=== PATIENT | male | born 1940 | race Caucasian/White ===

== ENCOUNTER 2019-07-06 17:13 | Inpatient (IN) | payer MEDICARE ==
[~2019-07-06] VITALS: Ht 167.6 cm; Wt 61.7 kg
--- NOTE | 2019-07-06 17:20 | NUR ---
ED Nurse Note: Patient here from home for elective BCIR redo surgery. Patient stated the stoma has been prolapsing randomly and emptying the contents. Patient states he can feel that some sutures came out inside. Dr. Orellana aware and surgery has been planned. Patient AxO x 4, no s/s of acute distress. VSS. at bedside. Urine sent to lab, blood drawn from power port and sent to lab.
--- NOTE | 2019-07-06 17:58 | Emergency Room Report ---
History of Present Illness General Chief Complaint: General Complaint Source: Patient Present Illness HPI Disclaimer: Please note that this report is being documented using DRAGON technology. This can lead to erroneous entry secondary to incorrect interpretation by the dictating instrument. HPI: 79-year-old male with a history of CAD status post multiple bypasses, ulcerative colitis status post BCIR ostomy over 33 years ago with revision 2 years ago in [place] presents for evaluation of prolapsed ostomy. He has been in usual state of health until his ostomy prolapsed a few days ago. He is able to manually reduce it. Denies abdominal pain, changes in output, fever, chills , chest pain, shortness of breath or other changes in his health. He is here to see Dr. Orellana for operative repair. No complaints at this time. PMH: CAD status post multiple bypasses, bilateral carotid stents, ulcerative colitis status post BCIR PSH: [place] continent internal reservoir Allergies: None reported Social Hx: Occasional beer Allergies: Coded Allergies: No Known Allergies (Unverified , 07/06/19) Nursing Documentation-PMH Past Medical History: No History, Except For Hx Cardiac Problems: Yes - CABAG 10 years ago Hx Gastrointestinal Problems: Yes - BCIR 2 years ago Hx Cerebrovascular Accident: Yes - 7 years ago Review of Systems All Other Systems: negative except mentioned in HPI Physical Exam Vital Signs Date Time Temp Pulse Resp B/P (MAP) Pulse Ox O2 Delivery O2 Flow Rate FiO2 07/06/19 17:18 98.1 77 17 158/94 (115) 98 Room Air General: Awake and alert, no acute distress HEENT: NC/AT. EOMI. Cardiovascular: RRR. S1 and S2 normal. No murmur appreciated Resp: Normal work of breathing. No cough, wheezing or crackles appreciated Abdomen: Abdomen is soft, nondistended. Nontender. Ostomy in the right lower quadrant with prolapse approximately 2 cm. Is easily reducible. Mucosa appears healthy, nonfriable, pink and well perfused. Skin: Intact. No abrasions, laceration or rash over the exposed skin MSK: Normal tone and bulk. Moving all extremities. No obvious deformity. Neuro: Awake and alert. Mentating appropriately. Medical Decision Making Diagnostic Impression: Primary Impression: Colostomy prolapse ER Course 79-year-old male with a history of ulcerative colitis status post BCIR ostomy procedure presents for surgical evaluation by Dr. Orellana for prolapsed ostomy. We will start IV line, IV fluids, check preop labs and EKG. Patient will be admitted to the care of Dr. Orellana for further management. He is well -appearing and has no complaints. Do not believe he requires imaging or other acute interventions at this time. Laboratory Tests Test 07/06/19 18:00 White Blood Count 8.7 K/UL (4.8-10.8) Red Blood Count 4.83 M/UL (4.70-6.10) Hemoglobin 13.2 G/DL (14.2-18.0) L Hematocrit 42.1 % (42.0-52.0) Mean Corpuscular Volume 87 FL (80-99) Mean Corpuscular Hemoglobin 27.2 PG (27.0-31.0) Mean Corpuscular Hemoglobin Concent 31.2 G/DL (32.0-36.0) L Red Cell Distribution Width 16.8 % (11.6-14.8) H Platelet Count 265 K/UL (150-450) Mean Platelet Volume 5.3 FL (6.5-10.1) L Neutrophils (%) (Auto) 55.9 % (45.0-75.0) Lymphocytes (%) (Auto) 29.2 % (20.0-45.0) Monocytes (%) (Auto) 11.2 % (1.0-10.0) H Eosinophils (%) (Auto) 2.7 % (0.0-3.0) Basophils (%) (Auto) 1.1 % (0.0-2.0) Prothrombin Time 9.8 SEC (9.30-11.50) Prothrombin Time INR 0.9 (0.9-1.1) PTT 27 SEC (23-33) Sodium Level 141 MMOL/L (136-145) Potassium Level 3.8 MMOL/L (3.5-5.1) Chloride Level 104 MMOL/L (98-107) Carbon Dioxide Level 26 MMOL/L (21-32) Anion Gap 11 mmol/L (5-15) Blood Urea Nitrogen 18 mg/dL (7-18) Creatinine 1.4 MG/DL (0.55-1.30) H Estimate Glomerular Filtration Rate mL/min (>60) Glucose Level 92 MG/DL (74-106) Calcium Level 8.6 MG/DL (8.5-10.1) Total Bilirubin 0.2 MG/DL (0.2-1.0) Aspartate Amino Transferase (AST) 20 U/L (15-37) Alanine Aminotransferase (ALT) 20 U/L (12-78) Alkaline Phosphatase 71 U/L (46-116) Total Protein 7.4 G/DL (6.4-8.2) Albumin 3.3 G/DL (3.4-5.0) L Globulin 4.1 g/dL Albumin/Globulin Ratio 0.8 (1.0-2.7) L EKG Diagnostic Results EKG Time: 18:02 Rate: normal Rhythm: NSR ST Segments: no acute changes Other Impression Sinus rhythm, left axis deviation, inferior Q waves, no acute ST segment changes Rhythm Strip Diag. Results Rhythm Strip Time: 18:02 EP Interpretation: yes Rate: 60s Rhythm: NSR, no PVC's, no ectopy Last Vital Signs Date Time Temp Pulse Resp B/P (MAP) Pulse Ox O2 Delivery O2 Flow Rate FiO2 07/06/19 17:18 98.1 77 17 158/94 (115) 98 Room Air Disposition: ADMITTED INPATIENT Condition: Serious Miguel Lafleur MD Jul 06, 2019 17:58
[2019-07-06 18:21] LABS: BASOPHILS % (AUTO) 1.1 % (0.0-2.0); EOSINOPHILS % (AUTO) 2.7 % (0.0-3.0); HEMATOCRIT 42.1 % (42.0-52.0); HEMOGLOBIN 13.2 G/DL (14.2-18.0); LYMPHOCYTES % (AUTO) 29.2 % (20.0-45.0); MEAN CORPUSCULAR VOLUME 87 FL (80-99); MONOCYTES % (AUTO) 11.2 % (1.0-10.0); NEUTROPHILS % (AUTO) 55.9 % (45.0-75.0); PLATELET COUNT 265 K/UL (150-450); RED BLOOD COUNT 4.83 M/UL (4.70-6.10); RED CELL DISTRIBUTION WIDTH 16.8 % (11.6-14.8); WHITE BLOOD COUNT 8.7 K/UL (4.8-10.8)
[2019-07-06 18:26] LABS: INR 0.9 (0.9-1.1)
[2019-07-06 18:27] LABS: ANION GAP 11 mmol/L (5-15); BLOOD UREA NITROGEN 18 mg/dL (7-18); CALCIUM 8.6 MG/DL (8.5-10.1); CARBON DIOXIDE 26 MMOL/L (21-32); CHLORIDE 104 MMOL/L (98-107); CREATININE 1.4 MG/DL (0.55-1.30); POTASSIUM 3.8 MMOL/L (3.5-5.1); SODIUM 141 MMOL/L (136-145)
[2019-07-06 18:32] LABS: ALANINE AMINOTRANSFERASE 20 U/L (12-78); ALBUMIN 3.3 G/DL (3.4-5.0); ALBUMIN/GLOBULIN RATIO 0.8 (1.0-2.7); ALKALINE PHOSPHATASE 71 U/L (46-116); ASPARTATE AMINO TRANSFERASE 20 U/L (15-37); BILIRUBIN,TOTAL 0.2 MG/DL (0.2-1.0)
--- NOTE | 2019-07-06 18:39 | NUR ---
ED Nurse Note: Report given to Ivory HERNANDEZ
[2019-07-06 18:50] VITALS: BP 158/94
--- NOTE | 2019-07-06 19:01 | NUR ---
NURSE NOTES: Patient arrived on unit via gurney. Patient assisted to hospital bed without incident. Patient oriented to room, call light, and unit. Patient instructed to use call light for assistance, verbalized understanding. Patient is hard of hearing in [place] ears. Upon assessment, skin is c/d/i. Stoma is in RLQ. Stoma is bright red and protruding outwards, no drainage or bleeding noted, no stool output noted coming from stoma. Stoma covered with dry dressing. All admission orders endorsed to manager night RN. BP 164/94, p 70, t 97.3, O2: 96%, 20 respirations. Denies pain at this time. Patient has a portacath on right upper chest accessed in ER. Patient in bed in locked and lowest position with call light within reach and trapeze overhead. Plan of care discussed with patient.
--- NOTE | 2019-07-06 19:30 | NUR ---
HAND-OFF: Report given to Maru HERNANDEZ. Patient is stable.
[2019-07-06] MEDS: D5 1/2NS w/KCl 20mEq 1,000 ML IV SCH (21:47)
[2019-07-07] VITALS: BP 146/87
--- NOTE | 2019-07-07 03:05 | NUR ---
NURSES NOTE: Met pt in bed, A/O X4, communicative, denies pain currently. Spouse at bedside. No outward s/s of distress noted. Breathing pattern is even and unlabored on RA. VS within normal limits. BP elevated, but has proceeded come down with each VS check. Stoma, lower right quadrant is prolapsed, bright red in color. Inserted ileostomy tubing and connected tubing to collecting bag. Flushed Ileo with 40 cc NS. Inserted without incident. Portacath Upper right chest is patent, infusing fluids according to eMAR. Head to toe assessment performed. Skin is intact. All due medications will be given. Bed at lowest level, call light within reach. Pt will continue to be monitored.
[2019-07-07 03:24] LABS: APPEARANCE,URINE CLEAR; BILIRUBIN, URINE NEGATIVE (NEGATIVE); COLOR,URINE PALE YELLOW; GLUCOSE, URINE (UA) NEGATIVE (NEGATIVE); KETONES,URINE NEGATIVE (NEGATIVE); LEUKOCYTE ESTERASE ,URINE NEGATIVE (NEGATIVE); NITRITE,URINE NEGATIVE (NEGATIVE); PH,URINE 7 (4.5-8.0); PROTEIN,URINE NEGATIVE (NEGATIVE); UROBILINOGEN,URINE NORMAL MG/DL (0.0-1.0)
[2019-07-07 04:00] VITALS: BP 145/85
[2019-07-07 06:53] LABS: INR 0.9 (0.9-1.1)
[2019-07-07 07:03] LABS: BASOPHILS % (AUTO) 0.7 % (0.0-2.0); EOSINOPHILS % (AUTO) 1.4 % (0.0-3.0); HEMATOCRIT 34.9 % (42.0-52.0); LYMPHOCYTES % (AUTO) 23.4 % (20.0-45.0); MEAN CORPUSCULAR VOLUME 87 FL (80-99); MONOCYTES % (AUTO) 7.9 % (1.0-10.0); NEUTROPHILS % (AUTO) 66.6 % (45.0-75.0); PLATELET COUNT 215 K/UL (150-450); RED CELL DISTRIBUTION WIDTH 16.4 % (11.6-14.8); WHITE BLOOD COUNT 6.2 K/UL (4.8-10.8)
--- NOTE | 2019-07-07 07:10 | NUR ---
HAND OFF: Report given to violetta Dodson.
--- NOTE | 2019-07-07 07:30 | NUR ---
NURSE NOTES: Patient is in bed AOx4 and able to verbalize needs. Stable. Denies pain or SOB. Patient is hard of hearing, Mikel is at bedside assisting with communication. Plan of care discussed with patient. Will flush ileo [id number] as ordered. Ileo draining to bag as ordered. IVF running as ordered through portacath. Patient is in bed in locked and lowest position with call light within reach and trapeze overhead. All needs met at this time. WIll continue to monitor.
[2019-07-07 08:00] VITALS: BP 183/81
[2019-07-07 08:15] LABS: ALANINE AMINOTRANSFERASE 21 U/L (12-78); ALBUMIN 2.3 G/DL (3.4-5.0); ALBUMIN/GLOBULIN RATIO 0.7 (1.0-2.7); ALKALINE PHOSPHATASE 56 U/L (46-116); ANION GAP 7 mmol/L (5-15); ASPARTATE AMINO TRANSFERASE 20 U/L (15-37); BILIRUBIN,TOTAL 0.2 MG/DL (0.2-1.0); BLOOD UREA NITROGEN 13 mg/dL (7-18); CALCIUM 7.9 MG/DL (8.5-10.1); CARBON DIOXIDE 26 MMOL/L (21-32); CHLORIDE 109 MMOL/L (98-107); CREATININE 1.1 MG/DL (0.55-1.30); FERRITIN 61 NG/ML (8-388); SODIUM 142 MMOL/L (136-145)
--- NOTE | 2019-07-07 08:15 | NUR ---
NURSES NOTE: Amendment- True ilio: 150cc 250cc-100 cc for flushes. Extra 20 cc given at first flush when putting in catheter and collecting bag.
[2019-07-07 08:21] LABS: % IRON SATURATION 9 % (15-50); IRON 20 ug/dL (50-175); TOTAL IRON BINDING CAPACITY 235 ug/dL (250-450)
[2019-07-07] MEDS ORDERED: Omnipaque-300 100ml vial INJ PRN (08:30)
--- NOTE | 2019-07-07 08:34 | General Progress Note ---
Progress Note Progress Note H&P dictated. History of Ulcerative Colitis with proctocolectomy and London continent ileostomy 1985, revision in [place] 2018. Recent months of bleeding from pouch resolved with Prednisone and Humira [id number]. 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 conventional ileostomy Pako Orellana MD Jul 07, 2019 08:34
[2019-07-07] MEDS: Tamsulosin 0.4mg cap ORAL SCH (08:54)
--- NOTE | 2019-07-07 09:04 | NUR ---
RADIOLOGY DEPT., CHEST X-RAY DONE.-P.DYE
--- NOTE | 2019-07-07 09:05 | Diagnostic Imaging Report ---
. Indication: Chest pain Technique: One view of the chest Comparison: none Findings: There is evidence of prior median sternotomy. There is a right chest port catheter. Lungs and pleural spaces are clear. The heart size is normal. The aorta is tortuous and calcified Impression: No acute process
--- NOTE | 2019-07-07 09:20 | NUR ---
NURSE NOTES: Flushed patient's ileo with 20cc NS as ordered. Tolerated well. Patient has no c/o discomfort or abdominal pain. No abdominal distension noted at this time. Patient is able to void in urinal, yellow urine noted. No c/o burning or discomfort while urinating. Patient is aware of I&O monitoring throughout shift.
--- NOTE | 2019-07-07 09:29 | NUR ---
RD ASSESSMENT & RECOMMENDATIONS SEE CARE ACTIVITY FOR COMPLETE ASSESSMENT DAILY ESTIMATED NEEDS: Needs based on Pending surgery/ 59kg 25-30 kcals/kg 8600-4803 total kcals 1-2 g protein/kg 59-118 g total protein 25-30 mL/kg 8690-7898 total fluid mLs NUTRITION DIAGNOSIS: Altered GI function R/T h/o UC, BCIR as evidenced by admitted for recurring prolapse of [place] pouch valve with incontinence, pending surgery, w/ an order for TPN. CURRENT DIET:CLD PO DIET RECOMMENDATIONS: DIET PER MD PARENTERAL NUTRITION RECOMMENDATIONS: D/AA Rate: 66 IL Rate: 9 Total Rate: 75 Volume: 1800 % Dextrose: 17 % AA: 5.3 Energy (kcals/kg): 1683.5 Protein (g/kg protein): 84 Nonprotein KCALS: 1347.5 GIR (mg CHO/kg/min): 3.16 % Fat KCALS: 26 NCP: N Ratio: 100.2 TPN Comment: * D17% AA 5.3% @ 66ml/hr + IL20% @ 9ml/hr-> total of 75ml/hr, all 3:1 * Start rate per MD * TPN @ goal provides 100% est kcal/prot needs -> 29kcal/1.4g prot per kg actual body wt ADDITIONAL RECOMMENDATIONS: * Rec obtaining standing wt for accurate CBW * Monitor BGs closely while on Prednisone * Monitor BGs, LFTs, lytes closely on TPN
--- NOTE | 2019-07-07 10:00 | Pre-op HX & Phy Repo 2 SIG ---
DATE OF ADMISSION: 07/06/2019 Admitted from the emergency room, July 06, 2019 in the evening. HISTORY OF PRESENT ILLNESS: The patient is an 79-year-old male who presents with recurring prolapse of his [place] continent ileostomy valve coming and protruding out of the stoma associated with gross incontinence. The patient has a past history of ulcerative colitis and in 1984 he underwent proctocolectomy with creation of a [place] continent ileostomy. It had to be revised twice in subsequent years. In August 2017, in [place], he underwent surgery to create a new valve and stoma preserving the [place] continent ileostomy pouch. The patient states that for the past six months he has had recurring episodes with the valve prolapses through the stoma of 5 to 6 centimeters above the skin. He has to manually reduce it. There was gross incontinence and then he is able to self catheterize again. The patient had considerable GI bleeding from his pouch a year ago and has been treated with Humira every two weeks by his cutter and presser in [place] and he also takes prednisone 5 mg daily. The patient is admitted to undergo evaluation in preparation for surgical revision of his London pouch. MEDICATIONS: Prednisone 5 mg daily, thyroid, statin, potassium supplements, and Humira every two weeks. ALLERGIES: Ativan. OPERATIONS: In addition to the above, he has undergone open cholecystectomy, cataract surgery, and ear surgery. REVIEW OF SYSTEMS: history of polycythemia requiring infusion port and phlebotomy, due to testosterone therapy which was discontinued and condition resolved but port left in place PHYSICAL EXAMINATION: GENERAL: The patient is 5 feet 8 inches, 135 pounds. VITAL SIGNS: His blood pressure was elevated. He states he has never had hypertension before. Blood pressure is in 160s over 90s systolic and diastolic. HEENT: Within normal limits. LUNGS: Clear. HEART: Regular rhythm. BREASTS: Without masses. Infusion port left upper anterior chest ABDOMEN: Soft. There is a long midline incision and multiple other scars of right subcostal scar. The stoma of the London pouch is low in the right lower quadrant with a significant parastomal hernia. There is reducible valve prolapse. RECTAL: Status post proctectomy. GENITALIA: Within normal limits. EXTREMITIES: Without edema. Pulses are 2+ femoral to pedal bilaterally. NEUROLOGIC: Physiologic. IMPRESSION: 1. Malfunctioning London continent ileostomy with recurrent prolapse of the valve through the stoma with incontinence. 2. New-onset hypertension on this admission. 3. Past history of polycythemia 4 years ago with placement of an infusion port, which resolved with discontinuation of testosterone. 4. History of ulcerative colitis. 5. STATUS POST MULTIPLE ABDOMINAL OPERATIONS: 5.1. Proctocolectomy and [place] continent ileostomy in 1984. 5.2. Revisions of London pouch x2. 5.3. Open cholecystectomy. 5.4. Revision of London pouch August 2017 performed in [place]. PLAN: The patient will be evaluated with a CT scan of abdomen and pelvis with oral contrast and an indwelling catheter will be placed into his [place] pouch to continuous drainage. He will also need to undergo pouch endoscopy. We will have cardiology evaluation regarding his new-onset hypertension and he will be prepared for surgery. I have discussed with the patient and the possibility of revising his pouch or removing it and doing a permanent conventional ileostomy, which she wants to avoid if possible. Pako Orellana M.D. DR: VERONIQUE JOB#: [id number] CC: ANU
--- NOTE | 2019-07-07 10:30 | NUR ---
NURSE NOTES: EKG done this am, normal sinus rhythm. Patient taken to CT via gurney. Will monitor patient when he returns to unit. All belongings in room with .
--- NOTE | 2019-07-07 10:51 | NUR ---
NURSE NOTES: Patient returned from CT and assisted back to bed. Will continue to monitor.
--- NOTE | 2019-07-07 11:36 | Diagnostic Imaging Report ---
Clinical Indication: Recurring prolapse of continent ileostomy, incontinence Technique: Patient given oral contrast. IV administration nonionic contrast. Venous phase spiral acquisition obtained through the abdomen and pelvis. Multiplanar reconstructions were generated. Total dose length product 808 mGycm. CTDIvol(s) 15 mGy. Dose reduction achieved using automated exposure control Comparison: none Findings: Patient is status post proctocolectomy. There is a right lower quadrant continent ileostomy. There is suggestion of a small amount of bowel herniated into the ileostomy defect and surrounding the stoma. The entering and exiting small bowel are not well demonstrated, however. No definite bowel distention appears to be associated with the hernia. The nipple protrudes less far into the pouch than would be expected.. The pouch is catheterized with a [place] catheter. No contrast is seen within the catheter lumen. However, ingested contrast is seen throughout the entirety of the small bowel and does distended the pouch. There is debris floating nondependently within the pouch. There is a distended loop of small bowel in the left upper quadrant. This is probably physiologic as it is surrounded by an anastomotic staple line. There is no evidence of obstructive pathology. No fluid collections. No free or loculated intraperitoneal gas or fluid is evident. The distal esophagus, stomach, duodenum are unremarkable. The gallbladder has been removed. No biliary ductal dilatation. The liver pancreas, spleen, adrenals are unremarkable. There is mild bilateral hydronephrosis. No definite ureteral dilatation or obstruction demonstrated. The bladder is mildly distended and demonstrates borderline wall thickening. A calcification is seen in the nondependent portion of the bladder. There is uncertain whether this is a mural calcification or an intraluminal calcification, and mucosal fold. There is suggestion of a shallow posterior bladder diverticulum The prostate is mildly prominent. No pelvic mass or adenopathy. No focal renal abnormality. 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 There appears to be a small focal associated chronic dissection. The aneurysm measures 4.4 cm in diameter by 4.7 cm in length. There is mural thrombus within the eccentric portion. There is lumbar scoliotic deformity. There is considerable degenerative spondylosis change. There is bilateral L5 spondylolysis and grade 2 L5 on S1 spondylolisthesis and severe degenerative changes of the L5-S1 disc. Included lung bases demonstrate hyperinflation and evidence of extensive chronic fibrotic change. Impression: Postsurgical changes, as described, with right lower quadrant continent ileostomy and evidence of prior proctocolectomy Apparent parastomal hernia, with small bowel surrounding the stoma. The relationship of this with the rest of the small bowel is not clearly delineated, as the entering and exiting small bowel is not clearly seen. No evidence of bowel obstruction, however. Baldwin than expected nipple within the pouch. 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 There also appears to be a small focal chronic dissection flap. Follow-up surveillance recommended. Bilateral mild hydronephrosis. This may be either due to mild congenital ureteropelvic junction obstruction or chronic bladder outlet obstruction Mildly distended mildly thick-walled bladder. Possible shallow diverticulum. Possible mural calcification versus bladder calculus trapped within a mucosal fold, favor the former Basilar pulmonary parenchymal hyperinflation and evidence of chronic fibrotic change. Correlate with clinical history Bilateral L5 spondylolysis, grade 2 L5 on S1 spondylolisthesis, and severe secondary degenerative changes of the L5-S1 disc Lumbar scoliosis and degenerative spondylosis elsewhere Evidence of prior cholecystectomy Findings discussed by phone with Dr. Orellana at the time of interpretation The CT scanner at [facility] is accredited by the [employer] and the scans are performed using protocols designed to limit radiation exposure to as low as reasonably achievable to attain images of sufficient resolution adequate for diagnostic evaluation.
[2019-07-07 12:00] VITALS: BP 164/88
--- NOTE | 2019-07-07 12:00 | NUR ---
NURSE NOTES: Flushed ileo with 20cc NS. Thick yellowish brown output noted draining into bag. Patient is asleep.
--- NOTE | 2019-07-07 15:19 | Cardiology Progress Note ---
Assessment/Plan Status Narrative 1. U.C. 2. Malfunctioning [place]ock Pouch 3. CAD, S/P CABG 4. BL Carotid stenosis- s/p stents 5. AAA- stable 6. HTN 7. Hearing loss Assessment/Plan Review records from PMD- stress test done in Mar 2019 Norvasc 2.5 mg BID and PRN for BP >150 Plan Echo to assess LV function when BP stable, may proceed with surgery. Discussed with Dr. Orellana and Patient's . Subjective Cardiovascular: Reports: no symptoms Respiratory: Reports: no symptoms Gastrointestinal/Abdominal: Reports: abdominal pain Genitourinary: Reports: no symptoms Subjective Patient admitted for revision of Kock Pouch. He has h/o CAD, S/P CABG 10 yrs ago, s/p BL carotid stents, and h/o AAA. Patient denies h/o HTn, but his BP has been elevated since admission Objective Last 24 Hour Vital Signs Date Time Temp Pulse Resp B/P (MAP) Pulse Ox O2 Delivery O2 Flow Rate FiO2 07/07/19 12:00 98.3 77 21 164/88 (113) 99 07/07/19 09:00 Room Air 07/07/19 08:00 97.3 70 21 183/81 (115) 97 07/07/19 04:00 98.0 64 18 145/85 (105) 95 07/07/19 00:00 97.3 89 18 146/87 (106) 93 07/06/19 21:00 Room Air 07/06/19 21:00 Room Air 07/06/19 18:50 98.1 17 158/94 98 Room Air 07/06/19 18:50 98.1 17 158/94 98 Room Air 07/06/19 17:25 77 17 Room Air 07/06/19 17:18 98.1 77 17 158/94 (115) 98 Room Air EENT: PERRL/EOMI Neck: non-tender, no JVD Cardiovascular: normal rate, regular rhythm Respiratory/Chest: lungs clear, normal breath sounds Abdomen: normal bowel sounds, non tender, soft, no organomegaly, no mass Extremities: non-tender, normal inspection, no calf tenderness, no swelling Intake and Output 07/06/19 07/07/19 19:00 07:00 Intake Total 0 ml 915 ml Output Total 795 ml Balance 0 ml 120 ml Intake Oral 0 ml 240 ml IV Total 675 ml Output Urine Total 625 ml Other 170 ml # Voids 4 # Bowel Movements 1 Laboratory Tests Test 07/06/19 18:00 07/07/19 00:30 07/07/19 05:00 White Blood Count 8.7 K/UL (4.8-10.8) 6.2 K/UL (4.8-10.8) Red Blood Count 4.83 M/UL (4.70-6.10) 4.00 M/UL (4.70-6.10) L Hemoglobin 13.2 G/DL (14.2-18.0) L 11.0 G/DL (14.2-18.0) L Hematocrit 42.1 % (42.0-52.0) 34.9 % (42.0-52.0) L Mean Corpuscular Volume 87 FL (80-99) 87 FL (80-99) Mean Corpuscular Hemoglobin 27.2 PG (27.0-31.0) 27.5 PG (27.0-31.0) Mean Corpuscular Hemoglobin Concent 31.2 G/DL (32.0-36.0) L 31.5 G/DL (32.0-36.0) L Red Cell Distribution Width 16.8 % (11.6-14.8) H 16.4 % (11.6-14.8) H Platelet Count 265 K/UL (150-450) 215 K/UL (150-450) Mean Platelet Volume 5.3 FL (6.5-10.1) L 6.0 FL (6.5-10.1) L Neutrophils (%) (Auto) 55.9 % (45.0-75.0) 66.6 % (45.0-75.0) Lymphocytes (%) (Auto) 29.2 % (20.0-45.0) 23.4 % (20.0-45.0) Monocytes (%) (Auto) 11.2 % (1.0-10.0) H 7.9 % (1.0-10.0) Eosinophils (%) (Auto) 2.7 % (0.0-3.0) 1.4 % (0.0-3.0) Basophils (%) (Auto) 1.1 % (0.0-2.0) 0.7 % (0.0-2.0) Prothrombin Time 9.8 SEC (9.30-11.50) 10.0 SEC (9.30-11.50) Prothromb Time International Ratio 0.9 (0.9-1.1) 0.9 (0.9-1.1) Activated Partial Thromboplast Time 27 SEC (23-33) 26 SEC (23-33) Sodium Level 141 MMOL/L (136-145) 142 MMOL/L (136-145) Potassium Level 3.8 MMOL/L (3.5-5.1) 4.0 MMOL/L (3.5-5.1) Chloride Level 104 MMOL/L (98-107) 109 MMOL/L (98-107) H Carbon Dioxide Level 26 MMOL/L (21-32) 26 MMOL/L (21-32) Anion Gap 11 mmol/L (5-15) 7 mmol/L (5-15) Blood Urea Nitrogen 18 mg/dL (7-18) 13 mg/dL (7-18) Creatinine 1.4 MG/DL (0.55-1.30) H 1.1 MG/DL (0.55-1.30) Estimat Glomerular Filtration Rate mL/min (>60) mL/min (>60) Glucose Level 92 MG/DL (74-106) 91 MG/DL (74-106) Calcium Level 8.6 MG/DL (8.5-10.1) 7.9 MG/DL (8.5-10.1) L Total Bilirubin 0.2 MG/DL (0.2-1.0) 0.2 MG/DL (0.2-1.0) Aspartate Amino Transf (AST/SGOT) 20 U/L (15-37) 20 U/L (15-37) Alanine Aminotransferase (ALT/SGPT) 20 U/L (12-78) 21 U/L (12-78) Alkaline Phosphatase 71 U/L (46-116) 56 U/L (46-116) Total Protein 7.4 G/DL (6.4-8.2) 5.7 G/DL (6.4-8.2) L Albumin 3.3 G/DL (3.4-5.0) L 2.3 G/DL (3.4-5.0) L Globulin 4.1 g/dL 3.4 g/dL Albumin/Globulin Ratio 0.8 (1.0-2.7) L 0.7 (1.0-2.7) L Urine Color Pale yellow Urine Appearance Clear Urine pH 7 (4.5-8.0) Urine Specific Adams 1.010 (1.005-1.035) Urine Protein Negative (NEGATIVE) Urine Glucose (UA) Negative (NEGATIVE) Urine Ketones Negative (NEGATIVE) Urine Blood Negative (NEGATIVE) Urine Nitrite Negative (NEGATIVE) Urine Bilirubin Negative (NEGATIVE) Urine Urobilinogen Normal MG/DL (0.0-1.0) Urine Leukocyte Esterase Negative (NEGATIVE) Urine RBC 0-2 /HPF (0 - 0) H Urine WBC 0 /HPF (0 - 0) Urine Squamous Epithelial Cells None /LPF (NONE/OCC) Urine Bacteria None /HPF (NONE) Iron Level 20 ug/dL (50-175) L Total Iron Binding Capacity 235 ug/dL (250-450) L Percent Iron Saturation 9 % (15-50) L Unsaturated Iron Binding 215 ug/dL (112-346) Ferritin 61 NG/ML (8-388) Vitamin B12 Level > 2000 PG/ML (193-986) H Folate 35.5 NG/ML (8.6-58.9) Rommel Townsend MD Jul 07, 2019 15:19
--- NOTE | 2019-07-07 15:20 | NUR ---
NURSE NOTES: Left message for patient's primary heat treater apprentice Dr. mendenhall regarding cardiology reports and a copy of the stress test to [place] [facility] [place] Ger[facility] Physical Therapist's office is closed at this time but message left with legal receptionist, awaiting return call.
--- NOTE | 2019-07-07 15:30 | NUR ---
NURSE NOTES: Faxed release form for cardiology reports and stress test. Will endorse to next shift to follow up with Dr. mendenhall's office.
[2019-07-07 16:05] VITALS: BP 172/83
--- NOTE | 2019-07-07 18:42 | NUR ---
NURSE NOTES: True ileo: 670cc brownish yellow thick output. Flushed q3h as ordered. UO: 1550, pale yellow urine. Patient has difficulty ambulating d/t weakness but is able to ambulate around room. Patient told RN that he has not yet recovered from jet lag. Patient's bp is 161/81 pulse 71, norvasc given as ordered by Dr. Townsend.
--- NOTE | 2019-07-07 19:30 | NUR ---
HAND-OFF: Report given to Maru HERNANDEZ. patient is stable.
[2019-07-07 20:00] VITALS: BP 163/79
[2019-07-07] MEDS ORDERED: Dextrose 10% 1,000 ML IV PRN (20:00)
--- NOTE | 2019-07-07 20:17 | NUR ---
NURSES NOTE: Pt in bed, A/OX4, denies pain currently. No outward s/s of distress noted. Breathing is even and unlabored on RA. is at bedside. Ileo is patent, draining to gravity. Dressing is saturated. Will be changed at med pass. VS taken. BP elevated. Portacath, R upper chest, patent, no s/s of infection. All due meds will be given. Bed at lowest level, call light within reach. Pt will continue to be monitored.
[2019-07-07] MEDS: Dyna-Hex 2% Top Sol 2oz TOPIC SCH (20:36)
[2019-07-07] MEDS: Fat Emulsion Iv 20% 216 ML in Tpn 1,584 ML IV SCH (20:38)
[2019-07-07] MEDS: Phytonadione 10 mg/mL 1ml amp SUBQ SCH (20:58)
[2019-07-07] MEDS: Iron Sucrose 100 MG in NS 55 ML IV SCH (20:58)
[2019-07-07] MEDS ORDERED: Fat Emulsion Iv 20% 250 ML IV SCH (21:00)
[2019-07-07] MEDS: HYDROcodone/Acetamin 5/325 tab ORAL PRN (21:22)
[2019-07-07] MEDS: traMADol 50mg tab ORAL PRN (23:36)
[2019-07-08] VITALS: BP 142/80
[2019-07-08 04:00] VITALS: BP 145/78
[2019-07-08 05:24] LABS: EOSINOPHILS % (AUTO) 3.7 % (0.0-3.0); HEMATOCRIT 37.3 % (42.0-52.0); HEMOGLOBIN 11.8 G/DL (14.2-18.0); LYMPHOCYTES % (AUTO) 28.9 % (20.0-45.0); MEAN CORPUSCULAR VOLUME 89 FL (80-99); MONOCYTES % (AUTO) 10.7 % (1.0-10.0); NEUTROPHILS % (AUTO) 55.7 % (45.0-75.0); PLATELET COUNT 213 K/UL (150-450); RED BLOOD COUNT 4.21 M/UL (4.70-6.10); RED CELL DISTRIBUTION WIDTH 19.3 % (11.6-14.8); WHITE BLOOD COUNT 6.3 K/UL (4.8-10.8)
[2019-07-08 05:35] LABS: ALANINE AMINOTRANSFERASE 15 U/L (12-78); ALBUMIN 2.3 G/DL (3.4-5.0); ALBUMIN/GLOBULIN RATIO 0.6 (1.0-2.7); ALKALINE PHOSPHATASE 59 U/L (46-116); ANION GAP 7 mmol/L (5-15); ASPARTATE AMINO TRANSFERASE 20 U/L (15-37); BILIRUBIN,TOTAL 0.2 MG/DL (0.2-1.0); BLOOD UREA NITROGEN 8 mg/dL (7-18); CALCIUM 7.9 MG/DL (8.5-10.1); CARBON DIOXIDE 26 MMOL/L (21-32); CHLORIDE 109 MMOL/L (98-107); PHOSPHORUS 4.4 MG/DL (2.5-4.9); POTASSIUM 3.8 MMOL/L (3.5-5.1); SODIUM 142 MMOL/L (136-145)
[2019-07-08] MEDS: HYDROcodone/Acetamin 5/325 tab ORAL PRN (05:47)
[2019-07-08] MEDS: Insulin NovoLOG Flexpen S/S (Mod) SUBQ SCH ×4 (05:52→18:32)
[2019-07-08] MEDS ORDERED: Lidocaine 1% Plain 30 ml INJ ONE (07:00)
[2019-07-08] MEDS ORDERED: Heparin1,000 units/500ml Premix(Conc:2 units/ml) ONE (07:00)
[2019-07-08 08:00] VITALS: BP 159/87
--- NOTE | 2019-07-08 08:03 | NUR ---
HAND OFF: Report given to violetta love. Patient stable.
--- NOTE | 2019-07-08 08:12 | NUR ---
NURSE NOTES: ASLEEP. IN NO APPARENT DISTRESS.
[2019-07-08] MEDS: Tamsulosin 0.4mg cap ORAL SCH (08:36)
--- NOTE | 2019-07-08 09:30 | NUR ---
HAND-OFF: Report given to pat shipley.
--- NOTE | 2019-07-08 09:30 | NUR ---
NURSE NOTES: Received report from DAVID Jenkins. Pt is a/o x 4, in bed. Denies any pain at this time. Ileostomy bag is patent. Bed in lowest position, call light within reach. Will continue to monitor.
--- NOTE | 2019-07-08 11:57 | NUR ---
HAND-OFF: Report given to DAVID Navarro. Pt is stable.
[2019-07-08 12:00] VITALS: BP 145/80
--- NOTE | 2019-07-08 12:48 | General Progress Note ---
Progress Note Progress Note AVSS with mild persistent hypertension now on meds per Dr. 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
[2019-07-08] MEDS ORDERED: Lidocaine 1% Plain 30 ml INJ PRN (13:30)
[2019-07-08] MEDS ORDERED: Heparin1,000 units/500ml Premix(Conc:2 units/ml) IV PRN (13:30)
--- NOTE | 2019-07-08 13:36 | NUR ---
NURSE NOTES: Called radiology at extension [phone] and informed tech of STAT PICC line placement. Tech aware, line will be placed today.
--- NOTE | 2019-07-08 14:00 | NUR ---
NURSE NOTES: Patient returned from PICC line placement with double lumen PHILIP PICC in place, biopatch, statlock and tegaderm placed by radiologist. Dressing is clean and dry. Addendum: 07/08/19 at 1518 by Melanie Cottrell RN NURSE NOTES: Edit: Wrong time. Patient returned from PICC placement at 1515.
--- NOTE | 2019-07-08 14:18 | NUR ---
CASE MANAGEMENT: INITIAL REVIEW 79YR OLD MALE HERE FOR ELECTIVE SURGERY CC: FISTULA MALFUNCTION SI:COLOSTOMY PROLAPSE 98.1 77 17 158/94 98% ON RA CREAT 1.4 ALB 3.3 IS:IV D5 1/2NS W/KCL @75ML/HR \: 3E MED SURG UNIT DCP: HOME WHEN MEDICALLY STABLE CASE MANAGEMENT: REVIEW 07/07/2019 SI:MALFUNCTION HULL CONTINENT ILEOSTOMY WITH RECURRING VALVE PROLAPSE 98.3 61 20 172/83 98% ON RA H/H 11/34.9 CL-109 CA+7.9 VIT B12>2000 IS:IV D5 1/2NS W/KCL @75ML/HR IV TPN Q24HR IV VENOFER X5 BAGS PREDNISONE PO QD FLOMAX PO QD PROTONIX PO QD NORVASC PO BID VIT K SQ QWK RAMIRO-HEX TP QD \: 3E MED SURG UNIT DCP: HOME WHEN MEDICALLY STABLE PLAN: CONT DRAINAGE OF HULL POUCH TPN CARDIO EVAL CT ABD/PEL W/WO CONTRAST POUCH ENDOSCOPY CASE MANAGEMENT: REVIEW 07/08/2019 SI:MALFUNCTION HULL CONTINENT ILEOSTOMY WITH RECURRING VALVE PROLAPSE 98.2 83 18 145/80 94% ON RA CL-109 CA+7.9 H/H 11.8/37.8 IS:MG SULFATE X2BAGS IV TPN Q24HR IV VENOFER X5 BAGS PREDNISONE PO QD FLOMAX PO QD PROTONIX PO QD NORVASC PO BID VIT K SQ QWK RAMIRO-HEX TP QD \: 3E MED SURG UNIT DCP: HOME WHEN MEDICALLY STABLE PLAN: CONT DRAINAGE OF HULL POUCH CLEAR LIQ DIET CONT TPN HULL POUCH ENDOSCOPY IN AM
--- NOTE | 2019-07-08 15:41 | Diagnostic Imaging Report ---
Indications: Needs long-term IV access Technique: Ultrasound confirms patent compressible left basilic vein. Total sterile technique, including sterile probe cover and sterile gel, hat, mask,, sterile gown, large sterile drape, and preparation with 2% chlorhexidine utilized. Local anesthesia with 1% lidocaine. Under real-time ultrasound guidance, puncture left basilic vein using 21-gauge needle, documented and archived, passage 0.018 guidewire under direct fluoroscopy, which was used to determine appropriate catheter length, exchange for 4.5 Khmer peel-away sheath. 4 Khmer dual-lumen power PICC cut to 38 cm. It was inserted through the peel-away sheath. Peel-away sheath and guidewire removed. Catheter fixed to the skin. Both catheter ports aspirated and flushed. Patient tolerated procedure well, without immediate complication. Digital radiograph documents satisfactory catheter tip position, at the cavoatrial junction. Total procedure time 15 minutes. Total fluoroscopy time 43.8 seconds . Total fluoroscopy dose 2.86 mGy Impression: Successful placement of 4 Khmer double-lumen PICC line under sonographic and fluoroscopic guidance, as described above.
[2019-07-08 16:00] VITALS: BP 160/83
--- NOTE | 2019-07-08 16:33 | Cardiology Progress Note ---
Assessment/Plan Status Narrative 1. U.C. 2. Malfunctioning London Pouch 3. CAD, S/P CABG 4. BL Carotid stenosis- s/p stents 5. AAA- stable 6. HTN 7. Hearing loss Assessment/Plan Review records from PMD- stress test done in Mar 2019 Norvasc increased to 5 mg BID . Plan Echo to assess LV function- pending when BP stable, may proceed with surgery.- most likely by Saturday Discussed with Dr. Orellana and Patient's . Subjective Cardiovascular: Reports: no symptoms Respiratory: Reports: no symptoms Gastrointestinal/Abdominal: Reports: no symptoms Genitourinary: Reports: no symptoms Subjective 07/07/19- Patient admitted for revision of [place] Pouch. He has h/o CAD, S/P CABG 10 yrs ago, s/p BL carotid stents, and h/o AAA. Patient denies h/o HTn, but his BP has been elevated since admission 07/08 doing OK , BP imroving, PICC line placed. Objective Last 24 Hour Vital Signs Date Time Temp Pulse Resp B/P (MAP) Pulse Ox O2 Delivery O2 Flow Rate FiO2 07/08/19 12:00 98.2 83 18 145/80 (101) 94 07/08/19 09:32 Room Air 07/08/19 08:36 86 159/87 07/08/19 08:00 97.3 86 20 159/87 (111) 97 07/08/19 04:00 98.1 59 19 145/78 (100) 96 07/08/19 00:00 97.8 60 20 142/80 (100) 96 07/07/19 23:38 83 161/73 07/07/19 21:00 Room Air 07/07/19 20:00 97.9 71 20 163/79 (107) 95 07/07/19 18:26 71 161/81 Cardiovascular: normal rate, no gallop/murmur Respiratory/Chest: lungs clear Abdomen: normal bowel sounds, non tender Extremities: non-tender, normal inspection, no swelling Intake and Output 07/07/19 07/08/19 19:00 07:00 Intake Total 1440 ml 1515 ml Output Total 2220 ml 2220 ml Balance -780 ml -705 ml Intake Oral 1440 ml 1440 ml IV Total 75 ml Output Urine Total 1550 ml 1550 ml Other 670 ml 670 ml # Voids 7 7 # Bowel Movements 1 Laboratory Tests Test 07/08/19 04:35 White Blood Count 6.3 K/UL (4.8-10.8) Red Blood Count 4.21 M/UL (4.70-6.10) L Hemoglobin 11.8 G/DL (14.2-18.0) L Hematocrit 37.3 % (42.0-52.0) L Mean Corpuscular Volume 89 FL (80-99) Mean Corpuscular Hemoglobin 28.1 PG (27.0-31.0) Mean Corpuscular Hemoglobin Concent 31.7 G/DL (32.0-36.0) L Red Cell Distribution Width 19.3 % (11.6-14.8) H Platelet Count 213 K/UL (150-450) Mean Platelet Volume 5.6 FL (6.5-10.1) L Neutrophils (%) (Auto) 55.7 % (45.0-75.0) Lymphocytes (%) (Auto) 28.9 % (20.0-45.0) Monocytes (%) (Auto) 10.7 % (1.0-10.0) H Eosinophils (%) (Auto) 3.7 % (0.0-3.0) H Basophils (%) (Auto) 1.0 % (0.0-2.0) Sodium Level 142 MMOL/L (136-145) Potassium Level 3.8 MMOL/L (3.5-5.1) Chloride Level 109 MMOL/L (98-107) H Carbon Dioxide Level 26 MMOL/L (21-32) Anion Gap 7 mmol/L (5-15) Blood Urea Nitrogen 8 mg/dL (7-18) Creatinine 1.0 MG/DL (0.55-1.30) Estimat Glomerular Filtration Rate mL/min (>60) Glucose Level 114 MG/DL (74-106) H Calcium Level 7.9 MG/DL (8.5-10.1) L Phosphorus Level 4.4 MG/DL (2.5-4.9) Magnesium Level 1.8 MG/DL (1.8-2.4) Total Bilirubin 0.2 MG/DL (0.2-1.0) Aspartate Amino Transf (AST/SGOT) 20 U/L (15-37) Alanine Aminotransferase (ALT/SGPT) 15 U/L (12-78) Alkaline Phosphatase 59 U/L (46-116) Total Protein 5.9 G/DL (6.4-8.2) L Albumin 2.3 G/DL (3.4-5.0) L Globulin 3.6 g/dL Albumin/Globulin Ratio 0.6 (1.0-2.7) L Rommel Townsend MD Jul 08, 2019 16:33
--- NOTE | 2019-07-08 18:24 | NUR ---
NURSE NOTES: Central line dressing with biopatch applied to right upper chest port a cath per OM policy, prior dressing was tegaderm only.
--- NOTE | 2019-07-08 18:30 | NUR ---
NURSE NOTES: Total ileo output for shift: 445mL Total urine output: 1400mL
--- NOTE | 2019-07-08 19:44 | NUR ---
HAND-OFF: Report given to Renee HERNANDEZ.
--- NOTE | 2019-07-08 19:45 | NUR ---
NURSE NOTES: Received patient in no apparent distress. A&OX4. PICC line noted on left upper arm, patent and intact. Port a cath noted on right chest, patent and intact. at bedside. Bed in lowest position. Call light within reach. Will continue to monitor.
[2019-07-08 20:00] VITALS: BP 150/82
[2019-07-08] MEDS ORDERED: Dyna-Hex 2% Top Sol 2oz TOPIC SCH (20:00)
[2019-07-08] MEDS: Fat Emulsion Iv 20% 216 ML in Tpn 1,584 ML IV SCH (20:35)
[2019-07-08] MEDS: Iron Sucrose 100 MG in NS 55 ML IV SCH (20:36)
[2019-07-08] MEDS: Dyna-Hex 2% Top Sol 2oz TOPIC SCH (20:36)
[2019-07-09] VITALS: BP 138/74
[2019-07-09 04:00] VITALS: BP 129/70
[2019-07-09 05:39] LABS: BASOPHILS % (AUTO) 0.7 % (0.0-2.0); EOSINOPHILS % (AUTO) 3.1 % (0.0-3.0); HEMATOCRIT 36.2 % (42.0-52.0); HEMOGLOBIN 11.7 G/DL (14.2-18.0); LYMPHOCYTES % (AUTO) 23.8 % (20.0-45.0); MEAN CORPUSCULAR VOLUME 87 FL (80-99); MONOCYTES % (AUTO) 9.6 % (1.0-10.0); NEUTROPHILS % (AUTO) 62.8 % (45.0-75.0); PLATELET COUNT 234 K/UL (150-450); RED BLOOD COUNT 4.15 M/UL (4.70-6.10); RED CELL DISTRIBUTION WIDTH 18.9 % (11.6-14.8); WHITE BLOOD COUNT 6.8 K/UL (4.8-10.8)
[2019-07-09] MEDS: Insulin NovoLOG Flexpen S/S (Mod) SUBQ SCH ×4 (06:00→17:24)
[2019-07-09 06:10] LABS: ALANINE AMINOTRANSFERASE 21 U/L (12-78); ALBUMIN 2.2 G/DL (3.4-5.0); ALBUMIN/GLOBULIN RATIO 0.6 (1.0-2.7); ALKALINE PHOSPHATASE 58 U/L (46-116); ANION GAP 7 mmol/L (5-15); ASPARTATE AMINO TRANSFERASE 23 U/L (15-37); BILIRUBIN,TOTAL 0.1 MG/DL (0.2-1.0); BLOOD UREA NITROGEN 12 mg/dL (7-18); CARBON DIOXIDE 27 MMOL/L (21-32); CHLORIDE 108 MMOL/L (98-107); CREATININE 0.9 MG/DL (0.55-1.30); PHOSPHORUS 4.2 MG/DL (2.5-4.9); POTASSIUM 3.6 MMOL/L (3.5-5.1); SODIUM 142 MMOL/L (136-145)
--- NOTE | 2019-07-09 07:39 | NUR ---
HAND-OFF: Report given to Obed Sherman RN/Jacqueline Krishnamurthy RN.
--- NOTE | 2019-07-09 07:40 | NUR ---
NURSE NOTES: Patient lying in bed sleeping. No complain of pain or distress at this time. Skin intact and dry. PICC line dressing and port-a-cath dressing intact and dry. TPN on going as ordered. Ileostomy catheter patent and draining well. Bed lowest position. Call light within reach. Will continue to monitor.
[2019-07-09 08:00] VITALS: BP 161/90
[2019-07-09] MEDS: Tamsulosin 0.4mg cap ORAL SCH (08:43)
--- NOTE | 2019-07-09 09:37 | NUR ---
NURSE NOTES: Spoke to regarding blood pressure and new order received. Order read back and carried out.
[2019-07-09] MEDS: Losartan 50mg tab ORAL SCH (10:01)
[2019-07-09] MEDS: HYDROcodone/Acetamin 5/325 tab ORAL PRN ×2 (10:02→17:08)
--- NOTE | 2019-07-09 11:34 | General Progress Note ---
Progress Note Progress Note AVSS still elevated BP managed by Cardiology. 2D Echocardiogram result pending Tolerating clear liquids and TPN Albumin 2.2 Imp: Malfunctioning [place] pouch and peristomal hernia Plan: Pouch endoscopy today surgery when cleared by Cardiology continue TPN Pako Orellana MD Jul 09, 2019 11:33
[2019-07-09 11:35] VITALS: BP 133/61
--- NOTE | 2019-07-09 11:44 | Pre-Procedure Note/Attestation ---
Pre-Procedure Note/Attestation Complete Prior to Procedure Planned Procedure: not applicable Procedure Narrative: Surya continent ileostomy pouch endoscopy Indications for Procedure Pre-Operative Diagnosis: [place] pouch valve prolapse Attestation I attest that I discussed the nature of the procedure; its benefits; risks and complications; and alternatives (and the risks and benefits of such alternatives ), prior to the procedure, with the patient (or the patient's legal manufacturers service representative). I attest that, if there was a reasonable possibility of needing a blood transfusion, the patient (or the patient's legal manufacturers service representative) was given the [facility] standardized written summary, pursuant to the Scott Sanjay Blood Safety Act ([place] Health and Safety Code # 1645, as amended). I attest that I re-evaluated the patient just prior to the surgery and that there has been no change in the patient's H&P, except as documented below:none Pako Orellana MD Jul 09, 2019 11:44
--- NOTE | 2019-07-09 14:00 | NUR ---
NURSE NOTES: Patient off unit for procedure in stable condition.
--- NOTE | 2019-07-09 15:56 | NUR ---
CASE MANAGEMENT: REVIEW 07/09/2019 SI:MALFUNCTION DELLA CONTINENT ILEOSTOMY WITH RECURRING VALVE PROLAPSE 98.1 72 20 161/90 93% ON RA CL-108 CA+8 H/H 11.7/36.2 IS:IV TPN Q24HR IV VENOFER X5 BAGS PREDNISONE PO QD FLOMAX PO QD COZAAR PO QD PROTONIX PO QD NORVASC PO BID VIT K SQ QWK RAMIRO-HEX TP QD \: 3E MED SURG UNIT DCP: HOME WHEN MEDICALLY STABLE PLAN: CONT TPN DELLA POUCH ENDOSCOPY TODAY SURGERY WHEN CLEARED BY CARDIO
[2019-07-09 16:00] VITALS: BP 143/74
--- NOTE | 2019-07-09 19:33 | NUR ---
HAND-OFF: Report given to DAVID Duran.
--- NOTE | 2019-07-09 19:34 | NUR ---
NURSE NOTES: Received patient in no apparent distress. A&OX4. PICC line noted on left upper arm, patent and intact. Port a cath noted on right chest, patent and intact. Ileostomy cath draining well by gravity. at bedside. Bed in lowest position. Call light within reach. Will continue to monitor.
[2019-07-09] MEDS: Dyna-Hex 2% Top Sol 2oz TOPIC SCH (19:44)
[2019-07-09] MEDS: Fat Emulsion Iv 20% 216 ML in Tpn 1,584 ML IV SCH (19:45)
[2019-07-09 20:00] VITALS: BP 134/74
[2019-07-09] MEDS: Iron Sucrose 100 MG in NS 55 ML IV SCH (20:08)
--- NOTE | 2019-07-09 20:45 | Procedure Note ---
DATE OF PROCEDURE: 07/09/2019 ENDOSCOPY REPORT ENDOSCOPIST: Pako Orellana M.D. ANESTHESIA: None. SEDATION: None. PRE-ENDOSCOPY DIAGNOSES: 1. Malfunctioning London continent ileostomy with prolapse of the nipple valve with incontinence. 2. Peristomal hernia. 3. History of ulcerative colitis. 4. STATUS POST MULTIPLE ABDOMINAL OPERATIONS: 4.1. Proctocolectomy and [place] continent ileostomy in 1984. 4.2. Revision of London pouch x2. 4.3. Open cholecystectomy. 4.4. Revision of [place] pouch August 2017 performed in [place]. POST-ENDOSCOPY DIAGNOSES: 1. Malfunctioning [place] continent ileostomy with prolapse of the nipple valve with incontinence. 2. Peristomal hernia. 3. History of ulcerative colitis. 4. STATUS POST MULTIPLE ABDOMINAL OPERATIONS: 4.1. Proctocolectomy and [place] continent ileostomy in 1984. 4.2. Revision of [place] pouch x2. 4.3. Open cholecystectomy. 4.4. Revision of London pouch August 2017 performed in [place]. ENDOSCOPY PERFORMED: London continent ileostomy pouch endoscopy. FINDINGS: The pouch is normal without any sign of erythema, inflammation, or ulcerations. The nipple valve is circumferentially well-formed as long as it is reduced into the pouch. DESCRIPTION OF PROCEDURE: The patient was positioned supine in the GI lab without any anesthesia or sedation given or required. Using a GIF-P140 endoscope, the stoma was entered and the access segment negotiated without difficulty into the pouch. The pouch was distensible and mucosa appeared normal. Retroflexed views revealed a well-formed nipple valve. Withdrawal views confirmed the above findings. Following removal of the endoscope, I was able to readily insert a 28-Welsh Guadarrama catheter into the pouch and connected to a continuous gravity drainage bag. The patient will be prepared for surgical revision. He tolerated the endoscopy well. Pako Orellana M.D. DR: ALLIE JOB#: [id number] CC: ANU
[2019-07-09] MEDS ORDERED: Tubing IV Secondary IV ONE (23:48)
[2019-07-10] VITALS: BP 102/54
[2019-07-10 04:00] VITALS: BP 109/60
[2019-07-10] MEDS: Insulin NovoLOG Flexpen S/S (Mod) SUBQ SCH ×4 (06:00→17:59)
--- NOTE | 2019-07-10 07:24 | NUR ---
HAND-OFF: Report given to Estela HERNANDEZ.
[2019-07-10 08:00] VITALS: BP 123/56
--- NOTE | 2019-07-10 08:02 | NUR ---
NURSE NOTES: Pt awake , has difficulty hearing. is at bedside , and inquired about surgery date, and time. Can Reconditioner does not have that information at this time. Did inform that has been cleared for surgery by cardiology. Current plan of care to include monitoring of output, blood glucose related to TPN use.
[2019-07-10] MEDS ORDERED: Ascorbic Acid 500mg tab ORAL PRN (08:15)
--- NOTE | 2019-07-10 08:33 | General Progress Note ---
Progress Note Progress Note Doing well on TPN and clear liquids Abdomen soft I&O satisf; labs stable Imp: [place] pouch valve prolapse and parastomal hernia Plan: cleared for surgery by Dr. Townsend scheduled for 07/13 at 0730 will allow BCIR diet + TPN and resume clear liquids on 07/15 Pako Orellana MD Jul 10, 2019 08:33
[2019-07-10] MEDS: Losartan 50mg tab ORAL SCH (09:00)
[2019-07-10] MEDS: Tamsulosin 0.4mg cap ORAL SCH (09:19)
[2019-07-10 12:00] VITALS: BP 123/56
--- NOTE | 2019-07-10 14:29 | NUR ---
RD ASSESSMENT & RECOMMENDATIONS SEE CARE ACTIVITY FOR COMPLETE ASSESSMENT DAILY ESTIMATED NEEDS: Needs based on Pending surgery/ 59kg 25-30 kcals/kg 0578-9124 total kcals 1-2 g protein/kg 59-118 g total protein 25-30 mL/kg 3831-9704 total fluid mLs NUTRITION DIAGNOSIS: Altered GI function R/T h/o UC, BCIR as evidenced by admitted for recurring prolapse of [place] pouch valve with incontinence, pending surgery, currently on BCIR low residue diet + TPN. CURRENT DIET:BCIR LOW RESIDUE DIET PO DIET RECOMMENDATIONS: DIET PER MD PARENTERAL NUTRITION RECOMMENDATIONS: D/AA Rate: 66 IL Rate: 9 Total Rate: 75 Volume: 1800 % Dextrose: 17 % AA: 5.3 Energy (kcals/kg): 1683.5 Protein (g/kg protein): 84 Nonprotein KCALS: 1347.5 GIR (mg CHO/kg/min): 3.16 % Fat KCALS: 26 NCP: N Ratio: 100.2 TPN Comment: * D17% AA 5.3% @ 66ml/hr + IL20% @ 9ml/hr-> total of 75ml/hr, all 3:1 * TPN @ goal provides 100% est kcal/prot needs -> 29kcal/1.4g prot per kg actual body wt ADDITIONAL RECOMMENDATIONS: * Rec obtaining standing wt for accurate CBW * Monitor BGs closely while on Prednisone * Monitor BGs, LFTs, lytes closely on TPN
--- NOTE | 2019-07-10 15:16 | NUR ---
NURSE NOTES: Pt is currently sleep. Has had minimal urinary output 400 cc since start of shift dark yellow in color clear no presence of sediment. Ileostomy output light green in color with no odor. Denied abdominal discomfort after BCIR meal, consumed less than 25 percent for dinner , roughly 50 percent of lunch. Fluids at bedside
--- NOTE | 2019-07-10 15:44 | NUR ---
NURSE NOTES: Dr Townsend here informed that pt refused blood pressure medication r/b explained. Per pt blood pressure usually runs low, and is unaware why is blood pressure has been high upon admission. Blood pressure 123/56 today. Feed Mill Tender asked if he would like to add parameters orders noted. Pt made and made aware of changes made to blood pressure medication
--- NOTE | 2019-07-10 15:48 | Cardiology Progress Note ---
Assessment/Plan Status Narrative 1. U.C. 2. Malfunctioning [place] Pouch 3. CAD, S/P CABG- studies from PMD reviewed, no evidence of ischemia on nuclear scan done in Apr 2019 4. BL Carotid stenosis- s/p stents 5. AAA- stable 6. HTN- improved on meds. 7. Hearing loss Assessment/Plan Reviewed records from PMD- stress test done in Apr 2019- negative for ischemia Norvasc 5 mg BID PRN only Continue Losartan 50 mg/day- Hold for SBP < 120 Echo : Nl LV function- Since BP stable, may proceed with surgery. Discussed with Dr. Orellana and Patient's . Subjective Cardiovascular: Reports: no symptoms Respiratory: Reports: no symptoms Gastrointestinal/Abdominal: Reports: no symptoms Genitourinary: Reports: no symptoms Subjective 07/07/19- Patient admitted for revision of [place]ock Pouch. He has h/o CAD, S/P CABG 10 yrs ago, s/p BL carotid stents, and h/o AAA. Patient denies h/o HTn, but his BP has been elevated since admission 07/08 doing OK , BP imroving, PICC line placed. 07/09- BP improved 07/10- Had BP down to 107. Meds held. Scheduled for surgery on 07/13 Objective Last 24 Hour Vital Signs Date Time Temp Pulse Resp B/P (MAP) Pulse Ox O2 Delivery O2 Flow Rate FiO2 07/10/19 09:00 Room Air 07/10/19 08:00 98.1 70 16 123/56 (78) 95 07/10/19 04:00 98.2 69 18 109/60 (76) 96 07/10/19 00:00 98.1 73 18 102/54 (70) 96 07/09/19 20:46 Room Air 07/09/19 20:00 98.5 75 18 134/74 (94) 94 07/09/19 17:38 97.7 07/09/19 17:05 74 143/74 07/09/19 16:00 97.7 74 20 143/74 (97) 94 General Appearance: alert Cardiovascular: normal rate, regular rhythm Respiratory/Chest: lungs clear Abdomen: normal bowel sounds, non tender, soft, no organomegaly Extremities: normal range of motion, non-tender, normal inspection, no calf tenderness, no swelling Intake and Output 07/09/19 07/10/19 19:00 07:00 Intake Total 1488 ml 1080 ml Output Total 795 ml 700 ml Balance 693 ml 380 ml Intake Oral 588 ml 120 ml IV Total 900 ml 960 ml Output Urine Total 475 ml 350 ml Other 320 ml 350 ml # Voids 4 2 Rommel Townsend MD Jul 10, 2019 15:48
[2019-07-10 16:00] VITALS: BP 100/65
--- NOTE | 2019-07-10 16:07 | NUR ---
CASE MANAGEMENT: REVIEW 07/10/2019 SI:MALFUNCTION HULL CONTINENT ILEOSTOMY WITH RECURRING VALVE PROLAPSE 98.1 70 16 123/56 95% ON RA IS:IV TPN Q24HR IV VENOFER X5 BAGS PREDNISONE PO QD FLOMAX PO QD COZAAR PO QD PROTONIX PO QD NORVASC PO BID VIT K SQ QWK RAMIRO-HEX TP QD SYNTHROID PO QAM \: 3E MED SURG UNIT DCP: HOME WHEN MEDICALLY STABLE PLAN: CLEARED FOR SURGERY BY DR. GRIGGS SURG 07/13 BCIR DIET CONT TPN
[2019-07-10] MEDS: traMADol 50mg tab ORAL PRN (16:16)
--- NOTE | 2019-07-10 19:00 | Progress Note ---
DATE: 07/09/2019 SUBJECTIVE: The patient denies chest pain or shortness of breath and has been ambulating. OBJECTIVE: VITAL SIGNS: Blood pressure is 160 to 140/90 and heart rate is 74. The patient has been given Norvasc b.i.d. HEENT: Unremarkable. NECK: Supple. LUNGS: Without rales or wheezes. CARDIAC: S1 and S2 are normal without S3, S4. Jugular venous pressure is normal. ABDOMEN: Soft. Bowel sounds are present. EXTREMITIES: Without edema. DIAGNOSTIC DATA: Records from the were reviewed. A nuclear PET scan, which was performed in April of 2019 shows no evidence of ischemia. An echocardiogram performed here at [facility] shows normal LV wall motion and systolic function and ejection fraction of 55%. IMPRESSION: 1. Hypertension, etiology unclear. 2. Ulcerative colitis. 3. Planned revision of [place] pouch. 4. Coronary artery disease status post 5 vessel coronary artery bypass graft, currently stable without ischemia. 5. Hypothyroidism. PLAN: The patient will be maintained on Norvasc 5 mg b.i.d. We will start losartan 50 mg daily and monitor blood pressure over the next 24 hours. The patient is currently stable to proceed with surgery as planned for revision of [place] pouch and he will be continued on blood pressure medications pre and postop. The case was then discussed with Dr. Pako Orellana. Rommel Townsend M.D. DR: CHRIS JOB#: [id number] CC: CHART
--- NOTE | 2019-07-10 19:00 | Consultation ---
DATE OF CONSULTATION: 07/10/2019 CARDIOLOGY CONSULTATION CONSULTING PHYSICIAN: Rommel Townsend M.D. ATTENDING PHYSICIAN: Pako Orellana M.D. REASON FOR CONSULTATION: Hypertension, out of control and preoperative clearance. HISTORY OF PRESENT ILLNESS: The patient is an 79-year-old male with history of ulcerative colitis, who is admitted for revision of malfunctioning [place] pouch. The patient has been noted to have high blood pressure in the range of 160 to 180, although he has had no history of hypertension in the past. The patient has history of coronary artery disease and underwent a 5-vessel bypass about 10 years ago in [place]. He also has history of bilateral carotid artery stenosis and has had two stents placed in the carotid arteries bilaterally. Review of chart also reveals that the patient has had abdominal aortic aneurysm, which according to the patient's has been stable. The records were reviewed. The patient denies chest pain, palpitations, PND, orthopnea, or lower extremity edema, and he is relatively active without any limitations. PAST MEDICAL HISTORY: 1. Ulcerative colitis. 2. Status post ileostomy. 3. Coronary artery disease, status post 5-vessel bypass. 4. Carotid artery stenosis, status post bilateral stents. 5. Abdominal aortic aneurysm. 6. Hearing loss. MEDICATIONS: Include vitamin K, prednisone 5 mg daily, Flomax 0.4 mg daily, Protonix 40 mg daily, levothyroxine 50 mcg daily, tramadol p.r.n., hydrocodone-acetaminophen 5-325 mg p.r.n., and Zofran p.r.n. REVIEW OF SYSTEMS: Essentially as noted above. The patient denies pulmonary disease, cough or sputum production, has no chest pain or shortness of breath on exertion. PHYSICAL EXAMINATION: GENERAL: The patient is alert and oriented, pleasant male, in no apparent distress. VITAL SIGNS: Blood pressure was 164/88 with a heart rate of 77, although earlier blood pressure was 183/81 with a heart rate of 70. HEENT: Unremarkable. NECK: Supple. LUNGS: Without rales or wheezes. CARDIAC: S1-S2 are normal without S3, S4. Jugular venous pressure is normal. ABDOMEN: Soft and nontender without hepatosplenomegaly. Bowel sounds are present. There is mild tenderness diffusely. EXTREMITIES: Without edema. LABORATORY DATA: Reviewed. EKG shows normal sinus rhythm with possible inferior myocardial infarction. IMPRESSION: 1. Ulcerative colitis. 2. Nonfunctioning [place] pouch. 3. Coronary artery disease, status post 5-vessel bypass 10 years ago. 4. Bilateral carotid artery stenosis, status post bilateral stents. 5. Abdominal aortic aneurysm, currently stable. 6. Hearing loss. 7. New-onset hypertension, etiology unclear, maybe related to anxiety or pain; however, we will need to correct prior to surgery. PLAN AND SUGGESTION: The patient will be started on Norvasc 2.5 mg twice a day and will be monitored and dose adjusted as necessary. We will review records from [place], as the patient had a stress test done about two months ago and we will review to rule out ischemia. An echocardiogram will be obtained to assess LV function. When blood pressure is stable and workup is completed, then the patient may proceed with planned surgery. The case has been discussed with Dr. Orellana as well as the patient's . Rommel Townsend M.D. DR: BENITA JOB#: [id number] CC:
[2019-07-10 20:00] VITALS: BP 138/70
--- NOTE | 2019-07-10 20:11 | NUR ---
NURSE NOTES: Pt tolerated meal well . Denies abdominal discomfort or nausea. Up and ambulating x2; pain medication provided after ambulation. Per needs verbal encouragement, to participate in physical activity , usual pattern is to lay in bed or sit and watch television . Ileostomy output varied in color green and mustard yellow, with foul odor.Flushed q3 hours. Urine output 600 total dark yellow. Ate minimal for breakfast less than 25% lunch 50% Dinner 100% Pending procedure for Saturday
--- NOTE | 2019-07-10 21:30 | NUR ---
NURSE NOTES: Received report from DAVID Holliday. AAO x 4, on room air. PICC line intact. Port cath intact and running TPN. Dressing dry and clean on ileostomy. Will check BS and flush ileo q3hr. at bedside. No c/o pain. Pt tolerated meal well . Denies nausea. Ileostomy output draining with green color. Will continue to monitor.
[2019-07-10] MEDS: Dyna-Hex 2% Top Sol 2oz TOPIC SCH (21:33)
[2019-07-10] MEDS: Iron Sucrose 100 MG in NS 55 ML IV SCH (21:33)
[2019-07-10] MEDS: Fat Emulsion Iv 20% 216 ML in Tpn 1,584 ML IV SCH (21:38)
[2019-07-11] VITALS (7 sets, daily range): BP systolic 122–150; BP diastolic 57–77
[2019-07-11] MEDS: HYDROcodone/Acetamin 5/325 tab ORAL PRN ×3 (04:45→21:35)
--- NOTE | 2019-07-11 05:00 | NUR ---
NURSE NOTES: Pt c/o abd discomfort and found ileo cath popped out. Reinserted ileo and flushed. Dressing changed. Now output draining well. Pt stated abd discomfort is getting better. Will continue to monitor. Addendum: 07/11/19 at 0707 by ROSITA SANTOS RN RN NURSE NOTES: urine output 425cc, ileo output 450cc, oral intake 474cc, TPN 900cc
[2019-07-11] MEDS: Insulin NovoLOG Flexpen S/S (Mod) SUBQ SCH ×4 (06:00→18:00)
[2019-07-11 06:34] LABS: EOSINOPHILS % (AUTO) 1.7 % (0.0-3.0); HEMATOCRIT 34.3 % (42.0-52.0); LYMPHOCYTES % (AUTO) 24.8 % (20.0-45.0); MEAN CORPUSCULAR VOLUME 88 FL (80-99); NEUTROPHILS % (AUTO) 63.5 % (45.0-75.0); PLATELET COUNT 197 K/UL (150-450); RED BLOOD COUNT 3.91 M/UL (4.70-6.10); RED CELL DISTRIBUTION WIDTH 18.7 % (11.6-14.8); WHITE BLOOD COUNT 7.6 K/UL (4.8-10.8)
[2019-07-11 07:11] LABS: ANION GAP 9 mmol/L (5-15); BLOOD UREA NITROGEN 23 mg/dL (7-18); CARBON DIOXIDE 26 MMOL/L (21-32); CHLORIDE 109 MMOL/L (98-107); POTASSIUM 3.7 MMOL/L (3.5-5.1); SODIUM 144 MMOL/L (136-145)
--- NOTE | 2019-07-11 07:26 | NUR ---
HAND-OFF: Report given to DAVID Palmer.
[2019-07-11] MEDS: Losartan 50mg tab ORAL SCH (08:22)
[2019-07-11] MEDS: Tamsulosin 0.4mg cap ORAL SCH (08:22)
--- NOTE | 2019-07-11 09:36 | General Progress Note ---
Progress Note Progress Note AVSS BP controlled now tolerating TPN and BCIR diet Abdomen soft I&O satisf BUN up 23 Imp: Stable and cleared for surgery by Cardiology - scheduled for 07/13 at 0730 Plan; continue TPN, start clear liquid diet in AM Pako Orellana MD Jul 11, 2019 09:36
--- NOTE | 2019-07-11 11:50 | Anethesia Preoperative Eval ---
Anesthesia Pre-op PMH/ROS General Date of Evaluation: Jul 11, 2019 Time of Evaluation: 11:49 Anesthesiologist: jaison ASA Score: ASA 3 Mallampati Score Class I : Soft palate, uvula, fauces, pillars visible Class II: Soft palate, uvula, fauces visible Class III: Soft palate, base of uvula visible Class IV: Only hard plate visible Mallampati Classification: Class II Surgeon: Reyna Diagnosis: Malfunction of [place] pouch Surgical Procedure: Revision of [place] pouch of stoma hernia Anesthesia History: none Family History: no anesthesia problems Allergies: Coded Allergies: LORAZEPAM (Verified Allergy, Mild, 07/08/19) Pt undergoes altered level of consciousness Medications: see eMAR Patient NPO?: Yes NPO Date: Jul 12, 2019 NPO Time: 00:01 Past Medical History Cardiovascular: Reports: HTN, CAD - s/p bypass ; EF 55% ; no ischemia per cardiology clearance Pulmonary: Denies: asthma, COPD, AKOSUA, other Gastrointestinal/Genitourinary: Reports: other - U. Colitis; Denies: GERD, CRI, ESRD Neurologic/Psychiatric: Denies: dementia, CVA, depression/anxiety, TIA, other Endocrine: Reports: hypothyroidism, steroids HEENT: Denies: cataract (L), cataract (R), glaucoma, KASAAN (L), KASAAN (R), other Hematology/Immune: Denies: anemia, DVT, bleeding disorder, other Musculoskeletal/Integumentary: Denies: OA, RA, DJD, DDD, edema, other PMH Narrative: 1. Malfunctioning London continent ileostomy with recurrent prolapse of the valve through the stoma with incontinence. 2. New-onset hypertension on this admission. 3. Past history of polycythemia 4 years ago with placement of an infusion port, which resolved with discontinuation of testosterone. 4. History of ulcerative colitis. PSxH Narrative: CABG 5 vessel coronary artery bypass graft, currently stable without ischemia; multiple abd operations Anesthesia Pre-op Phys. Exam Physician Exam Last Vital Signs Date Time Temp Pulse Resp B/P (MAP) Pulse Ox O2 Delivery O2 Flow Rate FiO2 07/11/19 09:00 Room Air 07/11/19 08:22 132/57 07/11/19 08:00 98.0 66 16 07/11/19 04:00 92 Constitutional: NAD Neurologic: CN 2-12 intact Cardiovascular: RRR Respiratory: CTA Gastrointestinal: S/NT/ND Airway Exam Mallampati Classification 2 Mallampati Score: Class II MO: full ROM: full Dentures: no upper, no lower Anesthesia Pre-op A/P Labs Hematology Test 07/11/19 04:40 White Blood Count 7.6 K/UL (4.8-10.8) Red Blood Count 3.91 M/UL (4.70-6.10) L Hemoglobin 11.0 G/DL (14.2-18.0) L Hematocrit 34.3 % (42.0-52.0) L Mean Corpuscular Volume 88 FL (80-99) Mean Corpuscular Hemoglobin 28.2 PG (27.0-31.0) Mean Corpuscular Hemoglobin Concent 32.2 G/DL (32.0-36.0) Red Cell Distribution Width 18.7 % (11.6-14.8) H Platelet Count 197 K/UL (150-450) Mean Platelet Volume 5.7 FL (6.5-10.1) L Neutrophils (%) (Auto) 63.5 % (45.0-75.0) Lymphocytes (%) (Auto) 24.8 % (20.0-45.0) Monocytes (%) (Auto) 9.0 % (1.0-10.0) Eosinophils (%) (Auto) 1.7 % (0.0-3.0) Basophils (%) (Auto) 1.0 % (0.0-2.0) Chemistry Test 07/11/19 04:40 Sodium Level 144 MMOL/L (136-145) Potassium Level 3.7 MMOL/L (3.5-5.1) Chloride Level 109 MMOL/L (98-107) H Carbon Dioxide Level 26 MMOL/L (21-32) Anion Gap 9 mmol/L (5-15) Blood Urea Nitrogen 23 mg/dL (7-18) H Creatinine 1.0 MG/DL (0.55-1.30) Estimat Glomerular Filtration Rate mL/min (>60) Glucose Level 101 MG/DL (74-106) Calcium Level 8.0 MG/DL (8.5-10.1) L Phosphorus Level 4.0 MG/DL (2.5-4.9) Magnesium Level 1.8 MG/DL (1.8-2.4) Studies Pre-op Studies: EKG - SR Risk Assessment & Plan Plan: General Status Change Before Surgery: Trinity Ochoa CRNA Jul 11, 2019 11:50
--- NOTE | 2019-07-11 13:19 | Cardiology Progress Note ---
Assessment/Plan Status Narrative 1. U.C. 2. Malfunctioning [place] Pouch 3. CAD, S/P CABG- studies from PMD reviewed, no evidence of ischemia on nuclear scan done in Apr 2019 4. BL Carotid stenosis- s/p stents 5. AAA- stable 6. HTN- improved on meds. 7. Hearing loss Assessment/Plan Norvasc 5 mg BID PRN only Continue Losartan 50 mg/day- Hold for SBP < 120 may proceed with surgery on Saturday Discussed with Patient's . Subjective Cardiovascular: Reports: no symptoms Gastrointestinal/Abdominal: Reports: no symptoms Genitourinary: Reports: no symptoms Subjective 07/07/19- Patient admitted for revision of [place] Pouch. He has h/o CAD, S/P CABG 10 yrs ago, s/p BL carotid stents, and h/o AAA. Patient denies h/o HTn, but his BP has been elevated since admission 07/08 doing OK , BP imroving, PICC line placed. 07/09- BP improved 07/10- Had BP down to 107. Meds held. Scheduled for surgery on 07/13 07/11- BP stable Objective Last 24 Hour Vital Signs Date Time Temp Pulse Resp B/P (MAP) Pulse Ox O2 Delivery O2 Flow Rate FiO2 07/11/19 09:00 Room Air 07/11/19 08:22 132/57 07/11/19 08:00 98.0 66 16 132/57 (82) 07/11/19 04:00 97.5 72 20 134/66 (88) 92 72 07/11/19 00:00 98.2 70 20 133/70 (91) 93 70 07/10/19 21:00 Room Air 07/10/19 20:00 98.2 90 18 138/70 (92) 96 90 07/10/19 16:00 97.8 73 100/65 (77) 18 Cardiovascular: normal rate, regular rhythm, no gallop/murmur Respiratory/Chest: lungs clear Abdomen: non tender, soft, no organomegaly, no mass Extremities: non-tender, normal inspection, no calf tenderness, no swelling Intake and Output 07/10/19 07/11/19 19:00 07:00 Intake Total 900 ml 1209 ml Output Total 1170 ml 875 ml Balance -270 ml 334 ml Intake Oral 900 ml 474 ml IV Total 735 ml Output Urine Total 600 ml 425 ml Other 570 ml 450 ml Laboratory Tests Test 07/11/19 04:40 White Blood Count 7.6 K/UL (4.8-10.8) Red Blood Count 3.91 M/UL (4.70-6.10) L Hemoglobin 11.0 G/DL (14.2-18.0) L Hematocrit 34.3 % (42.0-52.0) L Mean Corpuscular Volume 88 FL (80-99) Mean Corpuscular Hemoglobin 28.2 PG (27.0-31.0) Mean Corpuscular Hemoglobin Concent 32.2 G/DL (32.0-36.0) Red Cell Distribution Width 18.7 % (11.6-14.8) H Platelet Count 197 K/UL (150-450) Mean Platelet Volume 5.7 FL (6.5-10.1) L Neutrophils (%) (Auto) 63.5 % (45.0-75.0) Lymphocytes (%) (Auto) 24.8 % (20.0-45.0) Monocytes (%) (Auto) 9.0 % (1.0-10.0) Eosinophils (%) (Auto) 1.7 % (0.0-3.0) Basophils (%) (Auto) 1.0 % (0.0-2.0) Sodium Level 144 MMOL/L (136-145) Potassium Level 3.7 MMOL/L (3.5-5.1) Chloride Level 109 MMOL/L (98-107) H Carbon Dioxide Level 26 MMOL/L (21-32) Anion Gap 9 mmol/L (5-15) Blood Urea Nitrogen 23 mg/dL (7-18) H Creatinine 1.0 MG/DL (0.55-1.30) Estimat Glomerular Filtration Rate mL/min (>60) Glucose Level 101 MG/DL (74-106) Calcium Level 8.0 MG/DL (8.5-10.1) L Phosphorus Level 4.0 MG/DL (2.5-4.9) Magnesium Level 1.8 MG/DL (1.8-2.4) Rommel Townsend MD Jul 11, 2019 13:19
--- NOTE | 2019-07-11 16:10 | NUR ---
NURSE NOTES: Pt currently sleeping , provide with pain mediation earlier in shift facial grimace of pain holding lower super pubic area. Per Dr Rodgers pt had is bladder removed. Has not had a BM upon this writing. Son here earlier in shift informed him to translate to his father that he will remain NPO until he begins to pass flatus. Once he has a BM or passes flatus he can commerce clear liquid diet. Addendum: 07/11/19 at 1627 by Estela Domínguez RN Wrong Patient Error In Entry
--- NOTE | 2019-07-11 16:30 | NUR ---
NURSE NOTES: Pt ileostomy output is becoming visibly thick , stagnant in tubing. When detached to flush stool was in eye of tubing , Pt flushed output flowing slowly . Denies abdominal discomfort. Pt was not seen ambulating out of room this shift. Did change positions in bed, sat up in chair. Ambulation encouraged
--- NOTE | 2019-07-11 19:00 | NUR ---
NURSE NOTES: Pt called to junior underwriter to room pt laying it bed states he feels wet and rips off bandages. Catheter required to be adjusted, bandage replaced. Pt had to be redirected for touching stoma and catheter tubing. " I just wanted to feel how wet I was" assisted in changing his underwear. Urine output improved 1200 yellow and clear ileostomy output 700 flushed with 80 true output 620 color is light green color , with odor Required to give Vit C output was thick 1500 flushing , tubing was becoming clogged Grape Juice Given
--- NOTE | 2019-07-11 19:10 | NUR ---
NURSE NOTES: Received report from DAVID Palmer.Pt is wake a/ox4, breaths even, and regular and unlabored at RA. Pt has an ileo R abd and uses a urinal. Pt has an PHILIP Picc inserted on the ,with i.v fluids running patent and asymptomatic. Pt also has a R subclavian .Pt denies any pain, will continue to monitor
--- NOTE | 2019-07-11 19:50 | NUR ---
NURSE NOTES: Hand Off Given Giles made aware that dreesing required to be changed and catheter reinforced. Informed of odor to ileostomy output , and if output increased to inform Dr Orellana for possible Cdiff testing. is at bedside. PICC Line , Informed to flush q8 hours
[2019-07-11] MEDS: Iron Sucrose 100 MG in NS 55 ML IV SCH (21:28)
[2019-07-11] MEDS: Dyna-Hex 2% Top Sol 2oz TOPIC SCH (21:28)
[2019-07-11] MEDS: Fat Emulsion Iv 20% 216 ML in Tpn 1,584 ML IV SCH (21:29)
[2019-07-12] VITALS: BP 125/76
[2019-07-12 04:00] VITALS: BP 147/80
[2019-07-12] MEDS: Insulin NovoLOG Flexpen S/S (Mod) SUBQ SCH ×4 (05:41→18:30)
[2019-07-12 06:36] LABS: BASOPHILS % (AUTO) 0.7 % (0.0-2.0); EOSINOPHILS % (AUTO) 2.7 % (0.0-3.0); HEMATOCRIT 35.7 % (42.0-52.0); HEMOGLOBIN 11.7 G/DL (14.2-18.0); LYMPHOCYTES % (AUTO) 24.6 % (20.0-45.0); MEAN CORPUSCULAR VOLUME 88 FL (80-99); MONOCYTES % (AUTO) 8.8 % (1.0-10.0); NEUTROPHILS % (AUTO) 63.1 % (45.0-75.0); PLATELET COUNT 206 K/UL (150-450); RED BLOOD COUNT 4.07 M/UL (4.70-6.10)
[2019-07-12 07:01] LABS: ALANINE AMINOTRANSFERASE 25 U/L (12-78); ALBUMIN 2.3 G/DL (3.4-5.0); ALBUMIN/GLOBULIN RATIO 0.7 (1.0-2.7); ALKALINE PHOSPHATASE 67 U/L (46-116); ANION GAP 9 mmol/L (5-15); ASPARTATE AMINO TRANSFERASE 27 U/L (15-37); BILIRUBIN,TOTAL 0.1 MG/DL (0.2-1.0); BLOOD UREA NITROGEN 21 mg/dL (7-18); CALCIUM 8.2 MG/DL (8.5-10.1); CARBON DIOXIDE 25 MMOL/L (21-32); CHLORIDE 109 MMOL/L (98-107); CREATININE 1.1 MG/DL (0.55-1.30); PHOSPHORUS 3.9 MG/DL (2.5-4.9); POTASSIUM 3.9 MMOL/L (3.5-5.1); SODIUM 143 MMOL/L (136-145)
[2019-07-12 08:00] VITALS: BP 140/68
--- NOTE | 2019-07-12 08:00 | NUR ---
NURSE NOTES: Pt lying in bed w/ at bedside, bed in lowest position, and call light within reach. Pt A&Ox4, VSS, and in no apparent distress. PHILIP PICC line & right subclavian port-a-cath intact/asymptomatic w/TPN infusing in latter; surgical dressing C/D/I; and ileo patent/draining to gravity drainage. Pt has no complaints or concerns at this time. Will continue to monitor.
--- NOTE | 2019-07-12 08:06 | NUR ---
HAND-OFF: Report given to DAVID Fong.
[2019-07-12] MEDS: Losartan 50mg tab ORAL SCH (10:06)
[2019-07-12] MEDS: Tamsulosin 0.4mg cap ORAL SCH (10:06)
[2019-07-12] MEDS: HYDROcodone/Acetamin 5/325 tab ORAL PRN (10:07)
--- NOTE | 2019-07-12 10:18 | General Progress Note ---
Progress Note Progress Note doing well now on clear liquids and bowel prep for surgery in AM Labs stable, I&O satisfactory Full discussion with patient and re revision of [place] pouch,, possible relocation of stoma, repair parastomal hernia, possible gastrostomy, including indications, alternatives, options and risks; alll questions answered Pako Orellana MD Jul 12, 2019 10:18
[2019-07-12 12:00] VITALS: BP 140/68
[2019-07-12] MEDS: Neomycin Sulfate 500mg Tab ORAL SCH ×3 (12:10→20:18)
[2019-07-12 16:00] VITALS: BP 137/68
--- NOTE | 2019-07-12 19:00 | NUR ---
NURSE NOTES: Received report from DAVID galvan .Pt is wake a/ox4, breaths even, and regular and unlabored at RA. Pt has an ileo R abd and uses a urinal. Pt has an PHILIP Picc inserted on the ,with i.v fluids running patent and asymptomatic. Pt also has a R subclavian, withi i.v fluids running , patent and asymptomatic .Pt denies any pain. Pt is alittle bervous due to upcoming , will continue to monitor
--- NOTE | 2019-07-12 19:22 | NUR ---
HAND-OFF: Report given to DAVID Skaggs. Endorsed pt would like sleeping aid tonight before surgery.
[2019-07-12 20:00] VITALS: BP 134/71
[2019-07-12] MEDS: Fat Emulsion Iv 20% 216 ML in Tpn 1,584 ML IV SCH (20:17)
[2019-07-12] MEDS: Dyna-Hex 2% Top Sol 2oz TOPIC SCH (20:18)
[2019-07-12] MEDS: Iron Sucrose 100 MG in NS 55 ML IV SCH (20:18)
[2019-07-12] MEDS: Ampicillin/Sulbactam Sod 3 GM in NS 110 ML IV SCH (23:53)
[2019-07-13] VITALS (12 sets, daily range): BP systolic 92–138; BP diastolic 46–72
[2019-07-13] MEDS ORDERED: Heparin 5000 units/ml inj SUBQ SCH (05:30)
[2019-07-13] MEDS: Ampicillin/Sulbactam Sod 3 GM in NS 110 ML IV SCH ×3 (05:36→19:50)
[2019-07-13] MEDS: HYDROcodone/Acetamin 5/325 tab ORAL PRN (05:39)
[2019-07-13] MEDS: Insulin NovoLOG Flexpen S/S (Mod) SUBQ SCH ×4 (06:00→18:00)
--- NOTE | 2019-07-13 06:35 | NUR ---
NURSE NOTES: received call from OR from DAVID Tate, to verify if pt is ready, all pre op Meds given,. waiting for pt be picked up.
[2019-07-13] MEDS ORDERED: Hydrocortisone 100mg Inj IV SCH (07:00)
[2019-07-13] MEDS ORDERED: Bacitracin 50000 Units Vial ONE ×2 (07:02→09:16)
[2019-07-13] MEDS ORDERED: NeoSporin Gu Irrig 1ml Amp IRRIG ONE ×2 (07:02→09:16)
--- NOTE | 2019-07-13 07:06 | NUR ---
NURSE NOTES: pt picked up for surgery by [place]
[2019-07-13] MEDS ORDERED: Lidocaine 1% MPF 10mg/ml 5ml ONE (07:16)
[2019-07-13] MEDS ORDERED: fentaNYL 100 mcg/2 mL IV ONE (07:16)
[2019-07-13] MEDS ORDERED: Propofol 200mg/20ml IV ONE (07:16)
[2019-07-13] MEDS ORDERED: Rocuronium Bromide 50mg/5ml Inj IV ONE (07:20)
[2019-07-13] MEDS ORDERED: Succinylcholine 20mg/ml 10ml vial ONE (07:20)
[2019-07-13] MEDS ORDERED: NS Irrig 1000ml IRRIG ONE ×2 (07:28→09:19)
[2019-07-13] MEDS ORDERED: Neostigmine 1mg/ml 10ml Inj ONE (07:30)
[2019-07-13] MEDS ORDERED: LR 1000ml ONE (07:30)
[2019-07-13] MEDS ORDERED: NS Irrig 1000ml ONE (07:30)
[2019-07-13] MEDS ORDERED: Sterile Water Irrig 1000ml IRRIG ONE (07:30)
[2019-07-13] MEDS ORDERED: NS Irrig 2000ml IRRIG ONE (07:30)
--- NOTE | 2019-07-13 07:37 | Pre-Procedure Note/Attestation ---
Pre-Procedure Note/Attestation Complete Prior to Procedure Planned Procedure: not applicable Procedure Narrative: revision of [place] pouch and repair of parastomal hernia, possible relocation of stoma, possible gastrostomy Indications for Procedure Pre-Operative Diagnosis: [place] pouch valve prolapse and parastomal hernia Attestation I attest that I discussed the nature of the procedure; its benefits; risks and complications; and alternatives (and the risks and benefits of such alternatives ), prior to the procedure, with the patient (or the patient's legal personal service representative). I attest that, if there was a reasonable possibility of needing a blood transfusion, the patient (or the patient's legal personal service representative) was given the [place] Department [employer] Services standardized written summary, pursuant to the [place] Blood Safety Act ([place] Health and Safety Code # 1645, as amended). I attest that I re-evaluated the patient just prior to the surgery and that there has been no change in the patient's H&P, except as documented below: none Pako Orellana MD Jul 13, 2019 07:37
--- NOTE | 2019-07-13 08:08 | NUR ---
HAND-OFF: Report given to DAVID Palmer.
[2019-07-13] MEDS ORDERED: Sodium Chloride 10ml vial INJ ONE (08:39)
[2019-07-13] MEDS ORDERED: Morphine Sulfate 10mg/ml Inj ONE (08:39)
[2019-07-13] MEDS ORDERED: Glycopyrrolate 0.2mg/ml 1ml Vial ONE (08:39)
[2019-07-13] MEDS ORDERED: Acetaminophen (Non formulary) 100 ML IV ONE (08:45)
[2019-07-13] MEDS: Losartan 50mg tab ORAL SCH (09:00)
[2019-07-13] MEDS: Tamsulosin 0.4mg cap ORAL SCH (09:00)
[2019-07-13] MEDS ORDERED: LR 1000ml 1,000 ML IVLG SCH (09:29)
[2019-07-13] MEDS ORDERED: DiphenhydrAMINE 50mg/ml Inj IVP PRN ×2 (09:30→11:45)
--- NOTE | 2019-07-13 10:29 | Immediate Post-Op Evaluation ---
Immediate Post-Op Evalulation Immediate Post-Op Evalulation Procedure: Exploratory laparotomy, resection of continent pouch Date of Evaluation: Jul 13, 2019 Time of Evaluation: 10:28 IV Fluids: 800 Blood Products: Albumin 250 Estimated Blood Loss: 150 Urinary Output: 120 Blood Pressure Systolic: 147 Blood Pressure Diastolic: 68 Pulse Rate: 84 Respiratory Rate: 22 O2 Sat by Pulse Oximetry: 99 Temperature (Fahrenheit): 98.3 Pain Score (1-10): 1 Nausea: No Vomiting: No Complications none Patient Status: reacts, patent, extubated, none Hydration Status: adequate Otoniel Patel MD Jul 13, 2019 10:29
[2019-07-13] MEDS: Hydromorphone 0.5mg/0.5ml inj IVP PRN ×2 (10:40→11:00)
--- NOTE | 2019-07-13 10:47 | NUR ---
NURSE NOTES: Pt remains off unit s/p surgery. Post Op assessment will be initiated upon return.
--- NOTE | 2019-07-13 10:52 | Brief Operative Note ---
Immediate Post Operative Note Operative Note Pre-op Diagnosis: [place] pouch valve prolapse and parastomal hernia Procedure: resection of failed [place] Pouch, repair parastomal hernia, creation of Natalee ileostomy Post-op Diagnosis: same + intense adhesions of pouch to mesh in RLQ abdominal wall Post-op Diagnosis: same as pre-op Findings: consistent w/pre-op dx studies Surgeon: srinath Product Technician: jose antonio Anesthesiologist: nissa Anesthesia: general Specimen: yes - [place] pouch, small bowel segment Complications: none Condition: stable Fluids: see anesthesia record Estimated Blood Loss: volume - 100cc Drains: none Implant(s) used?: No Pako Orellana MD Jul 13, 2019 10:52
[2019-07-13] MEDS ORDERED: PCA Education Pamphlet MISC SCH (11:45)
[2019-07-13] MEDS ORDERED: Naloxone 0.4mg/ml Inj IVP PRN (11:45)
[2019-07-13] MEDS ORDERED: Rate Change PCA 1 Each MISC PRN (11:45)
[2019-07-13] MEDS ORDERED: PCA HYDROmorphone 1mg/ml 30 ML IV PRN ×2 (11:45→15:30)
[2019-07-13] MEDS ORDERED: Ampicillin/Sulbactam Sod 3 GM in NS 110 ML IV SCH (12:00)
[2019-07-13] MEDS: D5 1/4NS w/KCl 20mEq 1,000 ML IV SCH (13:59)
[2019-07-13] MEDS ORDERED: Ketorolac 30mg Inj IV SCH (14:30)
--- NOTE | 2019-07-13 15:12 | NUR ---
CASE MANAGEMENT: REVIEW 07/11/2019 SI:MALFUNCTION HULL CONTINENT ILEOSTOMY WITH RECURRING VALVE PROLAPSE 97.8 77 16 122/64 95% ON RA H/H 11/34.3 BUN 23 CL-109 CA+8 IS:IV ZOSYN Q6HR IV AMPICILLIN Q6HR IV D5 @50ML/HR IV BEZEL CUTTER DILAUDID Q24HR IV TPN Q24HR IV VENOFER X5 BAGS PREDNISONE PO QD VIT K SQ QWK RAMIRO-HEX TP QD SYNTHROID PO QAM \: 3E MED SURG UNIT DCP: HOME WHEN MEDICALLY STABLE CASE MANAGEMENT: REVIEW 07/12/2019 SI:MALFUNCTION HULL CONTINENT ILEOSTOMY WITH RECURRING VALVE PROLAPSE 98.1 74 16 140/68 96% ON RA CL-109 BUN 21 CA+8.2 H/H 11.7/35.7 IS:IV ZOSYN Q6HR IV AMPICILLIN Q6HR IV D5 @50ML/HR IV BEZEL CUTTER DILAUDID Q24HR IV TPN Q24HR IV VENOFER X5 BAGS PREDNISONE PO QD VIT K SQ QWK RAMIRO-HEX TP QD SYNTHROID PO QAM \: 3E MED SURG UNIT DCP: HOME WHEN MEDICALLY STABLE PLAN: SURGERY IN AM CASE MANAGEMENT: REVIEW 07/13/2019 SI:MALFUNCTION HULL CONTINENT ILEOSTOMY WITH RECURRING VALVE PROLAPSE 99.2 94 26 134/72 97% ON 6L SIMPLE MASK IS:IV ZOSYN Q6HR IV AMPICILLIN Q6HR IV D5 @50ML/HR IV BEZEL CUTTER DILAUDID Q24HR IV TPN Q24HR IV VENOFER X5 BAGS PREDNISONE PO QD VIT K SQ QWK RAMIRO-HEX TP QD SYNTHROID PO QAM \: 3E MED SURG UNIT DCP: HOME WHEN MEDICALLY STABLE PLAN: IN SURGERY NOW
--- NOTE | 2019-07-13 15:17 | NUR ---
NURSE NOTES: Pt is comfortable after dose, Toradol 15 mg stat order given. Pt groaning and restless. Dr Orellana here , gave oreder to include basal dose to manage pain, due to long history of Vicodin use for previous back pain
--- NOTE | 2019-07-13 17:00 | Operative Note - Dictated ---
DATE OF OPERATION: 07/13/2019 SURGEON: Pako Orellana M.D. PERSONAL VEHICLE ADVISOR: Nando Herring M.D. ANESTHESIOLOGIST: Otoniel Patel M.D. TYPE OF ANESTHESIA: General endotracheal. PREOPERATIVE DIAGNOSES: 1. Malfunctioning [place] continent ileostomy with recurrent prolapse of the valve and incontinence. 2. 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 3. History of ulcerative colitis. 4. STATUS POST MULTIPLE ABDOMINAL OPERATIONS: 4.1. Proctocolectomy and [place] continent ileostomy in 1984. 4.2. Revisions of [place] pouch x2, dates unknown. 4.3. Open cholecystectomy. 4.4. Revision of [place] pouch performed in [place] in August 2017. POSTOPERATIVE DIAGNOSES: 1. Malfunctioning [place] continent ileostomy with recurrent prolapse of the valve and incontinence. 2. 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 3. History of ulcerative colitis. 4. STATUS POST MULTIPLE ABDOMINAL OPERATIONS: 4.1. Proctocolectomy and [place] continent ileostomy in 1984. 4.2. Revisions of [place] pouch x2, dates unknown. 4.3. Open cholecystectomy. 4.4. Revision of [place] pouch performed in [place] in August 2017. OPERATION PERFORMED: Resection of failed [place] continent ileostomy, repair of parastomal hernia, creation of conventional Natalee ileostomy in left lower quadrant. DESCRIPTION OF PROCEDURE: The patient was taken to the operating room and under general endotracheal anesthesia with sequential compression device stockings and Guadarrama catheter in place and having received preoperative intravenous antibiotics and subcutaneous heparin, the patient was prepped and draped in the usual fashion with a Tegaderm over the stoma in the right lower quadrant. Previous vertical incision was made, it was left paramedian continuing to the pubis as midline. The peritoneal cavity was opened. Diffuse adhesions were taken down. The pouch was densely adherent in the right lower quadrant with prior mesh repair of abdominal wall hernia. The stoma was circumscribed and brought through into the abdominal cavity that facilitated mobilization. Enterotomies were made in the collar and the pouch because of the severity of the adhesions. It became apparent in this elderly 79-year-old patient that revising this pouch would have a very low likelihood of success and then it need to be excised. The bowel was divided just proximal to the pouch with a MITUL 55. All the adhesions were taken down. The patient had about 12 feet of small bowel with the prior enteroenterostomy present. The pouch mesentery was divided with the Thunderbeat and 0 silk ties and the pouch was given off the field as specimen. Hemostasis carefully achieved with cautery. The patient was known to have an abdominal aortic aneurysm, which appears calcified. The small bowel was all normal in appearance with no sign of inflammatory bowel disease. An appropriate location high in the left lower quadrant, a circular disc of skin was excised and with a cruciate incision in the fascia and abdominal wall hiatus was created. The end of the ileum was brought through because it was somewhat edematous and thickened from many years of being dilated from a continent ileostomy pouch and matured before closing the abdomen. There had already been spillage, which was contained. The mesentery of the distal 4 to 5 centimeters were taken with the Thunderbeat electrosurgical device and then the stoma matured in Natalee fashion with interrupted 2-0 and 3-0 chromic leaving a well perfused deeper to the bud. Now, the abdomen and pelvis was carefully inspected and irrigated and hemostasis was secured. The fascia in the right lower quadrant was closed with continuous #0 Prolene and skin closed with neil. The midline fascia closed with continuous #1 looped PDS and the skin closed with neil. The ileostomy appliance was cut to fit and applied over the stoma, and dry sterile dressings over the incision. The patient tolerated the procedure well and left the operating room in stable condition. Pako Orellana M.D. DR: VERONIQUE JOB#: [id number] CC:
--- NOTE | 2019-07-13 19:00 | NUR ---
NURSE NOTES: Received report from DAVID Palmer .Pt is sleeping but easily arousable , breaths even, and regular and unlabored at 2l O2 via NC. monitoring s/p surgery. by the bed side . Pt has an PHILIP Picc ,with i.v fluids running patent and asymptomatic. Pt also has a R subclavian, with i.v fluids running , patent and asymptomatic .Pt Natalee ileostomy on the L of abd side with Sanguineous out put. Dressing dry and intact , Guadarrama catheter i place and draining. will continue to monitor
--- NOTE | 2019-07-13 19:24 | Cardiology Progress Note ---
Assessment/Plan Status Narrative 1. U.C. 2. Malfunctioning [place] Pouch 3. CAD, S/P CABG- studies from PMD reviewed, no evidence of ischemia on nuclear scan done in Apr 2019 4. BL Carotid stenosis- s/p stents 5. AAA- stable 6. HTN- improved on meds. 7. Hearing loss 8. S/p resection of failed [place] Pouch, repair parastomal hernia, creation of Natalee ileostomy Assessment/Plan Norvasc 5 mg BID PRN only Decrease Losartan to 25 mg/day- Hold for SBP < [address] Orellana. Discussed with Patient's . Subjective ROS Limited/Unobtainable: No Subjective 07/07/19- Patient admitted for revision of [place] Pouch. He has h/o CAD, S/P CABG 10 yrs ago, s/p BL carotid stents, and h/o AAA. Patient denies h/o HTn, but his BP has been elevated since admission 07/08 doing OK , BP imroving, PICC line placed. 07/09- BP improved 07/10- Had BP down to 107. Meds held. Scheduled for surgery on 07/13 07/11- BP stable 07/13- s/p resection of failed [place] Pouch, repair parastomal hernia, creation of Natalee ileostomy. Objective Last 24 Hour Vital Signs Date Time Temp Pulse Resp B/P (MAP) Pulse Ox O2 Delivery O2 Flow Rate FiO2 07/13/19 13:54 96 Nasal Cannula 2.0 28 07/13/19 11:35 97.3 84 12 123/66 99 Nasal Cannula 3 07/13/19 11:30 97.3 07/13/19 11:20 79 13 112/49 99 Nasal Cannula 3 07/13/19 11:10 97.3 07/13/19 11:05 67 13 112/49 99 Nasal Cannula 3 07/13/19 10:50 72 17 96/49 98 Simple Mask 6 07/13/19 10:40 79 16 92/46 98 Simple Mask 6 07/13/19 10:30 91 17 108/49 97 Simple Mask 6 07/13/19 10:29 84 22 99 07/13/19 10:25 94 23 138/67 97 Simple Mask 6 07/13/19 10:22 99.2 94 26 134/72 97 Simple Mask 6 07/13/19 04:00 98.0 75 18 115/66 (82) 94 07/13/19 00:00 98.0 86 18 134/68 (90) 99 07/12/19 21:00 Room Air 07/12/19 20:00 97.9 87 17 134/71 (92) 99 Cardiovascular: normal rate, regular rhythm, no gallop/murmur Respiratory/Chest: lungs clear Abdomen: no organomegaly, absent bowel sounds Extremities: non-tender, normal inspection, no calf tenderness, no swelling Intake and Output 07/12/19 07/13/19 19:00 07:00 Intake Total 760 ml 1570 ml Output Total 1670 ml 970 ml Balance -910 ml 600 ml Intake Oral 760 ml 300 ml IV Total 1270 ml Output Urine Total 600 ml 400 ml Other 1070 ml 570 ml Rommel Townsend MD Jul 13, 2019 19:24
[2019-07-13] MEDS: PCA shift volume MISC SCH (19:25)
[2019-07-13] MEDS: Dyna-Hex 2% Top Sol 2oz TOPIC SCH (20:27)
[2019-07-13] MEDS: Iron Sucrose 100 MG in NS 55 ML IV SCH (20:28)
[2019-07-13] MEDS: Fat Emulsion Iv 20% 216 ML in Tpn 1,584 ML IV SCH (20:29)
--- NOTE | 2019-07-13 20:37 | NUR ---
NURSE NOTES: Pt currently comfortable, is sleeping at this time. Output to ileostomy sanguinous 50 cc. Pt groaning sleep. Urine output 400cc. is at bedside. Pt returned from surgery moaning stating he felt as if he was hit by a truck. He wanted to know why he was feeling pain to the left side of his abdomen. v/s 97.8 129/64, P90, R 16 ET 30 126/63 O2 Sat 95 , R14 , P 94 124/63 p97, o2 Sat 95, R16, T97.6 124/63, p97, O2Sat 94 T 98.1
--- NOTE | 2019-07-13 20:47 | NUR ---
HAND-OFF: Report given to Matt HERNANDEZ.
--- NOTE | 2019-07-13 21:00 | NUR ---
NURSE NOTES: Rechecked pt temperature before administration of Tylenol and was 99.2. will continue to monitor pt temp
[2019-07-14] VITALS: BP 111/67
[2019-07-14] MEDS: HYDROmorphone 1mg/ml Carpuject SUBQ PRN ×5 (00:23→23:36)
[2019-07-14] MEDS: Ampicillin/Sulbactam Sod 3 GM in NS 110 ML IV SCH ×5 (00:31→23:35)
[2019-07-14 04:00] VITALS: BP 121/66
[2019-07-14 05:30] LABS: BASOPHILS % (AUTO) 0.3 % (0.0-2.0); EOSINOPHILS % (AUTO) 0.4 % (0.0-3.0); HEMATOCRIT 33.3 % (42.0-52.0); HEMOGLOBIN 10.8 G/DL (14.2-18.0); LYMPHOCYTES % (AUTO) 10.2 % (20.0-45.0); MEAN CORPUSCULAR VOLUME 89 FL (80-99); MONOCYTES % (AUTO) 6.4 % (1.0-10.0); NEUTROPHILS % (AUTO) 82.7 % (45.0-75.0); PLATELET COUNT 170 K/UL (150-450); RED BLOOD COUNT 3.74 M/UL (4.70-6.10); RED CELL DISTRIBUTION WIDTH 19.2 % (11.6-14.8); WHITE BLOOD COUNT 14.7 K/UL (4.8-10.8)
[2019-07-14 05:49] LABS: ALANINE AMINOTRANSFERASE 23 U/L (12-78); ALBUMIN 2.2 G/DL (3.4-5.0); ALBUMIN/GLOBULIN RATIO 0.7 (1.0-2.7); ALKALINE PHOSPHATASE 58 U/L (46-116); ANION GAP 10 mmol/L (5-15); ASPARTATE AMINO TRANSFERASE 23 U/L (15-37); BILIRUBIN,TOTAL 0.3 MG/DL (0.2-1.0); BLOOD UREA NITROGEN 46 mg/dL (7-18); CALCIUM 7.9 MG/DL (8.5-10.1); CARBON DIOXIDE 24 MMOL/L (21-32); CHLORIDE 109 MMOL/L (98-107); CREATININE 1.9 MG/DL (0.55-1.30); POTASSIUM 4.9 MMOL/L (3.5-5.1); SODIUM 143 MMOL/L (136-145)
[2019-07-14] MEDS: Insulin NovoLOG Flexpen S/S (Mod) SUBQ SCH ×5 (06:00→23:54)
[2019-07-14] MEDS: PCA shift volume MISC SCH ×2 (07:23→19:14)
--- NOTE | 2019-07-14 07:30 | NUR ---
NURSE NOTES: awake/alert. pain scale 10/10. encouraged to push pain button for pain. ileostomy bag draining bloody output and leaking.ileostomy care done.
[2019-07-14 08:00] VITALS: BP 122/64
--- NOTE | 2019-07-14 08:01 | NUR ---
HAND-OFF: Report given to DAVID Sanchez
[2019-07-14] MEDS ORDERED: Naloxone 0.4mg/ml Inj IVP PRN (08:05)
[2019-07-14] MEDS ORDERED: Rate Change PCA 1 Each MISC PRN (08:15)
[2019-07-14] MEDS ORDERED: DiphenhydrAMINE 50mg/ml Inj IVP PRN (08:15)
--- NOTE | 2019-07-14 08:20 | General Progress Note ---
Progress Note Progress Note T 100.2 Tachycardia. c/o pain despite dilaudid COURT CRIER with basal continuous infusion. Very upset about loss of his [place] pouch and having to wear an external pouch now chest - decreased expansion cor - reg rhythm Abdomen mildly distended, soft, stoma pink and edematous with bloody output, incisions clean and dry Urine - 350cc overnight 12 hours clear yellow; Ileostomy 153 bloody WBC 14,700 Hgb stable 10.8 K 4.9 BUN up 46 Cr up 1.9 Imp: Tachycardia with elevated BUN and Cr and low urine output Ileus Pre-admission malnutrition Plan: NS 500cc IV in addition to current IV fluids continue TPN, Guadarrama, antibiotics f/u labs Pako Orellana MD Jul 14, 2019 08:20
[2019-07-14] MEDS: Tamsulosin 0.4mg cap ORAL SCH (08:41)
[2019-07-14] MEDS: Losartan 25mg tab ORAL SCH (08:41)
--- NOTE | 2019-07-14 09:15 | NUR ---
NURSE NOTES: YADIRA WOUND CARE NURSE HERE TO SEE PT. CHANGED ILEOSTOMY BAG. ILEOSTOMY CARE AND INSTRUCTIONS GIVEN TO PT AND PT'S . ILEOSTOMY BAG IN PLACE.
[2019-07-14] MEDS: D5 1/4NS w/KCl 20mEq 1,000 ML IV SCH (10:39)
[2019-07-14 12:00] VITALS: BP 131/63
--- NOTE | 2019-07-14 13:09 | NUR ---
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 PARENTERAL NUTRITION RECOMMENDATIONS: D/AA Rate: 66 IL Rate: 9 Total Rate: 75 Volume: 1800 % Dextrose: 17 % AA: 5.3 Energy (kcals/kg): 1683.5 Protein (g/kg protein): 84 Nonprotein KCALS: 1347.5 GIR (mg CHO/kg/min): 3.16 % Fat KCALS: 26 NCP: N Ratio: 100.2 TPN Comment: * D17% AA 5.3% @ 66ml/hr + IL20% @ 9ml/hr-> total of 75ml/hr, all 3:1 * TPN @ goal provides 100% est kcal/prot needs -> 29kcal/1.4g prot per kg actual body wt ADDITIONAL RECOMMENDATIONS: * Rec obtaining standing wt for accurate CBW * Monitor BGs closely while on Predenisone * Monitor BGs, LFTs, lytes closely on TPN
--- NOTE | 2019-07-14 13:53 | NUR ---
NURSE NOTES: ASSISTED OOB, STOOD UP AT BEDSIDE. CO SEVERE PAIN. ENCOURAGED TO DO DEEP BREATHING. BACK TO BED. MADE COMFORTABLE. INSTRUCTED TO PUSH PAIN BUTTON FOR PAIN. WILL CONTINUE TO MONITOR PT. WILL TRY AGAIN LATER IF ABLE TO GET UP AND WALK.
[2019-07-14] MEDS ORDERED: PCA HYDROmorphone 1mg/ml 30 ML IV PRN (15:30)
--- NOTE | 2019-07-14 15:41 | NUR ---
NURSE NOTES: O2 SAT 88% ON 2L N/C. ENCOURAGE DEEP BREATHING AND USE OF INCENTIVE SPIROMETER. O2 SAT UP TO 90-91%. PT AWAKE/ALERT. RESPONSIVE, DR GRIGGS CALLED WITH NEW ORDER.
--- NOTE | 2019-07-14 15:44 | 48 Hour Post Anesthesia Eval ---
Post Anesthesia Evaluation Procedure: Exploratory laparotomy, resection of continent pouch Date of Evaluation: Jul 14, 2019 Time of Evaluation: 15:43 Blood Pressure Systolic: 131 0: 63 Pulse Rate: 98 Respiratory Rate: 15 Temperature (Fahrenheit): 99 O2 Sat by Pulse Oximetry: 91 Airway: patent Nausea: No Vomiting: No Pain Intensity: 2 Hydration Status: adequate Cardiopulmonary Status: Stable Mental Status/LOC: patient returned to baseline Follow-up Care/Observations: 0 Post-Anesthesia Complications: 0 Follow-up care needed: N/A Shravan Rome MD Jul 14, 2019 15:44
[2019-07-14 16:00] VITALS: BP 150/74
--- NOTE | 2019-07-14 16:30 | Cardiology Progress Note ---
Assessment/Plan Status Narrative 1. U.C. 2. Malfunctioning [place] Pouch 3. CAD, S/P CABG- studies from PMD reviewed, no evidence of ischemia on nuclear scan done in Apr 2019 4. BL Carotid stenosis- s/p stents 5. AAA- stable 6. HTN- improved on meds. 7. Hearing loss 8. S/p resection of failed [place] Pouch, repair parastomal hernia, creation of Natalee ileostomy 9. Dehydration- -->elevated creat, tachycardia 10 Hypoxemia - due to hypoventilation possible atelectasis- Improves with deep insp and use of I/S Assessment/Plan I/S Q1 h Up in chair, ambulate IV NS as per Dr. Orellana F/U labs in AM' Losartan 25 mg/day- Hold for SBP < 120 CXR today. Discussed with RN and Patient's . Subjective Cardiovascular: Reports: no symptoms Respiratory: Reports: no symptoms Gastrointestinal/Abdominal: Reports: abdominal pain Genitourinary: Reports: no symptoms Subjective 07/07/19- Patient admitted for revision of Kock Pouch. He has h/o CAD, S/P CABG 10 yrs ago, s/p BL carotid stents, and h/o AAA. Patient denies h/o HTn, but his BP has been elevated since admission 07/08 doing OK , BP imroving, PICC line placed. 07/09- BP improved 07/10- Had BP down to 107. Meds held. Scheduled for surgery on 07/13 07/11- BP stable 07/13- s/p resection of failed [place] Pouch, repair parastomal hernia, creation of Natalee ileostomy. 07/14- Has had decreased O2 Sat, Creat 1.9, low U.O. IV NS started Objective Last 24 Hour Vital Signs Date Time Temp Pulse Resp B/P (MAP) Pulse Ox O2 Delivery O2 Flow Rate FiO2 07/14/19 16:01 95 07/14/19 15:56 99.0 07/14/19 15:45 90 07/14/19 15:44 98 15 91 07/14/19 15:30 88 07/14/19 12:00 98 15 91 07/14/19 12:00 99.0 98 15 131/63 (85) 91 07/14/19 11:05 99.3 07/14/19 09:00 Nasal Cannula 2.0 07/14/19 08:41 122/64 07/14/19 08:08 96 Nasal Cannula 2.0 28 07/14/19 08:00 108 16 92 07/14/19 08:00 99.3 108 16 122/64 (83) 92 07/14/19 04:00 98.9 102 20 121/66 (84) 07/14/19 04:00 121 20 94 07/14/19 00:00 99.5 106 20 111/67 (82) 07/14/19 00:00 106 20 96 07/13/19 21:00 Nasal Cannula 2.0 07/13/19 20:00 100.2 105 21 100/60 (73) 07/13/19 20:00 105 21 95 Cardiovascular: tachycardia Respiratory/Chest: decreased breath sounds - bases Abdomen: soft, hypoactive bowel sounds, distended, tender Extremities: non-tender, normal inspection, no calf tenderness, no swelling Intake and Output 07/13/19 07/14/19 19:00 07:00 Intake Total 1250 ml 950 ml Output Total 720 ml 350 ml Balance 530 ml 600 ml IV Total 1000 ml 950 ml Other 250 ml Output Urine Total 520 ml 350 ml Estimated Blood Loss 150 ml Other 50 ml Laboratory Tests Test 07/14/19 04:40 White Blood Count 14.7 K/UL (4.8-10.8) H Red Blood Count 3.74 M/UL (4.70-6.10) L Hemoglobin 10.8 G/DL (14.2-18.0) L Hematocrit 33.3 % (42.0-52.0) L Mean Corpuscular Volume 89 FL (80-99) Mean Corpuscular Hemoglobin 28.9 PG (27.0-31.0) Mean Corpuscular Hemoglobin Concent 32.4 G/DL (32.0-36.0) Red Cell Distribution Width 19.2 % (11.6-14.8) H Platelet Count 170 K/UL (150-450) Mean Platelet Volume 6.1 FL (6.5-10.1) L Neutrophils (%) (Auto) 82.7 % (45.0-75.0) H Lymphocytes (%) (Auto) 10.2 % (20.0-45.0) L Monocytes (%) (Auto) 6.4 % (1.0-10.0) Eosinophils (%) (Auto) 0.4 % (0.0-3.0) Basophils (%) (Auto) 0.3 % (0.0-2.0) Sodium Level 143 MMOL/L (136-145) Potassium Level 4.9 MMOL/L (3.5-5.1) Chloride Level 109 MMOL/L (98-107) H Carbon Dioxide Level 24 MMOL/L (21-32) Anion Gap 10 mmol/L (5-15) Blood Urea Nitrogen 46 mg/dL (7-18) H Creatinine 1.9 MG/DL (0.55-1.30) H Estimat Glomerular Filtration Rate mL/min (>60) Glucose Level 123 MG/DL (74-106) H Calcium Level 7.9 MG/DL (8.5-10.1) L Total Bilirubin 0.3 MG/DL (0.2-1.0) Aspartate Amino Transf (AST/SGOT) 23 U/L (15-37) Alanine Aminotransferase (ALT/SGPT) 23 U/L (12-78) Alkaline Phosphatase 58 U/L (46-116) Total Protein 5.4 G/DL (6.4-8.2) L Albumin 2.2 G/DL (3.4-5.0) L Globulin 3.2 g/dL Albumin/Globulin Ratio 0.7 (1.0-2.7) L Rommel Townsend MD Jul 14, 2019 16:30
--- NOTE | 2019-07-14 19:00 | NUR ---
NURSE NOTES: 02 sat 94-95%, tco2 24-25. no sob . in no distress.
--- NOTE | 2019-07-14 19:30 | NUR ---
Receive a report from DAVID Jenkins. Round is done. Pt is awake without acute distress. Breathing is even and non labored. On O2 L NC with eCO2 monitoring for TEACHERS ASSISTANT continuous mode. TEACHERS ASSISTANT -continuous mode and bolus are running for pain contorl. Anne ileostomy appliance attached but noted small blood leaking on both sides. Kept attached around the stoma. Stoma is red and edematous. Blood discharge noted via anne ileostomy as well. Yellowish urine patent via pinedo catheter. TPN is runnig via Port-a-cath on rt. upper chest and main fluids are running via PICC on PHILIP. Noted discoloration left forearm. Call light within reach. Will continue to monitor.
--- NOTE | 2019-07-14 19:37 | NUR ---
HAND-OFF: Report given to barney lu rn.
[2019-07-14 20:00] VITALS: BP 147/71
--- NOTE | 2019-07-14 20:30 | NUR ---
NURSE NOTES: CN made aware of leaking from around ileostomy pouch. Apply extra gauze around the pouch. Will continue to monitor. PICC and Port-a-cath insertions sites are clear. Done dressing change. Encourage I/S with coughing and deep breathing. Pt did 3 times of I/S. Spo2 94-95% checked. Will continue to monitor.
[2019-07-14] MEDS: Dyna-Hex 2% Top Sol 2oz TOPIC SCH (20:34)
[2019-07-14] MEDS: Iron Sucrose 100 MG in NS 55 ML IV SCH (20:35)
[2019-07-14] MEDS: Fat Emulsion Iv 20% 216 ML in Tpn 1,584 ML IV SCH (20:36)
[2019-07-14] MEDS: Phytonadione 10 mg/mL 1ml amp SUBQ SCH (21:14)
--- NOTE | 2019-07-14 21:15 | NUR ---
NURSE NOTES: Receive a call from Dr. Townsend and updated pt's condition. Receive order to continue to use I/S for lung care. Order noted and carried out. Reinforce to use I/S. Will continue to monitor.
[2019-07-15] VITALS (15 sets, daily range): BP systolic 100–159; BP diastolic 50–86
[2019-07-15] MEDS: HYDROmorphone 1mg/ml Carpuject SUBQ PRN ×2 (04:25→20:01)
[2019-07-15] MEDS: D5 1/4NS w/KCl 20mEq 1,000 ML IV SCH ×2 (05:52→15:44)
[2019-07-15] MEDS: Ampicillin/Sulbactam Sod 3 GM in NS 110 ML IV SCH ×3 (05:52→17:48)
[2019-07-15] MEDS: Insulin NovoLOG Flexpen S/S (Mod) SUBQ SCH ×3 (05:54→17:09)
[2019-07-15 05:57] LABS: BASOPHILS % (AUTO) 0.6 % (0.0-2.0); EOSINOPHILS % (AUTO) 1.3 % (0.0-3.0); HEMATOCRIT 27.5 % (42.0-52.0); HEMOGLOBIN 8.8 G/DL (14.2-18.0); LYMPHOCYTES % (AUTO) 8.8 % (20.0-45.0); MEAN CORPUSCULAR VOLUME 89 FL (80-99); MONOCYTES % (AUTO) 7.9 % (1.0-10.0); NEUTROPHILS % (AUTO) 81.3 % (45.0-75.0); PLATELET COUNT 139 K/UL (150-450); RED BLOOD COUNT 3.08 M/UL (4.70-6.10); RED CELL DISTRIBUTION WIDTH 19.4 % (11.6-14.8); WHITE BLOOD COUNT 12.4 K/UL (4.8-10.8)
--- NOTE | 2019-07-15 06:00 | NUR ---
NURSE NOTES: Pt has been using CLINIC CMA pump for pain including breakthrough pain medication. No respiratory distress noted. Still noted blood output through anne ileostomy. Lab will be followed up. Will continue to monitor. 12hr output Urine: 700ml Anne Ileostomy: 50ml+leak-bloody
[2019-07-15 06:32] LABS: ALANINE AMINOTRANSFERASE 18 U/L (12-78); ALBUMIN 1.8 G/DL (3.4-5.0); ALBUMIN/GLOBULIN RATIO 0.6 (1.0-2.7); ALKALINE PHOSPHATASE 51 U/L (46-116); ANION GAP 7 mmol/L (5-15); ASPARTATE AMINO TRANSFERASE 21 U/L (15-37); BILIRUBIN,TOTAL 0.3 MG/DL (0.2-1.0); BLOOD UREA NITROGEN 44 mg/dL (7-18); CALCIUM 8.1 MG/DL (8.5-10.1); CARBON DIOXIDE 23 MMOL/L (21-32); CHLORIDE 113 MMOL/L (98-107); CREATININE 1.5 MG/DL (0.55-1.30); PHOSPHORUS 3.9 MG/DL (2.5-4.9); POTASSIUM 4.3 MMOL/L (3.5-5.1); SODIUM 143 MMOL/L (136-145)
[2019-07-15] MEDS: PCA shift volume MISC SCH ×2 (07:07→19:12)
--- NOTE | 2019-07-15 07:15 | NUR ---
HAND-OFF: Report given to DAVID Jenkins.
--- NOTE | 2019-07-15 07:46 | NUR ---
NURSE NOTES: AWAKE/ALERT. PAIN SCALE 8/10. ILEOSTOMY BAG IN PLACE DRAINING BLOODY OUTPUT WITH SMALL AMUNT OF LEAKING. APLLIED 4X4 DRESSING AROUND AROUND ILEOSTOMY BAG. WILL CONTINUE TO MONITOR.
[2019-07-15] MEDS: Losartan 25mg tab ORAL SCH (08:47)
[2019-07-15] MEDS: Tamsulosin 0.4mg cap ORAL SCH (08:47)
--- NOTE | 2019-07-15 09:42 | General Progress Note ---
Progress Note Progress Note AVSS c/o incisional pains Having bleeding around the ileostomy stoma ? via the stoma itself or from incision Abdomen distended, soft, incision clean, stoma pink with large amount of clot under appliance Urine 1250 Ileostomy 150 bloody WBC down 12,400 Hgb down 8.8 Platelets 139,000 BUN down 44 Cr down 1.5 Albumin 1.8 Imp: Ileus Ileostomy stoma bleeding - ? from peristomal area vs. GI bleeding Plan: continue npo, TPN, Guadarrama stoma appliance left off with 4x4s placed - will observe re source of bleeding Pako Orellana MD Jul 15, 2019 09:42
[2019-07-15] MEDS ORDERED: Naloxone 0.4mg/ml Inj IVP PRN (09:43)
[2019-07-15] MEDS ORDERED: Rate Change PCA 1 Each MISC PRN (09:45)
[2019-07-15] MEDS ORDERED: DiphenhydrAMINE 50mg/ml Inj IVP PRN ×2 (10:00→13:15)
--- NOTE | 2019-07-15 11:00 | NUR ---
NURSE NOTES: ileostomy dressing saturated with bloody drainage. dressing changed. dr ric yo notified.
--- NOTE | 2019-07-15 12:30 | NUR ---
NURSE NOTES: to surgery via bed.
--- NOTE | 2019-07-15 12:34 | NUR ---
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
--- NOTE | 2019-07-15 12:47 | Pre-Procedure Note/Attestation ---
Pre-Procedure Note/Attestation Complete Prior to Procedure Planned Procedure: not applicable Procedure Narrative: control of ileostomy bleeding Indications for Procedure Pre-Operative Diagnosis: Ileostomy bleeding Attestation I attest that I discussed the nature of the procedure; its benefits; risks and complications; and alternatives (and the risks and benefits of such alternatives ), prior to the procedure, with the patient (or the patient's legal textile machinery sales representative). I attest that, if there was a reasonable possibility of needing a blood transfusion, the patient (or the patient's legal textile machinery sales representative) was given the [facility] standardized written summary, pursuant to the Scott Sanjay Blood Safety Act ([place] Health and Safety Code # 1645, as amended). I attest that I re-evaluated the patient just prior to the surgery and that there has been no change in the patient's H&P, except as documented below: none Pako Orellana MD Jul 15, 2019 12:46
[2019-07-15] MEDS ORDERED: Propofol 200mg/20ml IV ONE (13:00)
[2019-07-15] MEDS ORDERED: LR 1000ml ONE (13:00)
[2019-07-15] MEDS ORDERED: Sterile Water Irrig 1000ml IRRIG ONE (13:00)
[2019-07-15] MEDS ORDERED: LR 1000ml 1,000 ML IVLG SCH (13:03)
[2019-07-15] MEDS ORDERED: Bacitracin 50000 Units Vial ONE (13:07)
[2019-07-15] MEDS ORDERED: fentaNYL 100 mcg/2 mL IV PRN (13:15)
[2019-07-15] MEDS ORDERED: Ketorolac 30mg Inj IV PRN ×2 (13:15)
[2019-07-15] MEDS ORDERED: Metoclopramide 10mg/2ml Inj IVP PRN (13:15)
[2019-07-15] MEDS ORDERED: HYDROcodone/Acetamin 7.5/325 tab ORAL PRN (13:15)
[2019-07-15] MEDS ORDERED: oxyCODONE HCL/Acetaminophen 5/325mg ORAL PRN (13:15)
[2019-07-15] MEDS ORDERED: Hydromorphone 0.5mg/0.5ml inj IVP PRN (13:15)
[2019-07-15] MEDS ORDERED: Atropine Sulfate 0.4mg/ml inj IVP PRN (13:15)
[2019-07-15] MEDS ORDERED: HYDROcodone/Acetamin 5/325 tab ORAL PRN (13:15)
[2019-07-15] MEDS ORDERED: Meperidine 50mg/ml Inj(FOR RIGORS ONLY) IVP PRN (13:15)
[2019-07-15] MEDS ORDERED: Labetalol 5mg/ml 20ml vial IV PRN (13:15)
--- NOTE | 2019-07-15 13:16 | Immediate Post-Op Evaluation ---
Immediate Post-Op Evalulation Immediate Post-Op Evalulation Procedure: Repair Stomal Bleeding Date of Evaluation: Jul 15, 2019 Time of Evaluation: 14:22 IV Fluids: 300 LR Blood Products: 0 Estimated Blood Loss: 20 Urinary Output: 0 Blood Pressure Systolic: 100 Blood Pressure Diastolic: 50 Pulse Rate: 71 Respiratory Rate: 18 O2 Sat by Pulse Oximetry: 99 Temperature (Fahrenheit): 99.8 Pain Score (1-10): 1 Nausea: No Vomiting: No Complications 0 Patient Status: awake, reacts, patent, none Hydration Status: adequate Drug: On Floor Shravan Rome MD Jul 15, 2019 13:16
[2019-07-15] MEDS ORDERED: NS Irrig 1000ml IRRIG ONE ×2 (13:21→13:38)
[2019-07-15] MEDS ORDERED: Midazolam 2mg/2ml Inj ONE (13:26)
[2019-07-15] MEDS ORDERED: Lidocaine 1% Plain 30 ml INJ ONE (13:26)
[2019-07-15] MEDS ORDERED: Lidocaine 1% MPF 10mg/ml 5ml ONE (13:26)
[2019-07-15] MEDS ORDERED: Sodium Chloride 10ml vial INJ ONE (13:26)
--- NOTE | 2019-07-15 14:05 | Brief Operative Note ---
Immediate Post Operative Note Operative Note Pre-op Diagnosis: Ileostomy bleeding Procedure: control of ileostomy stoma bleeding Post-op Diagnosis: ileostomy stoma bleeding Post-op Diagnosis: same as pre-op Findings: consistent w/pre-op dx studies Surgeon: srinath Anesthesiologist: chad Anesthesia: MAC Specimen: none Complications: none Condition: stable Fluids: see anesthesia record Estimated Blood Loss: minimal Drains: none Implant(s) used?: No Pako Orellana MD Jul 15, 2019 14:05
--- NOTE | 2019-07-15 14:42 | Diagnostic Imaging Report ---
Indication: Dyspnea Comparison: 07/07/2019 A single view chest radiograph was obtained. Findings: No definite infiltrate or pulmonary vascular congestion identified. Sternotomy is noted. There is a right chest port. There is free air under the right hemidiaphragm noted. The heart is enlarged. The aorta is mildly enlarged consistent with atherosclerotic vascular disease. The bones are osteopenic. Impression: Free air under the diaphragm. Patient has had recent proctocolectomy presumably accounting for this. Please correlate clinically. No acute cardiopulmonary disease
[2019-07-15] MEDS ORDERED: PCA HYDROmorphone 1mg/ml 30 ML IV ONE (14:49)
--- NOTE | 2019-07-15 15:20 | NUR ---
NURSE NOTES: REC'D FROM PACU SP CONTROL OF ILEOSTOMY BLEEDING. DROWSY BUT AROUSABLE . V/S TAKEN. ILEOSTOMY BAG IN PLACE WITH MINIMAL PINKISH DRAINAGE. 02 SAT 94%. TCO2 24. IN NO ACUTE DISTRESS.
[2019-07-15] MEDS ORDERED: PCA HYDROmorphone 1mg/ml 30 ML IV PRN (15:30)
--- NOTE | 2019-07-15 15:52 | Cardiology Progress Note ---
Assessment/Plan Status Narrative 1. U.C. 2. Malfunctioning [place] Pouch 3. CAD, S/P CABG- studies from PMD reviewed, no evidence of ischemia on nuclear scan done in Apr 2019 4. BL Carotid stenosis- s/p stents 5. AAA- stable 6. HTN- improved on meds. 7. Hearing loss 8. S/p resection of failed [place] Pouch, repair parastomal hernia, creation of Natalee ileostomy 9. Dehydration- -->elevated creat, tachycardia 10 Hypoxemia - due to hypoventilation possible atelectasis- Improves with deep insp and use of I/S Assessment/Plan I/S Q1 h IV as per Dr. Orellana F/U labs in AM' Losartan 25 mg/day- Hold for SBP < 120 Discussed with RN and Patient's . Subjective ROS Limited/Unobtainable: No Cardiovascular: Reports: no symptoms Subjective 07/07/19- Patient admitted for revision of Kock Pouch. He has h/o CAD, S/P CABG 10 yrs ago, s/p BL carotid stents, and h/o AAA. Patient denies h/o HTn, but his BP has been elevated since admission 07/08 doing OK , BP imroving, PICC line placed. 07/09- BP improved 07/10- Had BP down to 107. Meds held. Scheduled for surgery on 07/13 07/11- BP stable 07/13- s/p resection of failed [place] Pouch, repair parastomal hernia, creation of Natalee ileostomy. 07/14- Has had decreased O2 Sat, Creat 1.9, low U.O. IV NS started 07/15- s/p surgery for stoma bleeding Objective Last 24 Hour Vital Signs Date Time Temp Pulse Resp B/P (MAP) Pulse Ox O2 Delivery O2 Flow Rate FiO2 07/15/19 15:15 97.4 96 21 153/75 100 Nasal Cannula 3 07/15/19 15:00 96 17 153/77 100 Nasal Cannula 3 07/15/19 14:45 94 24 152/74 100 Nasal Cannula 3 07/15/19 14:30 70 24 137/65 100 Simple Mask 6 07/15/19 14:20 68 18 109/52 100 Simple Mask 6 07/15/19 14:15 67 19 105/52 100 Simple Mask 6 07/15/19 14:11 99.0 69 17 100/50 98 Simple Mask 6 07/15/19 14:09 71 18 99 07/15/19 12:30 93 07/15/19 12:00 93 07/15/19 09:00 Nasal Cannula 2.0 07/15/19 08:47 116/76 07/15/19 08:00 98.4 91 17 116/86 (96) 93 07/15/19 08:00 92 07/15/19 04:00 86 19 93 07/15/19 04:00 98.7 86 19 122/56 (78) 93 07/15/19 00:29 99 Nasal Cannula 2.0 28 07/15/19 00:00 99.4 93 20 152/68 (96) 95 07/15/19 00:00 93 20 95 07/14/19 21:00 Nasal Cannula 2.0 07/14/19 20:00 99.2 102 24 147/71 (96) 94 07/14/19 20:00 102 24 94 07/14/19 16:55 95 07/14/19 16:01 95 07/14/19 16:00 97.3 99 15 150/74 (99) 91 07/14/19 15:56 99.0 General Appearance: lethargic Cardiovascular: normal rate, regular rhythm, no gallop/murmur Respiratory/Chest: lungs clear, normal breath sounds Abdomen: hypoactive bowel sounds, tender Extremities: non-tender, normal inspection, no calf tenderness, no swelling Intake and Output 07/14/19 07/15/19 18:59 06:59 Intake Total 1960 ml 2275 ml Output Total 650 ml 750 ml Balance 1310 ml 1525 ml IV Total 1960 ml 2275 ml Output Urine Total 550 ml 700 ml Other 100 ml 50 ml Laboratory Tests Test 07/15/19 04:30 White Blood Count 12.4 K/UL (4.8-10.8) H Red Blood Count 3.08 M/UL (4.70-6.10) L Hemoglobin 8.8 G/DL (14.2-18.0) L Hematocrit 27.5 % (42.0-52.0) L Mean Corpuscular Volume 89 FL (80-99) Mean Corpuscular Hemoglobin 28.5 PG (27.0-31.0) Mean Corpuscular Hemoglobin Concent 32.0 G/DL (32.0-36.0) Red Cell Distribution Width 19.4 % (11.6-14.8) H Platelet Count 139 K/UL (150-450) L Mean Platelet Volume 6.2 FL (6.5-10.1) L Neutrophils (%) (Auto) 81.3 % (45.0-75.0) H Lymphocytes (%) (Auto) 8.8 % (20.0-45.0) L Monocytes (%) (Auto) 7.9 % (1.0-10.0) Eosinophils (%) (Auto) 1.3 % (0.0-3.0) Basophils (%) (Auto) 0.6 % (0.0-2.0) Sodium Level 143 MMOL/L (136-145) Potassium Level 4.3 MMOL/L (3.5-5.1) Chloride Level 113 MMOL/L (98-107) H Carbon Dioxide Level 23 MMOL/L (21-32) Anion Gap 7 mmol/L (5-15) Blood Urea Nitrogen 44 mg/dL (7-18) H Creatinine 1.5 MG/DL (0.55-1.30) H Estimat Glomerular Filtration Rate mL/min (>60) Glucose Level 147 MG/DL (74-106) H Calcium Level 8.1 MG/DL (8.5-10.1) L Phosphorus Level 3.9 MG/DL (2.5-4.9) Magnesium Level 1.7 MG/DL (1.8-2.4) L Total Bilirubin 0.3 MG/DL (0.2-1.0) Aspartate Amino Transf (AST/SGOT) 21 U/L (15-37) Alanine Aminotransferase (ALT/SGPT) 18 U/L (12-78) Alkaline Phosphatase 51 U/L (46-116) Total Protein 5.0 G/DL (6.4-8.2) L Albumin 1.8 G/DL (3.4-5.0) L Globulin 3.2 g/dL Albumin/Globulin Ratio 0.6 (1.0-2.7) L Rommel Townsend MD Jul 15, 2019 15:52
--- NOTE | 2019-07-15 19:25 | NUR ---
HAND-OFF: Report given to tabitha ramirez rn.
--- NOTE | 2019-07-15 19:30 | NUR ---
NURSE NOTES: Receive a report from DAVID Jenkins. Round is done. Pt is asleep but easily aroused. Breathing is even and non labored. On FOOD AND BEVERAGE MANAGER pump-continuous and bolus mode with O2 2L NC. Spo2 93-94% with eCO2 monitoring. No leaking noted around ileostomy site and small amount of blood output. Noted nausea without vomiting. Will provide medication as ordered. Yellow urine patent via pinedo catheter. TPN is running via Port-a-cath and fluid and ATB are running via PICC on PHILIP. Call light within reach. Will continue to monitor.
[2019-07-15] MEDS: Dyna-Hex 2% Top Sol 2oz TOPIC SCH (20:01)
--- NOTE | 2019-07-15 20:35 | NUR ---
NURSE NOTES: Given pain mediation pt feels comfortable. No leaking noted around ileostomy. Will continue to monitor.
[2019-07-15] MEDS: Iron Sucrose 100 MG in NS 55 ML IV SCH (20:40)
[2019-07-15] MEDS: Fat Emulsion Iv 20% 216 ML in Tpn 1,584 ML IV SCH (20:40)
[2019-07-16] VITALS (9 sets, daily range): BP systolic 131–158; BP diastolic 61–73
[2019-07-16] MEDS: D5 1/4NS w/KCl 20mEq 1,000 ML IV SCH ×2 (02:00→16:53)
--- NOTE | 2019-07-16 04:15 | NUR ---
NURSE NOTES: No acute distress noted. Pt has been using TALENT DEVELOPMENT DIRECTOR pump for pain control. Spo2 varies 87~90% with O2 2L NC. RR: 18-20 bmp with eCO2 monitoring. Lung sound is clear bilateral. No phlegm noted. Encourage I/S and repeats 2 times. Will continue to monitor. CN made aware.
--- NOTE | 2019-07-16 05:00 | NUR ---
NURSE NOTES: Noted Spo2 checked as 94-96%. No respiratory distress noted. Will continue to monitor.
[2019-07-16] MEDS: Insulin NovoLOG Flexpen S/S (Mod) SUBQ SCH ×5 (05:24→23:41)
[2019-07-16] MEDS: Ampicillin/Sulbactam Sod 3 GM in NS 110 ML IV SCH ×6 (05:24→23:37)
--- NOTE | 2019-07-16 06:00 | NUR ---
NURSE NOTES: No leaking noted Natalee ileostomy. Output is small and serous mixed with blood. No acute distress noted. Will continue to monitor. 12 hr output Urine:1120ml Natalee ileostomy: 30ml-bloody
[2019-07-16] MEDS: PCA shift volume MISC SCH ×2 (07:00→19:00)
[2019-07-16 07:09] LABS: ALANINE AMINOTRANSFERASE 17 U/L (12-78); ALBUMIN 1.6 G/DL (3.4-5.0); ALBUMIN/GLOBULIN RATIO 0.5 (1.0-2.7); ALKALINE PHOSPHATASE 46 U/L (46-116); ANION GAP 8 mmol/L (5-15); ASPARTATE AMINO TRANSFERASE 23 U/L (15-37); BILIRUBIN,TOTAL 0.2 MG/DL (0.2-1.0); BLOOD UREA NITROGEN 29 mg/dL (7-18); CARBON DIOXIDE 24 MMOL/L (21-32); CHLORIDE 111 MMOL/L (98-107); CREATININE 1.1 MG/DL (0.55-1.30); POTASSIUM 4.1 MMOL/L (3.5-5.1); SODIUM 143 MMOL/L (136-145)
--- NOTE | 2019-07-16 07:15 | Operative Note - Dictated ---
DATE OF OPERATION: 07/15/2019 SURGEON: Pako Orellana M.D. VACUUM SPINDLE SANDER: None. ANESTHESIOLOGIST: Shravan Rome M.D. TYPE OF ANESTHESIA: MAC with IV sedation. 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 OPERATION PERFORMED: Control of ileostomy stoma bleeding. DESCRIPTION OF PROCEDURE: The patient was positioned supine in the operating room with IV sedation. The bleeding was coming from several points along the inferior hayley-circumference of the stoma. This was treated with 3-0 Vicryl sutures between the stoma edge and peristomal skin and cautery. The stoma was carefully inspected circumferentially multiple times washing the skin around it. I was able to readily insert a finger through the stoma orifice through the abdominal wall. The patient still has an ileus. There is no ileostomy effluent yet. Following considerable inspection, the bleeding was controlled. A 1.25 inch ileostomy appliance was cut to fit and applied over the stoma. The patient tolerated the procedure well. Pako Orellana M.D. DR: VERONIQUE JOB#: [id number] CC: ANU
--- NOTE | 2019-07-16 07:30 | NUR ---
HAND-OFF: Report given to DAVID Montoya. Round is done.
--- NOTE | 2019-07-16 07:40 | NUR ---
NURSE NOTES: Received report from DAVID Vargas. Rounding done with outgoing nurse. Pt a/o x 4, in bed. Pt mentioned pain is 4/10 with CLOTHING AND TEXTILES TEACHER. Natalee ileostomy bag is in placed. is at bedside. Pt is NPO at this time. TPN & D51/2NS +Kcl 20 & NS is running at this time. Bed in lowest position, call light within reach. Will continue to monitor.
[2019-07-16 07:47] LABS: BASOPHILS % (AUTO) 0.8 % (0.0-2.0); HEMATOCRIT 25.7 % (42.0-52.0); HEMOGLOBIN 8.2 G/DL (14.2-18.0); LYMPHOCYTES % (AUTO) 11.6 % (20.0-45.0); MEAN CORPUSCULAR VOLUME 89 FL (80-99); MONOCYTES % (AUTO) 7.7 % (1.0-10.0); NEUTROPHILS % (AUTO) 76.9 % (45.0-75.0); PLATELET COUNT 156 K/UL (150-450); RED BLOOD COUNT 2.88 M/UL (4.70-6.10); RED CELL DISTRIBUTION WIDTH 18.9 % (11.6-14.8); WHITE BLOOD COUNT 10.9 K/UL (4.8-10.8)
--- NOTE | 2019-07-16 08:20 | General Progress Note ---
Progress Note Progress Note AVSS Pain is improved. No further bleeding from ileostomy stoma or incision Abdomen distended, soft, stoma pink no output yet Urine 1795 [id number] Hgb 8.2 BUN down 29 Cr down 1.1 Albumin 1.6 Imp: Anemia Ileus Plan: transfuse 1 unit PRBC continue npo, TPN, Guadarrama mobilize f/u labs Pako Orellana MD Jul 16, 2019 08:20
--- NOTE | 2019-07-16 09:00 | NUR ---
NURSE NOTES: ALL SOURCE INTELLIGENCE TECHNICIAN setting was changed by MD's order. Verified with Ajit charge nurse.
--- NOTE | 2019-07-16 09:09 | 48 Hour Post Anesthesia Eval ---
Post Anesthesia Evaluation Procedure: Repair Stomal Bleeding Date of Evaluation: Jul 16, 2019 Time of Evaluation: 09:07 Blood Pressure Systolic: 136 0: 78 Pulse Rate: 74 Respiratory Rate: 24 Temperature (Fahrenheit): 97.6 O2 Sat by Pulse Oximetry: 98 Airway: patent Nausea: No Vomiting: No Pain Intensity: 4 Hydration Status: adequate Cardiopulmonary Status: stable Mental Status/LOC: patient returned to baseline Follow-up Care/Observations: n/a Post-Anesthesia Complications: none Follow-up care needed: N/A Otoniel Patel MD Jul 16, 2019 09:09
[2019-07-16] MEDS: Tamsulosin 0.4mg cap ORAL SCH (09:15)
[2019-07-16] MEDS: Losartan 25mg tab ORAL SCH (09:15)
--- NOTE | 2019-07-16 11:02 | NUR ---
NURSE NOTES: Started blood transfusion. Pt is stable condition.
--- NOTE | 2019-07-16 13:20 | NUR ---
NURSE NOTES: Blood transfusion was done without any adverse reaction.
--- NOTE | 2019-07-16 14:31 | Diagnostic Imaging Report ---
Indication: Right upper extremity edema from mid forearm to shoulder, has right-sided infusion catheter Technique: Grayscale and duplex images of the right upper extremity veins Comparison: none Findings: On the right, grayscale and duplex images demonstrate no evidence of intraluminal thrombus common normal patency and compressibility of the right internal jugular, subclavian, axillary, brachial, and basilic veins. The cephalic vein could not be demonstrated. Impression: Negative for evidence of right upper extremity venous thrombosis Nonvisualized right cephalic vein. This could either be congenital, developmental, or could indicate chronic occlusion
[2019-07-16] MEDS ORDERED: NS Irrig 1000ml ONE (15:24)
[2019-07-16] MEDS ORDERED: NS 275ml ONE (15:24)
[2019-07-16] MEDS ORDERED: Tubing IV Secondary IV ONE (15:24)
--- NOTE | 2019-07-16 15:37 | NUR ---
P.T Note: P.T evaluation completed and tx initiated. Please refer to P.T evaluation for current functional status. Pt received on supine/semi howard position with present. Pt agreeable to participate in P.T eval/tx despite c/o 8/10 abdominal pain. Pt is generally weak and deconditioned limiting his activity tolerance and independence. Pt currently require MOD A X 1 and extended time to complete supine to/from sitting and Sit to/from standing transitions. Pt was only able to stand using the FWW and ambulate not more than 3 tiny steps with MIN A X 1. Overall poor activity tolerance however motivated and cooperative. Pt will benefit from skilled P.T services to increase strength, balance and endurance to activity tolerance, mobility independence and safety for return to PLOF during stay. Discussed pt's current functional status with DAVID Montoya. Pt is cleared for OOB activities using the FWW with nursing assist. Thank you for this referral.
--- NOTE | 2019-07-16 19:42 | Diagnostic Imaging Report ---
Indication: Shortness of breath Technique: One view of the chest Comparison: 07/14/2019 Findings: Previously demonstrated free intraperitoneal air is no longer evident. There is some atelectasis at the right lung base. There is possibly some consolidation in the left lung. Right chest port catheter, left arm PICC are again demonstrated. Median sternotomy sutures are again demonstrated. Impression: Developing right basilar atelectasis and possible retrocardiac consolidation. Other stable findings as described This agrees with the preliminary interpretation provided overnight by [facility] teleradiology service.
--- NOTE | 2019-07-16 20:04 | NUR ---
HAND-OFF: Report given to DAVID Gardner. Endorsed to cnc machinist 2nd shift nurse regarding SOB and chest x-ray is still active.
--- NOTE | 2019-07-16 20:06 | NUR ---
NURSE NOTES: Received report from DAVID Tracy. Rounding done with outgoing nurse. Patient is a/o x 4, in bed. Patient stated pain 5/10 with COTTON BUYER. Natalee ileostomy bag in placed. is at bedside. Central line and PICC line checked. TPN is running and IV fluid is running at this time. Bed in lowest position, call light within reach. Will continue to monitor.
[2019-07-16] MEDS: Dyna-Hex 2% Top Sol 2oz TOPIC SCH (21:12)
[2019-07-16] MEDS: Iron Sucrose 100 MG in NS 55 ML IV SCH (21:13)
[2019-07-16] MEDS: Fat Emulsion Iv 20% 216 ML in Tpn 1,584 ML IV SCH (21:14)
[2019-07-16] MEDS: HYDROmorphone 1mg/ml Carpuject SUBQ PRN (21:56)
[2019-07-17] VITALS: BP 156/73
[2019-07-17 04:00] VITALS: BP 145/68
[2019-07-17] MEDS: Insulin NovoLOG Flexpen S/S (Mod) SUBQ SCH ×3 (06:00→17:55)
[2019-07-17] MEDS: Ampicillin/Sulbactam Sod 3 GM in NS 110 ML IV SCH ×3 (06:26→17:22)
[2019-07-17 07:24] LABS: ALANINE AMINOTRANSFERASE 17 U/L (12-78); ALBUMIN 1.9 G/DL (3.4-5.0); ALBUMIN/GLOBULIN RATIO 0.5 (1.0-2.7); ALKALINE PHOSPHATASE 62 U/L (46-116); ANION GAP 10 mmol/L (5-15); ASPARTATE AMINO TRANSFERASE 24 U/L (15-37); BILIRUBIN,TOTAL 0.3 MG/DL (0.2-1.0); BLOOD UREA NITROGEN 21 mg/dL (7-18); CALCIUM 8.3 MG/DL (8.5-10.1); CARBON DIOXIDE 23 MMOL/L (21-32); CHLORIDE 108 MMOL/L (98-107); SODIUM 141 MMOL/L (136-145)
[2019-07-17] MEDS: PCA shift volume MISC SCH (07:30)
--- NOTE | 2019-07-17 07:30 | NUR ---
hand off: Given to Ivory HERNANDEZ.
--- NOTE | 2019-07-17 07:30 | NUR ---
NURSE NOTES: Patient is in bed awake and able to verbalize needs. Stable. Denies pain or SOB at this time. Patient instructed to use call light for assistance, verbalized understanding. Patient is on 2L O2 via NC. Ileo bag intact and draining, will monitor output throughout shift. PICC running IVF and CTE TEACHER as ordered. Portacath running TPN as ordered. Skin is clean, dry, and intact. Surgical dressing is c/d/i. Patient is in bed in locked and lowest position with trapeze overhead and call light within reach. All needs met at this time. Will continue to monitor.
[2019-07-17 07:41] LABS: BASOPHILS % (AUTO) 1.1 % (0.0-2.0); EOSINOPHILS % (AUTO) 3.2 % (0.0-3.0); HEMATOCRIT 29.7 % (42.0-52.0); LYMPHOCYTES % (AUTO) 12.5 % (20.0-45.0); MEAN CORPUSCULAR VOLUME 86 FL (80-99); MONOCYTES % (AUTO) 7.5 % (1.0-10.0); NEUTROPHILS % (AUTO) 75.7 % (45.0-75.0); PLATELET COUNT 182 K/UL (150-450); RED BLOOD COUNT 3.46 M/UL (4.70-6.10); RED CELL DISTRIBUTION WIDTH 19.2 % (11.6-14.8); WHITE BLOOD COUNT 10.3 K/UL (4.8-10.8)
[2019-07-17 08:00] VITALS: BP 156/72
[2019-07-17] MEDS: Losartan 25mg tab ORAL SCH (09:02)
[2019-07-17] MEDS: Tamsulosin 0.4mg cap ORAL SCH (09:02)
[2019-07-17] MEDS: HYDROmorphone 1mg/ml Carpuject SUBQ PRN ×3 (09:04→22:06)
--- NOTE | 2019-07-17 10:05 | NUR ---
NURSE NOTES: Patient vomited greenish brown emesis when transferring from bed to chair with PT. Patient does not c/o dizziness or nausea when he is not moving. Patient is irritable and refused physical therapy. Patient assisted back to bed without incident.
--- NOTE | 2019-07-17 10:45 | NUR ---
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 CURRENT DIET:NPO PARENTERAL NUTRITION RECOMMENDATIONS: D/AA Rate: 66 IL Rate: 9 Total Rate: 75 Volume: 1800 % Dextrose: 17 % AA: 5.3 Energy (kcals/kg): 1683.5 Protein (g/kg protein): 84 Nonprotein KCALS: 1347.5 GIR (mg CHO/kg/min): 3.16 % Fat KCALS: 26 NCP: N Ratio: 100.2 TPN Comment: * D17% AA 5.3% @ 66ml/hr + IL20% @ 9ml/hr-> total of 75ml/hr, all 3:1 * TPN @ goal provides 100% est kcal/prot needs -> 29kcal/1.4g prot per kg actual body wt ADDITIONAL RECOMMENDATIONS: * Rec obtaining standing wt for accurate CBW * Monitor BGs closely while on Prednisone * Monitor BGs, LFTs, lytes closely on TPN
--- NOTE | 2019-07-17 10:56 | Surgery Progress Note ---
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 now emesis with PT labs noted exam okay Objective Last 24 Hour Vital Signs Date Time Temp Pulse Resp B/P (MAP) Pulse Ox O2 Delivery O2 Flow Rate FiO2 07/17/19 09:02 156/72 07/17/19 09:00 Nasal Cannula 2.0 07/17/19 08:00 80 18 93 07/17/19 08:00 99.1 80 18 156/72 (100) 93 07/17/19 07:40 94 Nasal Cannula 2.0 28 07/17/19 04:00 88 17 96 07/17/19 04:00 98.1 88 18 145/68 (93) 96 07/17/19 00:00 94 19 96 07/17/19 00:00 97.8 94 19 156/73 (100) 96 07/16/19 21:00 Nasal Cannula 2.0 07/16/19 20:00 89 18 92 07/16/19 20:00 98.0 89 18 157/69 (98) 92 07/16/19 19:46 93 Nasal Cannula 2.0 28 07/16/19 16:00 82 19 96 07/16/19 16:00 99.4 82 19 158/63 (94) 96 07/16/19 13:20 97.7 83 20 140/73 (95) 92 07/16/19 12:00 83 20 92 07/16/19 12:00 97.7 83 20 147/73 (97) 92 07/16/19 11:17 97.8 87 137/63 (87) 07/16/19 11:02 98.2 85 131/61 (84) I&O Intake and Output 07/16/19 07/17/19 19:00 07:00 Intake Total 1520 ml 1405 ml Output Total 1300 ml 1880 ml Balance 220 ml -475 ml IV Total 1520 ml 1405 ml Output Urine Total 1250 ml 1800 ml Other 50 ml 80 ml Dressing: dry Wound: clean Cardiovascular: RSR Respiratory: clear Abdomen: soft, distended, non-tender, other, decreased bowel sounds Extremities: no edema, no tenderness, no cyanosis Laboratory Tests Test 07/17/19 05:20 White Blood Count 10.3 K/UL (4.8-10.8) Red Blood Count 3.46 M/UL (4.70-6.10) L Hemoglobin 10.0 G/DL (14.2-18.0) L Hematocrit 29.7 % (42.0-52.0) L Mean Corpuscular Volume 86 FL (80-99) Mean Corpuscular Hemoglobin 28.9 PG (27.0-31.0) Mean Corpuscular Hemoglobin Concent 33.6 G/DL (32.0-36.0) Red Cell Distribution Width 19.2 % (11.6-14.8) H Platelet Count 182 K/UL (150-450) Mean Platelet Volume 6.0 FL (6.5-10.1) L Neutrophils (%) (Auto) 75.7 % (45.0-75.0) H Lymphocytes (%) (Auto) 12.5 % (20.0-45.0) L Monocytes (%) (Auto) 7.5 % (1.0-10.0) Eosinophils (%) (Auto) 3.2 % (0.0-3.0) H Basophils (%) (Auto) 1.1 % (0.0-2.0) Sodium Level 141 MMOL/L (136-145) Potassium Level 4.0 MMOL/L (3.5-5.1) Chloride Level 108 MMOL/L (98-107) H Carbon Dioxide Level 23 MMOL/L (21-32) Anion Gap 10 mmol/L (5-15) Blood Urea Nitrogen 21 mg/dL (7-18) H Creatinine 1.0 MG/DL (0.55-1.30) Estimat Glomerular Filtration Rate mL/min (>60) Glucose Level 116 MG/DL (74-106) H Calcium Level 8.3 MG/DL (8.5-10.1) L Magnesium Level 1.6 MG/DL (1.8-2.4) L Total Bilirubin 0.3 MG/DL (0.2-1.0) Aspartate Amino Transf (AST/SGOT) 24 U/L (15-37) Alanine Aminotransferase (ALT/SGPT) 17 U/L (12-78) Alkaline Phosphatase 62 U/L (46-116) Total Protein 5.4 G/DL (6.4-8.2) L Albumin 1.9 G/DL (3.4-5.0) L Globulin 3.5 g/dL Albumin/Globulin Ratio 0.5 (1.0-2.7) L Plan Problems: (1) Colostomy prolapse Assessment & Plan: recovering await return of bowel function labs improved npo iv fluids pt/ot am labs thank you Nando Herring Jul 17, 2019 10:56
[2019-07-17 12:00] VITALS: BP 140/72
[2019-07-17 16:00] VITALS: BP 153/77
[2019-07-17] MEDS: D5 1/4NS w/KCl 20mEq 1,000 ML IV SCH (17:23)
--- NOTE | 2019-07-17 19:04 | NUR ---
NURSE NOTES: Ileo output: 75cc dark brown liquid output. UO: 1700cc yellow urine via pinedo. Patient complains of pain throughout shift. Patient is regularly using OPTICAL GLASS SILVERER. Patient refused physical therapy and refused to ambulate with staff. Patient vomited x1 during shift after transferring from bed to chair.
--- NOTE | 2019-07-17 19:42 | NUR ---
HAND-OFF: Report given to Jj HERNANDEZ. Patient is stable.
--- NOTE | 2019-07-17 19:43 | NUR ---
NURSE NOTES: Received report from DAVID Dodson. Rounding done with outgoing nurse. Patient is a/o x 4, in bed. Patient stated pain 6/10 with PRODUCT TRANSFER PUMPER. Natalee ileostomy bag in placed. is at bedside. Central line and PICC line checked. TPN is running and IV fluid is running at this time. Bed in lowest position, call light within reach. Will continue to monitor.
[2019-07-17 20:00] VITALS: BP 156/80
[2019-07-17] MEDS ORDERED: PCA HYDROmorphone 1mg/ml 30 ML IV PRN (20:15)
[2019-07-17] MEDS ORDERED: Naloxone 0.4mg/ml Inj IVP PRN (20:30)
[2019-07-17] MEDS ORDERED: Rate Change PCA 1 Each MISC PRN (20:30)
[2019-07-17] MEDS: Dyna-Hex 2% Top Sol 2oz TOPIC SCH (21:22)
[2019-07-17] MEDS: Fat Emulsion Iv 20% 216 ML in Tpn 1,584 ML IV SCH (21:24)
[2019-07-18] VITALS (7 sets, daily range): BP systolic 132–164; BP diastolic 52–81
[2019-07-18] MEDS: Ampicillin/Sulbactam Sod 3 GM in NS 110 ML IV SCH ×5 (00:16→23:32)
--- NOTE | 2019-07-18 05:50 | NUR ---
NURSE NOTES: Laboratory tried but couldn't able to get blood draw. Turned off TPN and Rik blood from PICC line.
[2019-07-18] MEDS: Insulin NovoLOG Flexpen S/S (Mod) SUBQ SCH ×5 (05:59→23:35)
[2019-07-18] MEDS: HYDROmorphone 1mg/ml Carpuject SUBQ PRN ×2 (06:13→20:01)
[2019-07-18 06:41] LABS: BASOPHILS % (AUTO) 1.3 % (0.0-2.0); EOSINOPHILS % (AUTO) 2.3 % (0.0-3.0); HEMATOCRIT 31.1 % (42.0-52.0); HEMOGLOBIN 10.4 G/DL (14.2-18.0); LYMPHOCYTES % (AUTO) 8.5 % (20.0-45.0); MEAN CORPUSCULAR VOLUME 87 FL (80-99); NEUTROPHILS % (AUTO) 79.9 % (45.0-75.0); PLATELET COUNT 175 K/UL (150-450); RED BLOOD COUNT 3.59 M/UL (4.70-6.10); RED CELL DISTRIBUTION WIDTH 17.9 % (11.6-14.8); WHITE BLOOD COUNT 11.7 K/UL (4.8-10.8)
[2019-07-18 06:56] LABS: ALANINE AMINOTRANSFERASE 15 U/L (12-78); ALBUMIN 1.9 G/DL (3.4-5.0); ALBUMIN/GLOBULIN RATIO 0.5 (1.0-2.7); ALKALINE PHOSPHATASE 100 U/L (46-116); ANION GAP 9 mmol/L (5-15); ASPARTATE AMINO TRANSFERASE 21 U/L (15-37); BILIRUBIN,TOTAL 0.5 MG/DL (0.2-1.0); BLOOD UREA NITROGEN 20 mg/dL (7-18); CALCIUM 8.2 MG/DL (8.5-10.1); CARBON DIOXIDE 23 MMOL/L (21-32); CHLORIDE 105 MMOL/L (98-107); POTASSIUM 4.2 MMOL/L (3.5-5.1); SODIUM 137 MMOL/L (136-145)
[2019-07-18] MEDS: PCA shift volume MISC SCH ×2 (07:00→19:00)
--- NOTE | 2019-07-18 07:35 | NUR ---
HAND-OFF: Report given to Melanie HERNANDEZ.
--- NOTE | 2019-07-18 07:45 | NUR ---
NURSE NOTES: Received report from Jj HERNANDEZ. Patient is asleep but arousable to voice during rounds, patient states he is feeling "better". LLQ ileostomy with external appliance in place with no leaking noted, no bleeding noted, pinedo to gravity drainage. PHILIP PICC intact, patent, running IVF per order, bruising noted at insertion site, TPN running per order through right upper chest port a cath. BI TRI OPERATOR settings checked and verified against order, patient's on etco2 monitoring and 3L NC. Patient updated on place of care for the day. Side rails upx3, bed low and locked, call light within reach.
[2019-07-18] MEDS: Tamsulosin 0.4mg cap ORAL SCH (09:39)
[2019-07-18] MEDS: Losartan 25mg tab ORAL SCH (09:40)
--- NOTE | 2019-07-18 11:34 | Surgery Progress Note ---
Surgery Progress Note Subjective Additional Comments emesis with pt ostomy appliance leak otherwise well Objective Last 24 Hour Vital Signs Date Time Temp Pulse Resp B/P (MAP) Pulse Ox O2 Delivery O2 Flow Rate FiO2 07/18/19 09:40 147/75 07/18/19 09:00 Nasal Cannula 2.0 07/18/19 08:00 99.5 107 22 147/75 (99) 90 07/18/19 08:00 22 07/18/19 04:00 100.0 98 18 132/54 (80) 95 07/18/19 04:00 95 18 98 07/18/19 01:30 88 164/81 07/18/19 00:00 98.4 88 18 164/81 (108) 95 07/18/19 00:00 95 18 88 07/17/19 21:00 Nasal Cannula 2.0 07/17/19 20:00 92 18 94 07/17/19 20:00 98.6 92 18 156/80 (105) 94 07/17/19 19:26 92 Nasal Cannula 2.0 28 07/17/19 16:00 94 18 95 07/17/19 16:00 97.7 94 18 153/77 (102) 95 07/17/19 12:00 79 20 96 07/17/19 12:00 98.7 79 20 140/72 (94) 96 I&O Intake and Output 07/17/19 07/18/19 19:00 07:00 Intake Total 1200 ml 1645 ml Output Total 1775 ml 2000 ml Balance -575 ml -355 ml IV Total 1200 ml 1645 ml Output Urine Total 1700 ml 1820 ml Other 75 ml 180 ml Dressing: dry Wound: clean Cardiovascular: RSR Respiratory: clear Abdomen: soft, distended, non-tender, decreased bowel sounds Extremities: no edema, no tenderness, no cyanosis Laboratory Tests Test 07/18/19 06:10 White Blood Count 11.7 K/UL (4.8-10.8) H Red Blood Count 3.59 M/UL (4.70-6.10) L Hemoglobin 10.4 G/DL (14.2-18.0) L Hematocrit 31.1 % (42.0-52.0) L Mean Corpuscular Volume 87 FL (80-99) Mean Corpuscular Hemoglobin 28.9 PG (27.0-31.0) Mean Corpuscular Hemoglobin Concent 33.3 G/DL (32.0-36.0) Red Cell Distribution Width 17.9 % (11.6-14.8) H Platelet Count 175 K/UL (150-450) Mean Platelet Volume 5.9 FL (6.5-10.1) L Neutrophils (%) (Auto) 79.9 % (45.0-75.0) H Lymphocytes (%) (Auto) 8.5 % (20.0-45.0) L Monocytes (%) (Auto) 8.0 % (1.0-10.0) Eosinophils (%) (Auto) 2.3 % (0.0-3.0) Basophils (%) (Auto) 1.3 % (0.0-2.0) Sodium Level 137 MMOL/L (136-145) Potassium Level 4.2 MMOL/L (3.5-5.1) Chloride Level 105 MMOL/L (98-107) Carbon Dioxide Level 23 MMOL/L (21-32) Anion Gap 9 mmol/L (5-15) Blood Urea Nitrogen 20 mg/dL (7-18) H Creatinine 1.0 MG/DL (0.55-1.30) Estimat Glomerular Filtration Rate mL/min (>60) Glucose Level 88 MG/DL (74-106) Calcium Level 8.2 MG/DL (8.5-10.1) L Total Bilirubin 0.5 MG/DL (0.2-1.0) Aspartate Amino Transf (AST/SGOT) 21 U/L (15-37) Alanine Aminotransferase (ALT/SGPT) 15 U/L (12-78) Alkaline Phosphatase 100 U/L (46-116) Total Protein 5.6 G/DL (6.4-8.2) L Albumin 1.9 G/DL (3.4-5.0) L Globulin 3.7 g/dL Albumin/Globulin Ratio 0.5 (1.0-2.7) L Plan Problems: (1) Colostomy prolapse Assessment & Plan: recovering await return of bowel function labs improved npo iv fluids pt/ot am labs thank you Nando Herring Jul 18, 2019 11:34
[2019-07-18] MEDS: D5 1/4NS w/KCl 20mEq 1,000 ML IV SCH (15:08)
--- NOTE | 2019-07-18 19:28 | NUR ---
NURSE NOTES: Total ileo output for shift: 125mL Total urine output: 1950mL Patient given Tylenol for fever 102.4, contacted Dr. Herring to inform of fever today, no contact from MD as of this time.
--- NOTE | 2019-07-18 19:39 | NUR ---
NURSE NOTES: Dr. Herring informed and aware of patient's fever, orders received and entered, will endorse to PM nurse.
--- NOTE | 2019-07-18 19:44 | NUR ---
HAND-OFF: Report given to Sunny HERNANDEZ. Endorsed Tylenol reassessment and new orders from Dr. Herring.
--- NOTE | 2019-07-18 19:45 | NUR ---
NURSE NOTES: Received report from DAVID Navarro and rounds made with the outgoing nurse. Received pt lying in bed, AOx4, anxious, restless in bed, c/o 7/10 pain level. HEMODIALYSIS PATIENT CARE SPECIALIST setting checked and verified. Instructed pt to use the HEMODIALYSIS PATIENT CARE SPECIALIST for pain management. Pt acknowledge understanding. Natalee ileostomy intact with good output. Piccline paten, c/d/i. TPN and IV fluid infusing as ordered. Guadarrama to drainage bad yellow color output. Instructed pt to use IS every hour 10 times while awake. Verbalized understanding. Bed in lowest position and locked, side rails up x 2, call light within reach. at bedside. Will continue to monitor.
[2019-07-18] MEDS: Dyna-Hex 2% Top Sol 2oz TOPIC SCH (20:01)
[2019-07-18] MEDS: Fat Emulsion Iv 20% 216 ML in Tpn 1,584 ML IV SCH (20:09)
[2019-07-18] MEDS: ALPRAZolam 0.25mg tab ORAL PRN (21:07)
[2019-07-19] VITALS: BP 150/59
[2019-07-19 04:00] VITALS: BP 141/72
[2019-07-19] MEDS: HYDROmorphone 1mg/ml Carpuject SUBQ PRN ×3 (05:34→21:22)
[2019-07-19] MEDS: Ampicillin/Sulbactam Sod 3 GM in NS 110 ML IV SCH (05:37)
[2019-07-19] MEDS: Insulin NovoLOG Flexpen S/S (Mod) SUBQ SCH ×3 (05:44→18:00)
[2019-07-19 05:49] LABS: HEMATOCRIT 28.5 % (42.0-52.0); HEMOGLOBIN 9.7 G/DL (14.2-18.0); MEAN CORPUSCULAR VOLUME 86 FL (80-99); PLATELET COUNT 193 K/UL (150-450); WHITE BLOOD COUNT 12.5 K/UL (4.8-10.8)
[2019-07-19 06:02] LABS: ALANINE AMINOTRANSFERASE 23 U/L (12-78); ALBUMIN 1.7 G/DL (3.4-5.0); ALBUMIN/GLOBULIN RATIO 0.5 (1.0-2.7); ALKALINE PHOSPHATASE 155 U/L (46-116); ANION GAP 11 mmol/L (5-15); ASPARTATE AMINO TRANSFERASE 41 U/L (15-37); BILIRUBIN,TOTAL 0.5 MG/DL (0.2-1.0); BLOOD UREA NITROGEN 24 mg/dL (7-18); CALCIUM 7.8 MG/DL (8.5-10.1); CARBON DIOXIDE 21 MMOL/L (21-32); CHLORIDE 103 MMOL/L (98-107); CREATININE 1.3 MG/DL (0.55-1.30); SODIUM 135 MMOL/L (136-145)
[2019-07-19 06:56] LABS: APPEARANCE,URINE CLEAR; BILIRUBIN, URINE NEGATIVE (NEGATIVE); GLUCOSE, URINE (UA) NEGATIVE (NEGATIVE); KETONES,URINE NEGATIVE (NEGATIVE); LEUKOCYTE ESTERASE ,URINE 1+ (NEGATIVE); NITRITE,URINE NEGATIVE (NEGATIVE); PH,URINE 6 (4.5-8.0); PROTEIN,URINE 2+ (NEGATIVE); UROBILINOGEN,URINE NORMAL MG/DL (0.0-1.0)
[2019-07-19 07:18] LABS: COLOR,URINE YELLOW
[2019-07-19] MEDS: PCA shift volume MISC SCH ×2 (07:28→19:00)
--- NOTE | 2019-07-19 07:45 | NUR ---
NURSE NOTES: Received report from Sunny HERNANDEZ. Patient is awake and oriented, no acute distress noted, reporting pain rated 8/10 at surgical site and requesting breakthrough pain medication, educated patient breakthrough dose is not due yet, patient verbalized understanding. IVF and TPN running per order, SHAKER TENDER settings checked and verified against order. External appliance over ileostomy intact with no leaks, pinedo to gravity drainage. Patient updated on plan of care for the day. Side rails upx2, bed low and locked, call light within reach.
[2019-07-19 08:00] VITALS: BP 131/58
--- NOTE | 2019-07-19 08:59 | NUR ---
NURSE NOTES: Called radiology to inquire about why CXR ordered last night has not been taken yet, called extension [phone] and [phone] two times, radiology is not answering phone at this time.
[2019-07-19] MEDS: Tamsulosin 0.4mg cap ORAL SCH (09:39)
[2019-07-19] MEDS: Losartan 25mg tab ORAL SCH (09:40)
--- NOTE | 2019-07-19 10:42 | NUR ---
NURSE NOTES: fresh foods technician at bedside shooting CXR now.
--- NOTE | 2019-07-19 10:43 | NUR ---
NURSE NOTES: Informed Dr. Herring AIRPLANE PILOT will this evening, gave order to renew AIRPLANE PILOT and other expiring medications, orders entered.
[2019-07-19] MEDS ORDERED: Rate Change PCA 1 Each MISC PRN (10:45)
[2019-07-19] MEDS: D5 1/4NS w/KCl 20mEq 1,000 ML IV SCH (10:56)
[2019-07-19] MEDS ORDERED: PCA HYDROmorphone 1mg/ml 30 ML IV PRN (11:00)
--- NOTE | 2019-07-19 11:42 | Diagnostic Imaging Report ---
EXAM: XR Chest, 1 View CLINICAL HISTORY: COUGH TECHNIQUE: Frontal view of the chest. COMPARISON: Chest radiograph on 07/16/2019 FINDINGS: Hardware: Right-sided Port-A-Cath terminates in the region of the SVC. Left-sided PICC line terminates in the region of the right atrium. Lungs/pleura: Low lung volumes. Bibasilar opacities may represent atelectasis versus pneumonia. Possible small right pleural effusion. Prominent lung markings may represent pulmonary vasculature congestion. Heart/mediastinum: Median sternotomy changes. Atherosclerotic calcifications in the aorta. No cardiomegaly. Soft tissues: Unremarkable. Bones: No acute fracture. Degenerative changes of the spine. Upper abdomen: Cholecystectomy clips in the right upper quadrant. Surgical clips in the left upper quadrant. IMPRESSION: 1. Low lung volumes. Bibasilar opacities may represent atelectasis versus pneumonia. Possible small right pleural effusion. Prominent lung markings may represent pulmonary vasculature congestion. 2. Right-sided Port-A-Cath terminates in the region of the SVC. Left- sided PICC line terminates in the region of the right atrium.
--- NOTE | 2019-07-19 11:43 | Surgery Progress Note ---
Surgery Progress Note Subjective Additional Comments febrile tachycardic leukocytosis UA CXR pending Blood Cx pending states he feels well no n/v ostomy with some output only 1000 on Is when done at bedside with patient Objective Last 24 Hour Vital Signs Date Time Temp Pulse Resp B/P (MAP) Pulse Ox O2 Delivery O2 Flow Rate FiO2 07/19/19 11:36 102.8 07/19/19 09:58 94 Nasal Cannula 2.0 28 07/19/19 09:40 131/58 07/19/19 08:00 22 07/19/19 08:00 98.2 90 22 131/58 (82) 94 07/19/19 04:49 100.8 07/19/19 04:00 101 22 94 07/19/19 04:00 102.4 101 20 141/72 (95) 94 07/19/19 00:00 99.2 109 20 150/59 (89) 94 07/19/19 00:00 109 20 94 07/18/19 21:00 Nasal Cannula 2.0 07/18/19 20:33 94 Nasal Cannula 2.0 28 07/18/19 20:00 100.2 104 22 133/52 (79) 95 07/18/19 20:00 104 22 95 07/18/19 18:53 102.4 150/64 (92) 07/18/19 16:37 90 161/75 07/18/19 16:00 20 07/18/19 16:00 98.8 90 20 161/75 (103) 92 07/18/19 12:00 99.5 104 20 152/71 (98) 91 07/18/19 12:00 20 I&O Intake and Output 07/18/19 07/19/19 19:00 07:00 Intake Total 1815 ml 1815 ml Output Total 2075 ml 800 ml Balance -260 ml 1015 ml IV Total 1815 ml 1815 ml Output Urine Total 1950 ml 600 ml Other 125 ml 200 ml Dressing: dry Wound: clean Cardiovascular: RSR Respiratory: clear, decreased breath sounds Abdomen: soft, present bowel sounds, non-distended Extremities: no edema, no tenderness, no cyanosis Laboratory Tests Test 07/19/19 05:15 07/19/19 06:20 White Blood Count 12.5 K/UL (4.8-10.8) H Red Blood Count 3.30 M/UL (4.70-6.10) L Hemoglobin 9.7 G/DL (14.2-18.0) L Hematocrit 28.5 % (42.0-52.0) L Mean Corpuscular Volume 86 FL (80-99) Mean Corpuscular Hemoglobin 29.5 PG (27.0-31.0) Mean Corpuscular Hemoglobin Concent 34.1 G/DL (32.0-36.0) Red Cell Distribution Width 18.0 % (11.6-14.8) H Platelet Count 193 K/UL (150-450) Mean Platelet Volume 5.7 FL (6.5-10.1) L Neutrophils (%) (Auto) % (45.0-75.0) Lymphocytes (%) (Auto) % (20.0-45.0) Monocytes (%) (Auto) % (1.0-10.0) Eosinophils (%) (Auto) % (0.0-3.0) Basophils (%) (Auto) % (0.0-2.0) Differential Total Cells Counted 100 Neutrophils % (Manual) 90 % (45-75) H Lymphocytes % (Manual) 7 % (20-45) L Monocytes % (Manual) 3 % (1-10) Eosinophils % (Manual) 0 % (0-3) Basophils % (Manual) 0 % (0-2) Band Neutrophils 0 % (0-8) Platelet Estimate Adequate Platelet Morphology Normal Hypochromasia 1+ Anisocytosis 1+ Sodium Level 135 MMOL/L (136-145) L Potassium Level 4.0 MMOL/L (3.5-5.1) Chloride Level 103 MMOL/L (98-107) Carbon Dioxide Level 21 MMOL/L (21-32) Anion Gap 11 mmol/L (5-15) Blood Urea Nitrogen 24 mg/dL (7-18) H Creatinine 1.3 MG/DL (0.55-1.30) Estimat Glomerular Filtration Rate mL/min (>60) Glucose Level 119 MG/DL (74-106) H Calcium Level 7.8 MG/DL (8.5-10.1) L Total Bilirubin 0.5 MG/DL (0.2-1.0) Aspartate Amino Transf (AST/SGOT) 41 U/L (15-37) H Alanine Aminotransferase (ALT/SGPT) 23 U/L (12-78) Alkaline Phosphatase 155 U/L (46-116) H Total Protein 5.3 G/DL (6.4-8.2) L Albumin 1.7 G/DL (3.4-5.0) L Globulin 3.6 g/dL Albumin/Globulin Ratio 0.5 (1.0-2.7) L Urine Color Yellow Urine Appearance Clear Urine pH 6 (4.5-8.0) Urine Specific [place] 1.015 (1.005-1.035) Urine Protein 2+ (NEGATIVE) H Urine Glucose (UA) Negative (NEGATIVE) Urine Ketones Negative (NEGATIVE) Urine Blood 5+ (NEGATIVE) H Urine Nitrite Negative (NEGATIVE) Urine Bilirubin Negative (NEGATIVE) Urine Urobilinogen Normal MG/DL (0.0-1.0) Urine Leukocyte Esterase 1+ (NEGATIVE) H Urine RBC 30-40 /HPF (0 - 0) H Urine WBC 0-2 /HPF (0 - 0) Urine Squamous Epithelial Cells Occasional /LPF Urine Bacteria Occasional /HPF (NONE) Plan Problems: (1) Colostomy prolapse Assessment & Plan: recovering await return of bowel function febrile leukocytosis tachycardic UA CXR pending blood culture pending possible atelectasis patient splints and does not want to move or use IS npo iv fluids pt/ot abx ID consult am labs thank you Nando Herring Jul 19, 2019 11:43
[2019-07-19 12:00] VITALS: BP 127/57
[2019-07-19] MEDS ORDERED: Vancomycin 1 GM in D5W 275 ML IVPB SCH (12:30)
--- NOTE | 2019-07-19 13:24 | NUR ---
NURSE NOTES: Patient still febrile despite Tylenol adminstration. Patient educated on IS use, patient educated that he needs to attempt to get up and walk, patient educated on the dangers of staying in bed post operatively and not ambulating, patient stated "if you'd give me the pain pills I'd get up", educated patient he is receiving very strong IV pain medication and to use his ROVING DEPARTMENT SUPERVISOR as needed. PT will get patient OOB this afternoon.
[2019-07-19] MEDS: Piperacillin/Tazobactam 3.375 GM in NS 110 ML IVPB SCH ×2 (14:48→22:00)
[2019-07-19 16:00] VITALS: BP 149/69
--- NOTE | 2019-07-19 16:05 | Infectious Diseases Prog Note ---
Assessment/Plan Assessment/Plan Full consult dictated: A) 1) possible sepsis, leukocytosis, fevers, ? pna vs atx, ? 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 4) pmh noted P) 1) zosyn and vancomycin 2) check cultures 3) monitor labs and chest x-ray 4) thank you Subjective Allergies: Coded Allergies: LORAZEPAM (Verified Allergy, Mild, 07/08/19) Pt undergoes altered level of consciousness Objective Vital Signs Last 24 Hour Vital Signs Date Time Temp Pulse Resp B/P (MAP) Pulse Ox O2 Delivery O2 Flow Rate FiO2 07/19/19 13:24 102.0 07/19/19 13:24 102.0 07/19/19 12:00 99 22 127/57 (80) 94 07/19/19 12:00 22 07/19/19 11:36 102.8 07/19/19 09:58 94 Nasal Cannula 2.0 28 07/19/19 09:40 131/58 07/19/19 09:00 Nasal Cannula 3.0 07/19/19 08:00 22 07/19/19 08:00 98.2 90 22 131/58 (82) 94 07/19/19 04:00 101 22 94 07/19/19 04:00 102.4 101 20 141/72 (95) 94 07/19/19 00:00 99.2 109 20 150/59 (89) 94 07/19/19 00:00 109 20 94 07/18/19 21:00 Nasal Cannula 2.0 07/18/19 20:33 94 Nasal Cannula 2.0 28 07/18/19 20:00 100.2 104 22 133/52 (79) 95 07/18/19 20:00 104 22 95 07/18/19 18:53 102.4 150/64 (92) 07/18/19 16:37 90 161/75 Height (Feet): 5 Height (Inches): 7.00 Weight (Pounds): 135 Laboratory Tests Test 07/19/19 05:15 07/19/19 06:20 White Blood Count 12.5 K/UL (4.8-10.8) H Red Blood Count 3.30 M/UL (4.70-6.10) L Hemoglobin 9.7 G/DL (14.2-18.0) L Hematocrit 28.5 % (42.0-52.0) L Mean Corpuscular Volume 86 FL (80-99) Mean Corpuscular Hemoglobin 29.5 PG (27.0-31.0) Mean Corpuscular Hemoglobin Concent 34.1 G/DL (32.0-36.0) Red Cell Distribution Width 18.0 % (11.6-14.8) H Platelet Count 193 K/UL (150-450) Mean Platelet Volume 5.7 FL (6.5-10.1) L Neutrophils (%) (Auto) % (45.0-75.0) Lymphocytes (%) (Auto) % (20.0-45.0) Monocytes (%) (Auto) % (1.0-10.0) Eosinophils (%) (Auto) % (0.0-3.0) Basophils (%) (Auto) % (0.0-2.0) Differential Total Cells Counted 100 Neutrophils % (Manual) 90 % (45-75) H Lymphocytes % (Manual) 7 % (20-45) L Monocytes % (Manual) 3 % (1-10) Eosinophils % (Manual) 0 % (0-3) Basophils % (Manual) 0 % (0-2) Band Neutrophils 0 % (0-8) Platelet Estimate Adequate Platelet Morphology Normal Hypochromasia 1+ Anisocytosis 1+ Sodium Level 135 MMOL/L (136-145) L Potassium Level 4.0 MMOL/L (3.5-5.1) Chloride Level 103 MMOL/L (98-107) Carbon Dioxide Level 21 MMOL/L (21-32) Anion Gap 11 mmol/L (5-15) Blood Urea Nitrogen 24 mg/dL (7-18) H Creatinine 1.3 MG/DL (0.55-1.30) Estimat Glomerular Filtration Rate mL/min (>60) Glucose Level 119 MG/DL (74-106) H Calcium Level 7.8 MG/DL (8.5-10.1) L Total Bilirubin 0.5 MG/DL (0.2-1.0) Aspartate Amino Transf (AST/SGOT) 41 U/L (15-37) H Alanine Aminotransferase (ALT/SGPT) 23 U/L (12-78) Alkaline Phosphatase 155 U/L (46-116) H Total Protein 5.3 G/DL (6.4-8.2) L Albumin 1.7 G/DL (3.4-5.0) L Globulin 3.6 g/dL Albumin/Globulin Ratio 0.5 (1.0-2.7) L Urine Color Yellow Urine Appearance Clear Urine pH 6 (4.5-8.0) Urine Specific [place] 1.015 (1.005-1.035) Urine Protein 2+ (NEGATIVE) H Urine Glucose (UA) Negative (NEGATIVE) Urine Ketones Negative (NEGATIVE) Urine Blood 5+ (NEGATIVE) H Urine Nitrite Negative (NEGATIVE) Urine Bilirubin Negative (NEGATIVE) Urine Urobilinogen Normal MG/DL (0.0-1.0) Urine Leukocyte Esterase 1+ (NEGATIVE) H Urine RBC 30-40 /HPF (0 - 0) H Urine WBC 0-2 /HPF (0 - 0) Urine Squamous Epithelial Cells Occasional /LPF Urine Bacteria Occasional /HPF (NONE) Current Medications Medications (Trade) Dose Ordered Sig/Evgeny Route PRN Reason Start Time Stop Time Status Last Admin Dose Admin Acetaminophen (Tylenol) 650 mg Q4H PRN ORAL Mild Pain/Temp > 100.2 07/13/19 10:45 08/12/19 10:44 07/19/19 11:41 Alprazolam (Xanax) 0.25 mg Q6H PRN ORAL For Anxiety 07/17/19 19:30 07/24/19 19:29 07/18/19 21:07 Amlodipine Besylate (Norvasc) 5 mg Q12H PRN ORAL For High Blood Pressure 07/10/19 15:45 08/09/19 15:44 07/18/19 16:37 Ascorbic Acid (Vitamin C) 500 mg Q4H PRN ORAL Constipation 07/10/19 08:15 08/09/19 08:14 07/11/19 14:18 Chlorhexidine Gluconate (Val-Hex 2%) 1 applic DAILY@2000 TOPIC 07/07/19 20:00 08/06/19 19:59 07/18/19 20:01 Dextrose 1,000 ml @ 0 mls/hr Q24H PRN IV PN interrupted or unavailable 07/07/19 20:00 08/06/19 19:59 Dextrose (Dextrose 50%) 25 ml Q30M PRN IV Hypoglycemia 07/08/19 00:00 08/07/19 00:00 Dextrose (Dextrose 50%) 50 ml Q30M PRN IV Hypoglycemia 07/08/19 00:00 08/07/19 00:00 Dextrose/ Electrolytes 1,000 ml @ 50 mls/hr Q20H IV 07/13/19 14:00 08/12/19 13:59 07/19/19 10:56 Fat Emulsion Intravenous 216 ml/Amino Acids/ Electrolytes/ Dextrose 1,800 ml @ 75 mls/hr Q24H IV 07/07/19 20:00 08/06/19 19:59 07/18/19 20:09 Hydromorphone HCl 30 ml @ 0 mls/hr CARBOY FILLER protocol PRN IV For Pain 07/19/19 11:00 07/21/19 10:59 Hydromorphone HCl (Dilaudid) 1 mg Q4H PRN SUBQ Severe Breakthru Pain (>7) 07/19/19 11:00 07/26/19 10:59 Insulin Aspart (NovoLOG) No Dose Q6HR SUBQ 07/08/19 00:00 08/07/19 00:00 07/15/19 12:10 Levothyroxine Sodium (Synthroid) 50 mcg DAILY@0630 ORAL 07/07/19 06:30 08/06/19 06:29 07/19/19 05:41 Losartan Potassium (Cozaar) 25 mg DAILY ORAL 07/14/19 09:00 08/13/19 08:59 07/19/19 09:40 Miscellaneous Medication (CARBOY FILLER Rate Change) 1 ea DAILY PRN MISC rate change 07/19/19 10:45 07/21/19 10:44 Miscellaneous Medication (CARBOY FILLER shift volume) 1 ea Q12HR@0700,1900 MISC 07/19/19 19:00 07/21/19 18:59 Naloxone HCl (Narcan) 0.1 mg Q1M PRN IVP RR<10/min OR SBP<90 mmHg 07/17/19 20:30 08/16/19 20:29 Ondansetron HCl (Zofran) 4 mg Q4H PRN IVP Nausea & Vomiting 07/13/19 11:00 08/12/19 10:59 07/17/19 13:35 Pantoprazole (Protonix) 40 mg DAILY ORAL 07/07/19 09:00 08/06/19 08:59 07/19/19 09:39 Phytonadione (Vitamin K) 10 mg ONCE A WEEK SUBQ 07/07/19 20:00 08/06/19 19:59 07/14/19 21:14 Piperacillin Sod/ Tazobactam Sod 3.375 gm/Sodium Chloride 110 ml @ 27.5 mls/hr EVERY 8 HOURS IVPB 07/19/19 14:00 07/24/19 13:59 07/19/19 14:48 Prednisone (predniSONE) 5 mg DAILY ORAL 07/07/19 09:00 08/06/19 08:59 07/19/19 09:40 Tamsulosin HCl (Flomax) 0.4 mg DAILY ORAL 07/07/19 09:00 08/06/19 08:59 07/19/19 09:39 Temazepam (RestoriL) 7.5 mg HSPRN PRN ORAL Insomnia 07/19/19 10:45 07/26/19 10:44 Vancomycin HCl 1 gm/Dextrose 275 ml @ 183.708 mls/hr Q24H IVPB 07/19/19 12:30 07/24/19 12:29 07/19/19 12:22 Paras Ybarra MD Jul 19, 2019 16:05
--- NOTE | 2019-07-19 18:00 | Consultation ---
DATE OF CONSULTATION: 07/19/2019 INFECTIOUS DISEASE CONSULTATION CONSULTING PHYSICIAN: Paras Ybarra M.D. ATTENDING PHYSICIAN: Pako Orellana M.D. REFERRING PHYSICIAN: Nando Herring M.D. REASON FOR CONSULTATION: Possible sepsis, fevers, leukocytosis. CHIEF COMPLAINT: The patient's chief complaint coming in to the hospital is fistula. 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 The patient also had ileostomy bleeding and is status post control of ileostomy stomal bleeding. The patient now is febrile as high as 102.8. Cultures have been ordered. Chest x-ray was done, which showed atelectasis versus pneumonia. The patient has fevers, leukocytosis, and possible sepsis. Infectious Disease consultation is requested. Case discussed with Dr. Herring. The patient was started on Vanco and Zosyn empirically. Cultures are pending and chest x-ray showed again atelectasis versus pneumonia. The patient also has 2 central lines and there is question if the patient has a line infection. The patient will be continued on Zosyn and Vanco for now. Case discussed with the patient, the patient's , and the RN also. REVIEW OF SYSTEMS: CONSTITUTIONAL: He has generalized fatigue. No focal weakness. He has 2 central lines. The patient has a port line and a PICC line. He has a Guadarrama. He has fevers and questionable chills. He does have fevers over 102. No night sweats mentioned. HEAD AND NECK: No headache, neck stiffness, thrush, or dysphagia. CARDIAC: No chest pain. GASTROINTESTINAL: No significant abdominal pain. No nausea or vomiting. As mentioned, he has a Natalee ileostomy. GENITOURINARY: He has a Guadarrama. PULMONARY: No congestion or shortness of breath. SKIN: No rash or itching. EXTREMITIES: No pain. NEUROLOGIC: No seizure activity. PAST MEDICAL HISTORY: The patient has a past medical history of [place] ileostomy status post resection for failed [place] ileostomy. He has a new Natalee ileostomy. He has history of multiple abdominal surgeries. He has history of polycythemia, history of ulcerative colitis, history of hypertension, history of proctocolectomy, history of open cholecystectomy. It also looks like he has a history of hypothyroidism. ALLERGIES: He has allergies lorazepam. No antibiotic allergies. SOCIAL HISTORY: Negative for smoking, alcohol, drug abuse. FAMILY HISTORY: Noncontributory. Negative for exposure to tuberculosis or cancer. MEDICATIONS: Upon reviewing the MAR, he is on following medications: He is on Zosyn and Vanco. He is on hydromorphone as needed, temazepam. He is on Xanax. He is on Cozaar, losartan. He is on Zofran as needed, acetaminophen as needed. He is on Norvasc, ascorbic acid, chlorhexidine, , prednisone, pantoprazole, levothyroxine. Outside medications noted and reconciliated. PHYSICAL EXAMINATION: VITAL SIGNS: Temperature is 102.8, pulse rate 99, respiratory rate 22, blood pressure 127/57, saturation 94%. GENERAL: Alert, responsive, no acute distress. Oriented x3. He has what looks like generalized fatigue and weakness, but nonfocal weakness. HEAD AND NECK: Oral exam, no thrush. Eye exam, no icterus. Normocephalic. Neck is supple. No JVD. HEART: Regular rate and rhythm. No gallop or murmur. No friction rub. ABDOMEN: Soft. Positive bowel sounds. No rebound. He has a Natalee ileostomy. There is no cellulitis in abdominal wall. LUNGS: Fairly clear anteriorly. Possible decreased breath sounds in the bases. Questionable rales. SKIN: No other rash. MUSCULOSKELETAL: No effusion. No septic arthritis. Lower extremity exam without cellulitis. PERIPHERAL VASCULAR: No gangrene or cyanosis. GENITOURINARY: He has a Guadarrama. LINE SITES: Without phlebitis. NEUROLOGIC: General weakness. Responsive. He has a PICC line and port. No cellulitis. Intact alert, oriented x3. PERIPHERAL VASCULAR: No gangrene. LABORATORY DATA: Chest x-ray on 07/19/2019 showed low lung volumes, opacities could be atelectasis versus pneumonia. Previous abdominal pelvic CT on 07/07/2019 was reviewed and noted. Cultures are pending. White count 12.5, hemoglobin 9.7. Creatinine is 1.3. Cultures are pending. Urinalysis was today from 07/19/2019 was 0 to 2 white cells. ASSESSMENT AND PLAN: 1. The patient has possible sepsis, leukocytosis, fevers, questionable pneumonia versus atelectasis, questionable line infection. The patient does have SIRS criteria consistent with sepsis with fevers and leukocytosis. At this time, I will continue empiric antibiotics of Vanco and Zosyn for MRSA and gram-negative coverage. Continue Vanco and Zosyn for possible pneumonia versus line infection and also for the sepsis. Check cultures, laboratories, chest x-ray, sputum culture, blood cultures. We will also check influenza screen. Continue Vanco and Zosyn for possible source of sepsis for now. 2. Case discussed case with Dr. Herring, the patient, the patient's , and the RN. 3. 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 4. History of multiple abdominal surgeries. 5. Hypertension. 6. Blood pressure treatment per primary care team. 7. Hypothyroidism. 8. Ulcerative colitis history. 9. Anemia. 10. History of polycythemia. 11. Allergic to lorazepam. 12. Social history negative. 13. Family history noncontributory. 14. MAR is noted. 15. Case was discussed with RN. 16. Case was discussed with Dr. Herring. 17. Case was discussed with the patient and the patient's . Paras Ybarra M.D. DR: YANETH JOB#: [id number] CC:
--- NOTE | 2019-07-19 18:30 | NUR ---
NURSE NOTES: Total ileo output for shift: 350mL Total urine output: 1300mL
--- NOTE | 2019-07-19 19:34 | NUR ---
HAND-OFF: Report given to Sunny HERNANDEZ.
--- NOTE | 2019-07-19 19:50 | NUR ---
NURSE NOTES: Received report from DAVID Navarro rounds made with outgoing nurse. Received pt sitting up in bed, awake, alert, oriented x 3, pain level 4/10, encouraged pt to use PRINCIPAL SYSTEMS ARCHITECT. PRINCIPAL SYSTEMS ARCHITECT setting checked and verified. Piccline L UA patent, c/d/i, IV fluid and TPN infusing as ordered. Natalee iloestomy intact with good output. Guadarrama catheter to drainage. Bed in lowest position and locked, side rails x 2, call light within reach. at bedside. Will continue to monitor.
[2019-07-19 20:00] VITALS: BP 143/69
[2019-07-19] MEDS: Dyna-Hex 2% Top Sol 2oz TOPIC SCH (20:11)
[2019-07-19] MEDS: Fat Emulsion Iv 20% 216 ML in Tpn 1,584 ML IV SCH (20:16)
--- NOTE | 2019-07-19 21:00 | NUR ---
NURSE NOTES: Temp. 102.6 tylenol 650 mg PO given. Will re-check after 1 hour.
--- NOTE | 2019-07-19 21:00 | NUR ---
NURSE NOTES: Restless in bed, hyperventilating, 02 sat 85%, on oxygen 2 liters, xanax 25mg PO given. Will continue to monitor.
[2019-07-19] MEDS: ALPRAZolam 0.25mg tab ORAL PRN (21:01)
--- NOTE | 2019-07-19 21:22 | NUR ---
NURSE NOTES: Pt still restless and hyperventilating, 02 sat 86% on 2 liters oxygen, instructed pt do purse lip breathing. Pt states "I can't". Contacted Dr. Herring, obtained order for breathing tx. Will continue to monitor.
[2019-07-19] MEDS ORDERED: Albuterol ud Inhalation HHN SCH (21:40)
[2019-07-19] MEDS: Albuterol/Ipratropium 3ml neb HHN SCH ×2 (21:45→23:00)
--- NOTE | 2019-07-19 21:46 | NUR ---
NURSE NOTES: Breathing treatment given to pt. 02 sat 88%. Pt calming down. Will continue to monitor.
--- NOTE | 2019-07-19 22:00 | NUR ---
NURSE NOTES: Re-check temp. 102.0 no distress noted. Will continue to monitor.
--- NOTE | 2019-07-19 22:30 | NUR ---
NURSE NOTES: Pt sleeping at this time, 02 sat 90 %, no distress noted. On oxygen 2 liters via nasal canula. Will continue to monitor.
--- NOTE | 2019-07-19 23:30 | NUR ---
NURSE NOTES: Pt asleep at this time. 02 sat 92%, on 2 liters oxygen. No distress noted. Will continue to monitor.
[2019-07-20] VITALS (8 sets, daily range): BP systolic 106–171; BP diastolic 56–99
[2019-07-20] MEDS: Albuterol/Ipratropium 3ml neb HHN SCH (03:07)
[2019-07-20] MEDS: Piperacillin/Tazobactam 3.375 GM in NS 110 ML IVPB SCH ×3 (05:17→23:15)
[2019-07-20] MEDS: D5 1/4NS w/KCl 20mEq 1,000 ML IV SCH ×3 (05:20→22:40)
[2019-07-20] MEDS: Insulin NovoLOG Flexpen S/S (Mod) SUBQ SCH ×4 (06:00→18:00)
[2019-07-20 06:25] LABS: HEMATOCRIT 27.1 % (42.0-52.0); HEMOGLOBIN 9.2 G/DL (14.2-18.0); MEAN CORPUSCULAR VOLUME 87 FL (80-99); PLATELET COUNT 170 K/UL (150-450); RED BLOOD COUNT 3.13 M/UL (4.70-6.10); RED CELL DISTRIBUTION WIDTH 17.6 % (11.6-14.8); WHITE BLOOD COUNT 9.8 K/UL (4.8-10.8)
[2019-07-20 06:44] LABS: INR 1.1 (0.9-1.1)
--- NOTE | 2019-07-20 06:46 | NUR ---
NURSE NOTES: Total I & O: Guadarrama: 1400 Ileo: 250
[2019-07-20] MEDS: PCA shift volume MISC SCH (07:13)
--- NOTE | 2019-07-20 07:15 | NUR ---
HAND-OFF: Report given to DAVID Dodson via phone. Pt in stable condition.
[2019-07-20 07:20] LABS: ALANINE AMINOTRANSFERASE 41 U/L (12-78); ALBUMIN 1.6 G/DL (3.4-5.0); ALBUMIN/GLOBULIN RATIO 0.4 (1.0-2.7); ALKALINE PHOSPHATASE 162 U/L (46-116); AMYLASE 95 U/L (25-115); ANION GAP 9 mmol/L (5-15); ASPARTATE AMINO TRANSFERASE 91 U/L (15-37); BILIRUBIN,TOTAL 0.5 MG/DL (0.2-1.0); BLOOD UREA NITROGEN 31 mg/dL (7-18); CARBON DIOXIDE 21 MMOL/L (21-32); CHLORIDE 106 MMOL/L (98-107); CREATININE 1.5 MG/DL (0.55-1.30); POTASSIUM 3.9 MMOL/L (3.5-5.1); SODIUM 136 MMOL/L (136-145)
--- NOTE | 2019-07-20 08:00 | NUR ---
NURSE NOTES: Patient is in bed awake and able to verbalize needs. Breathing is rapid and shallow. RT is at bedside teaching patient to deep breathe. C/o pain in abdominal area, using UNHAIRING INSPECTOR as ordered. Patient's skin is c/d/i. Surgical site is open to air and clean. Ileo bag is leaking stool on the edges, will change bag. Stoma is bright red. Patient encouraged to use call light for assistance, verbalized understanding. Patient in bed in locked and lowest position with call light within reach. All needs met at this time. Will continue to monitor.
[2019-07-20] MEDS: Tamsulosin 0.4mg cap ORAL SCH (08:19)
[2019-07-20] MEDS: ALPRAZolam 0.25mg tab ORAL PRN ×2 (08:20→18:50)
[2019-07-20] MEDS: Losartan 25mg tab ORAL SCH (08:29)
--- NOTE | 2019-07-20 08:30 | NUR ---
RESPIRATORY NOTE: Treatment not given due to HR is high. Suggested to change Duoneb to Xopanex. Waiting for orders. DAVID trujillo.
[2019-07-20] MEDS ORDERED: Rate Change PCA 1 Each MISC PRN (09:00)
[2019-07-20] MEDS ORDERED: PCA HYDROmorphone 1mg/ml 30 ML IV PRN (09:00)
[2019-07-20] MEDS ORDERED: oxyCODONE 5mg IR tab ORAL PRN (09:15)
--- NOTE | 2019-07-20 10:22 | General Progress Note ---
Progress Note Progress Note Spiking fever 102 x 48 hours. Seen by ID and now on Zosyn and Vanco. Has infusion port x 4 years and PIC line Seen by Pulmonary because of low O2 sats and some hyperventilating Abdomen soft, stoma pink, incisions clean Urine 2300 (still with Guadarrama) Ileostomy 600 WBC 9800 Hgb 9.2 U/A - no infection, RBC present BUN up 31 Cr up 1.5 Albumin 1.6 Imp: Ileus resolved Fever ? etiology Plan: clear liquid diet continue TPN continue Guadarrama additional day until more stable d/c BILINGUAL CALL CENTER REPRESENTATIVE and resume home meds for back pain (Tramadol and Hydrocodone) await cultures Pako Orellana MD Jul 20, 2019 10:22
[2019-07-20] MEDS: Levalbuterol Inh UD 1.25mg/0.5ml HHN SCH ×3 (10:30→20:12)
--- NOTE | 2019-07-20 11:00 | NUR ---
NURSE NOTES: MAXILLOFACIAL PROSTHODONTIST dilaudid wasted with Lucila pharmacist. Patient is comfortable in bed. Breathing is even and unlabored.
--- NOTE | 2019-07-20 11:02 | NUR ---
RADIOLOGY DEPT., CHEST X-RAY DONE.-P.DYE
[2019-07-20] MEDS ORDERED: Vancomycin 750mg/NS 275ml IVPB SCH ×2 (12:30)
--- NOTE | 2019-07-20 13:05 | Diagnostic Imaging Report ---
Indication: Dyspnea Comparison: 06/18/2020 A single view chest radiograph was obtained. Findings: Pulmonary vascularity is prominent. There is a right chest port and sternotomy again noted. Heart size is stable. No definite pleural effusion seen. IMPRESSION: Suspected CHF. No significant change
[2019-07-20] MEDS: HYDROmorphone 1mg/ml Carpuject SUBQ PRN ×2 (13:43→17:39)
--- NOTE | 2019-07-20 14:45 | Consultation ---
DATE OF CONSULTATION: 07/20/2019 PULMONARY CONSULTATION CONSULTING PHYSICIAN: Oneal Allred M.D. REFERRING PHYSICIAN: Pako Orellana M.D. REASON FOR CONSULT: Dyspnea. HISTORY OF PRESENT ILLNESS: This is an 79-year-old male, who has been admitted to the hospital for a malfunctioning [place] continent ileostomy. The patient has a history of long-standing [place] continent ileostomy; however, due to issues he was evaluated and admitted for repair. This was attempted by Dr. Pako Orellana; however, due to difficulty with procedure the patient required a conventional ileostomy. The patient has been noted to have mild shortness of breath for the last several days. Per nursing documentation, he has gained about 6 kg over the last 1 week. He has been on TPN and IV fluids with minimal p.o. intake. His x-ray chest obtained yesterday showed possibility of right lower lobe infiltrate. However, x-ray chest today is normal. The patient does not have leukocytosis. He states he is short of breath. His reports he has longstanding history of anxiety and has been taking Xanax at home for many years. Currently being NPO, he has not been taking any benzodiazepines. reports that he has allergies to intravenous Ativan, which causes delirium and therefore needs to be avoided. CURRENT MEDICATIONS: Include Xanax however currently on hold due to NPO status. Also on Norvasc, IV fluids, TPN, Synthroid, Cozaar, oxycodone, Protonix, vitamin K, Zosyn. He is also on low-dose prednisone daily as well as Flomax and vancomycin and breathing treatments. REVIEW OF SYSTEMS: Denies any headaches, hematemesis, melena, hematochezia, night sweats, or weight loss. PREVIOUS SURGERIES: Previous [place] ileostomy, multiple abdominal surgeries, polycythemia, ulcerative colitis, hypertension, proctocolectomy, previous cholecystectomy, hypothyroidism. ALLERGIES: Ativan. SOCIAL HISTORY: Denies alcohol or tobacco usage. PHYSICAL EXAMINATION: GENERAL: Reveals an elderly male. HEENT: Unremarkable. LUNGS: Clear breath sounds bilaterally with normal heart sounds. ABDOMEN: Soft. EXTREMITIES: There is no edema. VITAL SIGNS: Temperature early was 102.8. Currently, he is afebrile. Blood pressure is 130/90, heart rate 84, respirations 18, he is afebrile. IMPRESSION: 1. Fever, now resolved. 2. Resolving right middle lobe infiltrate. 3. Multiple comorbidities including use of steroids, ulcerative colitis. DISCUSSION: Agree with antibiotic therapy. Currently his lungs are clear. I do not suspect pulmonary edema or fluid overload. We will obtain duplex of his lower extremity. We will follow carefully as surveyor rod helper. We will follow. Oneal Allred M.D. DR: ERICKA JOB#: [id number] CC:
--- NOTE | 2019-07-20 15:11 | NUR ---
CASE MANAGEMENT: REVIEW 07/18/2019 SI:MALFUNCTION HULL CONTINENT ILEOSTOMY WITH RECURRING VALVE PROLAPSE 102.4 104 22 150/64 95% ON 2L NC WBC 11.7 H/H 10.4/31.1 BUN 20 CA+8.2 IS:IV ZOSYN Q8HR IV VANCOMYCIN Q24HR IV D5 @75ML/HR IV TPN Q24HR PREDNISONE PO QD COZAAR PO QD PROTONIX PO QD FLOMAX PO QD VIT K SQ QWK RAMIRO-HEX TP QD SYNTHROID PO QAM IV MEAT PACKAGER DILAUDID Q24HR \: 3E MED SURG UNIT DCP: HOME WHEN MEDICALLY STABLE PLAN: CONTROL ILEOSTOMY BLEEDING CASE MANAGEMENT: REVIEW 07/20/2019 SI:POD#5 REPAIR ILEOSTOMY BLEED MALFUNCTION HULL CONTINENT ILEOSTOMY WITH RECURRING VALVE PROLAPSE 97.9 98 20 134/99 94% ON 3L NC BUN 31 CREAT 1.5 BG 138 CA+ 8.0 H/H 9.2/27.1 AST 91 ALK-PHOS 162 IS:IV ZOSYN Q8HR IV VANCOMYCIN Q24HR IV D5 @75ML/HR IV TPN Q24HR PREDNISONE PO QD COZAAR PO QD PROTONIX PO QD FLOMAX PO QD VIT K SQ QWK RAMIRO-HEX TP QD SYNTHROID PO QAM IV MEAT PACKAGER DILAUDID Q24HR \: 3E MED SURG UNIT DCP: HOME WHEN MEDICALLY STABLE PLAN: VENOUS DUPLEX STUDY START ON CLEAR LIQ DIET CONT TPN
[2019-07-20] MEDS: traMADol 50mg tab ORAL PRN (15:31)
--- NOTE | 2019-07-20 16:15 | NUR ---
NURSE NOTES: Patient appears calm and comfortable. Breathing is shallow, even, and unlabored O2 sat is 94% on 2L.
[2019-07-20] MEDS: HYDROcodone/Acetamin 5/325 tab ORAL PRN (16:32)
--- NOTE | 2019-07-20 18:10 | NUR ---
NURSE NOTES: Patient ambulated with walker from bed to doorway. Patient assisted back to bed without incident. Will continue to monitor.
[2019-07-20] MEDS ORDERED: PCA shift volume MISC SCH (19:00)
--- NOTE | 2019-07-20 19:00 | NUR ---
NURSE NOTES: Heating pad in place. Patient states it helps with the back pain. ileo: 200cc dark brown liquid output. UO: 1025cc yellow urine. PICC running IVF as ordered. Portacath patent and running TPN as ordered. Patient c/o pain throughout the day, pain medication administered as ordered. Patient tolerated clear liquid diet well, no n/v.
--- NOTE | 2019-07-20 19:30 | NUR ---
HAND-OFF: Report given to Maru HERNANDEZ. Patient is stable.
[2019-07-20] MEDS: Dyna-Hex 2% Top Sol 2oz TOPIC SCH (20:37)
[2019-07-20] MEDS: Fat Emulsion Iv 20% 216 ML in Tpn 1,584 ML IV SCH (20:44)
[2019-07-20] MEDS ORDERED: Levalbuterol Inh UD 1.25mg/0.5ml ONE (22:19)
--- NOTE | 2019-07-20 23:00 | NUR ---
HAND OFF: Report given to DAVID AVALOS, ICU.
--- NOTE | 2019-07-20 23:01 | NUR ---
NURSE NOTES: Received report and patient from DAVID Mahoney. Pt is transferred from 3E to ICU post SURGICAL INSTRUMENT MECHANIC, for desat, resp distress, hyperventilation. RT at bedside, pt's currently calm, on Neb tx. at bedside. Afebrile. ST on lunchroom monitor. O2 sat 94%. Pt's AO x3, hard of hearing. Per RN and , pt has occasional panic attack episode. Denies any pain at this time. Bilateral chest congested, wheezing bilateral upon auscultation. No more MARKETING SERVICES VICE PRESIDENT at this time. Noted LEft UA Picc line intact, running IV fluid D5 1/4NS with 20meqKCl at 75ml/hr. Noted TPN infusing at 75ml/hr via Right upper chest jean paul cath. Natalee ileostomy intact with good output with outside pouch. Guadarrama catheter to drainage, draining clear yellow urine. Bed in lowest position and locked, side rails x 2, call light within reach. No belongings at ICU, maintained with upstair 3E. Will continue to monitor.
--- NOTE | 2019-07-20 23:12 | NUR ---
NURSES NOTE: Pt underwent change in condition. 2000 VS within normal limits. Pt stable, no outward s/s of distress upon beginning rounds, and first several hours of shift. Pt stated he felt anxious. Pt experienced change of condition and displayed respiratory distress. RR excelerated:33-40, HR 120-130, shallow breathing noted, and saturation at 89% on 3L nasal canula. Rapid response called, RT also called, Dr Orellana called, order to transfer to ICU processed. Dr esquivel called and redirected to ICU nurse for ABG numbers. Pt transferred at 10:26pm
--- NOTE | 2019-07-20 23:15 | NUR ---
HAND OFF: Report given to DAVID Arias, ICU.
--- NOTE | 2019-07-20 23:30 | Diagnostic Imaging Report ---
Indication: Shortness of breath Technique: One view of the chest Comparison: 14 hours earlier Findings: Less optimal inspiration currently. There is increased bilateral interstitial and airspace edema. Right chest port catheter is again demonstrated. Median sternotomy sutures are again demonstrated. The heart size is upper limits of normal. Impression: Over 14 hours, interim worsening of bilateral pulmonary interstitial and airspace edema Other findings as noted
[2019-07-21] VITALS (24 sets, daily range): BP systolic 90–152; BP diastolic 42–86
--- NOTE | 2019-07-21 | NUR ---
NURSE NOTES: Informed Dr Allred pt's condition, chest Xray, EKG and current ABG results. Dr Allred stated to keep pt on 5L/NC, and started Lasix 40mg IV push x 1 dose, due to worsening pulmo edema on current chest Xray. Orders noted and carried out. Pt's calm, in no acute distress. VS stable. Will continue to monitor.
[2019-07-21] MEDS: HYDROcodone/Acetamin 5/325 tab ORAL PRN ×3 (00:33→18:09)
--- NOTE | 2019-07-21 02:00 | NUR ---
NURSE NOTES: Pt's in bed, asleep with eyes closed, in no acute distress. VS stable. Will continue to monitor.
--- NOTE | 2019-07-21 04:00 | NUR ---
NURSE NOTES: Pt's resting in bed, in no acute distress, asleep with eyes closed. VS stable. Will continue to monitor.
[2019-07-21] MEDS: traMADol 50mg tab ORAL PRN ×3 (04:59→16:57)
[2019-07-21] MEDS: Insulin NovoLOG Flexpen S/S (Mod) SUBQ SCH ×2 (06:00)
--- NOTE | 2019-07-21 06:00 | NUR ---
NURSE NOTES: Pt's resting in bed, in no acute distress. VS stable. Will continue to monitor.
[2019-07-21] MEDS: Piperacillin/Tazobactam 3.375 GM in NS 110 ML IVPB SCH ×3 (06:13→22:20)
[2019-07-21 06:32] LABS: ALANINE AMINOTRANSFERASE 52 U/L (12-78); ALBUMIN 1.6 G/DL (3.4-5.0); ALBUMIN/GLOBULIN RATIO 0.5 (1.0-2.7); ALKALINE PHOSPHATASE 167 U/L (46-116); ANION GAP 13 mmol/L (5-15); ASPARTATE AMINO TRANSFERASE 101 U/L (15-37); BILIRUBIN,TOTAL 0.5 MG/DL (0.2-1.0); BLOOD UREA NITROGEN 31 mg/dL (7-18); CALCIUM 7.7 MG/DL (8.5-10.1); CARBON DIOXIDE 18 MMOL/L (21-32); CHLORIDE 105 MMOL/L (98-107); CREATININE 1.5 MG/DL (0.55-1.30); POTASSIUM 4.4 MMOL/L (3.5-5.1); SODIUM 136 MMOL/L (136-145)
--- NOTE | 2019-07-21 07:30 | NUR ---
HAND-OFF: Report given to DAVID Hamilton.
--- NOTE | 2019-07-21 07:31 | NUR ---
NURSE NOTES: Late entry: PT and report received from DAVID Arias; PT A/O x 4; SR on monitoring analyst; HR 79; BP 133/49; RR 14 @ 95% on 5L-NC; no S/S of respiratory distress noted during morning rounds; cooperative, able to follow commands, can make needs known, turned TV on for PT per request; PT has clear liquid diet; received PT with ileostomy bag; has R-upper chest jean paul cath running TPN @ 75cc/hr; has PHILIP-PICC 2 lumen running D5 1/2 NS w/ 20mEq KCl running at 75cc/hr. PT abdomen during morning rounds found to be distended firm; PT has orders to collect sputum for culture. Will continue to monitor PT and follow through with plan of care for PT.
[2019-07-21] MEDS ORDERED: D5 1/4NS w/KCl 20mEq 1,000 ML IV SCH (07:45)
[2019-07-21] MEDS ORDERED: Naloxone 0.4mg/ml Inj IVP PRN (07:46)
[2019-07-21] MEDS ORDERED: Dextrose 10% 1,000 ML IV PRN (07:48)
[2019-07-21] MEDS ORDERED: ALPRAZolam 0.25mg tab ORAL PRN (07:49)
[2019-07-21] MEDS ORDERED: Ascorbic Acid 500mg tab ORAL PRN (07:49)
[2019-07-21] MEDS ORDERED: HYDROcodone/Acetamin 5/325 tab ORAL PRN (07:50)
[2019-07-21] MEDS ORDERED: HYDROmorphone 1mg/ml Carpuject SUBQ PRN (07:50)
--- NOTE | 2019-07-21 08:10 | NUR ---
NURSE NOTES: Provided 1 cup of ice to ; raised HOB of PT; is at bedside giving ice to PT. Will continue to monitor PT.
[2019-07-21 08:11] LABS: BASOPHILS % (AUTO) 0.5 % (0.0-2.0); EOSINOPHILS % (AUTO) 3.2 % (0.0-3.0); HEMATOCRIT 27.9 % (42.0-52.0); HEMOGLOBIN 9.4 G/DL (14.2-18.0); LYMPHOCYTES % (AUTO) 5.9 % (20.0-45.0); MEAN CORPUSCULAR VOLUME 86 FL (80-99); MONOCYTES % (AUTO) 6.3 % (1.0-10.0); NEUTROPHILS % (AUTO) 84.2 % (45.0-75.0); PLATELET COUNT 166 K/UL (150-450); RED BLOOD COUNT 3.24 M/UL (4.70-6.10); RED CELL DISTRIBUTION WIDTH 17.6 % (11.6-14.8); WHITE BLOOD COUNT 8.7 K/UL (4.8-10.8)
[2019-07-21] MEDS ORDERED: Tubing IV Secondary IV ONE (08:16)
--- NOTE | 2019-07-21 08:21 | NUR ---
NURSE NOTES: MD Reyna made rounds; updates given, will continue to monitor PT.
--- NOTE | 2019-07-21 08:22 | General Progress Note ---
Progress Note Progress Note Had respiratory distress last night transferred to ICU. AVSS but still with some labored breathing Abdomen now is distended and tympanitic, incision clean, ileostomy with bilious effluent and gas in bag Labs and I&O ok Treated for pulmonary edema with diuretic by Dr. Guevara Imp: Respiratory distress, improved Abdominal distention - new Plan: STAT KUB XRay npo except po meds Pako Orellana MD Jul 21, 2019 08:22
[2019-07-21] MEDS: D5 1/4NS w/KCl 20mEq 1,000 ML IV SCH (08:36)
[2019-07-21] MEDS: Losartan 25mg tab ORAL SCH (08:36)
[2019-07-21] MEDS: Tamsulosin 0.4mg cap ORAL SCH (08:37)
--- NOTE | 2019-07-21 09:35 | Diagnostic Imaging Report ---
Indication: Abdominal pain and distention Technique: Supine view of the abdomen Comparison: Blow Torch Operator image from abdomen pelvis CT scan dated 07/07/2019 Findings: There is evidence of interim surgery, with midline and right lower quadrant skin neil. There is also evidence of older surgery with numerous crescent-shaped metallic clips scattered throughout the abdomen. Mildly dilated small bowel loops are seen in the left upper quadrant. There is lumbar scoliotic deformity. Included lung bases demonstrate interstitial disease. Central venous catheter tips are also seen in the chest. Impression: Left upper quadrant small bowel loops. Given evidence of recent surgery, most likely on the basis of postoperative ileus. However, the possibility of small bowel obstruction should also be considered.
--- NOTE | 2019-07-21 09:36 | Diagnostic Imaging Report ---
Indication: Shortness of breath Technique: One view of the chest Comparison: 07/20/2019 Findings: Better inspiration currently. Bilateral interstitial edema is probably unchanged allowing for differences in inspiration. Left pleural effusion is again demonstrated. The heart size is normal. Left arm PICC and right chest port catheter again demonstrated. Median sternotomy sutures are again demonstrated. Impression: Probably unchanged bilateral interstitial edema and left pleural effusion, allowing for differences in inspiration, over one day
--- NOTE | 2019-07-21 09:42 | NUR ---
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 CURRENT DIET:NPO PO DIET RECOMMENDATIONS: DIET PER MD PARENTERAL NUTRITION RECOMMENDATIONS: D/AA Rate: 66 IL Rate: 9 Total Rate: 75 Volume: 1800 % Dextrose: 15 % AA: 5.3 Energy (kcals/kg): 1576 Protein (g/kg protein): 84 Nonprotein KCALS: 1240 GIR (mg CHO/kg/min): 2.8 % Fat KCALS: 27 NCP: N Ratio: 92:1 TPN Comment: * Rec to lower TPN dextrose to 15% to provide est 30g less dextrose per day as LFT's are trending up. With current added D5 @25ml/hr providing 30g dextrose per day, pt receiving added 100 kcal w/ TPN totaling 1676 kcal/day. * D15% AA 5.3% @ 66ml/hr + IL20% @ 9ml/hr-> total of 75ml/hr, all 3:1 * TPN @ goal provides 100% est kcal/prot needs, including added 100 kcal from D5 @25ml/hr. -> 28kcal/1.4g prot per kg actual body wt ADDITIONAL RECOMMENDATIONS: * Rec obtaining standing wt for accurate CBW * Monitor BGs closely while on Prednisone * Monitor BGs, LFTs, lytes closely on TPN -> LFT's trending up, TPN recs as above for less dextrose
--- NOTE | 2019-07-21 10:05 | NUR ---
RADIOLOGY DEPT., CHEST AND ABDOMEN X-RAYS COMPLETED.-P.DYE
--- NOTE | 2019-07-21 10:25 | NUR ---
NURSE NOTES: Late entry: MD Brigida made rounds; updates given on PT; will continue to monitor.
--- NOTE | 2019-07-21 10:34 | NUR ---
NURSE NOTES: PT BP 90/49; no S/S of respiratory distress, PT is asking for more pain medication; teaching given that medication is not due. Wrote times on white board for PT to refer to for more pain medication.
--- NOTE | 2019-07-21 11:01 | Pulmonology Progress Note ---
Assessment/Plan Assessment/Plan IMPRESSION: 1. Fever, now resolved. 2. Resolving right middle lobe infiltrate. 3. Multiple comorbidities including use of steroids, ulcerative colitis. DISCUSSION: ICU care Careful diuresis TON [place] and Xanax for anxiety/pain ABG reviewed Will follow Oneal Allred M.D. Subjective Interval Events: Transferred to ICU overnight; looks comfortable now Constitutional: Reports: no symptoms HEENT: Repors: no symptoms Respiratory: Reports: no symptoms Cardiovascular: Reports: no symptoms Gastrointestinal/Abdominal: Reports: no symptoms Allergies: Coded Allergies: LORAZEPAM (Verified Allergy, Mild, 07/08/19) Pt undergoes altered level of consciousness Objective Last 24 Hour Vital Signs Date Time Temp Pulse Resp B/P (MAP) Pulse Ox O2 Delivery O2 Flow Rate FiO2 07/21/19 10:00 79 23 90/49 (63) 96 07/21/19 09:30 98.6 07/21/19 09:00 79 25 148/67 (94) 94 07/21/19 08:36 134/55 07/21/19 08:00 98.6 79 24 133/49 (77) 95 07/21/19 08:00 Nasal Cannula 5.0 07/21/19 07:56 95 Nasal Cannula 3.0 36 07/21/19 07:00 73 19 134/55 (81) 97 07/21/19 06:00 98.4 78 21 137/57 (83) 95 07/21/19 05:00 79 27 120/52 (74) 97 07/21/19 04:00 79 24 123/49 (73) 94 07/21/19 04:00 Nasal Cannula 5.0 07/21/19 03:00 79 28 120/49 (72) 97 07/21/19 02:00 89 27 109/54 (72) 94 07/21/19 01:00 92 32 114/42 (66) 90 07/21/19 00:00 102 27 122/56 (78) 94 07/21/19 00:00 Nasal Cannula 5.0 07/20/19 23:00 98.2 112 35 129/56 (80) 96 07/20/19 22:15 135 35 89 07/20/19 20:13 86 22 99 Nasal Cannula 3.0 32 84 24 95 07/20/19 20:12 96 Nasal Cannula 3.0 36 07/20/19 20:00 98.0 80 19 133/67 (89) 90 07/20/19 16:00 98.3 78 20 125/58 (80) 94 07/20/19 13:37 88 22 97 Nasal Cannula 3.0 36 88 24 91 07/20/19 12:00 97.8 80 20 106/62 (77) 98 Intake and Output 07/20/19 07/21/19 19:00 07:00 Intake Total 152.5 ml 1445.000 ml Output Total 910 ml Balance 152.5 ml 535.000 ml Intake Oral 240 ml IV Total 152.5 ml 1205.000 ml Output Urine Total 710 ml Other 200 ml General Appearance: no acute distress HEENT: normocephalic Respiratory/Chest: chest wall non-tender, decreased breath sounds Cardiovascular: normal peripheral pulses, normal rate Abdomen: soft, non tender Microbiology Date/Time Source Procedure Growth Status 07/19/19 18:00 Nasal Nares - Final Complete 07/19/19 18:00 Nasal Nares - Final Complete Laboratory Tests 07/20/19 23:45: Arterial Blood pH 7.357, Arterial Blood Partial Pressure CO2 30.0L, Arterial Blood Partial Pressure O2 117.6H, Arterial Blood HCO3 16.5*L, Arterial Blood Oxygen Saturation 98.0, Arterial Blood Base Excess -7.9L, Fabricio Test Positive 07/21/19 03:45: Sodium Level 136, Potassium Level 4.4, Chloride Level 105, Carbon Dioxide Level 18L, Anion Gap 13, Blood Urea Nitrogen 31H, Creatinine 1.5H, Estimat Glomerular Filtration Rate , Glucose Level 119H, Calcium Level 7.7L, Total Bilirubin 0.5, Aspartate Amino Transf (AST/SGOT) 101H, Alanine Aminotransferase (ALT/SGPT) 52, Alkaline Phosphatase 167H, Total Protein 4.9L, Albumin 1.6L, Globulin 3.3, Albumin/Globulin Ratio 0.5L 07/21/19 08:05: White Blood Count 8.7, Red Blood Count 3.24L, Hemoglobin 9.4L, Hematocrit 27.9L , Mean Corpuscular Volume 86, Mean Corpuscular Hemoglobin 29.0, Mean Corpuscular Hemoglobin Concent 33.7, Red Cell Distribution Width 17.6H, Platelet Count 166, Mean Platelet Volume 6.5, Neutrophils (%) (Auto) 84.2H, Lymphocytes (%) (Auto) 5.9L, Monocytes (%) (Auto) 6.3, Eosinophils (%) (Auto) 3.2H, Basophils (%) (Auto) 0.5 Current Medications Medications (Trade) Dose Ordered Sig/Evgeny Route PRN Reason Start Time Stop Time Status Last Admin Dose Admin Acetaminophen (Tylenol) 650 mg Q4H PRN ORAL Mild Pain/Temp > 100.2 07/21/19 07:49 08/20/19 07:48 Acetaminophen/ Hydrocodone Bitart ([place] 5/325) 1 tab Q6H PRN ORAL SEVERE PAIN 07/21/19 08:00 07/28/19 07:49 07/21/19 08:56 Alprazolam (Xanax) 0.25 mg Q6H PRN ORAL For Anxiety 07/21/19 07:49 07/28/19 07:48 Amlodipine Besylate (Norvasc) 5 mg Q12H PRN ORAL For High Blood Pressure 07/21/19 07:49 08/20/19 07:48 Ascorbic Acid (Vitamin C) 500 mg Q4H PRN ORAL thick ileostomy effluent 07/21/19 07:49 08/20/19 07:48 Chlorhexidine Gluconate (Val-Hex 2%) 1 applic DAILY@2000 TOPIC 07/21/19 20:00 08/06/19 19:59 Dextrose 1,000 ml @ 0 mls/hr Q24H PRN IV PN interrupted or unavailable 07/21/19 07:48 08/20/19 07:47 Dextrose (Dextrose 50%) 25 ml Q30M PRN IV Hypoglycemia 07/21/19 08:00 08/07/19 00:00 Dextrose (Dextrose 50%) 50 ml Q30M PRN IV Hypoglycemia 07/21/19 08:00 08/07/19 00:00 Dextrose/ Electrolytes 1,000 ml @ 25 mls/hr Q24H IV 07/21/19 08:10 08/20/19 08:09 07/21/19 08:36 Fat Emulsion Intravenous 216 ml/Amino Acids/ Electrolytes/ Dextrose 1,800 ml @ 75 mls/hr Q24H IV 07/07/19 20:00 07/21/19 19:59 07/20/19 20:44 Fat Emulsion Intravenous 216 ml/Amino Acids/ Electrolytes/ Dextrose 1,800 ml @ 75 mls/hr Q24H IV 07/21/19 20:00 08/06/19 19:59 Hydromorphone HCl (Dilaudid) 1 mg Q4H PRN SUBQ BREAKTHROUGH PAIN 07/21/19 08:00 07/28/19 07:49 Insulin Aspart (NovoLOG) No Dose Q6HR SUBQ 07/21/19 12:00 08/07/19 00:00 Levalbuterol HCl (Xopenex) 1.25 mg TIDRT HHN 07/21/19 13:00 07/25/19 09:14 Levothyroxine Sodium (Synthroid) 50 mcg DAILY@0630 ORAL 07/22/19 06:30 08/06/19 06:29 Lidocaine (Lidoderm 5% PATCH) 1 patch DAILY TDERMAL 07/21/19 09:00 08/20/19 08:59 07/21/19 08:37 Losartan Potassium (Cozaar) 25 mg DAILY ORAL 07/21/19 09:00 08/13/19 08:59 07/21/19 08:36 Naloxone HCl (Narcan) 0.1 mg Q1M PRN IVP RR<10/min OR SBP<90 mmHg 07/21/19 07:46 08/16/19 20:29 Ondansetron HCl (Zofran) 4 mg Q4H PRN IVP Nausea & Vomiting 07/21/19 07:51 08/20/19 07:50 Pantoprazole (Protonix) 40 mg DAILY ORAL 07/21/19 09:00 08/06/19 08:59 07/21/19 08:37 Phytonadione (Vitamin K) 10 mg ONCE A WEEK SUBQ 07/21/19 20:00 08/06/19 19:59 Piperacillin Sod/ Tazobactam Sod 3.375 gm/Sodium Chloride 110 ml @ 27.5 mls/hr EVERY 8 HOURS IVPB 07/21/19 14:00 07/26/19 13:59 Prednisone (predniSONE) 5 mg DAILY ORAL 07/21/19 09:00 08/06/19 08:59 07/21/19 08:37 Tamsulosin HCl (Flomax) 0.4 mg DAILY ORAL 07/21/19 09:00 08/06/19 08:59 07/21/19 08:37 Temazepam (RestoriL) 7.5 mg HSPRN PRN ORAL Insomnia 07/21/19 10:45 07/26/19 10:44 Tramadol HCl (Ultram) 50 mg Q6H PRN ORAL moderate pain 07/21/19 07:52 07/28/19 07:51 07/21/19 10:54 Vancomycin HCl (Vanco rx to dose) 1 ea DAILY PRN MISC Per rx protocol 07/21/19 09:00 08/18/19 15:59 Vancomycin HCl 750 mg/Sodium Chloride 275 ml @ 183.333 mls/hr Q24H IVPB 07/21/19 12:30 07/25/19 12:29 Oneal Allred MD Jul 21, 2019 11:01
[2019-07-21] MEDS: NovoLOG Insulin Flexpen SUBQ SCH ×2 (11:46→18:00)
--- NOTE | 2019-07-21 11:59 | NUR ---
NURSE NOTES: PT at bedside, PT is sleeping, VS stable, will continue to monitor PT.
[2019-07-21] MEDS ORDERED: Vancomycin 750 MG in NS 275 ML IVPB SCH (12:30)
[2019-07-21] MEDS: Levalbuterol Inh UD 1.25mg/0.5ml HHN SCH ×2 (13:00→19:00)
--- NOTE | 2019-07-21 14:43 | NUR ---
NURSE NOTES: PT asked for remote controller for TV; placed a work order for TV remote; PT at bedside, VS stable, no S/S of respiratory distress noted, no complaints of pain, will continue to monitor PT.
--- NOTE | 2019-07-21 18:09 | NUR ---
HAND-OFF: Late entry: Report and PT given to Maricel Batres RN.
--- NOTE | 2019-07-21 18:10 | NUR ---
NURSE NOTES: Received pt from DAVID Hamilton Emptied 100ml of watery dark brown stool from ileostomy. Emptied total 2800ml of clear yellow urine from pinedo drainage bag. Pt c/o of back pain 9/10 on pain scale, [place] 5/325 give as per ordered, will reassess in 30 mins. Turned and repositioned. BS 123 mg/dl, WNL, no insulin given per sliding scale. Pt reports feeling cold; afebrile. Provided more blankets.
--- NOTE | 2019-07-21 19:24 | NUR ---
HAND-OFF: Report given to DAVID De Santiago.
[2019-07-21] MEDS ORDERED: Phytonadione 10 mg/mL 1ml amp SUBQ SCH (20:00)
[2019-07-21] MEDS ORDERED: Dyna-Hex 2% Top Sol 2oz TOPIC SCH (20:00)
[2019-07-21] MEDS ORDERED: Fat Emulsion Iv 20% 216 ML in Tpn 1,584 ML IV SCH (20:00)
--- NOTE | 2019-07-21 20:00 | NUR ---
NURSE NOTES: received report from cheryl shipley pt awake and alert no c/o pain reposition on5 Ll n/c O2 SAT 98 0/0TPN INFUSING LF UA DRESSING DRY AND INTACT
[2019-07-21] MEDS: HYDROmorphone 1mg/ml Carpuject SUBQ PRN (20:46)
--- NOTE | 2019-07-21 22:00 | NUR ---
NURSE NOTES: ASKING FOR SLEEPING MEDICATION GIVEN ORDER
--- NOTE | 2019-07-21 22:24 | Infectious Diseases Prog Note ---
Assessment/Plan Assessment/Plan ASSESSMENT AND PLAN: 1. sepsis, leukocytosis, fevers, ? line, ? pna, chf/edema, ileus, ? bowel obstruction - zosyn and vancomycin - f/u on cultures, labs and chest xr-ay - icu care - d/w Dr. Orellana yesterday - fevers and leukocytosis better 2. chf/edema - diuresis, sob better, pulmonary f/u 3. 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 4. History of multiple abdominal surgeries. 5. Hypertension. 6. Blood pressure treatment per primary care team. 7. Hypothyroidism. 8. Ulcerative colitis history. 9. Anemia. 10. History of polycythemia. 11. Allergic to lorazepam. 12. Social history negative. 13. Family history noncontributory. 14. MAR is noted. 15. Case was discussed with RN. 16. Case was discussed with Dr. Herring. 17. Case was discussed with the patient and the patient's . Subjective Constitutional: Reports: fatigue; Denies: fever HEENT: Reports: congestion Respiratory: Reports: shortness of breath Cardiovascular: Denies: chest pain Gastrointestinal/Abdominal: Reports: other - no new abdominal pain; Denies: nausea, vomiting, diarrhea Genitourinary: Reports: other - + pinedo Neurologic: Denies: headache Psychiatric: Denies: depression Skin: Denies: rash Hematologic: Denies: bleeding Musculoskeletal: Denies: pain Allergies: Coded Allergies: LORAZEPAM (Verified Allergy, Mild, 07/08/19) Pt undergoes altered level of consciousness Objective Vital Signs Last 24 Hour Vital Signs Date Time Temp Pulse Resp B/P (MAP) Pulse Ox O2 Delivery O2 Flow Rate FiO2 07/21/19 19:27 94 Nasal Cannula 3.0 36 07/21/19 18:39 98.5 07/21/19 18:00 73 24 130/62 (84) 98 07/21/19 17:35 98.5 07/21/19 17:00 78 20 138/56 (83) 98 07/21/19 16:00 98.5 78 25 119/54 (75) 97 07/21/19 16:00 Nasal Cannula 5.0 07/21/19 15:00 70 20 136/55 (82) 95 07/21/19 14:00 81 24 109/86 (94) 97 07/21/19 13:00 79 23 128/57 (80) 97 07/21/19 12:00 75 07/21/19 12:00 Nasal Cannula 5.0 07/21/19 12:00 98.5 71 22 135/60 (85) 97 07/21/19 11:00 76 24 104/47 (66) 97 07/21/19 10:00 79 23 90/49 (63) 96 07/21/19 09:00 79 25 148/67 (94) 94 07/21/19 08:36 134/55 07/21/19 08:00 98.6 79 24 133/49 (77) 95 07/21/19 08:00 71 07/21/19 08:00 Nasal Cannula 5.0 07/21/19 07:56 95 Nasal Cannula 3.0 36 07/21/19 07:00 73 19 134/55 (81) 97 07/21/19 06:00 98.4 78 21 137/57 (83) 95 07/21/19 05:00 79 27 120/52 (74) 97 07/21/19 04:00 79 24 123/49 (73) 94 07/21/19 04:00 Nasal Cannula 5.0 07/21/19 03:00 79 28 120/49 (72) 97 07/21/19 02:00 89 27 109/54 (72) 94 07/21/19 01:00 92 32 114/42 (66) 90 07/21/19 00:00 102 27 122/56 (78) 94 07/21/19 00:00 Nasal Cannula 5.0 07/20/19 23:00 98.2 112 35 129/56 (80) 96 07/20/19 22:15 135 35 89 Height (Feet): 5 Height (Inches): 7.00 Weight (Pounds): 135 General Appearance: no acute distress HEENT: normocephalic, atraumatic, anicteric, mucous membranes moist Respiratory/Chest: crackles/rales, rhonchi - bilaterally Cardiovascular: normal rate, regular rhythm, no gallop/murmur, no JVD Abdomen: normal bowel sounds, soft, non tender, no organomegaly, non distended Genitourinary: other Extremities: no cyanosis Skin: no rash 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 Bilateral interstitial edema is probably unchanged allowing for differences in inspiration. Left pleural effusion is again demonstrated. The heart size is normal. Left arm PICC and right chest port catheter again demonstrated. Median sternotomy sutures are again demonstrated. Impression: Probably unchanged bilateral interstitial edema and left pleural effusion, allowing for differences in inspiration, over one day KUB - 07/21/19 Impression: Left upper quadrant small bowel loops. Given evidence of recent surgery, most likely on the basis of postoperative ileus. However, the possibility of small bowel obstruction should also be considered. CT abdomen and pelvis - report noted Microbiology Date/Time Source Procedure Growth Status 07/18/19 05:15 Blood Blood Culture - Preliminary NO GROWTH AFTER 48 HOURS Resulted 07/19/19 18:00 Nasal Nares - Final Complete 07/19/19 18:00 Nasal Nares - Final Complete Microbiology Date/Time Source Procedure Growth Status 07/19/19 18:00 Nasal Nares - Final Complete 07/19/19 18:00 Nasal Nares - Final Complete Laboratory Tests Test 07/20/19 23:45 07/21/19 03:45 07/21/19 08:05 07/21/19 11:05 Arterial Blood pH 7.357 (7.350-7.450) Arterial Blood Partial Pressure CO2 30.0 mmHg (35.0-45.0) L Arterial Blood Partial Pressure O2 117.6 mmHg (75.0-100.0) H Arterial Blood HCO3 16.5 mmol/L (22.0-26.0) *L Arterial Blood Oxygen Saturation 98.0 % (95-100) Arterial Blood Base Excess -7.9 (-2-2) L Fabricio Test Positive Sodium Level 136 MMOL/L (136-145) Potassium Level 4.4 MMOL/L (3.5-5.1) Chloride Level 105 MMOL/L (98-107) Carbon Dioxide Level 18 MMOL/L (21-32) L Anion Gap 13 mmol/L (5-15) Blood Urea Nitrogen 31 mg/dL (7-18) H Creatinine 1.5 MG/DL (0.55-1.30) H Estimat Glomerular Filtration Rate mL/min (>60) Glucose Level 119 MG/DL (74-106) H Calcium Level 7.7 MG/DL (8.5-10.1) L Total Bilirubin 0.5 MG/DL (0.2-1.0) Aspartate Amino Transf (AST/SGOT) 101 U/L (15-37) H Alanine Aminotransferase (ALT/SGPT) 52 U/L (12-78) Alkaline Phosphatase 167 U/L (46-116) H Total Protein 4.9 G/DL (6.4-8.2) L Albumin 1.6 G/DL (3.4-5.0) L Globulin 3.3 g/dL Albumin/Globulin Ratio 0.5 (1.0-2.7) L White Blood Count 8.7 K/UL (4.8-10.8) Red Blood Count 3.24 M/UL (4.70-6.10) L Hemoglobin 9.4 G/DL (14.2-18.0) L Hematocrit 27.9 % (42.0-52.0) L Mean Corpuscular Volume 86 FL (80-99) Mean Corpuscular Hemoglobin 29.0 PG (27.0-31.0) Mean Corpuscular Hemoglobin Concent 33.7 G/DL (32.0-36.0) Red Cell Distribution Width 17.6 % (11.6-14.8) H Platelet Count 166 K/UL (150-450) Mean Platelet Volume 6.5 FL (6.5-10.1) Neutrophils (%) (Auto) 84.2 % (45.0-75.0) H Lymphocytes (%) (Auto) 5.9 % (20.0-45.0) L Monocytes (%) (Auto) 6.3 % (1.0-10.0) Eosinophils (%) (Auto) 3.2 % (0.0-3.0) H Basophils (%) (Auto) 0.5 % (0.0-2.0) Vancomycin Level Trough Pending Current Medications Medications (Trade) Dose Ordered Sig/Evgeny Route PRN Reason Start Time Stop Time Status Last Admin Dose Admin Acetaminophen (Tylenol) 650 mg Q4H PRN ORAL Mild Pain/Temp > 100.2 07/21/19 07:49 08/20/19 07:48 Acetaminophen/ Hydrocodone Bitart ([place] 5/325) 1 tab Q6H PRN ORAL SEVERE PAIN 07/21/19 08:00 07/28/19 07:49 07/21/19 18:09 Alprazolam (Xanax) 0.25 mg Q6H PRN ORAL For Anxiety 07/21/19 07:49 07/28/19 07:48 07/21/19 20:39 Amlodipine Besylate (Norvasc) 5 mg Q12H PRN ORAL For High Blood Pressure 07/21/19 07:49 08/20/19 07:48 Ascorbic Acid (Vitamin C) 500 mg Q4H PRN ORAL thick ileostomy effluent 07/21/19 07:49 08/20/19 07:48 Chlorhexidine Gluconate (Val-Hex 2%) 1 applic DAILY@2000 TOPIC 07/21/19 20:00 08/06/19 19:59 07/21/19 21:12 Dextrose 1,000 ml @ 0 mls/hr Q24H PRN IV PN interrupted or unavailable 07/21/19 07:48 08/20/19 07:47 Dextrose (Dextrose 50%) 25 ml Q30M PRN IV Hypoglycemia 07/21/19 08:00 08/07/19 00:00 Dextrose (Dextrose 50%) 50 ml Q30M PRN IV Hypoglycemia 07/21/19 08:00 08/07/19 00:00 Dextrose/ Electrolytes 1,000 ml @ 25 mls/hr Q24H IV 07/21/19 08:10 08/20/19 08:09 07/21/19 08:36 Fat Emulsion Intravenous 216 ml/Amino Acids/ Electrolytes/ Dextrose 1,800 ml @ 75 mls/hr Q24H IV 07/21/19 20:00 08/06/19 19:59 07/21/19 20:00 Furosemide (Lasix) 40 mg DAILY IV 07/21/19 11:15 08/20/19 11:14 07/21/19 11:25 Hydromorphone HCl (Dilaudid) 1 mg Q4H PRN SUBQ BREAKTHROUGH PAIN 07/21/19 08:00 07/28/19 07:49 07/21/19 20:46 Insulin Aspart (NovoLOG) No Dose Q6HR SUBQ 07/21/19 12:00 08/07/19 00:00 Levalbuterol HCl (Xopenex) 1.25 mg TIDRT HHN 07/21/19 13:00 07/25/19 09:14 Levothyroxine Sodium (Synthroid) 50 mcg DAILY@0630 ORAL 07/22/19 06:30 08/06/19 06:29 Lidocaine (Lidoderm 5% PATCH) 1 patch DAILY TDERMAL 07/21/19 09:00 08/20/19 08:59 07/21/19 08:37 Losartan Potassium (Cozaar) 25 mg DAILY ORAL 07/21/19 09:00 08/13/19 08:59 07/21/19 08:36 Naloxone HCl (Narcan) 0.1 mg Q1M PRN IVP RR<10/min OR SBP<90 mmHg 07/21/19 07:46 08/16/19 20:29 Ondansetron HCl (Zofran) 4 mg Q4H PRN IVP Nausea & Vomiting 07/21/19 07:51 08/20/19 07:50 Pantoprazole (Protonix) 40 mg DAILY ORAL 07/21/19 09:00 08/06/19 08:59 07/21/19 08:37 Phytonadione (Vitamin K) 10 mg ONCE A WEEK SUBQ 07/21/19 20:00 08/06/19 19:59 07/21/19 21:18 Piperacillin Sod/ Tazobactam Sod 3.375 gm/Sodium Chloride 110 ml @ 27.5 mls/hr EVERY 8 HOURS IVPB 07/21/19 14:00 07/26/19 13:59 07/21/19 13:47 Prednisone (predniSONE) 5 mg DAILY ORAL 07/21/19 09:00 08/06/19 08:59 07/21/19 08:37 Tamsulosin HCl (Flomax) 0.4 mg DAILY ORAL 07/21/19 09:00 08/06/19 08:59 07/21/19 08:37 Temazepam (RestoriL) 7.5 mg HSPRN PRN ORAL Insomnia 07/21/19 10:45 07/26/19 10:44 Tramadol HCl (Ultram) 50 mg Q6H PRN ORAL moderate pain 07/21/19 07:52 07/28/19 07:51 07/21/19 16:57 Vancomycin HCl (Vanco rx to dose) 1 ea DAILY PRN MISC Per rx protocol 07/21/19 09:00 08/18/19 15:59 Vancomycin HCl 750 mg/Sodium Chloride 275 ml @ 183.333 mls/hr Q24H IVPB 07/21/19 12:30 07/25/19 12:29 07/21/19 12:04 Paras Ybarra MD Jul 21, 2019 22:24
--- NOTE | 2019-07-21 23:00 | NUR ---
NURSE NOTES: C/O SEVERE BACK PAIN AND ABDOMINAL PAIN MEDICATED WITH DIL GIVEN ORDER
--- NOTE | 2019-07-21 23:01 | NUR ---
NURSE NOTES: called Dr Orellana for pts back pain, not relieved with Dilauded, called back with order of Tramadol 50 mg q 4hr prn pain
--- NOTE | 2019-07-21 23:18 | NUR ---
NURSE NOTES: Spoke to Dr Allred about pts Expiratory Wheezing with orders given. Pls see orders.
[2019-07-21] MEDS ORDERED: Levalbuterol Inh UD 1.25mg/0.5ml HHN PRN (23:45)
[2019-07-22] VITALS (15 sets, daily range): BP systolic 97–161; BP diastolic 37–72
--- NOTE | 2019-07-22 | NUR ---
NURSE NOTES: Lidoderm patch removed. Addendum: 07/23/19 at 0015 by JARRED NG RN This note is for 07/22 8830
[2019-07-22] MEDS: traMADol 50mg tab ORAL PRN ×2 (00:09→08:57)
--- NOTE | 2019-07-22 00:09 | NUR ---
NURSE NOTES: Pt complaining of back pain scale of 9, tramadol 50mg po was given by DAVID Jolly.
[2019-07-22] MEDS: HYDROcodone/Acetamin 5/325 tab ORAL PRN ×3 (00:30→17:49)
--- NOTE | 2019-07-22 01:00 | NUR ---
NURSE NOTES: Sleeping at short interval. agitated most of the time. Resp Tx given by RT with relief.
[2019-07-22] MEDS: D5 1/4NS w/KCl 20mEq 1,000 ML IV SCH (01:25)
[2019-07-22] MEDS: HYDROmorphone 1mg/ml Carpuject SUBQ PRN ×3 (02:14→20:06)
--- NOTE | 2019-07-22 02:14 | NUR ---
NURSE NOTES: Pt is awake and complaining of back pain , chronic pain scale of 9. Dilauded 1mg subcut. was given by DAVID colón
--- NOTE | 2019-07-22 03:00 | NUR ---
:HAND-OFF: Report given to kvng shipley.
--- NOTE | 2019-07-22 03:45 | NUR ---
NURSE NOTES: Receive report from DAVID Lange. Pt is resting on the bed and agitated. On O2 5L via nasal cannula and SaO2 96% noted. On threat monitoring analyst with SR. Pt has Rt. upper arm PICC line and Lt subclavian port a cath and dressing is clean and dry. On running with TPN @ 75cc/hr and D5w1/4NS+KCL 20mq @ 25cc/hr running. Pt still has 2/10 pain on abdomen area but acceptable pain at this time. Pt has abdomen surgical wound with neil and open to area. wound site no sign of infection noted. Pt has ileostomy and drainage well. Placed fall precaution. Will continue to monitor any change of condition.
--- NOTE | 2019-07-22 04:00 | NUR ---
NURSE NOTES: Morning care was done. Cleaned Pt and applied lotion and cream. Lt. upper arm PICC line dressing was changed. On running with TPN @ 75cc.hr and tolerated well. SaO2 96% with O2 5L via nasal cannula. Provided good sleep environment. Will continue to monitor any change of condition.
[2019-07-22] MEDS: Piperacillin/Tazobactam 3.375 GM in NS 110 ML IVPB SCH ×3 (05:59→21:51)
[2019-07-22] MEDS: NovoLOG Insulin Flexpen SUBQ SCH ×4 (06:00→17:55)
--- NOTE | 2019-07-22 06:00 | NUR ---
NURSE NOTES: Pt is sleeping on the bed and no sign of acute distress noted. On O2 5L via nasal cannula and SaO2 95% noted. Placed fall precaution. Drainage well from ileostomy. Will continue to monitor any change of condition.
[2019-07-22 06:27] LABS: BASOPHILS % (AUTO) 0.7 % (0.0-2.0); HEMATOCRIT 33.2 % (42.0-52.0); HEMOGLOBIN 11.1 G/DL (14.2-18.0); LYMPHOCYTES % (AUTO) 8.2 % (20.0-45.0); MEAN CORPUSCULAR VOLUME 88 FL (80-99); MONOCYTES % (AUTO) 8.6 % (1.0-10.0); NEUTROPHILS % (AUTO) 80.6 % (45.0-75.0); PLATELET COUNT 179 K/UL (150-450); RED BLOOD COUNT 3.78 M/UL (4.70-6.10); RED CELL DISTRIBUTION WIDTH 18.3 % (11.6-14.8); WHITE BLOOD COUNT 8.2 K/UL (4.8-10.8)
[2019-07-22 06:45] LABS: ALANINE AMINOTRANSFERASE 86 U/L (12-78); ALBUMIN 1.7 G/DL (3.4-5.0); ALBUMIN/GLOBULIN RATIO 0.4 (1.0-2.7); ALKALINE PHOSPHATASE 223 U/L (46-116); ANION GAP 13 mmol/L (5-15); ASPARTATE AMINO TRANSFERASE 108 U/L (15-37); BILIRUBIN,TOTAL 0.6 MG/DL (0.2-1.0); BLOOD UREA NITROGEN 32 mg/dL (7-18); CALCIUM 8.1 MG/DL (8.5-10.1); CARBON DIOXIDE 21 MMOL/L (21-32); CHLORIDE 104 MMOL/L (98-107); CREATININE 1.4 MG/DL (0.55-1.30); PHOSPHORUS 4.3 MG/DL (2.5-4.9); SODIUM 138 MMOL/L (136-145)
[2019-07-22] MEDS ORDERED: Levalbuterol Inh UD 1.25mg/0.5ml HHN SCH (07:00)
--- NOTE | 2019-07-22 07:18 | NUR ---
HAND-OFF: Report given to DAVID Hamilton. Pt is resting on the bed and no sign of acute distress noted.
--- NOTE | 2019-07-22 07:19 | NUR ---
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
--- NOTE | 2019-07-22 07:39 | NUR ---
P.T Note : late entry 07/21/19 1040 Pt was transferred to ICU. Pt in stable condition and cleared to mobilize per RN. Pt seen for P.T this AM tx consisted of ADL/functional bed mobility and transfer training, sitting and standing balance activities. Pt was alert and participative in therapy however required encouragement to fully participate. MOD A X 1 and extended to complete supine to/from sitting and sitting to/from standing. Pt carlito. 10 mins of of activities in sitting at the EOB. Pt was able to stand using the FWW not more than 1 min x 3 with MOD A X 1. Vitals were stable during the entire session. Overall Poor activity tolerance. Limited by pain ,fatigue and anxiety. OOB to chair not performed per RN request. Will progress activities as appropriate.
--- NOTE | 2019-07-22 08:41 | General Progress Note ---
Progress Note Progress Note Afebrile x 48 hours on Zosyn and Vanco KUB revealed dilated small bowel loops ileus vs sbo Abdomen less distended, still tympanitic upper abdomen, incision clean, stoma stable Urine 4070 Ileostomy 390 Cr down 1.4 Mg 1.7 albumin 1.7 Imp: ileus; r/o partial sbo Plan: continue npo, TPN antibiotics per ID management in ICU per Pako Hansen MD Jul 22, 2019 08:41
[2019-07-22] MEDS: Tamsulosin 0.4mg cap ORAL SCH (08:57)
[2019-07-22] MEDS: Losartan 25mg tab ORAL SCH (08:58)
--- NOTE | 2019-07-22 09:24 | Pulmonology Progress Note ---
Assessment/Plan Assessment/Plan IMPRESSION: 1. Fever, now resolved. 2. Resolving right middle lobe infiltrate. 3. Multiple comorbidities including use of steroids, ulcerative colitis. 4. suspect interstitial pulmonary edema DISCUSSION: ICU care Careful diuresis; will discuss with surgery TPN [place] and Xanax for anxiety/pain ABG reviewed Will follow Oneal Allred M.D. Subjective Interval Events: None new Constitutional: Reports: no symptoms HEENT: Repors: no symptoms Respiratory: Reports: no symptoms Cardiovascular: Reports: no symptoms Gastrointestinal/Abdominal: Reports: no symptoms Genitourinary: Reports: no symptoms Allergies: Coded Allergies: LORAZEPAM (Verified Allergy, Mild, 07/08/19) Pt undergoes altered level of consciousness Objective Last 24 Hour Vital Signs Date Time Temp Pulse Resp B/P (MAP) Pulse Ox O2 Delivery O2 Flow Rate FiO2 07/22/19 08:58 121/54 07/22/19 08:00 94 Nasal Cannula 3.0 36 07/22/19 08:00 83 14 99 Nasal Cannula 3.0 32 85 20 94 07/22/19 07:00 76 22 133/50 (77) 95 07/22/19 06:00 103 22 109/66 (80) 94 07/22/19 05:00 86 22 97/45 (62) 95 07/22/19 04:00 Nasal Cannula 5.0 07/22/19 04:00 91 07/22/19 04:00 98.8 87 24 102/37 (58) 96 07/22/19 03:00 84 22 102/46 (64) 95 07/22/19 02:00 94 22 122/58 (79) 95 07/22/19 01:00 113 161/72 (101) 07/22/19 00:00 Nasal Cannula 5.0 07/22/19 00:00 98.6 121 22 145/60 (88) 99 07/21/19 23:00 117 22 152/63 (92) 99 07/21/19 22:00 114 22 140/63 (88) 99 07/21/19 21:00 79 22 140/65 (90) 99 07/21/19 20:00 98.6 77 22 140/63 (88) 99 07/21/19 20:00 Nasal Cannula 5.0 07/21/19 19:27 94 Nasal Cannula 3.0 36 07/21/19 19:00 74 24 142/58 (86) 96 07/21/19 18:39 98.5 07/21/19 18:00 73 24 130/62 (84) 98 07/21/19 17:35 98.5 07/21/19 17:00 78 20 138/56 (83) 98 07/21/19 16:00 98.5 78 25 119/54 (75) 97 07/21/19 16:00 Nasal Cannula 5.0 07/21/19 15:00 70 20 136/55 (82) 95 07/21/19 14:00 81 24 109/86 (94) 97 07/21/19 13:00 79 23 128/57 (80) 97 07/21/19 12:00 75 07/21/19 12:00 Nasal Cannula 5.0 07/21/19 12:00 98.5 71 22 135/60 (85) 97 07/21/19 11:00 76 24 104/47 (66) 97 07/21/19 10:00 79 23 90/49 (63) 96 Intake and Output 07/21/19 07/22/19 18:59 06:59 Intake Total 2687.500 ml 2062.5 ml Output Total 3090 ml 1535 ml Balance -402.500 ml 527.5 ml Intake Oral 110 ml IV Total 1752.500 ml 1162.5 ml Tube Feeding 825 ml 900 ml Output Urine Total 2940 ml 1295 ml Other 150 ml 240 ml General Appearance: no acute distress HEENT: normocephalic Respiratory/Chest: chest wall non-tender, decreased breath sounds Cardiovascular: normal peripheral pulses, normal rate Abdomen: soft, non tender Microbiology Date/Time Source Procedure Growth Status 07/19/19 18:00 Nasal Nares - Final Complete 07/19/19 18:00 Nasal Nares - Final Complete Laboratory Tests 07/21/19 11:05: Vancomycin Level Trough 6.6 07/22/19 04:00: White Blood Count 8.2, Red Blood Count 3.78L, Hemoglobin 11.1L, Hematocrit 33.2L , Mean Corpuscular Volume 88, Mean Corpuscular Hemoglobin 29.3, Mean Corpuscular Hemoglobin Concent 33.4, Red Cell Distribution Width 18.3H, Platelet Count 179, Mean Platelet Volume 6.9, Neutrophils (%) (Auto) 80.6H, Lymphocytes (%) (Auto) 8.2L, Monocytes (%) (Auto) 8.6, Eosinophils (%) (Auto) 2.0, Basophils (%) (Auto) 0.7, Sodium Level 138, Potassium Level 4.0, Chloride Level 104, Carbon Dioxide Level 21, Anion Gap 13, Blood Urea Nitrogen 32H, Creatinine 1.4H, Estimat Glomerular Filtration Rate , Glucose Level 116H, Calcium Level 8.1L, Phosphorus Level 4.3, Magnesium Level 1.7L, Total Bilirubin 0.6, Aspartate Amino Transf (AST/SGOT) 108H, Alanine Aminotransferase (ALT/SGPT ) 86H, Alkaline Phosphatase 223H, Total Protein 5.8L, Albumin 1.7L, Globulin 4.1 , Albumin/Globulin Ratio 0.4L Current Medications Medications (Trade) Dose Ordered Sig/Evgeny Route PRN Reason Start Time Stop Time Status Last Admin Dose Admin Acetaminophen (Tylenol) 650 mg Q4H PRN ORAL Mild Pain/Temp > 100.2 07/21/19 07:49 08/20/19 07:48 Acetaminophen/ Hydrocodone Bitart ([place] 5/325) 1 tab Q6H PRN ORAL SEVERE PAIN 07/21/19 08:00 07/28/19 07:49 07/22/19 00:30 Alprazolam (Xanax) 0.25 mg Q6H PRN ORAL For Anxiety 07/21/19 07:49 07/28/19 07:48 07/21/19 20:39 Amlodipine Besylate (Norvasc) 5 mg Q12H PRN ORAL For High Blood Pressure 07/21/19 07:49 08/20/19 07:48 Ascorbic Acid (Vitamin C) 500 mg Q4H PRN ORAL thick ileostomy effluent 07/21/19 07:49 08/20/19 07:48 Chlorhexidine Gluconate (Val-Hex 2%) 1 applic DAILY@2000 TOPIC 07/21/19 20:00 08/06/19 19:59 07/21/19 21:12 Dextrose 1,000 ml @ 0 mls/hr Q24H PRN IV PN interrupted or unavailable 07/21/19 07:48 08/20/19 07:47 Dextrose (Dextrose 50%) 25 ml Q30M PRN IV Hypoglycemia 07/21/19 08:00 08/07/19 00:00 Dextrose (Dextrose 50%) 50 ml Q30M PRN IV Hypoglycemia 07/21/19 08:00 08/07/19 00:00 Dextrose/ Electrolytes 1,000 ml @ 25 mls/hr Q24H IV 07/21/19 08:10 08/20/19 08:09 07/22/19 01:25 Fat Emulsion Intravenous 216 ml/Amino Acids/ Electrolytes/ Dextrose 1,800 ml @ 75 mls/hr Q24H IV 07/21/19 20:00 08/06/19 19:59 07/21/19 20:00 Furosemide (Lasix) 40 mg DAILY IV 07/21/19 11:15 08/20/19 11:14 07/22/19 08:56 Hydromorphone HCl (Dilaudid) 1 mg Q4H PRN SUBQ BREAKTHROUGH PAIN 07/21/19 08:00 07/28/19 07:49 07/22/19 02:14 Insulin Aspart (NovoLOG) No Dose Q6HR SUBQ 07/21/19 12:00 08/07/19 00:00 Levalbuterol HCl (Xopenex) 1.25 mg Q6H PRN HHN SOB/WHEEZING 07/21/19 23:45 07/26/19 23:44 Levalbuterol HCl (Xopenex) 1.25 mg TIDRT HHN 07/22/19 07:00 07/27/19 06:59 07/22/19 08:06 Levothyroxine Sodium (Synthroid) 50 mcg DAILY@0630 ORAL 07/22/19 06:30 08/06/19 06:29 07/22/19 05:59 Lidocaine (Lidoderm 5% PATCH) 1 patch DAILY TDERMAL 07/21/19 09:00 08/20/19 08:59 07/22/19 08:59 Losartan Potassium (Cozaar) 25 mg DAILY ORAL 07/21/19 09:00 08/13/19 08:59 07/22/19 08:58 Magnesium Sulfate 100 ml @ 100 mls/hr Q1H IVPB 07/22/19 08:30 07/22/19 10:29 07/22/19 08:56 Naloxone HCl (Narcan) 0.1 mg Q1M PRN IVP RR<10/min OR SBP<90 mmHg 07/21/19 07:46 08/16/19 20:29 Ondansetron HCl (Zofran) 4 mg Q4H PRN IVP Nausea & Vomiting 07/21/19 07:51 08/20/19 07:50 Pantoprazole (Protonix) 40 mg DAILY ORAL 07/21/19 09:00 08/06/19 08:59 07/22/19 08:57 Phytonadione (Vitamin K) 10 mg ONCE A WEEK SUBQ 07/21/19 20:00 08/06/19 19:59 07/21/19 21:18 Piperacillin Sod/ Tazobactam Sod 3.375 gm/Sodium Chloride 110 ml @ 27.5 mls/hr EVERY 8 HOURS IVPB 07/21/19 14:00 07/26/19 13:59 07/22/19 05:59 Prednisone (predniSONE) 5 mg DAILY ORAL 07/21/19 09:00 08/06/19 08:59 07/22/19 08:58 Tamsulosin HCl (Flomax) 0.4 mg DAILY ORAL 07/21/19 09:00 08/06/19 08:59 07/22/19 08:57 Temazepam (RestoriL) 7.5 mg HSPRN PRN ORAL Insomnia 07/21/19 10:45 07/26/19 10:44 07/21/19 22:30 Tramadol HCl (Ultram) 50 mg EVERY 4 HOURS PRN ORAL For Pain 07/21/19 23:00 07/28/19 22:59 07/22/19 08:57 Vancomycin HCl (Vanco rx to dose) 1 ea DAILY PRN MISC Per rx protocol 07/21/19 09:00 08/18/19 15:59 Vancomycin HCl 750 mg/Sodium Chloride 275 ml @ 183.333 mls/hr Q12HR@1000,2200 IVPB 07/22/19 10:00 07/27/19 09:59 Oneal Allred MD Jul 22, 2019 09:24
[2019-07-22] MEDS ORDERED: Vancomycin 750 MG in NS 275 ML IVPB SCH (10:00)
--- NOTE | 2019-07-22 11:22 | NUR ---
NURSE NOTES: PT VS stable, sleeping currently, PT has orders for transfer back to [facility], will continue to monitor PT.
--- NOTE | 2019-07-22 12:37 | NUR ---
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 98.0 HR 74 RR 20 B/P 133/58 NC 5L BUN 32 CR 1.4 AST 108 ALT 86 ALK PHOS 223 IS: VANCO IV TPN IV LASIX IV XOPENEX HHN DOWNGRADE TO MED/SURG MED/SURG STATUS
--- NOTE | 2019-07-22 12:47 | Infectious Diseases Prog Note ---
Assessment/Plan Assessment/Plan ASSESSMENT AND PLAN: 1. sepsis, leukocytosis, fevers, ? line, ? pna, chf/edema, ileus - zosyn and vancomycin -day # 3 - f/u on labs and chest xr-ay - icu care - blood cultures - negative - fevers and leukocytosis better 2. chf/edema - diuresis, sob better, pulmonary f/u 3. 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 4. History of multiple abdominal surgeries. 5. Hypertension. 6. Blood pressure treatment per primary care team. 7. Hypothyroidism. 8. Ulcerative colitis history. 9. Anemia. 10. History of polycythemia. 11. Allergic to lorazepam. 12. Social history negative. 13. Family history noncontributory. 14. MAR is noted. 15. Case was discussed with RN. 16. Case was discussed with Dr. Herring. 17. Case was discussed with the patient and the patient's . Subjective Constitutional: Reports: fatigue; Denies: fever HEENT: Reports: congestion - less Respiratory: Reports: shortness of breath - less Cardiovascular: Denies: chest pain Gastrointestinal/Abdominal: Denies: nausea, vomiting Allergies: Coded Allergies: LORAZEPAM (Verified Allergy, Mild, 07/08/19) Pt undergoes altered level of consciousness Objective Vital Signs Last 24 Hour Vital Signs Date Time Temp Pulse Resp B/P (MAP) Pulse Ox O2 Delivery O2 Flow Rate FiO2 07/22/19 12:00 Nasal Cannula 5.0 07/22/19 11:09 98.0 07/22/19 11:00 74 20 133/60 (84) 95 07/22/19 10:00 83 19 137/58 (84) 92 07/22/19 09:30 98.0 07/22/19 09:00 82 27 126/48 (74) 91 07/22/19 08:58 121/54 07/22/19 08:00 Nasal Cannula 5.0 07/22/19 08:00 94 Nasal Cannula 3.0 36 07/22/19 08:00 83 14 99 Nasal Cannula 3.0 32 85 20 94 07/22/19 08:00 98.0 76 23 121/54 (76) 96 07/22/19 07:00 76 22 133/50 (77) 95 07/22/19 06:00 103 22 109/66 (80) 94 07/22/19 05:00 86 22 97/45 (62) 95 07/22/19 04:00 Nasal Cannula 5.0 07/22/19 04:00 91 07/22/19 04:00 98.8 87 24 102/37 (58) 96 07/22/19 03:00 84 22 102/46 (64) 95 07/22/19 02:00 94 22 122/58 (79) 95 07/22/19 01:00 113 161/72 (101) 07/22/19 00:00 Nasal Cannula 5.0 07/22/19 00:00 98.6 121 22 145/60 (88) 99 07/21/19 23:00 117 22 152/63 (92) 99 07/21/19 22:00 114 22 140/63 (88) 99 07/21/19 21:00 79 22 140/65 (90) 99 07/21/19 20:00 98.6 77 22 140/63 (88) 99 07/21/19 20:00 Nasal Cannula 5.0 07/21/19 19:27 94 Nasal Cannula 3.0 36 07/21/19 19:00 74 24 142/58 (86) 96 07/21/19 18:00 73 24 130/62 (84) 98 07/21/19 17:35 98.5 07/21/19 17:00 78 20 138/56 (83) 98 07/21/19 16:00 98.5 78 25 119/54 (75) 97 07/21/19 16:00 Nasal Cannula 5.0 07/21/19 15:00 70 20 136/55 (82) 95 07/21/19 14:00 81 24 109/86 (94) 97 07/21/19 13:00 79 23 128/57 (80) 97 Height (Feet): 5 Height (Inches): 7.00 Weight (Pounds): 126 General Appearance: no acute distress HEENT: normocephalic, atraumatic, anicteric, mucous membranes moist Respiratory/Chest: no respiratory distress, no accessory muscle use, crackles/ rales, rhonchi - bilaterally Cardiovascular: normal rate, regular rhythm Abdomen: normal bowel sounds, soft, non tender, no organomegaly, distended Objective Chest x-ray - 07/21/19 - Comparison: 07/20/2019 Findings: Better inspiration currently. Bilateral interstitial edema is probably unchanged allowing for differences in inspiration. Left pleural effusion is again demonstrated. The heart size is normal. Left arm PICC and right chest port catheter again demonstrated. Median sternotomy sutures are again demonstrated. Impression: Probably unchanged bilateral interstitial edema and left pleural effusion, allowing for differences in inspiration, over one day KUB - 07/21/19 Impression: Left upper quadrant small bowel loops. Given evidence of recent surgery, most likely on the basis of postoperative ileus. However, the possibility of small bowel obstruction should also be considered. CT abdomen and pelvis - report noted Microbiology Date/Time Source Procedure Growth Status 07/19/19 18:00 Nasal Nares - Final Complete 07/19/19 18:00 Nasal Nares - Final Complete Laboratory Tests Test 07/22/19 04:00 White Blood Count 8.2 K/UL (4.8-10.8) Red Blood Count 3.78 M/UL (4.70-6.10) L Hemoglobin 11.1 G/DL (14.2-18.0) L Hematocrit 33.2 % (42.0-52.0) L Mean Corpuscular Volume 88 FL (80-99) Mean Corpuscular Hemoglobin 29.3 PG (27.0-31.0) Mean Corpuscular Hemoglobin Concent 33.4 G/DL (32.0-36.0) Red Cell Distribution Width 18.3 % (11.6-14.8) H Platelet Count 179 K/UL (150-450) Mean Platelet Volume 6.9 FL (6.5-10.1) Neutrophils (%) (Auto) 80.6 % (45.0-75.0) H Lymphocytes (%) (Auto) 8.2 % (20.0-45.0) L Monocytes (%) (Auto) 8.6 % (1.0-10.0) Eosinophils (%) (Auto) 2.0 % (0.0-3.0) Basophils (%) (Auto) 0.7 % (0.0-2.0) Sodium Level 138 MMOL/L (136-145) Potassium Level 4.0 MMOL/L (3.5-5.1) Chloride Level 104 MMOL/L (98-107) Carbon Dioxide Level 21 MMOL/L (21-32) Anion Gap 13 mmol/L (5-15) Blood Urea Nitrogen 32 mg/dL (7-18) H Creatinine 1.4 MG/DL (0.55-1.30) H Estimat Glomerular Filtration Rate mL/min (>60) Glucose Level 116 MG/DL (74-106) H Calcium Level 8.1 MG/DL (8.5-10.1) L Phosphorus Level 4.3 MG/DL (2.5-4.9) Magnesium Level 1.7 MG/DL (1.8-2.4) L Total Bilirubin 0.6 MG/DL (0.2-1.0) Aspartate Amino Transf (AST/SGOT) 108 U/L (15-37) H Alanine Aminotransferase (ALT/SGPT) 86 U/L (12-78) H Alkaline Phosphatase 223 U/L (46-116) H Total Protein 5.8 G/DL (6.4-8.2) L Albumin 1.7 G/DL (3.4-5.0) L Globulin 4.1 g/dL Albumin/Globulin Ratio 0.4 (1.0-2.7) L Current Medications Medications (Trade) Dose Ordered Sig/Evgeny Route PRN Reason Start Time Stop Time Status Last Admin Dose Admin Acetaminophen (Tylenol) 650 mg Q4H PRN ORAL Mild Pain/Temp > 100.2 07/21/19 07:49 08/20/19 07:48 Acetaminophen/ Hydrocodone Bitart ([place] 5/325) 1 tab Q6H PRN ORAL SEVERE PAIN 07/21/19 08:00 07/28/19 07:49 07/22/19 10:39 Alprazolam (Xanax) 0.25 mg Q6H PRN ORAL For Anxiety 07/21/19 07:49 07/28/19 07:48 07/21/19 20:39 Amlodipine Besylate (Norvasc) 5 mg Q12H PRN ORAL For High Blood Pressure 07/21/19 07:49 08/20/19 07:48 Ascorbic Acid (Vitamin C) 500 mg Q4H PRN ORAL thick ileostomy effluent 07/21/19 07:49 08/20/19 07:48 Chlorhexidine Gluconate (Val-Hex 2%) 1 applic DAILY@1999 TOPIC 07/21/19 20:00 08/06/19 19:59 07/21/19 21:12 Dextrose 1,000 ml @ 0 mls/hr Q24H PRN IV PN interrupted or unavailable 07/21/19 07:48 08/20/19 07:47 Dextrose (Dextrose 50%) 25 ml Q30M PRN IV Hypoglycemia 07/21/19 08:00 08/07/19 00:00 Dextrose (Dextrose 50%) 50 ml Q30M PRN IV Hypoglycemia 07/21/19 08:00 08/07/19 00:00 Fat Emulsion Intravenous 216 ml/Amino Acids/ Electrolytes/ Dextrose 1,800 ml @ 75 mls/hr Q24H IV 07/21/19 20:00 08/06/19 19:59 07/21/19 20:00 Furosemide (Lasix) 40 mg DAILY IV 07/21/19 11:15 08/20/19 11:14 07/22/19 08:56 Hydromorphone HCl (Dilaudid) 1 mg Q4H PRN SUBQ BREAKTHROUGH PAIN 07/21/19 08:00 07/28/19 07:49 07/22/19 02:14 Insulin Aspart (NovoLOG) No Dose Q6HR SUBQ 07/21/19 12:00 08/07/19 00:00 Levalbuterol HCl (Xopenex) 1.25 mg Q6H PRN HHN SOB/WHEEZING 07/21/19 23:45 07/26/19 23:44 Levalbuterol HCl (Xopenex) 1.25 mg TIDRT HHN 07/22/19 07:00 07/27/19 06:59 07/22/19 08:06 Levothyroxine Sodium (Synthroid) 50 mcg DAILY@0630 ORAL 07/22/19 06:30 08/06/19 06:29 07/22/19 05:59 Lidocaine (Lidoderm 5% PATCH) 1 patch DAILY TDERMAL 07/21/19 09:00 08/20/19 08:59 07/22/19 08:59 Losartan Potassium (Cozaar) 25 mg DAILY ORAL 07/21/19 09:00 08/13/19 08:59 07/22/19 08:58 Naloxone HCl (Narcan) 0.1 mg Q1M PRN IVP RR<10/min OR SBP<90 mmHg 07/21/19 07:46 2/23/20 20:29 Ondansetron HCl (Zofran) 4 mg Q4H PRN IVP Nausea & Vomiting 07/21/19 07:51 08/20/19 07:50 Pantoprazole (Protonix) 40 mg DAILY ORAL 07/21/19 09:00 08/06/19 08:59 07/22/19 08:57 Phytonadione (Vitamin K) 10 mg ONCE A WEEK SUBQ 07/21/19 20:00 08/06/19 19:59 07/21/19 21:18 Piperacillin Sod/ Tazobactam Sod 3.375 gm/Sodium Chloride 110 ml @ 27.5 mls/hr EVERY 8 HOURS IVPB 07/21/19 14:00 07/26/19 13:59 07/22/19 05:59 Prednisone (predniSONE) 5 mg DAILY ORAL 07/21/19 09:00 08/06/19 08:59 07/22/19 08:58 Tamsulosin HCl (Flomax) 0.4 mg DAILY ORAL 07/21/19 09:00 08/06/19 08:59 07/22/19 08:57 Temazepam (RestoriL) 7.5 mg HSPRN PRN ORAL Insomnia 07/21/19 10:45 07/26/19 10:44 07/21/19 22:30 Tramadol HCl (Ultram) 50 mg EVERY 4 HOURS PRN ORAL For Pain 07/21/19 23:00 07/28/19 22:59 07/22/19 08:57 Vancomycin HCl (Vanco rx to dose) 1 ea DAILY PRN MISC Per rx protocol 07/21/19 09:00 08/18/19 15:59 Vancomycin HCl 750 mg/Sodium Chloride 275 ml @ 183.333 mls/hr Q12HR@1000,2200 IVPB 07/22/19 10:00 07/27/19 09:59 07/22/19 10:38 Paras Ybarra MD Jul 22, 2019 12:47
--- NOTE | 2019-07-22 13:00 | NUR ---
TRANSFER TO FLOOR: Late entry: Patient transferred to [address] [place] [address], per MD Reyna. Report and PT given to DAVID Navarro. Belongings and medications given to DAVID Navarro. was at PT room waiting on PT. PT was transferred with Kevon RT; and DAVID Fajardo; no S/S of respiratory distress noted during transfer on 3L via portable oxygen tank.
--- NOTE | 2019-07-22 13:00 | NUR ---
NURSE NOTES: Patient transferred to unit in no acute distress, patient reporting pain in lower back, lidoderm patch in place. On 3L NC. PHILIP PICC and right upper chest port a cath running IVF and TPN per order, pinedo to gravity drainage, anne ileostomy with external appliance in place, no leaking noted, SCD's in place. All belongings remained in room 306 while patient was in ICU. Patient's is at bedside and updated on plan of care. Side rails upx2, bed low and locked, call light within reach.
[2019-07-22] MEDS ORDERED: Dextrose 10% 1,000 ML IV PRN (13:11)
[2019-07-22] MEDS ORDERED: Ascorbic Acid 500mg tab ORAL PRN (13:12)
[2019-07-22] MEDS ORDERED: Levalbuterol Inh UD 1.25mg/0.5ml HHN PRN (13:13)
[2019-07-22] MEDS ORDERED: traMADol 50mg tab ORAL PRN ×2 (13:14→13:30)
[2019-07-22] MEDS ORDERED: Naloxone 0.4mg/ml Inj IVP PRN (13:15)
--- NOTE | 2019-07-22 19:24 | NUR ---
NURSE NOTES: Total ileo output for shift: 75mL Total urine output for shift: 2190mL
--- NOTE | 2019-07-22 19:30 | NUR ---
NURSE NOTES: Patient awake in bed, calm. Ileostomy on the right lower abdomen with some green liquid in the bag. Has [place] cath intact and draining well. Port-a-cath on the right upper chest. PICC on the left upper arm with double lumen cath. On NPO except ice chips and meds. Encouraged to call for assistance. Bed in lowest and lock engaged. Will continue to monitor. at bedside.
--- NOTE | 2019-07-22 19:40 | NUR ---
HAND-OFF: Report given to James HERNANDEZ.
[2019-07-22] MEDS: Levalbuterol Inh UD 1.25mg/0.5ml HHN SCH (19:45)
[2019-07-22] MEDS: Dyna-Hex 2% Top Sol 2oz TOPIC SCH (19:56)
[2019-07-22] MEDS ORDERED: Fat Emulsion Iv 20% 216 ML in Tpn 1,584 ML IV SCH (20:00)
[2019-07-22] MEDS: ALPRAZolam 0.25mg tab ORAL PRN (20:58)
[2019-07-22] MEDS: Vancomycin 750 MG in NS 275 ML IVPB SCH (21:08)
--- NOTE | 2019-07-22 21:30 | NUR ---
NURSE NOTES: Patient had anxiety attack. RN and RT came to check patient. RT applied non-rebreather mask. Xanax given as ordered. Per , last time it happened was last night same time for several days lately. Patient usually calms down 40mins after giving Xanax. Will continue to observe patient.
--- NOTE | 2019-07-22 22:15 | NUR ---
NURSE NOTES: Patient was sleeping and calm. Lidoderm patch removed. Patient refused vital signs and blood sugar check at midnight. Charge nurse made aware. Will continue to monitor.
--- NOTE | 2019-07-23 01:55 | NUR ---
NURSE NOTES: Patient was sleeping.
[2019-07-23] MEDS: HYDROmorphone 1mg/ml Carpuject SUBQ PRN ×3 (02:20→20:57)
[2019-07-23] MEDS: HYDROcodone/Acetamin 5/325 tab ORAL PRN ×3 (04:34→22:50)
[2019-07-23] MEDS: ALPRAZolam 0.25mg tab ORAL PRN (05:51)
[2019-07-23] MEDS: NovoLOG Insulin Flexpen SUBQ SCH ×4 (06:00→18:00)
--- NOTE | 2019-07-23 06:00 | NUR ---
NURSE NOTES: Total ileo output for PM shift: 25mL Total urine output for PM shift: 800mL
[2019-07-23] MEDS: Piperacillin/Tazobactam 3.375 GM in NS 110 ML IVPB SCH ×3 (06:10→22:15)
--- NOTE | 2019-07-23 06:10 | NUR ---
NURSE NOTES: Patient had another panic attack. Xanax given as ordered. RT called. Was advised to put pt on non rebreather mask at 15 LPM. Charge nurse made aware.
[2019-07-23 06:17] LABS: HEMATOCRIT 28.6 % (42.0-52.0); HEMOGLOBIN 9.4 G/DL (14.2-18.0); MEAN CORPUSCULAR VOLUME 87 FL (80-99); PLATELET COUNT 165 K/UL (150-450); RED BLOOD COUNT 3.28 M/UL (4.70-6.10)
[2019-07-23 07:02] LABS: ALANINE AMINOTRANSFERASE 94 U/L (12-78); ALBUMIN 1.6 G/DL (3.4-5.0); ALBUMIN/GLOBULIN RATIO 0.4 (1.0-2.7); ALKALINE PHOSPHATASE 320 U/L (46-116); ANION GAP 12 mmol/L (5-15); ASPARTATE AMINO TRANSFERASE 96 U/L (15-37); BILIRUBIN,TOTAL 0.9 MG/DL (0.2-1.0); BLOOD UREA NITROGEN 30 mg/dL (7-18); CALCIUM 7.8 MG/DL (8.5-10.1); CARBON DIOXIDE 23 MMOL/L (21-32); CHLORIDE 104 MMOL/L (98-107); CREATININE 1.5 MG/DL (0.55-1.30); POTASSIUM 3.8 MMOL/L (3.5-5.1); SODIUM 139 MMOL/L (136-145)
[2019-07-23] MEDS: Levalbuterol Inh UD 1.25mg/0.5ml HHN SCH ×3 (07:26→19:55)
--- NOTE | 2019-07-23 07:28 | NUR ---
NURSE NOTES: Report received from Mabel HERNANDEZ, rounds mde. Patient resting in semi-fowlers position in bed. No distress, alert/oriented x4, calm on O2 3LNC. Skin warm. Reinforced NPO status, provided ice chips and oral mouth care kit (instructed spouse on use). Pain 8/10 to abdomen, will medicate, see eMAR. Abdominal surgical site, neil to mid abdomen CDI. LLQ Natale[place] Ileostomy intact, dark green liquid output noted. FC in place with anchor, y/cl urine. Bilateral SCDs off. Encouraged IS, ankle rotation. Spouse at bedside, call light in reach, bed in lowest position, will continue to monitor.
--- NOTE | 2019-07-23 07:47 | NUR ---
HAND-OFF: Report given to Ashkan Chna RN.
[2019-07-23 08:00] VITALS: BP 121/61
[2019-07-23] MEDS: Tamsulosin 0.4mg cap ORAL SCH (08:44)
[2019-07-23] MEDS: Losartan 25mg tab ORAL SCH (08:45)
[2019-07-23 09:43] LABS: APPEARANCE,URINE CLEAR; BILIRUBIN, URINE NEGATIVE (NEGATIVE); GLUCOSE, URINE (UA) NEGATIVE (NEGATIVE); KETONES,URINE NEGATIVE (NEGATIVE); LEUKOCYTE ESTERASE ,URINE 1+ (NEGATIVE); NITRITE,URINE NEGATIVE (NEGATIVE); PH,URINE 5 (4.5-8.0); PROTEIN,URINE 2+ (NEGATIVE); UROBILINOGEN,URINE NORMAL MG/DL (0.0-1.0)
[2019-07-23 09:52] LABS: COLOR,URINE YELLOW
[2019-07-23] MEDS ORDERED: Fat Emulsion Iv 20% 216 ML in Tpn 1,584 ML IV SCH (11:30)
[2019-07-23] MEDS: Vancomycin 750 MG in NS 275 ML IVPB SCH ×2 (11:33→22:15)
[2019-07-23 12:00] VITALS: BP 113/52
--- NOTE | 2019-07-23 14:54 | General Progress Note ---
Progress Note Progress Note T 100.3 x one Having acute anxiety attacks, overlying pre-admission anxiety and depression issues per his Being diureses by Pulmonary - Guadarrama catheter still in place Abdomen slightly less distended, still tympanitic, incision clean, stoma pink Urine 2990 Ileostomy only 100cc Imp: prolonged ileus Plan: continue npo and TPN may need CT scan abd+pelvis with oral contrast Pako Orellana MD Jul 23, 2019 14:54
[2019-07-23 16:00] VITALS: BP 139/69
--- NOTE | 2019-07-23 16:00 | NUR ---
NURSE NOTES: TPN rate change to 140 ml/hr at 1140 per pharmacy instructions/updated orders. TPN completed at this time, right subclavian port flushed and clamped. Lasix gtt started, see eMAR, patient and spouse updated on new orders, verbalized understanding. Patient up with PT ambulated to bathroom then to the chair at 1515. Back to bed at 1600 with x 2 assist. Medicated with [place], see eMAR, heating pad applied to lower back, pain 6/10, will continue to monitor.
--- NOTE | 2019-07-23 16:29 | Pulmonology Progress Note ---
Assessment/Plan Assessment/Plan IMPRESSION: 1. Fever, now resolved. 2. Resolving right middle lobe infiltrate. 3. Multiple comorbidities including use of steroids, ulcerative colitis. 4. Suspect interstitial pulmonary edema DISCUSSION: ICU care Careful diuresis; Discussed with surgery TPN [place] and Xanax for anxiety/pain ABG reviewed Will follow Oneal Allred M.D. Subjective Interval Events: None new reported Constitutional: Reports: no symptoms HEENT: Repors: no symptoms Respiratory: Reports: no symptoms Cardiovascular: Reports: no symptoms Gastrointestinal/Abdominal: Reports: no symptoms Genitourinary: Reports: no symptoms Neurologic: Reports: no symptoms Allergies: Coded Allergies: LORAZEPAM (Verified Allergy, Mild, 07/08/19) Pt undergoes altered level of consciousness Objective Last 24 Hour Vital Signs Date Time Temp Pulse Resp B/P (MAP) Pulse Ox O2 Delivery O2 Flow Rate FiO2 07/23/19 12:57 79 18 94 Nasal Cannula 3.0 32 77 19 92 07/23/19 12:00 97.5 74 20 113/52 (72) 92 07/23/19 09:00 Nasal Cannula 3.0 07/23/19 08:45 121/61 07/23/19 08:00 99.5 104 18 121/61 (81) 91 07/23/19 07:36 96 18 95 Nasal Cannula 3.0 32 103 21 93 07/23/19 07:26 93 Nasal Cannula 3.0 32 07/23/19 04:06 99.2 07/23/19 03:30 100.3 07/22/19 21:26 102 20 98 Nasal Cannula 3.0 32 07/22/19 21:16 105 24 96 Nasal Cannula 3.0 32 07/22/19 21:00 Nasal Cannula 3.0 07/22/19 20:00 98.2 76 22 134/65 (88) 95 07/22/19 19:55 70 20 99 Nasal Cannula 3.0 32 07/22/19 19:45 93 Nasal Cannula 3.0 32 07/22/19 19:45 71 20 93 Nasal Cannula 3.0 32 Intake and Output 07/22/19 07/23/19 19:00 07:00 Intake Total 2122.500 ml 1230.0 ml Output Total 2225 ml 825 ml Balance -102.500 ml 405.0 ml Intake Oral 100 ml IV Total 1647.500 ml 1230.0 ml Tube Feeding 375 ml Output Urine Total 2150 ml 800 ml Other 75 ml 25 ml General Appearance: no acute distress HEENT: normocephalic Respiratory/Chest: chest wall non-tender, lungs clear Cardiovascular: normal peripheral pulses, normal rate Abdomen: normal bowel sounds Microbiology Date/Time Source Procedure Growth Status 07/22/19 20:00 Sputum Expectorated Gram Stain - Final Resulted 07/22/19 20:00 Sputum Expectorated Sputum Culture Pending Resulted Laboratory Tests 07/23/19 05:20: White Blood Count 12.0H, Red Blood Count 3.28L, Hemoglobin 9.4L, Hematocrit 28.6L, Mean Corpuscular Volume 87, Mean Corpuscular Hemoglobin 28.7, Mean Corpuscular Hemoglobin Concent 33.0, Red Cell Distribution Width 18.0H, Platelet Count 165, Mean Platelet Volume 6.9, Neutrophils (%) (Auto) , Lymphocytes (%) (Auto) , Monocytes (%) (Auto) , Eosinophils (%) (Auto) , Basophils (%) (Auto) , Sodium Level 139, Potassium Level 3.8, Chloride Level 104 , Carbon Dioxide Level 23, Anion Gap 12, Blood Urea Nitrogen 30H, Creatinine 1.5H, Estimat Glomerular Filtration Rate , Glucose Level 104, Calcium Level 7.8L , Magnesium Level 1.9, Total Bilirubin 0.9, Aspartate Amino Transf (AST/SGOT) 96H, Alanine Aminotransferase (ALT/SGPT) 94H, Alkaline Phosphatase 320H, Total Protein 5.6L, Albumin 1.6L, Globulin 4.0, Albumin/Globulin Ratio 0.4L 07/23/19 08:46: Urine Color Yellow, Urine Appearance Clear, Urine pH 5, Urine Specific [place] 1.020, Urine Protein 2+H, Urine Glucose (UA) Negative, Urine Ketones Negative, Urine Blood 4+H, Urine Nitrite Negative, Urine Bilirubin Negative, Urine Urobilinogen Normal, Urine Leukocyte Esterase 1+H, Urine RBC 2-4H, Urine WBC 0-2 , Urine Squamous Epithelial Cells Occasional, Urine Amorphous Sediment FewH, Urine Bacteria Few Current Medications Medications (Trade) Dose Ordered Sig/Evgeny Route PRN Reason Start Time Stop Time Status Last Admin Dose Admin Acetaminophen (Tylenol) 650 mg Q4H PRN ORAL Mild Pain/Temp > 100.2 07/22/19 13:11 08/21/19 13:10 07/23/19 03:36 Acetaminophen/ Hydrocodone Bitart ([place] 5/325) 1 tab Q6H PRN ORAL SEVERE PAIN 07/22/19 13:12 07/29/19 13:11 07/23/19 15:41 Alprazolam (Xanax) 0.25 mg Q6H PRN ORAL For Anxiety 07/22/19 13:11 07/29/19 13:10 07/23/19 05:51 Amlodipine Besylate (Norvasc) 5 mg Q12H PRN ORAL For High Blood Pressure 07/22/19 13:12 08/21/19 13:11 Ascorbic Acid (Vitamin C) 500 mg Q4H PRN ORAL thick ileostomy effluent 07/22/19 13:12 08/21/19 13:11 Chlorhexidine Gluconate (Val-Hex 2%) 1 applic DAILY@2000 TOPIC 07/22/19 20:00 08/06/19 19:59 07/22/19 19:56 Dextrose 1,000 ml @ 0 mls/hr Q24H PRN IV PN interrupted or unavailable 07/22/19 13:11 08/21/19 13:10 Dextrose (Dextrose 50%) 25 ml Q30M PRN IV Hypoglycemia 07/22/19 13:30 08/07/19 00:00 Dextrose (Dextrose 50%) 50 ml Q30M PRN IV Hypoglycemia 07/22/19 13:30 08/07/19 00:00 Fat Emulsion Intravenous 216 ml/Amino Acids/ Electrolytes/ Dextrose 1,800 ml @ 90 mls/hr Q24H IV 07/24/19 00:00 08/23/19 00:00 Furosemide 100 mg/ Dextrose 100 ml @ 5 mls/hr Q20H IV 07/23/19 13:00 08/22/19 12:59 07/23/19 14:04 Hydromorphone HCl (Dilaudid) 1 mg Q4H PRN SUBQ BREAKTHROUGH PAIN 07/22/19 13:12 07/29/19 13:11 07/23/19 08:46 Insulin Aspart (NovoLOG) No Dose Q6HR SUBQ 07/22/19 18:00 08/07/19 00:00 07/23/19 12:09 Levalbuterol HCl (Xopenex) 1.25 mg Q6H PRN HHN SOB/WHEEZING 07/22/19 13:13 07/27/19 13:12 07/22/19 21:16 Levalbuterol HCl (Xopenex) 1.25 mg TIDRT HHN 07/22/19 19:00 07/27/19 06:59 07/23/19 12:47 Levothyroxine Sodium (Synthroid) 50 mcg DAILY@0630 ORAL 07/23/19 06:30 08/06/19 06:29 07/23/19 05:51 Lidocaine (Lidoderm 5% PATCH) 1 patch DAILY TDERMAL 07/23/19 09:00 08/20/19 08:59 07/23/19 08:44 Losartan Potassium (Cozaar) 25 mg DAILY ORAL 07/23/19 09:00 08/13/19 08:59 07/23/19 08:45 Ondansetron HCl (Zofran) 4 mg Q4H PRN IVP Nausea & Vomiting 07/22/19 13:14 08/21/19 13:13 Pantoprazole (Protonix) 40 mg DAILY ORAL 07/23/19 09:00 08/06/19 08:59 07/23/19 08:44 Phytonadione (Vitamin K) 10 mg ONCE A WEEK SUBQ 07/28/19 20:00 08/06/19 19:59 Piperacillin Sod/ Tazobactam Sod 3.375 gm/Sodium Chloride 110 ml @ 27.5 mls/hr EVERY 8 HOURS IVPB 07/22/19 14:00 07/27/19 13:59 07/23/19 14:05 Prednisone (predniSONE) 5 mg DAILY ORAL 07/23/19 09:00 08/06/19 08:59 07/23/19 08:45 Tamsulosin HCl (Flomax) 0.4 mg DAILY ORAL 07/23/19 09:00 08/06/19 08:59 07/23/19 08:44 Temazepam (RestoriL) 7.5 mg HSPRN PRN ORAL Insomnia 07/22/19 13:14 07/29/19 13:13 Tramadol HCl (Ultram) 50 mg Q4H PRN ORAL moderate pain 07/22/19 13:30 07/29/19 13:13 Vancomycin HCl (Vanco rx to dose) 1 ea DAILY PRN MISC Per rx protocol 07/23/19 09:00 08/18/19 15:59 Vancomycin HCl 750 mg/Sodium Chloride 275 ml @ 183.333 mls/hr Q12HR@1000,2200 IVPB 07/22/19 22:00 07/27/19 09:59 07/23/19 11:33 Oneal Allred MD Jul 23, 2019 16:29
--- NOTE | 2019-07-23 17:49 | Infectious Diseases Prog Note ---
Assessment/Plan Assessment/Plan ASSESSMENT AND PLAN: 1. sepsis, leukocytosis, fevers, ? line, ? pna, chf/edema, ileus - zosyn and vancomycin -day # 4 - f/u on labs and chest x-ray - recheck cultures for fevers and mild leukocytosis - may need CT abdomen and pelvis if fevers and leukocytosis persist 2. chf/edema - diuresis, sob better, pulmonary f/u 3. 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 4. History of multiple abdominal surgeries. 5. Hypertension. 6. Blood pressure treatment per primary care team. 7. Hypothyroidism. 8. Ulcerative colitis history. 9. Anemia. 10. History of polycythemia. 11. Allergic to lorazepam. 12. Social history negative. 13. Family history noncontributory. 14. MAR is noted. 15. Case was discussed with RN. 16. Case was discussed with Dr. Herring. 17. Case was discussed with the patient and the patient's . Subjective Constitutional: Reports: fever HEENT: Denies: congestion Respiratory: Denies: shortness of breath Cardiovascular: Denies: chest pain Gastrointestinal/Abdominal: Reports: other - no sig abdominal pain ; Denies: nausea, vomiting Genitourinary: Reports: other - + pinedo Neurologic: Denies: headache Psychiatric: Denies: depression Skin: Denies: rash Hematologic: Denies: bleeding Musculoskeletal: Denies: pain Allergies: Coded Allergies: LORAZEPAM (Verified Allergy, Mild, 07/08/19) Pt undergoes altered level of consciousness Objective Vital Signs Last 24 Hour Vital Signs Date Time Temp Pulse Resp B/P (MAP) Pulse Ox O2 Delivery O2 Flow Rate FiO2 07/23/19 16:00 97.5 75 18 139/69 (92) 94 07/23/19 12:57 79 18 94 Nasal Cannula 3.0 32 77 19 92 07/23/19 12:00 97.5 74 20 113/52 (72) 92 07/23/19 09:00 Nasal Cannula 3.0 07/23/19 08:45 121/61 07/23/19 08:00 99.5 104 18 121/61 (81) 91 07/23/19 07:36 96 18 95 Nasal Cannula 3.0 32 103 21 93 07/23/19 07:26 93 Nasal Cannula 3.0 32 07/23/19 04:06 99.2 07/23/19 03:30 100.3 07/22/19 21:26 102 20 98 Nasal Cannula 3.0 32 07/22/19 21:16 105 24 96 Nasal Cannula 3.0 32 07/22/19 21:00 Nasal Cannula 3.0 07/22/19 20:00 98.2 76 22 134/65 (88) 95 07/22/19 19:55 70 20 99 Nasal Cannula 3.0 32 07/22/19 19:45 93 Nasal Cannula 3.0 32 07/22/19 19:45 71 20 93 Nasal Cannula 3.0 32 Height (Feet): 5 Height (Inches): 7.00 Weight (Pounds): 126 General Appearance: no acute distress HEENT: normocephalic, atraumatic, anicteric, mucous membranes moist Respiratory/Chest: lungs clear, normal breath sounds, no respiratory distress, no accessory muscle use Cardiovascular: regular rhythm, no gallop/murmur, no JVD Abdomen: normal bowel sounds, soft, non tender, no organomegaly, non distended Genitourinary: other - + pinedo - urine clear Extremities: no cyanosis Skin: no rash 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 Bilateral interstitial edema is probably unchanged allowing for differences in inspiration. Left pleural effusion is again demonstrated. The heart size is normal. Left arm PICC and right chest port catheter again demonstrated. Median sternotomy sutures are again demonstrated. Impression: Probably unchanged bilateral interstitial edema and left pleural effusion, allowing for differences in inspiration, over one day KUB - 07/21/19 Impression: Left upper quadrant small bowel loops. Given evidence of recent surgery, most likely on the basis of postoperative ileus. However, the possibility of small bowel obstruction should also be considered. CT abdomen and pelvis - report noted Microbiology Date/Time Source Procedure Growth Status 07/18/19 05:15 Blood Blood Culture - Preliminary NO GROWTH AFTER 72 HOURS Resulted 07/22/19 20:00 Sputum Expectorated Gram Stain - Final Resulted 07/22/19 20:00 Sputum Expectorated Sputum Culture Pending Resulted Microbiology Date/Time Source Procedure Growth Status 07/22/19 20:00 Sputum Expectorated Gram Stain - Final Resulted 07/22/19 20:00 Sputum Expectorated Sputum Culture Pending Resulted Laboratory Tests Test 07/23/19 05:20 07/23/19 08:46 White Blood Count 12.0 K/UL (4.8-10.8) H Red Blood Count 3.28 M/UL (4.70-6.10) L Hemoglobin 9.4 G/DL (14.2-18.0) L Hematocrit 28.6 % (42.0-52.0) L Mean Corpuscular Volume 87 FL (80-99) Mean Corpuscular Hemoglobin 28.7 PG (27.0-31.0) Mean Corpuscular Hemoglobin Concent 33.0 G/DL (32.0-36.0) Red Cell Distribution Width 18.0 % (11.6-14.8) H Platelet Count 165 K/UL (150-450) Mean Platelet Volume 6.9 FL (6.5-10.1) Neutrophils (%) (Auto) % (45.0-75.0) Lymphocytes (%) (Auto) % (20.0-45.0) Monocytes (%) (Auto) % (1.0-10.0) Eosinophils (%) (Auto) % (0.0-3.0) Basophils (%) (Auto) % (0.0-2.0) Sodium Level 139 MMOL/L (136-145) Potassium Level 3.8 MMOL/L (3.5-5.1) Chloride Level 104 MMOL/L (98-107) Carbon Dioxide Level 23 MMOL/L (21-32) Anion Gap 12 mmol/L (5-15) Blood Urea Nitrogen 30 mg/dL (7-18) H Creatinine 1.5 MG/DL (0.55-1.30) H Estimat Glomerular Filtration Rate mL/min (>60) Glucose Level 104 MG/DL (74-106) Calcium Level 7.8 MG/DL (8.5-10.1) L Magnesium Level 1.9 MG/DL (1.8-2.4) Total Bilirubin 0.9 MG/DL (0.2-1.0) Aspartate Amino Transf (AST/SGOT) 96 U/L (15-37) H Alanine Aminotransferase (ALT/SGPT) 94 U/L (12-78) H Alkaline Phosphatase 320 U/L (46-116) H Total Protein 5.6 G/DL (6.4-8.2) L Albumin 1.6 G/DL (3.4-5.0) L Globulin 4.0 g/dL Albumin/Globulin Ratio 0.4 (1.0-2.7) L Urine Color Yellow Urine Appearance Clear Urine pH 5 (4.5-8.0) Urine Specific [place] 1.020 (1.005-1.035) Urine Protein 2+ (NEGATIVE) H Urine Glucose (UA) Negative (NEGATIVE) Urine Ketones Negative (NEGATIVE) Urine Blood 4+ (NEGATIVE) H Urine Nitrite Negative (NEGATIVE) Urine Bilirubin Negative (NEGATIVE) Urine Urobilinogen Normal MG/DL (0.0-1.0) Urine Leukocyte Esterase 1+ (NEGATIVE) H Urine RBC 2-4 /HPF (0 - 0) H Urine WBC 0-2 /HPF (0 - 0) Urine Squamous Epithelial Cells Occasional /LPF Urine Amorphous Sediment Few /LPF (NONE) H Urine Bacteria Few /HPF (NONE) Current Medications Medications (Trade) Dose Ordered Sig/Evgeny Route PRN Reason Start Time Stop Time Status Last Admin Dose Admin Acetaminophen (Tylenol) 650 mg Q4H PRN ORAL Mild Pain/Temp > 100.2 07/22/19 13:11 08/21/19 13:10 07/23/19 03:36 Acetaminophen/ Hydrocodone Bitart ([place] 5/325) 1 tab Q6H PRN ORAL SEVERE PAIN 07/22/19 13:12 07/29/19 13:11 07/23/19 15:41 Alprazolam (Xanax) 0.25 mg Q6H PRN ORAL For Anxiety 07/22/19 13:11 07/29/19 13:10 07/23/19 05:51 Amlodipine Besylate (Norvasc) 5 mg Q12H PRN ORAL For High Blood Pressure 07/22/19 13:12 08/21/19 13:11 Ascorbic Acid (Vitamin C) 500 mg Q4H PRN ORAL thick ileostomy effluent 07/22/19 13:12 08/21/19 13:11 Chlorhexidine Gluconate (Vla-Hex 2%) 1 applic DAILY@1999 TOPIC 07/22/19 20:00 08/06/19 19:59 07/22/19 19:56 Dextrose 1,000 ml @ 0 mls/hr Q24H PRN IV PN interrupted or unavailable 07/22/19 13:11 08/21/19 13:10 Dextrose (Dextrose 50%) 25 ml Q30M PRN IV Hypoglycemia 07/22/19 13:30 08/07/19 00:00 Dextrose (Dextrose 50%) 50 ml Q30M PRN IV Hypoglycemia 07/22/19 13:30 08/07/19 00:00 Fat Emulsion Intravenous 216 ml/Amino Acids/ Electrolytes/ Dextrose 1,800 ml @ 90 mls/hr Q24H IV 07/24/19 00:00 08/23/19 00:00 Furosemide 100 mg/ Dextrose 100 ml @ 5 mls/hr Q20H IV 07/23/19 13:00 08/22/19 12:59 07/23/19 14:04 Hydromorphone HCl (Dilaudid) 1 mg Q4H PRN SUBQ BREAKTHROUGH PAIN 07/22/19 13:12 07/29/19 13:11 07/23/19 08:46 Insulin Aspart (NovoLOG) No Dose Q6HR SUBQ 07/22/19 18:00 08/07/19 00:00 07/23/19 12:09 Levalbuterol HCl (Xopenex) 1.25 mg Q6H PRN HHN SOB/WHEEZING 07/22/19 13:13 07/27/19 13:12 07/22/19 21:16 Levalbuterol HCl (Xopenex) 1.25 mg TIDRT HHN 07/22/19 19:00 07/27/19 06:59 07/23/19 12:47 Levothyroxine Sodium (Synthroid) 50 mcg DAILY@0630 ORAL 07/23/19 06:30 08/06/19 06:29 07/23/19 05:51 Lidocaine (Lidoderm 5% PATCH) 1 patch DAILY TDERMAL 07/23/19 09:00 08/20/19 08:59 07/23/19 08:44 Losartan Potassium (Cozaar) 25 mg DAILY ORAL 07/23/19 09:00 08/13/19 08:59 07/23/19 08:45 Ondansetron HCl (Zofran) 4 mg Q4H PRN IVP Nausea & Vomiting 07/22/19 13:14 08/21/19 13:13 Pantoprazole (Protonix) 40 mg DAILY ORAL 07/23/19 09:00 08/06/19 08:59 07/23/19 08:44 Phytonadione (Vitamin K) 10 mg ONCE A WEEK SUBQ 07/28/19 20:00 08/06/19 19:59 Piperacillin Sod/ Tazobactam Sod 3.375 gm/Sodium Chloride 110 ml @ 27.5 mls/hr EVERY 8 HOURS IVPB 07/22/19 14:00 07/27/19 13:59 07/23/19 14:05 Prednisone (predniSONE) 5 mg DAILY ORAL 07/23/19 09:00 08/06/19 08:59 07/23/19 08:45 Tamsulosin HCl (Flomax) 0.4 mg DAILY ORAL 07/23/19 09:00 08/06/19 08:59 07/23/19 08:44 Temazepam (RestoriL) 7.5 mg HSPRN PRN ORAL Insomnia 07/22/19 13:14 07/29/19 13:13 Tramadol HCl (Ultram) 50 mg Q4H PRN ORAL moderate pain 07/22/19 13:30 07/29/19 13:13 Vancomycin HCl (Vanco rx to dose) 1 ea DAILY PRN MISC Per rx protocol 07/23/19 09:00 08/18/19 15:59 Vancomycin HCl 750 mg/Sodium Chloride 275 ml @ 183.333 mls/hr Q12HR@1000,2200 IVPB 07/22/19 22:00 07/27/19 09:59 07/23/19 11:33 Paras Ybarra MD Jul 23, 2019 17:49
--- NOTE | 2019-07-23 18:28 | Cardiology Progress Note ---
Assessment/Plan Status Narrative 1. U.C. 2. Malfunctioning [place] Pouch 3. CAD, S/P CABG- studies from PMD reviewed, no evidence of ischemia on nuclear scan done in Apr 2019 4. BL Carotid stenosis- s/p stents 5. AAA- stable 6. HTN- improved on meds. 7. Hearing loss 8. S/p resection of failed [place] Pouch, repair parastomal hernia, creation of Natalee ileostomy 9. Dehydration- -->elevated creat, tachycardia 10 Hypoxemia - due to hypoventilation possible atelectasis- Improves with deep insp and use of I/S 11. Fever- r/o pneumonia, intra-abdominal process, UTI 12. Renal insuff- ?due to diuresis 13. Depression/Anxiety with panic attacks Assessment/Plan I/S Q1 h IV fluids as per Dr. Orellana F/U labs in AM' Monitor renal function while on Lasix 2D Echo- doppler in AM Will discuss adding Lexapro PO Discussed with RN and Patient's . Subjective ROS Limited/Unobtainable: No Cardiovascular: Denies: chest pain, edema Respiratory: Reports: no symptoms Gastrointestinal/Abdominal: Reports: abdominal pain Genitourinary: Reports: no symptoms Subjective 07/07/19- Patient admitted for revision of [place] Pouch. He has h/o CAD, S/P CABG 10 yrs ago, s/p BL carotid stents, and h/o AAA. Patient denies h/o HTn, but his BP has been elevated since admission 07/08 doing OK , BP imroving, PICC line placed. 07/09- BP improved 07/10- Had BP down to 107. Meds held. Scheduled for surgery on 07/13 07/11- BP stable 07/13- s/p resection of failed [place] Pouch, repair parastomal hernia, creation of Natalee ileostomy. 07/14- Has had decreased O2 Sat, Creat 1.9, low U.O. IV NS started 07/15- s/p surgery for stoma bleeding 07/23- Was transferred to ICU last week- ? anxiety attack, has had fever, on ABx. Seen by Pulmonary- now on IV Lasix drip Creat 1.5 Has not been very active, was up once today, now asleep Objective Last 24 Hour Vital Signs Date Time Temp Pulse Resp B/P (MAP) Pulse Ox O2 Delivery O2 Flow Rate FiO2 07/23/19 16:00 97.5 75 18 139/69 (92) 94 07/23/19 12:57 79 18 94 Nasal Cannula 3.0 32 77 19 92 07/23/19 12:00 97.5 74 20 113/52 (72) 92 07/23/19 09:00 Nasal Cannula 3.0 07/23/19 08:45 121/61 07/23/19 08:00 99.5 104 18 121/61 (81) 91 07/23/19 07:36 96 18 95 Nasal Cannula 3.0 32 103 21 93 07/23/19 07:26 93 Nasal Cannula 3.0 32 07/23/19 04:06 99.2 07/23/19 03:30 100.3 07/22/19 21:26 102 20 98 Nasal Cannula 3.0 32 07/22/19 21:16 105 24 96 Nasal Cannula 3.0 32 07/22/19 21:00 Nasal Cannula 3.0 07/22/19 20:00 98.2 76 22 134/65 (88) 95 07/22/19 19:55 70 20 99 Nasal Cannula 3.0 32 07/22/19 19:45 93 Nasal Cannula 3.0 32 07/22/19 19:45 71 20 93 Nasal Cannula 3.0 32 Cardiovascular: normal rate, no gallop/murmur Respiratory/Chest: decreased breath sounds - at bases, poor insp effort Abdomen: no organomegaly, no mass, hypoactive bowel sounds Extremities: non-tender, no calf tenderness, no swelling Intake and Output 07/22/19 07/23/19 19:00 07:00 Intake Total 2122.500 ml 1230.0 ml Output Total 2225 ml 825 ml Balance -102.500 ml 405.0 ml Intake Oral 100 ml IV Total 1647.500 ml 1230.0 ml Tube Feeding 375 ml Output Urine Total 2150 ml 800 ml Other 75 ml 25 ml Laboratory Tests Test 07/23/19 05:20 07/23/19 08:46 White Blood Count 12.0 K/UL (4.8-10.8) H Red Blood Count 3.28 M/UL (4.70-6.10) L Hemoglobin 9.4 G/DL (14.2-18.0) L Hematocrit 28.6 % (42.0-52.0) L Mean Corpuscular Volume 87 FL (80-99) Mean Corpuscular Hemoglobin 28.7 PG (27.0-31.0) Mean Corpuscular Hemoglobin Concent 33.0 G/DL (32.0-36.0) Red Cell Distribution Width 18.0 % (11.6-14.8) H Platelet Count 165 K/UL (150-450) Mean Platelet Volume 6.9 FL (6.5-10.1) Neutrophils (%) (Auto) % (45.0-75.0) Lymphocytes (%) (Auto) % (20.0-45.0) Monocytes (%) (Auto) % (1.0-10.0) Eosinophils (%) (Auto) % (0.0-3.0) Basophils (%) (Auto) % (0.0-2.0) Sodium Level 139 MMOL/L (136-145) Potassium Level 3.8 MMOL/L (3.5-5.1) Chloride Level 104 MMOL/L (98-107) Carbon Dioxide Level 23 MMOL/L (21-32) Anion Gap 12 mmol/L (5-15) Blood Urea Nitrogen 30 mg/dL (7-18) H Creatinine 1.5 MG/DL (0.55-1.30) H Estimat Glomerular Filtration Rate mL/min (>60) Glucose Level 104 MG/DL (74-106) Calcium Level 7.8 MG/DL (8.5-10.1) L Magnesium Level 1.9 MG/DL (1.8-2.4) Total Bilirubin 0.9 MG/DL (0.2-1.0) Aspartate Amino Transf (AST/SGOT) 96 U/L (15-37) H Alanine Aminotransferase (ALT/SGPT) 94 U/L (12-78) H Alkaline Phosphatase 320 U/L (46-116) H Total Protein 5.6 G/DL (6.4-8.2) L Albumin 1.6 G/DL (3.4-5.0) L Globulin 4.0 g/dL Albumin/Globulin Ratio 0.4 (1.0-2.7) L Urine Color Yellow Urine Appearance Clear Urine pH 5 (4.5-8.0) Urine Specific [place] 1.020 (1.005-1.035) Urine Protein 2+ (NEGATIVE) H Urine Glucose (UA) Negative (NEGATIVE) Urine Ketones Negative (NEGATIVE) Urine Blood 4+ (NEGATIVE) H Urine Nitrite Negative (NEGATIVE) Urine Bilirubin Negative (NEGATIVE) Urine Urobilinogen Normal MG/DL (0.0-1.0) Urine Leukocyte Esterase 1+ (NEGATIVE) H Urine RBC 2-4 /HPF (0 - 0) H Urine WBC 0-2 /HPF (0 - 0) Urine Squamous Epithelial Cells Occasional /LPF Urine Amorphous Sediment Few /LPF (NONE) H Urine Bacteria Few /HPF (NONE) Microbiology Date/Time Source Procedure Growth Status 07/22/19 20:00 Sputum Expectorated Gram Stain - Final Resulted 07/22/19 20:00 Sputum Expectorated Sputum Culture Pending Resulted Rommel Townsend MD Jul 23, 2019 18:28
--- NOTE | 2019-07-23 19:10 | NUR ---
NURSE NOTES: Received report from DAVID Mckeon. Pt is awake, lying semi-howard's; comfortably resting. No signs of acute distress noted. Pt denies any pain at this time. Family at bedside. AOx4; able to make needs known. Checked IV site, line, and rate; patent and running. No erythema, bleeding, or infiltration noted. Bed at lowest position. Brakes on. Siderails up x2. Call light within reach. Will continue to monitor.
--- NOTE | 2019-07-23 19:10 | NUR ---
HAND-OFF: Report given to Yanira HERNANDEZ, rounds made. Endorsed TPN to be started at midnight (90 ml/hr to [facility] Port-a-Cath). Endorsed Lasix drip at 5ml/hr to [facility]. Endorsed all new orders/pending tests (2D echo, CXR, BCx2, urine CX) Addendum: 07/23/19 at 2031 by Linda Chan RN Outputs: FC: 1250 ml Natalee Ileostomy: 150 ml
[2019-07-23 20:00] VITALS: BP 145/68
[2019-07-23] MEDS: Dyna-Hex 2% Top Sol 2oz TOPIC SCH (20:58)
[2019-07-24] VITALS: BP 137/74
[2019-07-24] MEDS: Fat Emulsion Iv 20% 216 ML in Tpn 1,584 ML IV SCH (00:08)
[2019-07-24] MEDS: ALPRAZolam 0.25mg tab ORAL PRN (00:23)
[2019-07-24] MEDS: HYDROmorphone 1mg/ml Carpuject SUBQ PRN ×4 (03:11→21:31)
[2019-07-24 04:00] VITALS: BP 133/70
[2019-07-24] MEDS: Piperacillin/Tazobactam 3.375 GM in NS 110 ML IVPB SCH ×3 (05:51→21:30)
[2019-07-24] MEDS: NovoLOG Insulin Flexpen SUBQ SCH ×4 (06:00→18:08)
[2019-07-24] MEDS: HYDROcodone/Acetamin 5/325 tab ORAL PRN ×2 (06:02→18:13)
[2019-07-24 06:50] LABS: ANION GAP 10 mmol/L (5-15); BASOPHILS % (AUTO) 0.7 % (0.0-2.0); BLOOD UREA NITROGEN 36 mg/dL (7-18); CARBON DIOXIDE 26 MMOL/L (21-32); CHLORIDE 104 MMOL/L (98-107); CREATININE 1.5 MG/DL (0.55-1.30); EOSINOPHILS % (AUTO) 3.8 % (0.0-3.0); HEMATOCRIT 29.5 % (42.0-52.0); HEMOGLOBIN 9.8 G/DL (14.2-18.0); LYMPHOCYTES % (AUTO) 8.5 % (20.0-45.0); MEAN CORPUSCULAR VOLUME 87 FL (80-99); MONOCYTES % (AUTO) 7.6 % (1.0-10.0); NEUTROPHILS % (AUTO) 79.5 % (45.0-75.0); PLATELET COUNT 229 K/UL (150-450); POTASSIUM 3.2 MMOL/L (3.5-5.1); RED CELL DISTRIBUTION WIDTH 18.1 % (11.6-14.8); SODIUM 140 MMOL/L (136-145); WHITE BLOOD COUNT 12.5 K/UL (4.8-10.8)
--- NOTE | 2019-07-24 07:40 | NUR ---
HAND-OFF: Report given to DAVID Mckeon. Pt is awake and in stable condition. Plan of care endorsed. Ileo output: 250 mL Urine output: 1650 mL
--- NOTE | 2019-07-24 07:44 | NUR ---
NURSE NOTES: Report received from Yanira RN, rounds made. Patient resting in semi-fowlers position in bed. Alert, oriented x4, calm. PCXR done at 0735. PHILIP PICC dressing CDI. Abdominal neil KHLOE, CDI. LLA Natalee Ileostomy, intact with light green/yellow liquid output. FC in place with anchor, y/cl urine. Bilateral SCDs off. Denies need for pain medication at this time. No SOB at rest, on O2 3LNC, encouraged IS, patient demonstrated correctly, needs encouragement and reminders. Remains NPO, provided oral mouth care and ice chips. Spouse at bedside. Call light in reach, bed in lowest position, will continue to monitor.
[2019-07-24 08:00] VITALS: BP 116/63
[2019-07-24] MEDS: Levalbuterol Inh UD 1.25mg/0.5ml HHN SCH ×3 (08:05→19:00)
--- NOTE | 2019-07-24 08:34 | NUR ---
RADIOLOGY: PCXR COMPLETED 0750HRS. NF
[2019-07-24] MEDS: Losartan 25mg tab ORAL SCH (09:00)
--- NOTE | 2019-07-24 09:27 | General Progress Note ---
Progress Note Progress Note Afebrile for 24 hours but WBC up 12,500 More ileostomy output (400cc) but upper abdomen still mildly distended and tympanitic K 3.2 (lasix infustion) Imp: Leukocytosis on Zosyn and Vanco with neg blood and urine cultures so far Plan: STAT CT scan abd+pelvis with oral contrast only (high Cr) continue npo and TPN and Guadarrama Pako Orellana MD Jul 24, 2019 09:27
[2019-07-24] MEDS: Tamsulosin 0.4mg cap ORAL SCH (10:10)
--- NOTE | 2019-07-24 10:34 | Pulmonology Progress Note ---
Assessment/Plan Assessment/Plan IMPRESSION: 1. Fever, now resolved. 2. Resolving right middle lobe infiltrate. 3. Multiple comorbidities including use of steroids, ulcerative colitis. 4. Suspect interstitial pulmonary edema DISCUSSION: continues to have net positive fluid balance despite Lasix infusion continuediuresis; Discussed with surgery TPN [place] and Xanax for anxiety/pain Will follow Oneal Allred M.D. Subjective Interval Events: remains with positive fluid balance despite Lasix infusion Constitutional: Reports: no symptoms HEENT: Repors: no symptoms Respiratory: Reports: no symptoms Cardiovascular: Reports: no symptoms Gastrointestinal/Abdominal: Reports: no symptoms Allergies: Coded Allergies: LORAZEPAM (Verified Allergy, Mild, 07/08/19) Pt undergoes altered level of consciousness Objective Last 24 Hour Vital Signs Date Time Temp Pulse Resp B/P (MAP) Pulse Ox O2 Delivery O2 Flow Rate FiO2 07/24/19 09:00 116/63 07/24/19 08:16 96 Nasal Cannula 3.0 32 07/24/19 08:06 87 19 97 Nasal Cannula 3.0 32 84 18 96 07/24/19 08:00 98.3 84 18 116/63 (80) 96 07/24/19 04:00 97.0 84 19 133/70 (91) 90 07/24/19 00:00 98.7 83 19 137/74 (95) 95 07/23/19 21:00 Nasal Cannula 3.0 07/23/19 20:00 98.2 82 20 145/68 (93) 93 07/23/19 19:57 86 18 96 Nasal Cannula 3.0 32 83 18 94 07/23/19 19:57 94 Nasal Cannula 3.0 32 07/23/19 16:00 97.5 75 18 139/69 (92) 94 07/23/19 12:57 79 18 94 Nasal Cannula 3.0 32 77 19 92 07/23/19 12:00 97.5 74 20 113/52 (72) 92 Intake and Output 07/23/19 07/24/19 19:00 07:00 Intake Total 880 ml 1471.5 ml Output Total 1400 ml Balance -520 ml 1471.5 ml IV Total 880 ml 1471.5 ml Output Urine Total 1250 ml Other 150 ml General Appearance: no acute distress HEENT: normocephalic Respiratory/Chest: chest wall non-tender, decreased breath sounds Cardiovascular: normal peripheral pulses, normal rate Abdomen: soft, non tender Extremities: no cyanosis Microbiology Date/Time Source Procedure Growth Status 07/22/19 20:00 Sputum Expectorated Gram Stain - Final Resulted 07/22/19 20:00 Sputum Culture - Preliminary Yeast Species Resulted 07/23/19 08:46 Indwelling Cath Urine Culture - Preliminary NO GROWTH Resulted Laboratory Tests 07/23/19 21:15: Vancomycin Level Trough 18.5H 07/24/19 05:30: White Blood Count 12.5H, Red Blood Count 3.40L, Hemoglobin 9.8L, Hematocrit 29.5L, Mean Corpuscular Volume 87, Mean Corpuscular Hemoglobin 28.7, Mean Corpuscular Hemoglobin Concent 33.1, Red Cell Distribution Width 18.1H, Platelet Count 229, Mean Platelet Volume 7.2, Neutrophils (%) (Auto) 79.5H, Lymphocytes (%) (Auto) 8.5L, Monocytes (%) (Auto) 7.6, Eosinophils (%) (Auto) 3.8H, Basophils (%) (Auto) 0.7, Sodium Level 140, Potassium Level 3.2L, Chloride Level 104, Carbon Dioxide Level 26, Anion Gap 10, Blood Urea Nitrogen 36H, Creatinine 1.5H, Estimat Glomerular Filtration Rate , Glucose Level 132H, Calcium Level 8.0L Current Medications Medications (Trade) Dose Ordered Sig/Evgeny Route PRN Reason Start Time Stop Time Status Last Admin Dose Admin Acetaminophen (Tylenol) 650 mg Q4H PRN ORAL Mild Pain/Temp > 100.2 07/22/19 13:11 08/21/19 13:10 07/23/19 03:36 Acetaminophen/ Hydrocodone Bitart ([place] 5/325) 1 tab Q6H PRN ORAL SEVERE PAIN 07/22/19 13:12 07/29/19 13:11 07/24/19 06:02 Alprazolam (Xanax) 0.25 mg Q6H PRN ORAL For Anxiety 07/22/19 13:11 07/29/19 13:10 07/24/19 00:23 Amlodipine Besylate (Norvasc) 5 mg Q12H PRN ORAL For High Blood Pressure 07/22/19 13:12 08/21/19 13:11 Ascorbic Acid (Vitamin C) 500 mg Q4H PRN ORAL thick ileostomy effluent 07/22/19 13:12 08/21/19 13:11 Barium Sulfate (Readi-Cat 2) 450 ml NOW PRN ORAL Radiology Procedure 07/24/19 09:00 07/26/19 08:53 Chlorhexidine Gluconate (Val-Hex 2%) 1 applic DAILY@2000 TOPIC 07/22/19 20:00 08/06/19 19:59 07/23/19 20:58 Dextrose 1,000 ml @ 0 mls/hr Q24H PRN IV PN interrupted or unavailable 07/22/19 13:11 08/21/19 13:10 Dextrose (Dextrose 50%) 25 ml Q30M PRN IV Hypoglycemia 07/22/19 13:30 08/07/19 00:00 Dextrose (Dextrose 50%) 50 ml Q30M PRN IV Hypoglycemia 07/22/19 13:30 08/07/19 00:00 Fat Emulsion Intravenous 216 ml/Amino Acids/ Electrolytes/ Dextrose 1,800 ml @ 90 mls/hr Q24H IV 07/24/19 00:00 08/23/19 00:00 07/24/19 00:08 Furosemide 100 mg/ Dextrose 100 ml @ 5 mls/hr Q20H IV 07/23/19 13:00 08/22/19 12:59 07/23/19 14:04 Hydromorphone HCl (Dilaudid) 1 mg Q4H PRN SUBQ BREAKTHROUGH PAIN 07/22/19 13:12 07/29/19 13:11 07/24/19 10:00 Insulin Aspart (NovoLOG) No Dose Q6HR SUBQ 07/22/19 18:00 08/07/19 00:00 07/23/19 12:09 Levalbuterol HCl (Xopenex) 1.25 mg Q6H PRN HHN SOB/WHEEZING 07/22/19 13:13 07/27/19 13:12 07/22/19 21:16 Levalbuterol HCl (Xopenex) 1.25 mg TIDRT HHN 07/22/19 19:00 07/27/19 06:59 07/24/19 08:05 Levothyroxine Sodium (Synthroid) 50 mcg DAILY@0630 ORAL 07/23/19 06:30 08/06/19 06:29 07/24/19 05:51 Lidocaine (Lidoderm 5% PATCH) 1 patch DAILY TDERMAL 07/23/19 09:00 08/20/19 08:59 07/24/19 10:11 Losartan Potassium (Cozaar) 25 mg DAILY ORAL 07/23/19 09:00 08/13/19 08:59 07/23/19 08:45 Ondansetron HCl (Zofran) 4 mg Q4H PRN IVP Nausea & Vomiting 07/22/19 13:14 08/21/19 13:13 Pantoprazole (Protonix) 40 mg DAILY ORAL 07/23/19 09:00 08/06/19 08:59 07/24/19 10:10 Phytonadione (Vitamin K) 10 mg ONCE A WEEK SUBQ 07/28/19 20:00 08/06/19 19:59 Piperacillin Sod/ Tazobactam Sod 3.375 gm/Sodium Chloride 110 ml @ 27.5 mls/hr EVERY 8 HOURS IVPB 07/22/19 14:00 07/27/19 13:59 07/24/19 05:51 Potassium Chloride 100 ml @ 100 mls/hr Q1HR IVPB 07/24/19 09:00 07/24/19 11:59 07/24/19 10:05 Prednisone (predniSONE) 5 mg DAILY ORAL 07/23/19 09:00 08/06/19 08:59 07/24/19 10:10 Tamsulosin HCl (Flomax) 0.4 mg DAILY ORAL 07/23/19 09:00 08/06/19 08:59 07/24/19 10:10 Temazepam (RestoriL) 7.5 mg HSPRN PRN ORAL Insomnia 07/22/19 13:14 07/29/19 13:13 Tramadol HCl (Ultram) 50 mg Q4H PRN ORAL moderate pain 07/22/19 13:30 07/29/19 13:13 Vancomycin HCl (Vanco rx to dose) 1 ea DAILY PRN MISC Per rx protocol 07/23/19 09:00 08/18/19 15:59 Vancomycin HCl 750 mg/Sodium Chloride 275 ml @ 183.333 mls/hr Q12HR@1000,2200 IVPB 07/22/19 22:00 07/27/19 09:59 07/23/19 22:15 Oneal Allred MD Jul 24, 2019 10:34
[2019-07-24] MEDS: Vancomycin 750 MG in NS 275 ML IVPB SCH ×2 (10:37→21:46)
--- NOTE | 2019-07-24 11:08 | NUR ---
RD ASSESSMENT & RECOMMENDATIONS SEE CARE ACTIVITY FOR COMPLETE ASSESSMENT DAILY ESTIMATED NEEDS: Needs based on surgery/ 59kg 25-35 kcals/kg 1304-0304 total kcals 1-2 g protein/kg 59-118 g total protein 25-30 mL/kg 4416-0859 total fluid mLs NUTRITION DIAGNOSIS: Altered GI function R/T h/o UC, BCIR as evidenced by admitted for recurring prolapse of [place] pouch valve with incontinence, s/p BCIR takedown w/ creation of conventional ileo, NPO on TPN. CURRENT DIET:NPO PO DIET RECOMMENDATIONS: DIET PER MD PARENTERAL NUTRITION RECOMMENDATIONS: D/AA Rate: 66 IL Rate: 9 Total Rate: 75 Volume: 1800 % Dextrose: 15 % AA: 5.3 Energy (kcals/kg): 1576 Protein (g/kg protein): 84 Nonprotein KCALS: 1240 GIR (mg CHO/kg/min): 2.8 % Fat KCALS: 27 NCP: N Ratio: 92:1 TPN Comment: * D15% AA 5.3% @ 66ml/hr + IL20% @ 9ml/hr-> total of 75ml/hr x 24hrs, all 3:1 -> REC CYCLIC FEEDING OF 90ML/HR X 20 HRS TO GIVE 4 HOURS OF METABOLIC REST (LFTS RISING). MONITOR LFTS DAILY : will meet 100% est kcal/prot needs ADDITIONAL RECOMMENDATIONS: * Rec obtaining standing wt for accurate CBW * Monitor BGs closely while on Prednisone * Monitor BGs, LFTs, lytes closely on TPN -> LFT's trending up, recommend cyclic feeding as above to give metabolic rest
[2019-07-24 12:00] VITALS: BP 111/65
--- NOTE | 2019-07-24 12:09 | Diagnostic Imaging Report ---
Indication: Dyspnea Comparison: 07/21/2019 A single view chest radiograph was obtained. Findings: Interstitial opacities appear prominent but stable compared to last study. Right chest port and sternotomy again noted. Cardiac silhouette is normal in size and stable. IMPRESSION: No change from the prior exam
--- NOTE | 2019-07-24 14:39 | Cardiology Progress Note ---
Assessment/Plan Status Narrative 1. U.C. 2. Malfunctioning [place] Pouch 3. CAD, S/P CABG- studies from PMD reviewed, no evidence of ischemia on nuclear scan done in Apr 2019 4. BL Carotid stenosis- s/p stents 5. AAA- stable 6. HTN- improved on meds. 7. Hearing loss 8. S/p resection of failed [place] Pouch, repair parastomal hernia, creation of Natalee ileostomy 9. Dehydration- -->elevated creat, tachycardia 10 Hypoxemia - due to hypoventilation possible atelectasis- Improves with deep insp and use of I/S 11. Fever- r/o pneumonia, intra-abdominal process, UTI 12. Renal insuff- ?due to diuresis 13. Depression/Anxiety with panic attacks 14. No Evidence of CHF- Nl LV EF, nl JVP Assessment/Plan I/S Q1 h IV fluids as per Dr. Orellana F/U labs in AM Monitor renal function while on Lasix 2D Echo- doppler idone- Nl LV Function, Mild AI Consider adding Lexapro PO Ambulate Discussed with RN and Patient's . Subjective Cardiovascular: Reports: no symptoms Respiratory: Reports: no symptoms Gastrointestinal/Abdominal: Reports: no symptoms Genitourinary: Reports: no symptoms Subjective 07/07/19- Patient admitted for revision of [place] Pouch. He has h/o CAD, S/P CABG 10 yrs ago, s/p BL carotid stents, and h/o AAA. Patient denies h/o HTn, but his BP has been elevated since admission 07/08 doing OK , BP imroving, PICC line placed. 07/09- BP improved 07/10- Had BP down to 107. Meds held. Scheduled for surgery on 07/13 07/11- BP stable 07/13- s/p resection of failed [place] Pouch, repair parastomal hernia, creation of Natalee ileostomy. 07/14- Has had decreased O2 Sat, Creat 1.9, low U.O. IV NS started 07/15- s/p surgery for stoma bleeding 07/23- Was transferred to ICU last week- ? anxiety attack, has had fever, on ABx. Seen by Pulmonary- now on IV Lasix drip Creat 1.5 Has not been very active, was up once today, now asleep 07/24- More alert, denies SOB, had abd. CT, on Lasix drip. Creat 1.5. Echo done- Nl LV WM, EF 60% Objective Last 24 Hour Vital Signs Date Time Temp Pulse Resp B/P (MAP) Pulse Ox O2 Delivery O2 Flow Rate FiO2 07/24/19 09:00 116/63 07/24/19 08:16 96 Nasal Cannula 3.0 32 07/24/19 08:06 87 19 97 Nasal Cannula 3.0 32 84 18 96 07/24/19 08:00 98.3 84 18 116/63 (80) 96 07/24/19 04:00 97.0 84 19 133/70 (91) 90 07/24/19 00:00 98.7 83 19 137/74 (95) 95 07/23/19 21:00 Nasal Cannula 3.0 07/23/19 20:00 98.2 82 20 145/68 (93) 93 07/23/19 19:57 86 18 96 Nasal Cannula 3.0 32 83 18 94 07/23/19 19:57 94 Nasal Cannula 3.0 32 07/23/19 16:00 97.5 75 18 139/69 (92) 94 Cardiovascular: normal rate, no gallop/murmur Respiratory/Chest: lungs clear, decreased breath sounds - bases Abdomen: soft, hypoactive bowel sounds, tender Extremities: non-tender, normal inspection, no calf tenderness, no swelling Intake and Output 07/23/19 07/24/19 19:00 07:00 Intake Total 880 ml 1471.5 ml Output Total 1400 ml Balance -520 ml 1471.5 ml IV Total 880 ml 1471.5 ml Output Urine Total 1250 ml Other 150 ml Laboratory Tests Test 07/23/19 21:15 07/24/19 05:30 Vancomycin Level Trough 18.5 ug/mL (5.0-12.0) H White Blood Count 12.5 K/UL (4.8-10.8) H Red Blood Count 3.40 M/UL (4.70-6.10) L Hemoglobin 9.8 G/DL (14.2-18.0) L Hematocrit 29.5 % (42.0-52.0) L Mean Corpuscular Volume 87 FL (80-99) Mean Corpuscular Hemoglobin 28.7 PG (27.0-31.0) Mean Corpuscular Hemoglobin Concent 33.1 G/DL (32.0-36.0) Red Cell Distribution Width 18.1 % (11.6-14.8) H Platelet Count 229 K/UL (150-450) Mean Platelet Volume 7.2 FL (6.5-10.1) Neutrophils (%) (Auto) 79.5 % (45.0-75.0) H Lymphocytes (%) (Auto) 8.5 % (20.0-45.0) L Monocytes (%) (Auto) 7.6 % (1.0-10.0) Eosinophils (%) (Auto) 3.8 % (0.0-3.0) H Basophils (%) (Auto) 0.7 % (0.0-2.0) Sodium Level 140 MMOL/L (136-145) Potassium Level 3.2 MMOL/L (3.5-5.1) L Chloride Level 104 MMOL/L (98-107) Carbon Dioxide Level 26 MMOL/L (21-32) Anion Gap 10 mmol/L (5-15) Blood Urea Nitrogen 36 mg/dL (7-18) H Creatinine 1.5 MG/DL (0.55-1.30) H Estimat Glomerular Filtration Rate mL/min (>60) Glucose Level 132 MG/DL (74-106) H Calcium Level 8.0 MG/DL (8.5-10.1) L Microbiology Date/Time Source Procedure Growth Status 07/22/19 20:00 Sputum Expectorated Gram Stain - Final Resulted 07/22/19 20:00 Sputum Culture - Preliminary Yeast Species Resulted 07/23/19 08:46 Indwelling Cath Urine Culture - Preliminary NO GROWTH Resulted Rommel Townsend MD Jul 24, 2019 14:39
--- NOTE | 2019-07-24 15:05 | Diagnostic Imaging Report ---
INDICATION: Abdominal pain TECHNIQUE: Continuous helical transaxial imaging of the abdomen and pelvis was obtained from the lung bases to the pubic symphysis. No intravenous contrast was administered. Coronal 2-D reformats were also obtained. Automatic Exposure Control was utilized. Total Dose length Product (DLP): 860.[address] Dose Index Volume (CTDIvol): 15.9 mGy Comparison: CT 07/07/2019 FINDINGS: Lungs: Interstitial densities demonstrated at the lung bases with innumerable small cystic lesions within the parenchyma as well as bronchiectasis. Findings consistent with fibrosis. There is new trace right pleural effusion.. Sternotomy noted. Liver: Noncontrast imaging of the liver shows no obvious abnormalities. Gallbladder/biliary system: Cholecystectomy clips noted. No biliary ductal dilatation is appreciated.. Spleen: Unremarkable Pancreas: Unremarkable Kidneys: No definite stone or hydronephrosis are identified.. Adrenal glands: Unremarkable Bowel: Skin neil are present from interval recent abdominal surgery. Previous continent ileostomy pouch is no longer visualized. There is a new left lower quadrant ileostomy present. Trace amount of contrast is seen within the ileostomy bag. The bowel loop leading to the ileostomy is well opacified as are multiple additional loops of small bowel throughout the abdomen. Most of the small bowel is distal in location very close to the ileostomy. There is no evidence of bowel obstruction. Again, previous total proctocolectomy noted. Bladder: Guadarrama catheter is present. There is some thickening of the wall the bladder noted. The bladder is not distended. Aorta/IVC: A saccular type aneurysm projecting posterolaterally toward the right again noted measuring about 4.5 cm. This is better evaluated on the previous exam. There is moderate to severe calcification of the wall of aorta and iliac arteries. Peritoneum: There is no free fluid identified within the abdomen. There is no evidence of abscess.. Bones: There is a moderate scoliosis of the lumbar spine convex to the right. There is narrowing of intervertebral discs and accompanying endplate osteophyte formation. Hypertrophied facet joints also demonstrated.. Grade 2 spondylolisthesis of L5 on S1 demonstrated. IMPRESSION: Interval abdominal surgery with resection/closure of a right continent ileostomy and formation of a left lower quadrant ileostomy. No evidence of bowel obstruction, abscess or other complications. Development of a trace right pleural effusion and posterior basal atelectasis. Other findings on this exam are unchanged from the previous preoperative study. Status post total proctocolectomy. Status post cholecystectomy. Pulmonary fibrosis. 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 Guadarrama catheter in good position. Some degree of chronic cystitis not excluded even wall thickening. Moderate to severe degenerative changes of the lumbar spine as described above. Scoliosis again noted. Note: Evaluation of solid organs is limited on non contrast imaging. The CT scanner at [facility] is accredited by the [employer] and the scans are performed using dose optimization techniques as appropriate to a performed exam including Automatic Exposure control.
--- NOTE | 2019-07-24 15:32 | NUR ---
P.T WEEKLY PROGRESS NOTES: LATE ENTRY 07/23/19 0090 PATIENT IS BEING IN P.T FOR THERA EX'S, ADL/FUNCTIONAL MOBILITY AND GAIT TRAINING. ASSISTANCE FLUCTUATES FROM MIN TO MOD A X 1 IN BED MOBILITIES, TRANSFERS AND GAIT/AMBULATION ACTIVITIES USING THE FWW DEPENDING ON MOTIVATION , PAIN LEVEL ENDURANCE LEVEL. ALWAYS PRESENT ON EVERY P.T SESSION WHICH SIGNIFICANTLY HELPS IN PATIENT'S PARTICIPATION. PATIENT IS TOLERATING SITTING UP IN RECLINER FOR APPROX. 2 HRS. PATIENT WILL CONTINUE TO BENEFIT FROM SKILLED P.T SERVICES TO IMPROVE HIS STRENGTH, BALANCE AND ACTIVITY TOLERANCE. RECOMMEND SNF FOR SHORT TERM REHAB AT [place].
[2019-07-24 16:00] VITALS: BP 139/64
--- NOTE | 2019-07-24 18:45 | NUR ---
NURSE NOTES: Patient started clear liquids tray for dinner, appetite poor, no NV. Ate about 10%, 100 ml. Instructed patient to eat only as tolerated and slowly, verbalized understanding.
--- NOTE | 2019-07-24 19:12 | NUR ---
HAND-OFF: Report given to Sam HERNANDEZ. Endorsed TPN will stop at 2000 and start new bag at midnight tonight. Outputs: FC: 2700 ml Natalee Ileostomy: 425 ml Addendum: 07/24/19 at 2049 by Linda Chan RN Endorsed patient had PCXR at 0735, 2D echo at 0850, CT ABD pelvis (semt down via stretcher) at 1320.
--- NOTE | 2019-07-24 19:20 | NUR ---
NURSE NOTES: Receive a report from DAVID Mckeon. Round is done. Pt is awake and alert. No acute distress noted. Back pain still noted. On monitoring pain after pain medication from AM shift. No respiratory distress noted. Breathing is even and non labored. On O2 3L NC. No panic attack noted. Keep head up elevation and encourage deep breathing. TPN is running via Port-a-cath and KVO via PICC. Sites are intact. Surgery site is neil and open to the air, clean. Natalee ileostomy site attached appliance without leaking. Noted small watery output and gas. Yellowish urine is patent via pinedo catheter. Call light within reach. Will continue to monitor.
[2019-07-24 20:00] VITALS: BP 115/60
--- NOTE | 2019-07-24 20:01 | Consultation ---
DATE OF CONSULTATION: 07/24/2019 CONSULTING PHYSICIAN: Ember English M.D. REFERRING PHYSICIAN: Pako Orellana M.D. HISTORY OF PRESENT ILLNESS: This is an 79-year-old male with a history of multiple medical issues who has been admitted to the hospital for medical stabilization. The patient has a history of ulcerative colitis. The patient has history of anxiety disorder who has been admitted to the hospital for medical stabilization. The patient presented with anxiety, restlessness. The patient has been chronically anxious. He has multiple psychosocial stressors. PAST PSYCHIATRIC HISTORY: Anxiety disorder, currently on alprazolam 0.25 mg q.6 h. p.r.n., . He has been taking medications in the past. PAST MEDICAL HISTORY: As above. ALLERGIES: Lorazepam. SUBSTANCE ABUSE HISTORY: No known history of illicit drug use or alcohol. MENTAL STATUS EXAMINATION: The patient is alert, oriented times self, place, and situation. Mood is depressed. Affect is constricted, congruent with mood. Thought process is concrete. Thought content, no suicidal, homicidal ideation. Cognition is impaired. Insight and judgment is fair. ASSESSMENT: [place] I Anxiety disorder. [place] II Deferred. [place] III As above. [place] IV Low. [place] V . PLAN: 1. The patient will be started on Remeron 7.5 mg at bedtime. 2. Lexapro 10 mg in the morning. 3. Provide the patient with reality orientation and supportive therapy. Ember English M.D. DR: YAHIR JOB#: [id number] CC:
[2019-07-24] MEDS: Dyna-Hex 2% Top Sol 2oz TOPIC SCH (20:55)
--- NOTE | 2019-07-24 22:00 | NUR ---
NURSE NOTES: Explain for using I/S. Pt did two times I/S after pain mediation while watching. Encourage I/S every hour while awake. Will continue to monitor.
[2019-07-25] VITALS: BP 122/65
[2019-07-25] MEDS: Fat Emulsion Iv 20% 216 ML in Tpn 1,584 ML IV SCH (00:15)
[2019-07-25] MEDS: HYDROcodone/Acetamin 5/325 tab ORAL PRN ×4 (00:38→20:56)
--- NOTE | 2019-07-25 01:30 | NUR ---
NURSE NOTES: Pt is asleep after pain medication. No respiratory distress noted. On O2 3L NC. Will continue to monitor.
[2019-07-25 04:00] VITALS: BP 139/66
[2019-07-25] MEDS: HYDROmorphone 1mg/ml Carpuject SUBQ PRN ×4 (04:20→22:49)
--- NOTE | 2019-07-25 04:20 | NUR ---
NURSE NOTES: Asking for pain medication on abdomen. Given prn medication as ordered. Will continue to monitor.
[2019-07-25] MEDS: Piperacillin/Tazobactam 3.375 GM in NS 110 ML IVPB SCH ×3 (05:52→21:55)
[2019-07-25] MEDS: NovoLOG Insulin Flexpen SUBQ SCH ×4 (05:58→17:06)
--- NOTE | 2019-07-25 06:00 | NUR ---
NURSE NOTES: Pain relieved. Asleep. No leaking around the ileostomy and stoma pink. No acute distress noted. Lasix drip 5ml/hr started @ 5am. Will continue to monitor. 12hr output Urine: 470ml Natalee ileostomy: 270ml
[2019-07-25 06:07] LABS: BASOPHILS % (AUTO) 0.8 % (0.0-2.0); EOSINOPHILS % (AUTO) 3.7 % (0.0-3.0); HEMATOCRIT 27.8 % (42.0-52.0); HEMOGLOBIN 9.3 G/DL (14.2-18.0); LYMPHOCYTES % (AUTO) 7.4 % (20.0-45.0); MEAN CORPUSCULAR VOLUME 87 FL (80-99); MONOCYTES % (AUTO) 7.7 % (1.0-10.0); NEUTROPHILS % (AUTO) 80.4 % (45.0-75.0); PLATELET COUNT 291 K/UL (150-450); RED BLOOD COUNT 3.19 M/UL (4.70-6.10); RED CELL DISTRIBUTION WIDTH 18.1 % (11.6-14.8); WHITE BLOOD COUNT 12.3 K/UL (4.8-10.8)
[2019-07-25 06:26] LABS: ALANINE AMINOTRANSFERASE 68 U/L (12-78); ALBUMIN 1.6 G/DL (3.4-5.0); ALBUMIN/GLOBULIN RATIO 0.4 (1.0-2.7); ALKALINE PHOSPHATASE 308 U/L (46-116); ANION GAP 10 mmol/L (5-15); ASPARTATE AMINO TRANSFERASE 36 U/L (15-37); BILIRUBIN,TOTAL 0.4 MG/DL (0.2-1.0); BLOOD UREA NITROGEN 35 mg/dL (7-18); CARBON DIOXIDE 25 MMOL/L (21-32); CHLORIDE 104 MMOL/L (98-107); CREATININE 1.4 MG/DL (0.55-1.30); POTASSIUM 3.4 MMOL/L (3.5-5.1); SODIUM 139 MMOL/L (136-145)
[2019-07-25] MEDS: Levalbuterol Inh UD 1.25mg/0.5ml HHN SCH ×3 (07:00→19:00)
--- NOTE | 2019-07-25 07:55 | NUR ---
HAND-OFF: Written Report left to DAVID Mckeon. CN made aware.
[2019-07-25 08:00] VITALS: BP 134/60
--- NOTE | 2019-07-25 09:20 | NUR ---
NURSE NOTES: Rounds made. Patient resting in semi-fowlers position in bed. Spouse at bedside. No distress on O2 3LNC. Encouraged IS, patient demonstrates correctly, needs encouragement. Reports abdominal pain, will medicate. TPN infusing at 90 ml to right jean paul cath. LPICC with Lasix gtt. Central line dressings remain CDI. Bilateral SCDs off. Abdominal neil KHLOE, CDI. L abdomen Natalee Ileostomy intact, with yellow green output noted. FC, draining y/cl urine. Call light in reach, bed in lowest position, will continue to monitor.
--- NOTE | 2019-07-25 09:28 | General Progress Note ---
Progress Note Progress Note AVSS Appreciate Dr. English's consultation. Abdomen soft, only slight distention, incisions clean Urine 3170 (still receiving lasix infusion) Ileostomy 695 (includes po contrast for CT scan) WBC 12,300 K 3.4 BUN 35 Cr 1.4 albumin 1.6 Imp: Improved Plan: full liquid diet, continue TPN d/c urinary pinedo when lasix d/c'd by pulm. d/c antibiotics - per ID - all cultures no growth so far and afebrile Pako Orellana MD Jul 25, 2019 09:28
[2019-07-25] MEDS: Vancomycin 750 MG in NS 275 ML IVPB SCH ×2 (10:10→21:56)
[2019-07-25] MEDS: Losartan 25mg tab ORAL SCH (10:11)
[2019-07-25] MEDS: Tamsulosin 0.4mg cap ORAL SCH (10:11)
--- NOTE | 2019-07-25 10:29 | Pulmonology Progress Note ---
Assessment/Plan Assessment/Plan IMPRESSION: 1. Fever, now resolved. 2. Resolving right middle lobe infiltrate. 3. Multiple comorbidities including use of steroids, ulcerative colitis. 4. Suspect interstitial pulmonary edema; now has negative 2L over last 24 hours on IV lasix infusion DISCUSSION: DC lasix gtt; will continue daily IV Lasix Discussed with surgery TPN [place] and Xanax for anxiety/pain Will follow Oneal Allred M.D. Subjective Interval Events: Feeling well; lying supine without SOB Constitutional: Reports: no symptoms HEENT: Repors: no symptoms Respiratory: Reports: no symptoms Cardiovascular: Reports: no symptoms Gastrointestinal/Abdominal: Reports: no symptoms Allergies: Coded Allergies: LORAZEPAM (Verified Allergy, Mild, 07/08/19) Pt undergoes altered level of consciousness Objective Last 24 Hour Vital Signs Date Time Temp Pulse Resp B/P (MAP) Pulse Ox O2 Delivery O2 Flow Rate FiO2 07/25/19 10:11 134/60 07/25/19 08:00 98.6 78 18 134/60 (84) 95 07/25/19 07:58 94 Nasal Cannula 3.0 32 07/25/19 04:00 97.5 73 18 139/66 (90) 96 07/25/19 00:00 98.6 86 18 122/65 (84) 93 07/24/19 21:00 Nasal Cannula 3.0 07/24/19 20:11 97 Nasal Cannula 3.0 32 07/24/19 20:00 98.2 74 20 115/60 (78) 95 07/24/19 19:53 103 19 99 Nasal Cannula 3.0 32 101 18 97 07/24/19 16:00 98.1 79 18 139/64 (89) 95 07/24/19 12:00 97.9 87 20 111/65 (80) 95 Intake and Output 07/24/19 07/25/19 19:00 07:00 Intake Total 990 ml 780 ml Output Total 3125 ml 740 ml Balance -2135 ml 40 ml Intake Oral 150 ml IV Total 990 ml 630 ml Output Urine Total 2700 ml 470 ml Other 425 ml 270 ml General Appearance: no acute distress HEENT: normocephalic Respiratory/Chest: chest wall non-tender, lungs clear Cardiovascular: normal peripheral pulses, normal rate Abdomen: normal bowel sounds Microbiology Date/Time Source Procedure Growth Status 07/23/19 21:23 Blood Blood Culture - Preliminary NO GROWTH AFTER 24 HOURS Resulted 07/23/19 21:15 Blood Blood Culture - Preliminary NO GROWTH AFTER 24 HOURS Resulted 07/22/19 20:00 Sputum Expectorated Gram Stain - Final Resulted 07/22/19 20:00 Sputum Culture - Preliminary Yeast Species Resulted 07/23/19 08:46 Indwelling Cath Urine Culture - Preliminary NO GROWTH AFTER 24 HOURS Resulted Laboratory Tests 07/25/19 05:15: White Blood Count 12.3H, Red Blood Count 3.19L, Hemoglobin 9.3L, Hematocrit 27.8L, Mean Corpuscular Volume 87, Mean Corpuscular Hemoglobin 29.1, Mean Corpuscular Hemoglobin Concent 33.5, Red Cell Distribution Width 18.1H, Platelet Count 291, Mean Platelet Volume 7.0, Neutrophils (%) (Auto) 80.4H, Lymphocytes (%) (Auto) 7.4L, Monocytes (%) (Auto) 7.7, Eosinophils (%) (Auto) 3.7H, Basophils (%) (Auto) 0.8, Sodium Level 139, Potassium Level 3.4L, Chloride Level 104, Carbon Dioxide Level 25, Anion Gap 10, Blood Urea Nitrogen 35H, Creatinine 1.4H, Estimat Glomerular Filtration Rate , Glucose Level 127H, Calcium Level 8.0L, Total Bilirubin 0.4, Aspartate Amino Transf (AST/SGOT) 36, Alanine Aminotransferase (ALT/SGPT) 68, Alkaline Phosphatase 308H, Total Protein 5.9L, Albumin 1.6L, Globulin 4.3, Albumin/Globulin Ratio 0.4L Current Medications Medications (Trade) Dose Ordered Sig/Evgeny Route PRN Reason Start Time Stop Time Status Last Admin Dose Admin Acetaminophen (Tylenol) 650 mg Q4H PRN ORAL Mild Pain/Temp > 100.2 07/22/19 13:11 08/21/19 13:10 07/24/19 12:17 Acetaminophen/ Hydrocodone Bitart ([place] 5/325) 1 tab Q4H PRN ORAL severe pain 07/25/19 09:00 07/29/19 13:11 Alprazolam (Xanax) 0.25 mg Q6H PRN ORAL For Anxiety 07/22/19 13:11 07/29/19 13:10 07/24/19 00:23 Amlodipine Besylate (Norvasc) 5 mg Q12H PRN ORAL For High Blood Pressure 07/22/19 13:12 08/21/19 13:11 Ascorbic Acid (Vitamin C) 500 mg Q4H PRN ORAL thick ileostomy effluent 07/22/19 13:12 08/21/19 13:11 Barium Sulfate (Readi-Cat 2) 450 ml NOW PRN ORAL Radiology Procedure 07/24/19 09:00 07/26/19 08:53 Chlorhexidine Gluconate (Val-Hex 2%) 1 applic DAILY@2000 TOPIC 07/22/19 20:00 08/06/19 19:59 07/24/19 20:55 Dextrose 1,000 ml @ 0 mls/hr Q24H PRN IV PN interrupted or unavailable 07/22/19 13:11 08/21/19 13:10 Dextrose (Dextrose 50%) 25 ml Q30M PRN IV Hypoglycemia 07/22/19 13:30 08/07/19 00:00 Dextrose (Dextrose 50%) 50 ml Q30M PRN IV Hypoglycemia 07/22/19 13:30 08/07/19 00:00 Escitalopram Oxalate (Lexapro) 10 mg DAILY ORAL 07/25/19 09:00 08/24/19 08:59 07/25/19 10:10 Fat Emulsion Intravenous 216 ml/Amino Acids/ Electrolytes/ Dextrose 1,800 ml @ 90 mls/hr Q24H IV 07/24/19 00:00 08/23/19 00:00 07/25/19 00:15 Furosemide 100 mg/ Dextrose 100 ml @ 5 mls/hr Q20H IV 07/23/19 13:00 08/22/19 12:59 07/25/19 05:09 Hydromorphone HCl (Dilaudid) 1 mg Q4H PRN SUBQ BREAKTHROUGH PAIN 07/22/19 13:12 07/29/19 13:11 07/25/19 10:00 Insulin Aspart (NovoLOG) No Dose Q6HR SUBQ 07/22/19 18:00 08/07/19 00:00 07/24/19 18:08 Levalbuterol HCl (Xopenex) 1.25 mg Q6H PRN HHN SOB/WHEEZING 07/22/19 13:13 07/27/19 13:12 07/22/19 21:16 Levalbuterol HCl (Xopenex) 1.25 mg TIDRT HHN 07/22/19 19:00 07/27/19 06:59 07/24/19 19:00 Levothyroxine Sodium (Synthroid) 50 mcg DAILY@0630 ORAL 07/23/19 06:30 08/06/19 06:29 07/25/19 07:22 Lidocaine (Lidoderm 5% PATCH) 1 patch DAILY TDERMAL 07/23/19 09:00 08/20/19 08:59 07/25/19 10:07 Losartan Potassium (Cozaar) 25 mg DAILY ORAL 07/23/19 09:00 08/13/19 08:59 07/25/19 10:11 Mirtazapine (Remeron) 7.5 mg BEDTIME PRN ORAL insomnia 07/24/19 15:15 08/23/19 15:14 Ondansetron HCl (Zofran) 4 mg Q4H PRN IVP Nausea & Vomiting 07/22/19 13:14 08/21/19 13:13 Pantoprazole (Protonix) 40 mg DAILY ORAL 07/23/19 09:00 08/06/19 08:59 07/25/19 10:11 Phytonadione (Vitamin K) 10 mg ONCE A WEEK SUBQ 07/28/19 20:00 08/06/19 19:59 Piperacillin Sod/ Tazobactam Sod 3.375 gm/Sodium Chloride 110 ml @ 27.5 mls/hr EVERY 8 HOURS IVPB 07/22/19 14:00 07/27/19 13:59 07/25/19 05:52 Prednisone (predniSONE) 5 mg DAILY ORAL 07/23/19 09:00 08/06/19 08:59 07/25/19 10:11 Tamsulosin HCl (Flomax) 0.4 mg DAILY ORAL 07/23/19 09:00 08/06/19 08:59 07/25/19 10:11 Tramadol HCl (Ultram) 50 mg Q4H PRN ORAL moderate pain 07/22/19 13:30 07/29/19 13:13 Vancomycin HCl (Vanco rx to dose) 1 ea DAILY PRN MISC Per rx protocol 07/23/19 09:00 08/18/19 15:59 Vancomycin HCl 750 mg/Sodium Chloride 275 ml @ 183.333 mls/hr Q12HR@1000,2200 IVPB 07/22/19 22:00 07/27/19 09:59 07/25/19 10:10 Oneal Allred MD Jul 25, 2019 10:29
--- NOTE | 2019-07-25 11:44 | Cardiology Progress Note ---
Assessment/Plan Status Narrative 1. U.C. 2. Malfunctioning [place] Pouch 3. CAD, S/P CABG- studies from PMD reviewed, no evidence of ischemia on nuclear scan done in Apr 2019 4. BL Carotid stenosis- s/p stents 5. AAA- stable 6. HTN- improved on meds. 7. Hearing loss 8. S/p resection of failed [place] Pouch, repair parastomal hernia, creation of Natalee ileostomy 9. Dehydration- -->elevated creat, tachycardia 10 Hypoxemia - due to hypoventilation possible atelectasis- Improves with deep insp and use of I/S 11. Fever- r/o pneumonia, intra-abdominal process, UTI 12. Renal insuff- ?due to diuresis 13. Depression/Anxiety with panic attacks 14. No Evidence of CHF- Nl LV EF, nl JVP 15. Hypoxemia - ? Etio Assessment/Plan I/S Q1 h IV fluids as per Dr. Orellana F/U labs in AM Monitor renal function while on Lasix Lexapro PO added by Psych Ambulate Resp Tx Discussed with RN and Patient's . Subjective Cardiovascular: Reports: no symptoms Respiratory: Reports: no symptoms Gastrointestinal/Abdominal: Reports: no symptoms Genitourinary: Reports: no symptoms Subjective 07/07/19- Patient admitted for revision of [place] Pouch. He has h/o CAD, S/P CABG 10 yrs ago, s/p BL carotid stents, and h/o AAA. Patient denies h/o HTn, but his BP has been elevated since admission 07/08 doing OK , BP imroving, PICC line placed. 07/09- BP improved 07/10- Had BP down to 107. Meds held. Scheduled for surgery on 07/13 07/11- BP stable 07/13- s/p resection of failed [place] Pouch, repair parastomal hernia, creation of Natalee ileostomy. 07/14- Has had decreased O2 Sat, Creat 1.9, low U.O. IV NS started 07/15- s/p surgery for stoma bleeding 07/23- Was transferred to ICU last week- ? anxiety attack, has had fever, on ABx. Seen by Pulmonary- now on IV Lasix drip Creat 1.5 Has not been very active, was up once today, now asleep 07/24- More alert, denies SOB, had abd. CT, on Lasix drip. Creat 1.5. Echo done- Nl LV WM, EF 60% 07/25- IV Lasix drip stopped--> Daily Lasix. Creat 1.4 , O2 Sat on RA 86% Objective Last 24 Hour Vital Signs Date Time Temp Pulse Resp B/P (MAP) Pulse Ox O2 Delivery O2 Flow Rate FiO2 07/25/19 10:11 134/60 07/25/19 08:00 98.6 78 18 134/60 (84) 95 07/25/19 07:58 94 Nasal Cannula 3.0 32 07/25/19 04:00 97.5 73 18 139/66 (90) 96 07/25/19 00:00 98.6 86 18 122/65 (84) 93 07/24/19 21:00 Nasal Cannula 3.0 07/24/19 20:11 97 Nasal Cannula 3.0 32 07/24/19 20:00 98.2 74 20 115/60 (78) 95 07/24/19 19:53 103 19 99 Nasal Cannula 3.0 32 101 18 97 07/24/19 16:00 98.1 79 18 139/64 (89) 95 07/24/19 12:00 97.9 87 20 111/65 (80) 95 Cardiovascular: normal rate, no gallop/murmur Respiratory/Chest: lungs clear, normal breath sounds, no respiratory distress Abdomen: non tender, soft, hypoactive bowel sounds Extremities: non-tender, normal inspection, no calf tenderness, no swelling Intake and Output 07/24/19 07/25/19 19:00 07:00 Intake Total 990 ml 780 ml Output Total 3125 ml 740 ml Balance -2135 ml 40 ml Intake Oral 150 ml IV Total 990 ml 630 ml Output Urine Total 2700 ml 470 ml Other 425 ml 270 ml Laboratory Tests Test 07/25/19 05:15 White Blood Count 12.3 K/UL (4.8-10.8) H Red Blood Count 3.19 M/UL (4.70-6.10) L Hemoglobin 9.3 G/DL (14.2-18.0) L Hematocrit 27.8 % (42.0-52.0) L Mean Corpuscular Volume 87 FL (80-99) Mean Corpuscular Hemoglobin 29.1 PG (27.0-31.0) Mean Corpuscular Hemoglobin Concent 33.5 G/DL (32.0-36.0) Red Cell Distribution Width 18.1 % (11.6-14.8) H Platelet Count 291 K/UL (150-450) Mean Platelet Volume 7.0 FL (6.5-10.1) Neutrophils (%) (Auto) 80.4 % (45.0-75.0) H Lymphocytes (%) (Auto) 7.4 % (20.0-45.0) L Monocytes (%) (Auto) 7.7 % (1.0-10.0) Eosinophils (%) (Auto) 3.7 % (0.0-3.0) H Basophils (%) (Auto) 0.8 % (0.0-2.0) Sodium Level 139 MMOL/L (136-145) Potassium Level 3.4 MMOL/L (3.5-5.1) L Chloride Level 104 MMOL/L (98-107) Carbon Dioxide Level 25 MMOL/L (21-32) Anion Gap 10 mmol/L (5-15) Blood Urea Nitrogen 35 mg/dL (7-18) H Creatinine 1.4 MG/DL (0.55-1.30) H Estimat Glomerular Filtration Rate mL/min (>60) Glucose Level 127 MG/DL (74-106) H Calcium Level 8.0 MG/DL (8.5-10.1) L Total Bilirubin 0.4 MG/DL (0.2-1.0) Aspartate Amino Transf (AST/SGOT) 36 U/L (15-37) Alanine Aminotransferase (ALT/SGPT) 68 U/L (12-78) Alkaline Phosphatase 308 U/L (46-116) H Total Protein 5.9 G/DL (6.4-8.2) L Albumin 1.6 G/DL (3.4-5.0) L Globulin 4.3 g/dL Albumin/Globulin Ratio 0.4 (1.0-2.7) L Microbiology Date/Time Source Procedure Growth Status 07/23/19 21:23 Blood Blood Culture - Preliminary NO GROWTH AFTER 24 HOURS Resulted 07/23/19 21:15 Blood Blood Culture - Preliminary NO GROWTH AFTER 24 HOURS Resulted 07/22/19 20:00 Sputum Expectorated Gram Stain - Final Resulted 07/22/19 20:00 Sputum Culture - Preliminary Yeast Species Resulted 07/23/19 08:46 Indwelling Cath Urine Culture - Preliminary NO GROWTH AFTER 24 HOURS Resulted Rommel Townsend MD Jul 25, 2019 11:44
[2019-07-25 12:00] VITALS: BP 139/63
[2019-07-25] MEDS ORDERED: Tubing IV Secondary IV ONE (14:00)
[2019-07-25] MEDS ORDERED: D5W 275ml ONE (14:00)
[2019-07-25] MEDS ORDERED: NS 275ml ONE (14:00)
--- NOTE | 2019-07-25 14:00 | NUR ---
NURSE NOTES: Patient/spouse and daughter encouraged patient to perform IS. Per Dr. Townsend, patient put on RA for about 5 mins, rechecked O2 sats, 86%, resumed O2 3LNC. Patient up with PT ambulated in halls at 1215, tolerated fair.
--- NOTE | 2019-07-25 15:39 | Infectious Diseases Prog Note ---
Assessment/Plan Assessment/Plan ASSESSMENT AND PLAN: 1. sepsis, leukocytosis, fevers, ? line, ? pna, chf/edema, ileus - zosyn and vancomycin -day # 6 - f/u on labs, monitor leukocytosis - cultures - negative - CT without abscess or obstruction - d/w Dr. Orellana 2. chf/edema - diuresis, sob better, pulmonary f/u 3. 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 4. History of multiple abdominal surgeries. 5. Hypertension. 6. Blood pressure treatment per primary care team. 7. Hypothyroidism. 8. Ulcerative colitis history. 9. Anemia. 10. History of polycythemia. 11. Allergic to lorazepam. 12. Social history negative. 13. Family history noncontributory. 14. MAR is noted. 15. Case was discussed with RN. 16. Case was discussed with Dr. Herring. 17. Case was discussed with the patient and the patient's . Subjective Constitutional: Denies: fever HEENT: Denies: congestion Respiratory: Denies: shortness of breath Cardiovascular: Denies: chest pain Gastrointestinal/Abdominal: Reports: other - no abdominal pain ; Denies: nausea , vomiting Genitourinary: Denies: dysuria Neurologic: Denies: headache, numbness Psychiatric: Denies: depression Skin: Denies: rash Hematologic: Denies: bleeding Musculoskeletal: Denies: pain Allergies: Coded Allergies: LORAZEPAM (Verified Allergy, Mild, 07/08/19) Pt undergoes altered level of consciousness Objective Vital Signs Last 24 Hour Vital Signs Date Time Temp Pulse Resp B/P (MAP) Pulse Ox O2 Delivery O2 Flow Rate FiO2 07/25/19 14:03 70 18 100 Nasal Cannula 3.0 32 71 18 94 07/25/19 12:00 98.2 70 18 139/63 (88) 98 07/25/19 10:11 134/60 07/25/19 08:00 98.6 78 18 134/60 (84) 95 07/25/19 07:58 94 Nasal Cannula 3.0 32 07/25/19 04:00 97.5 73 18 139/66 (90) 96 07/25/19 00:00 98.6 86 18 122/65 (84) 93 07/24/19 21:00 Nasal Cannula 3.0 07/24/19 20:11 97 Nasal Cannula 3.0 32 07/24/19 20:00 98.2 74 20 115/60 (78) 95 07/24/19 19:53 103 19 99 Nasal Cannula 3.0 32 101 18 97 07/24/19 16:00 98.1 79 18 139/64 (89) 95 Height (Feet): 5 Height (Inches): 7.00 Weight (Pounds): 126 General Appearance: no acute distress HEENT: normocephalic, atraumatic, anicteric, mucous membranes moist Respiratory/Chest: lungs clear, normal breath sounds, no respiratory distress, no accessory muscle use Cardiovascular: normal rate, regular rhythm, no gallop/murmur, no JVD Abdomen: normal bowel sounds, soft, non tender, non distended Genitourinary: other - + pinedo Extremities: no cyanosis, other - + pinedo - urine clear Skin: no rash Neurologic/Psychiatric: 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 Bilateral interstitial edema is probably unchanged allowing for differences in inspiration. Left pleural effusion is again demonstrated. The heart size is normal. Left arm PICC and right chest port catheter again demonstrated. Median sternotomy sutures are again demonstrated. Impression: Probably unchanged bilateral interstitial edema and left pleural effusion, allowing for differences in inspiration, over one day KUB - 07/21/19 Impression: Left upper quadrant small bowel loops. Given evidence of recent surgery, most likely on the basis of postoperative ileus. However, the possibility of small bowel obstruction should also be considered. CT abdomen and pelvis - report noted CT abdomen and pelvis - 07/24/19 - IMPRESSION: Interval abdominal surgery with resection/closure of a right continent ileostomy and formation of a left lower quadrant ileostomy. No evidence of bowel obstruction, abscess or other complications. Development of a trace right pleural effusion and posterior basal atelectasis. Other findings on this exam are unchanged from the previous preoperative study. Status post total proctocolectomy. Status post cholecystectomy. Pulmonary fibrosis. 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 Pinedo catheter in good position. Some degree of chronic cystitis not excluded even wall thickening. Moderate to severe degenerative changes of the lumbar spine as described above. Scoliosis again noted. Microbiology Date/Time Source Procedure Growth Status 07/23/19 21:23 Blood Blood Culture - Preliminary NO GROWTH AFTER 24 HOURS Resulted 07/23/19 21:15 Blood Blood Culture - Preliminary NO GROWTH AFTER 24 HOURS Resulted 07/22/19 20:00 Sputum Expectorated Gram Stain - Final Resulted 07/22/19 20:00 Sputum Culture - Preliminary Yeast Species Resulted 07/23/19 08:46 Indwelling Cath Urine Culture - Preliminary NO GROWTH AFTER 24 HOURS Resulted Laboratory Tests Test 07/25/19 05:15 White Blood Count 12.3 K/UL (4.8-10.8) H Red Blood Count 3.19 M/UL (4.70-6.10) L Hemoglobin 9.3 G/DL (14.2-18.0) L Hematocrit 27.8 % (42.0-52.0) L Mean Corpuscular Volume 87 FL (80-99) Mean Corpuscular Hemoglobin 29.1 PG (27.0-31.0) Mean Corpuscular Hemoglobin Concent 33.5 G/DL (32.0-36.0) Red Cell Distribution Width 18.1 % (11.6-14.8) H Platelet Count 291 K/UL (150-450) Mean Platelet Volume 7.0 FL (6.5-10.1) Neutrophils (%) (Auto) 80.4 % (45.0-75.0) H Lymphocytes (%) (Auto) 7.4 % (20.0-45.0) L Monocytes (%) (Auto) 7.7 % (1.0-10.0) Eosinophils (%) (Auto) 3.7 % (0.0-3.0) H Basophils (%) (Auto) 0.8 % (0.0-2.0) Sodium Level 139 MMOL/L (136-145) Potassium Level 3.4 MMOL/L (3.5-5.1) L Chloride Level 104 MMOL/L (98-107) Carbon Dioxide Level 25 MMOL/L (21-32) Anion Gap 10 mmol/L (5-15) Blood Urea Nitrogen 35 mg/dL (7-18) H Creatinine 1.4 MG/DL (0.55-1.30) H Estimat Glomerular Filtration Rate mL/min (>60) Glucose Level 127 MG/DL (74-106) H Calcium Level 8.0 MG/DL (8.5-10.1) L Total Bilirubin 0.4 MG/DL (0.2-1.0) Aspartate Amino Transf (AST/SGOT) 36 U/L (15-37) Alanine Aminotransferase (ALT/SGPT) 68 U/L (12-78) Alkaline Phosphatase 308 U/L (46-116) H Total Protein 5.9 G/DL (6.4-8.2) L Albumin 1.6 G/DL (3.4-5.0) L Globulin 4.3 g/dL Albumin/Globulin Ratio 0.4 (1.0-2.7) L Current Medications Medications (Trade) Dose Ordered Sig/Evgeny Route PRN Reason Start Time Stop Time Status Last Admin Dose Admin Acetaminophen (Tylenol) 650 mg Q4H PRN ORAL Mild Pain/Temp > 100.2 07/22/19 13:11 08/21/19 13:10 07/24/19 12:17 Acetaminophen/ Hydrocodone Bitart ([place] 5/325) 1 tab Q4H PRN ORAL severe pain 07/25/19 09:00 07/29/19 13:11 07/25/19 13:07 Alprazolam (Xanax) 0.25 mg Q6H PRN ORAL For Anxiety 07/22/19 13:11 07/29/19 13:10 07/24/19 00:23 Amlodipine Besylate (Norvasc) 5 mg Q12H PRN ORAL For High Blood Pressure 07/22/19 13:12 08/21/19 13:11 Ascorbic Acid (Vitamin C) 500 mg Q4H PRN ORAL thick ileostomy effluent 07/22/19 13:12 08/21/19 13:11 Barium Sulfate (Readi-Cat 2) 450 ml NOW PRN ORAL Radiology Procedure 07/24/19 09:00 07/26/19 08:53 Chlorhexidine Gluconate (Val-Hex 2%) 1 applic DAILY@2000 TOPIC 07/22/19 20:00 08/06/19 19:59 07/24/19 20:55 Dextrose 1,000 ml @ 0 mls/hr Q24H PRN IV PN interrupted or unavailable 07/22/19 13:11 08/21/19 13:10 Dextrose (Dextrose 50%) 25 ml Q30M PRN IV Hypoglycemia 07/22/19 13:30 08/07/19 00:00 Dextrose (Dextrose 50%) 50 ml Q30M PRN IV Hypoglycemia 07/22/19 13:30 08/07/19 00:00 Escitalopram Oxalate (Lexapro) 10 mg DAILY ORAL 07/25/19 09:00 08/24/19 08:59 07/25/19 10:10 Fat Emulsion Intravenous 216 ml/Amino Acids/ Electrolytes/ Dextrose 1,800 ml @ 90 mls/hr Q24H IV 07/24/19 00:00 08/23/19 00:00 07/25/19 00:15 Furosemide (Lasix) 40 mg DAILY IV 07/26/19 09:00 08/25/19 08:59 Hydromorphone HCl (Dilaudid) 1 mg Q4H PRN SUBQ BREAKTHROUGH PAIN 07/22/19 13:12 07/29/19 13:11 07/25/19 10:00 Insulin Aspart (NovoLOG) No Dose Q6HR SUBQ 07/22/19 18:00 08/07/19 00:00 07/25/19 13:11 Levalbuterol HCl (Xopenex) 1.25 mg Q6H PRN HHN SOB/WHEEZING 07/22/19 13:13 07/27/19 13:12 07/22/19 21:16 Levalbuterol HCl (Xopenex) 1.25 mg TIDRT HHN 07/22/19 19:00 07/27/19 06:59 07/25/19 14:02 Levothyroxine Sodium (Synthroid) 50 mcg DAILY@0630 ORAL 07/23/19 06:30 08/06/19 06:29 07/25/19 07:22 Lidocaine (Lidoderm 5% PATCH) 1 patch DAILY TDERMAL 07/23/19 09:00 08/20/19 08:59 07/25/19 10:07 Losartan Potassium (Cozaar) 25 mg DAILY ORAL 07/23/19 09:00 08/13/19 08:59 07/25/19 10:11 Mirtazapine (Remeron) 7.5 mg BEDTIME PRN ORAL insomnia 07/24/19 15:15 08/23/19 15:14 Ondansetron HCl (Zofran) 4 mg Q4H PRN IVP Nausea & Vomiting 07/22/19 13:14 08/21/19 13:13 Pantoprazole (Protonix) 40 mg DAILY ORAL 07/23/19 09:00 08/06/19 08:59 07/25/19 10:11 Phytonadione (Vitamin K) 10 mg ONCE A WEEK SUBQ 07/28/19 20:00 08/06/19 19:59 Piperacillin Sod/ Tazobactam Sod 3.375 gm/Sodium Chloride 110 ml @ 27.5 mls/hr EVERY 8 HOURS IVPB 07/22/19 14:00 07/27/19 13:59 07/25/19 14:56 Prednisone (predniSONE) 5 mg DAILY ORAL 07/23/19 09:00 08/06/19 08:59 07/25/19 10:11 Tamsulosin HCl (Flomax) 0.4 mg DAILY ORAL 07/23/19 09:00 08/06/19 08:59 07/25/19 10:11 Tramadol HCl (Ultram) 50 mg Q4H PRN ORAL moderate pain 07/22/19 13:30 07/29/19 13:13 Vancomycin HCl (Vanco rx to dose) 1 ea DAILY PRN MISC Per rx protocol 07/23/19 09:00 08/18/19 15:59 Vancomycin HCl 750 mg/Sodium Chloride 275 ml @ 183.333 mls/hr Q12HR@1000,2200 IVPB 07/22/19 22:00 07/27/19 09:59 07/25/19 10:10 Paras Ybarra MD Jul 25, 2019 15:39
[2019-07-25 16:00] VITALS: BP 127/63
--- NOTE | 2019-07-25 19:33 | NUR ---
HAND-OFF: Report given to Sam RN. Outputs: FC: 1600 ml Natalee Ileostomy: 500 ml
--- NOTE | 2019-07-25 19:35 | NUR ---
Pt is asleep. Breathing is even and non labored. No acute distress noted. is at bed side and says that pt had visitors-daughter and son-in-law- and had a happy with with them. Afterwards he got tired and fell asleep. TPN is running via port-a-cath. PICC is on PHILIP. Sites are intact. Will continue to monitor.
--- NOTE | 2019-07-25 19:35 | NUR ---
NURSE NOTES: Receive a report from DAVID Mckeon.
[2019-07-25 20:00] VITALS: BP 117/63
[2019-07-25] MEDS: Dyna-Hex 2% Top Sol 2oz TOPIC SCH (20:56)
--- NOTE | 2019-07-25 21:00 | NUR ---
NURSE NOTES: Request for pain medication d/t back and whole body ache. Given pain medication. Stoma pink and brown thick output drained via ileostomy pouch. No leak noted. Surgery site in mid-line is open to the air, clean. Will continue to monitor.
--- NOTE | 2019-07-25 22:50 | NUR ---
NURSE NOTES: Apply warm pad for back pain with pain medication. No acute distress noted. On O2 3L NC. Will continue to monitor.
[2019-07-26] VITALS (7 sets, daily range): BP systolic 114–141; BP diastolic 59–66
--- NOTE | 2019-07-26 | NUR ---
NURSE NOTES: Pt is asleep without respiratory distress. Will continue to monitor.
[2019-07-26] MEDS: Fat Emulsion Iv 20% 216 ML in Tpn 1,584 ML IV SCH ×2 (00:20→23:06)
[2019-07-26] MEDS: HYDROcodone/Acetamin 5/325 tab ORAL PRN ×4 (00:47→19:49)
[2019-07-26] MEDS: Piperacillin/Tazobactam 3.375 GM in NS 110 ML IVPB SCH ×3 (05:33→21:59)
[2019-07-26] MEDS: NovoLOG Insulin Flexpen SUBQ SCH ×5 (05:48→23:22)
--- NOTE | 2019-07-26 06:00 | NUR ---
NURSE NOTES: Pt has been getting Dilaudid 1mg sc and [place] 5/325 1 t po alternatively. After [place], pt is in asleep. Will continue to monitor. 12hr output urine: 500ml Ileostomy: 220ml
[2019-07-26 06:19] LABS: BASOPHILS % (AUTO) 0.8 % (0.0-2.0); EOSINOPHILS % (AUTO) 2.4 % (0.0-3.0); HEMATOCRIT 28.5 % (42.0-52.0); HEMOGLOBIN 9.4 G/DL (14.2-18.0); LYMPHOCYTES % (AUTO) 6.5 % (20.0-45.0); MEAN CORPUSCULAR VOLUME 87 FL (80-99); MONOCYTES % (AUTO) 8.5 % (1.0-10.0); NEUTROPHILS % (AUTO) 81.8 % (45.0-75.0); PLATELET COUNT 357 K/UL (150-450); RED BLOOD COUNT 3.28 M/UL (4.70-6.10); RED CELL DISTRIBUTION WIDTH 17.8 % (11.6-14.8)
[2019-07-26 06:39] LABS: ALANINE AMINOTRANSFERASE 74 U/L (12-78); ALBUMIN 1.8 G/DL (3.4-5.0); ALBUMIN/GLOBULIN RATIO 0.4 (1.0-2.7); ALKALINE PHOSPHATASE 404 U/L (46-116); ANION GAP 11 mmol/L (5-15); ASPARTATE AMINO TRANSFERASE 44 U/L (15-37); BILIRUBIN,TOTAL 0.6 MG/DL (0.2-1.0); BLOOD UREA NITROGEN 32 mg/dL (7-18); CALCIUM 8.1 MG/DL (8.5-10.1); CARBON DIOXIDE 24 MMOL/L (21-32); CHLORIDE 104 MMOL/L (98-107); CREATININE 1.3 MG/DL (0.55-1.30); POTASSIUM 3.8 MMOL/L (3.5-5.1); SODIUM 139 MMOL/L (136-145)
[2019-07-26] MEDS: HYDROmorphone 1mg/ml Carpuject SUBQ PRN ×2 (07:11→18:01)
--- NOTE | 2019-07-26 07:23 | NUR ---
NURSE NOTES: Report received from o RN, rounds made. Patient resting in semi-fowlers position in bed, alert/oriented x4, calm. No distress on O2 3LNC. Denies need for pain medication at this time. Pain 6/10 (generalized). Right subclavian/LPICC dressing CDI. TPN infusing at 90 ml/hr to right subclavian. Left Natalee Ileostomy intact, yellow green output noted. Orin to abdomen LEAD QUALITY TECHNICIAN, CDI. FC in place, draining y/cl urine to gravity. Spouse at bedside. Bilateral SCDs off. Call light in reach, bed in lowest position, will continue to monitor.
--- NOTE | 2019-07-26 07:30 | NUR ---
HAND-OFF: Report given to DAVID Mckeon. Round is done. Pt is asleep after pain medication. No respiratory distress noted.
[2019-07-26] MEDS: Levalbuterol Inh UD 1.25mg/0.5ml HHN SCH ×3 (08:02→20:13)
--- NOTE | 2019-07-26 09:57 | General Progress Note ---
Progress Note Progress Note AVSS Tolerated small amount full liquid diet. Abdomen soft, healing well, stoma stable Urine 2100 Ileostomy 720 WBC 12,000 (down) BUN down 32 Cr down 1.3 albumin 1.8 (up) Mg 1.5 Imp: slowly improving Plan: continue full liquid diet remove urinary [place] catheter Mg infusions Pako Orellana MD Jul 26, 2019 09:57
[2019-07-26] MEDS ORDERED: Levalbuterol Inh UD 1.25mg/0.5ml HHN PRN (10:00)
[2019-07-26] MEDS: Vancomycin 750 MG in NS 275 ML IVPB SCH (10:25)
[2019-07-26] MEDS: Losartan 25mg tab ORAL SCH (10:27)
[2019-07-26] MEDS: Tamsulosin 0.4mg cap ORAL SCH (10:27)
--- NOTE | 2019-07-26 11:17 | Pulmonology Progress Note ---
Assessment/Plan Assessment/Plan IMPRESSION: 1. Fever, now resolved. 2. Resolving right middle lobe infiltrate. 3. Multiple comorbidities including use of steroids, ulcerative colitis. 4. Suspect interstitial pulmonary edema; now has negative 2L over last 24 hours on IV lasix infusion DISCUSSION: Off Lasix gtt; will continue daily IV Lasix Discussed with surgery TPN [place] and Xanax for anxiety/pain Will follow Oneal Allred M.D. Subjective Interval Events: None new Constitutional: Reports: no symptoms HEENT: Repors: no symptoms Respiratory: Reports: no symptoms Cardiovascular: Reports: no symptoms Gastrointestinal/Abdominal: Reports: no symptoms Genitourinary: Reports: no symptoms Allergies: Coded Allergies: LORAZEPAM (Verified Allergy, Mild, 07/08/19) Pt undergoes altered level of consciousness Objective Last 24 Hour Vital Signs Date Time Temp Pulse Resp B/P (MAP) Pulse Ox O2 Delivery O2 Flow Rate FiO2 07/26/19 10:27 128/59 07/26/19 08:12 83 16 98 Nasal Cannula 3.0 32 82 16 93 07/26/19 08:10 3 Nasal Cannula 3.0 32 07/26/19 08:00 98.8 82 18 128/59 (82) 94 07/26/19 04:00 99.2 84 18 139/64 (89) 93 07/26/19 00:00 99.2 98 18 114/65 (81) 95 07/25/19 21:03 89 17 98 Nasal Cannula 3.0 32 86 18 92 07/25/19 21:02 92 Nasal Cannula 3.0 32 07/25/19 21:00 Nasal Cannula 3.0 07/25/19 20:00 98.4 78 18 117/63 (81) 97 07/25/19 16:00 98.1 75 18 127/63 (84) 96 07/25/19 14:03 70 18 100 Nasal Cannula 3.0 32 71 18 94 07/25/19 12:00 98.2 70 18 139/63 (88) 98 Intake and Output 07/25/19 07/26/19 19:00 07:00 Intake Total 1280 ml 585 ml Output Total 2100 ml Balance -820 ml 585 ml Intake Oral 200 ml IV Total 1080 ml 585 ml Output Urine Total 1600 ml Other 500 ml General Appearance: no acute distress HEENT: normocephalic Respiratory/Chest: chest wall non-tender, lungs clear Cardiovascular: normal peripheral pulses, normal rate Abdomen: normal bowel sounds Microbiology Date/Time Source Procedure Growth Status 07/23/19 21:23 Blood Blood Culture - Preliminary NO GROWTH AFTER 48 HOURS Resulted 07/23/19 21:15 Blood Blood Culture - Preliminary NO GROWTH AFTER 48 HOURS Resulted Laboratory Tests 07/26/19 05:45: White Blood Count 12.0H, Red Blood Count 3.28L, Hemoglobin 9.4L, Hematocrit 28.5L, Mean Corpuscular Volume 87, Mean Corpuscular Hemoglobin 28.8, Mean Corpuscular Hemoglobin Concent 33.1, Red Cell Distribution Width 17.8H, Platelet Count 357, Mean Platelet Volume 6.6, Neutrophils (%) (Auto) 81.8H, Lymphocytes (%) (Auto) 6.5L, Monocytes (%) (Auto) 8.5, Eosinophils (%) (Auto) 2.4, Basophils (%) (Auto) 0.8, Sodium Level 139, Potassium Level 3.8, Chloride Level 104, Carbon Dioxide Level 24, Anion Gap 11, Blood Urea Nitrogen 32H, Creatinine 1.3, Estimat Glomerular Filtration Rate , Glucose Level 107H, Calcium Level 8.1L, Magnesium Level 1.5L, Total Bilirubin 0.6, Aspartate Amino Transf (AST/SGOT) 44H, Alanine Aminotransferase (ALT/SGPT) 74, Alkaline Phosphatase 404H, Total Protein 6.1L, Albumin 1.8L, Globulin 4.3, Albumin/ Globulin Ratio 0.4L Current Medications Medications (Trade) Dose Ordered Sig/Evgeny Route PRN Reason Start Time Stop Time Status Last Admin Dose Admin Acetaminophen (Tylenol) 650 mg Q4H PRN ORAL Mild Pain/Temp > 100.2 07/22/19 13:11 08/21/19 13:10 07/24/19 12:17 Acetaminophen/ Hydrocodone Bitart ([place] 5/325) 1 tab Q4H PRN ORAL severe pain 07/25/19 09:00 07/29/19 13:11 07/26/19 10:34 Alprazolam (Xanax) 0.25 mg Q6H PRN ORAL For Anxiety 07/22/19 13:11 07/29/19 13:10 07/24/19 00:23 Amlodipine Besylate (Norvasc) 5 mg Q12H PRN ORAL For High Blood Pressure 07/22/19 13:12 08/21/19 13:11 Ascorbic Acid (Vitamin C) 500 mg Q4H PRN ORAL thick ileostomy effluent 07/22/19 13:12 08/21/19 13:11 Chlorhexidine Gluconate (Val-Hex 2%) 1 applic DAILY@2000 TOPIC 07/22/19 20:00 08/06/19 19:59 07/25/19 20:56 Dextrose 1,000 ml @ 0 mls/hr Q24H PRN IV PN interrupted or unavailable 07/22/19 13:11 08/21/19 13:10 Dextrose (Dextrose 50%) 25 ml Q30M PRN IV Hypoglycemia 07/22/19 13:30 08/07/19 00:00 Dextrose (Dextrose 50%) 50 ml Q30M PRN IV Hypoglycemia 07/22/19 13:30 08/07/19 00:00 Escitalopram Oxalate (Lexapro) 10 mg DAILY ORAL 07/25/19 09:00 08/24/19 08:59 07/26/19 10:27 Fat Emulsion Intravenous 216 ml/Amino Acids/ Electrolytes/ Dextrose 1,800 ml @ 90 mls/hr Q24H IV 07/24/19 00:00 08/23/19 00:00 07/26/19 00:20 Furosemide (Lasix) 40 mg DAILY IV 07/26/19 09:00 08/25/19 08:59 07/26/19 10:26 Hydromorphone HCl (Dilaudid) 1 mg Q6H PRN SUBQ Severe Breakthru Pain (>7) 07/26/19 13:00 07/29/19 12:59 Insulin Aspart (NovoLOG) No Dose Q6HR SUBQ 07/22/19 18:00 08/07/19 00:00 07/25/19 17:06 Levalbuterol HCl (Xopenex) 1.25 mg Q6H PRN HHN SOB/WHEEZING 07/26/19 10:00 07/31/19 09:59 Levalbuterol HCl (Xopenex) 1.25 mg TIDRT HHN 07/26/19 13:00 07/31/19 00:59 Levothyroxine Sodium (Synthroid) 50 mcg DAILY@0630 ORAL 07/23/19 06:30 08/06/19 06:29 07/26/19 06:30 Lidocaine (Lidoderm 5% PATCH) 1 patch DAILY TDERMAL 07/23/19 09:00 08/20/19 08:59 07/26/19 10:24 Losartan Potassium (Cozaar) 25 mg DAILY ORAL 07/23/19 09:00 08/13/19 08:59 07/26/19 10:27 Magnesium Sulfate 100 ml @ 100 mls/hr Q1H IVPB 07/26/19 10:00 07/26/19 13:59 07/26/19 10:24 Mirtazapine (Remeron) 7.5 mg BEDTIME PRN ORAL insomnia 07/24/19 15:15 08/23/19 15:14 Ondansetron HCl (Zofran) 4 mg Q4H PRN IVP Nausea & Vomiting 07/22/19 13:14 08/21/19 13:13 Pantoprazole (Protonix) 40 mg DAILY ORAL 07/23/19 09:00 08/06/19 08:59 07/26/19 10:28 Phytonadione (Vitamin K) 10 mg ONCE A WEEK SUBQ 07/28/19 20:00 08/06/19 19:59 Piperacillin Sod/ Tazobactam Sod 3.375 gm/Sodium Chloride 110 ml @ 27.5 mls/hr EVERY 8 HOURS IVPB 07/25/19 22:00 07/30/19 21:59 07/26/19 05:33 Prednisone (predniSONE) 5 mg DAILY ORAL 07/23/19 09:00 08/06/19 08:59 07/26/19 10:27 Tamsulosin HCl (Flomax) 0.4 mg DAILY ORAL 07/23/19 09:00 08/06/19 08:59 07/26/19 10:27 Tramadol HCl (Ultram) 50 mg Q4H PRN ORAL moderate pain 07/22/19 13:30 07/29/19 13:13 Vancomycin HCl (Vanco rx to dose) 1 ea DAILY PRN MISC Per rx protocol 07/25/19 15:45 08/20/19 22:44 Vancomycin HCl 750 mg/Sodium Chloride 275 ml @ 183.333 mls/hr Q12HR@1000,2200 IVPB 07/25/19 22:00 07/30/19 09:59 07/26/19 10:25 Oneal Allred MD Jul 26, 2019 11:17
--- NOTE | 2019-07-26 12:29 | Infectious Diseases Prog Note ---
Assessment/Plan Assessment/Plan ASSESSMENT AND PLAN: 1. sepsis, leukocytosis, fevers, ? line, ? pna, chf/edema, ileus - zosyn day # 7, discontinue vancomycin - f/u on labs, monitor mild leukocytosis - cultures - negative - CT without abscess or obstruction 2. chf/edema - diuresis, sob better, pulmonary f/u 3. 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 4. History of multiple abdominal surgeries. 5. Hypertension. 6. Blood pressure treatment per primary care team. 7. Hypothyroidism. 8. Ulcerative colitis history. 9. Anemia. 10. History of polycythemia. 11. Allergic to lorazepam. 12. Social history negative. 13. Family history noncontributory. 14. MAR is noted. 15. Case was discussed with RN. 16. Case was discussed with Dr. Herring. 17. Case was discussed with the patient and the patient's . Subjective Constitutional: Denies: fever HEENT: Denies: congestion Respiratory: Denies: shortness of breath Cardiovascular: Denies: chest pain Gastrointestinal/Abdominal: Denies: nausea, vomiting Genitourinary: Reports: other - pinedo removed Neurologic: Denies: headache Psychiatric: Denies: depression Skin: Denies: rash Hematologic: Denies: bleeding Musculoskeletal: Denies: pain Allergies: Coded Allergies: LORAZEPAM (Verified Allergy, Mild, 07/08/19) Pt undergoes altered level of consciousness Objective Vital Signs Last 24 Hour Vital Signs Date Time Temp Pulse Resp B/P (MAP) Pulse Ox O2 Delivery O2 Flow Rate FiO2 07/26/19 10:27 128/59 07/26/19 08:12 83 16 98 Nasal Cannula 3.0 32 82 16 93 07/26/19 08:10 3 Nasal Cannula 3.0 32 07/26/19 08:00 98.8 82 18 128/59 (82) 94 07/26/19 04:00 99.2 84 18 139/64 (89) 93 07/26/19 00:00 99.2 98 18 114/65 (81) 95 07/25/19 21:03 89 17 98 Nasal Cannula 3.0 32 86 18 92 07/25/19 21:02 92 Nasal Cannula 3.0 32 07/25/19 21:00 Nasal Cannula 3.0 07/25/19 20:00 98.4 78 18 117/63 (81) 97 07/25/19 16:00 98.1 75 18 127/63 (84) 96 07/25/19 14:03 70 18 100 Nasal Cannula 3.0 32 71 18 94 Height (Feet): 5 Height (Inches): 7.00 Weight (Pounds): 126 General Appearance: no acute distress HEENT: normocephalic, atraumatic, anicteric, mucous membranes moist Respiratory/Chest: lungs clear, normal breath sounds, no respiratory distress, no accessory muscle use Cardiovascular: normal rate, regular rhythm, no gallop/murmur, no JVD Abdomen: normal bowel sounds, soft, non tender, no organomegaly, non distended Genitourinary: other - no pinedo Extremities: no cyanosis Skin: no rash Neurologic/Psychiatric: health information tech II-XII grossly normal, alert, oriented x 3, responsive Lymphatic: no neck adenopathy Musculoskeletal: no effusion Objective Chest x-ray - 07/21/19 - Comparison: 07/20/2019 Findings: Better inspiration currently. Bilateral interstitial edema is probably unchanged allowing for differences in inspiration. Left pleural effusion is again demonstrated. The heart size is normal. Left arm PICC and right chest port catheter again demonstrated. Median sternotomy sutures are again demonstrated. Impression: Probably unchanged bilateral interstitial edema and left pleural effusion, allowing for differences in inspiration, over one day KUB - 07/21/19 Impression: Left upper quadrant small bowel loops. Given evidence of recent surgery, most likely on the basis of postoperative ileus. However, the possibility of small bowel obstruction should also be considered. CT abdomen and pelvis - report noted CT abdomen and pelvis - 07/24/19 - IMPRESSION: Interval abdominal surgery with resection/closure of a right continent ileostomy and formation of a left lower quadrant ileostomy. No evidence of bowel obstruction, abscess or other complications. Development of a trace right pleural effusion and posterior basal atelectasis. Other findings on this exam are unchanged from the previous preoperative study. Status post total proctocolectomy. Status post cholecystectomy. Pulmonary fibrosis. 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 Pinedo catheter in good position. Some degree of chronic cystitis not excluded even wall thickening. Moderate to severe degenerative changes of the lumbar spine as described above. Scoliosis again noted. Microbiology Date/Time Source Procedure Growth Status 07/23/19 21:23 Blood Blood Culture - Preliminary NO GROWTH AFTER 48 HOURS Resulted 07/23/19 21:15 Blood Blood Culture - Preliminary NO GROWTH AFTER 48 HOURS Resulted Laboratory Tests Test 07/26/19 05:45 White Blood Count 12.0 K/UL (4.8-10.8) H Red Blood Count 3.28 M/UL (4.70-6.10) L Hemoglobin 9.4 G/DL (14.2-18.0) L Hematocrit 28.5 % (42.0-52.0) L Mean Corpuscular Volume 87 FL (80-99) Mean Corpuscular Hemoglobin 28.8 PG (27.0-31.0) Mean Corpuscular Hemoglobin Concent 33.1 G/DL (32.0-36.0) Red Cell Distribution Width 17.8 % (11.6-14.8) H Platelet Count 357 K/UL (150-450) Mean Platelet Volume 6.6 FL (6.5-10.1) Neutrophils (%) (Auto) 81.8 % (45.0-75.0) H Lymphocytes (%) (Auto) 6.5 % (20.0-45.0) L Monocytes (%) (Auto) 8.5 % (1.0-10.0) Eosinophils (%) (Auto) 2.4 % (0.0-3.0) Basophils (%) (Auto) 0.8 % (0.0-2.0) Sodium Level 139 MMOL/L (136-145) Potassium Level 3.8 MMOL/L (3.5-5.1) Chloride Level 104 MMOL/L (98-107) Carbon Dioxide Level 24 MMOL/L (21-32) Anion Gap 11 mmol/L (5-15) Blood Urea Nitrogen 32 mg/dL (7-18) H Creatinine 1.3 MG/DL (0.55-1.30) Estimat Glomerular Filtration Rate mL/min (>60) Glucose Level 107 MG/DL (74-106) H Calcium Level 8.1 MG/DL (8.5-10.1) L Magnesium Level 1.5 MG/DL (1.8-2.4) L Total Bilirubin 0.6 MG/DL (0.2-1.0) Aspartate Amino Transf (AST/SGOT) 44 U/L (15-37) H Alanine Aminotransferase (ALT/SGPT) 74 U/L (12-78) Alkaline Phosphatase 404 U/L (46-116) H Total Protein 6.1 G/DL (6.4-8.2) L Albumin 1.8 G/DL (3.4-5.0) L Globulin 4.3 g/dL Albumin/Globulin Ratio 0.4 (1.0-2.7) L Current Medications Medications (Trade) Dose Ordered Sig/Evgeny Route PRN Reason Start Time Stop Time Status Last Admin Dose Admin Acetaminophen (Tylenol) 650 mg Q4H PRN ORAL Mild Pain/Temp > 100.2 07/22/19 13:11 08/21/19 13:10 07/24/19 12:17 Acetaminophen/ Hydrocodone Bitart ([place] 5/325) 1 tab Q4H PRN ORAL severe pain 07/25/19 09:00 07/29/19 13:11 07/26/19 10:34 Alprazolam (Xanax) 0.25 mg Q6H PRN ORAL For Anxiety 07/22/19 13:11 07/29/19 13:10 07/24/19 00:23 Amlodipine Besylate (Norvasc) 5 mg Q12H PRN ORAL For High Blood Pressure 07/22/19 13:12 08/21/19 13:11 Ascorbic Acid (Vitamin C) 500 mg Q4H PRN ORAL thick ileostomy effluent 07/22/19 13:12 08/21/19 13:11 Chlorhexidine Gluconate (Val-Hex 2%) 1 applic DAILY@2000 TOPIC 07/22/19 20:00 08/06/19 19:59 07/25/19 20:56 Dextrose 1,000 ml @ 0 mls/hr Q24H PRN IV PN interrupted or unavailable 07/22/19 13:11 08/21/19 13:10 Dextrose (Dextrose 50%) 25 ml Q30M PRN IV Hypoglycemia 07/22/19 13:30 08/07/19 00:00 Dextrose (Dextrose 50%) 50 ml Q30M PRN IV Hypoglycemia 07/22/19 13:30 08/07/19 00:00 Escitalopram Oxalate (Lexapro) 10 mg DAILY ORAL 07/25/19 09:00 08/24/19 08:59 07/26/19 10:27 Fat Emulsion Intravenous 216 ml/Amino Acids/ Electrolytes/ Dextrose 1,800 ml @ 90 mls/hr Q24H IV 07/24/19 00:00 08/23/19 00:00 07/26/19 00:20 Furosemide (Lasix) 40 mg DAILY IV 07/26/19 09:00 08/25/19 08:59 07/26/19 10:26 Hydromorphone HCl (Dilaudid) 1 mg Q6H PRN SUBQ Severe Breakthru Pain (>7) 07/26/19 13:00 07/29/19 12:59 Insulin Aspart (NovoLOG) No Dose Q6HR SUBQ 07/22/19 18:00 08/07/19 00:00 07/26/19 12:21 Levalbuterol HCl (Xopenex) 1.25 mg Q6H PRN HHN SOB/WHEEZING 07/26/19 10:00 07/31/19 09:59 Levalbuterol HCl (Xopenex) 1.25 mg TIDRT HHN 07/26/19 13:00 07/31/19 00:59 Levothyroxine Sodium (Synthroid) 50 mcg DAILY@0630 ORAL 07/23/19 06:30 08/06/19 06:29 07/26/19 06:30 Lidocaine (Lidoderm 5% PATCH) 1 patch DAILY TDERMAL 07/23/19 09:00 08/20/19 08:59 07/26/19 10:24 Losartan Potassium (Cozaar) 25 mg DAILY ORAL 07/23/19 09:00 08/13/19 08:59 07/26/19 10:27 Magnesium Sulfate 100 ml @ 100 mls/hr Q1H IVPB 07/26/19 10:00 07/26/19 13:59 07/26/19 11:49 Mirtazapine (Remeron) 7.5 mg BEDTIME PRN ORAL insomnia 07/24/19 15:15 08/23/19 15:14 Ondansetron HCl (Zofran) 4 mg Q4H PRN IVP Nausea & Vomiting 07/22/19 13:14 08/21/19 13:13 Pantoprazole (Protonix) 40 mg DAILY ORAL 07/23/19 09:00 08/06/19 08:59 07/26/19 10:28 Phytonadione (Vitamin K) 10 mg ONCE A WEEK SUBQ 07/28/19 20:00 08/06/19 19:59 Piperacillin Sod/ Tazobactam Sod 3.375 gm/Sodium Chloride 110 ml @ 27.5 mls/hr EVERY 8 HOURS IVPB 07/25/19 22:00 07/30/19 21:59 07/26/19 05:33 Prednisone (predniSONE) 5 mg DAILY ORAL 07/23/19 09:00 08/06/19 08:59 07/26/19 10:27 Tamsulosin HCl (Flomax) 0.4 mg DAILY ORAL 07/23/19 09:00 08/06/19 08:59 07/26/19 10:27 Tramadol HCl (Ultram) 50 mg Q4H PRN ORAL moderate pain 07/22/19 13:30 07/29/19 13:13 Vancomycin HCl (Vanco rx to dose) 1 ea DAILY PRN MISC Per rx protocol 07/25/19 15:45 08/20/19 22:44 Vancomycin HCl 750 mg/Sodium Chloride 275 ml @ 183.333 mls/hr Q12HR@1000,2200 IVPB 07/25/19 22:00 07/30/19 09:59 07/26/19 10:25 Paras Ybarra MD Jul 26, 2019 12:29
--- NOTE | 2019-07-26 14:45 | NUR ---
PT Note Attempted to see patient for treatment but patient adamantly refused, even with encouragement from his RN, , daughter and son-in-law who is a physician. "I'm taking a day off."
--- NOTE | 2019-07-26 17:38 | NUR ---
HAND-OFF: Report given to Ivory HERNANDEZ. Endorsed outputs from earlier during shift, flowsheet provided/reviewed. Addendum: 07/26/19 at 1756 by Linda Chan RN Endorsed blood sugar for 1800 needs to be done.
--- NOTE | 2019-07-26 17:40 | NUR ---
NURSE NOTES: Received patient from Linda HERNANDEZ. Patient is stable in bed awake and able to verbalize needs. C/O pain in abdominal area and asks for dilaudid. Patient is in good mood. Ileo bag intact, brown liquid output noted. Patient repositioned and is sitting up in high fowlers position. Patient encouraged to use call light for assistance, verbalized understanding. patient is in bed in locked and lowest position with call light within reach and trapeze overhead. All needs met at this time. Will continue to monitor.
--- NOTE | 2019-07-26 19:00 | NUR ---
NURSE NOTES: Ileo: 275cc brown liquid output. UO: 705cc yellow urine. Patient did not want to eat dinner tonight. TPN running as ordered. CONNIE calvinl.
--- NOTE | 2019-07-26 19:30 | NUR ---
HAND-OFF: Report given to Sofie HERNANDEZ. patient is stable.
--- NOTE | 2019-07-26 19:31 | NUR ---
NURSE NOTES: Received report & pt from DAVID Dodson. Pt lying in bed, a&ox4, on O2 via NC @ 3LPM, family members at bedside. No s/s of acute distress & c/o 7/10 pain. Will give PRN pain med. Natalee ileostomy intact. Noted neil on abdominal area open to air. Right subclavian port-a-cath intact with TPN running as ordered. PICC line intact. Plan of care discussed.
--- NOTE | 2019-07-26 19:40 | NUR ---
NURSE NOTES: Pt ambulated from bed to nurse's station & back to bed with assist. Able to tolerate well. In no distress.
[2019-07-26] MEDS: Dyna-Hex 2% Top Sol 2oz TOPIC SCH (20:17)
[2019-07-27] MEDS: HYDROmorphone 1mg/ml Carpuject SUBQ PRN ×2 (01:49→19:39)
[2019-07-27 04:00] VITALS: BP 129/60
[2019-07-27] MEDS: Piperacillin/Tazobactam 3.375 GM in NS 110 ML IVPB SCH (05:34)
[2019-07-27] MEDS: HYDROcodone/Acetamin 5/325 tab ORAL PRN ×3 (05:35→17:05)
[2019-07-27] MEDS: NovoLOG Insulin Flexpen SUBQ SCH ×3 (05:40→18:50)
[2019-07-27 05:57] LABS: BASOPHILS % (AUTO) 1.5 % (0.0-2.0); EOSINOPHILS % (AUTO) 3.1 % (0.0-3.0); HEMATOCRIT 28.9 % (42.0-52.0); HEMOGLOBIN 9.6 G/DL (14.2-18.0); LYMPHOCYTES % (AUTO) 7.3 % (20.0-45.0); MEAN CORPUSCULAR VOLUME 86 FL (80-99); MONOCYTES % (AUTO) 10.5 % (1.0-10.0); NEUTROPHILS % (AUTO) 77.7 % (45.0-75.0); PLATELET COUNT 387 K/UL (150-450); RED BLOOD COUNT 3.35 M/UL (4.70-6.10); WHITE BLOOD COUNT 10.8 K/UL (4.8-10.8)
[2019-07-27 06:16] LABS: ALANINE AMINOTRANSFERASE 59 U/L (12-78); ALBUMIN 1.8 G/DL (3.4-5.0); ALBUMIN/GLOBULIN RATIO 0.4 (1.0-2.7); ALKALINE PHOSPHATASE 376 U/L (46-116); ANION GAP 9 mmol/L (5-15); ASPARTATE AMINO TRANSFERASE 28 U/L (15-37); BILIRUBIN,TOTAL 0.5 MG/DL (0.2-1.0); BLOOD UREA NITROGEN 32 mg/dL (7-18); CALCIUM 8.2 MG/DL (8.5-10.1); CARBON DIOXIDE 26 MMOL/L (21-32); CHLORIDE 104 MMOL/L (98-107); CREATININE 1.3 MG/DL (0.55-1.30); PHOSPHORUS 3.5 MG/DL (2.5-4.9); POTASSIUM 3.6 MMOL/L (3.5-5.1); SODIUM 138 MMOL/L (136-145)
--- NOTE | 2019-07-27 07:30 | NUR ---
HAND-OFF: Report given to DAVID Navarro. Rounds done.
--- NOTE | 2019-07-27 07:45 | NUR ---
NURSE NOTES: Received report from Sofie HERNANDEZ. Patient is awake and oriented, no acute distress noted, reporting pain and soreness with movement, patient's tray at bedside but patient does not want to eat. PHILIP PICC intact, patent, right upper chest port a cath running TPN per order. External ileostomy appliance in place with leaking noted, will change. Patient and updated on plan of care for the day. Side rails upx3, bed low and locked, call light within reach.
[2019-07-27] MEDS: Levalbuterol Inh UD 1.25mg/0.5ml HHN SCH ×3 (08:38→19:58)
--- NOTE | 2019-07-27 08:40 | NUR ---
NURSE NOTES: External ileostomy appliance changed.
[2019-07-27 09:17] VITALS: BP 150/68
[2019-07-27] MEDS: Losartan 25mg tab ORAL SCH (09:22)
[2019-07-27] MEDS: Tamsulosin 0.4mg cap ORAL SCH (09:22)
--- NOTE | 2019-07-27 10:00 | Pulmonology Progress Note ---
Assessment/Plan Assessment/Plan IMPRESSION: 1. Fever, now resolved. 2. Resolving right middle lobe infiltrate. 3. Multiple comorbidities including use of steroids, ulcerative colitis. 4. Pulmonary edema; resolved DISCUSSION: Off Lasix gtt; will continue daily IV Lasix Discussed with surgery TPN [place] and Xanax for anxiety/pain Will follow Oneal Allred M.D. Subjective Interval Events: None new Constitutional: Reports: no symptoms HEENT: Repors: no symptoms Respiratory: Reports: no symptoms Cardiovascular: Reports: no symptoms Gastrointestinal/Abdominal: Reports: no symptoms Allergies: Coded Allergies: LORAZEPAM (Verified Allergy, Mild, 07/08/19) Pt undergoes altered level of consciousness Objective Last 24 Hour Vital Signs Date Time Temp Pulse Resp B/P (MAP) Pulse Ox O2 Delivery O2 Flow Rate FiO2 07/27/19 09:22 150/68 07/27/19 09:17 102.3 94 20 150/68 (95) 93 07/27/19 08:35 83 18 96 Nasal Cannula 3.0 32 82 18 95 07/27/19 08:35 96 Nasal Cannula 3.0 32 07/27/19 04:00 98.0 70 16 129/60 (83) 95 07/26/19 23:26 98.1 69 16 127/59 (81) 96 07/26/19 21:00 Nasal Cannula 3.0 07/26/19 20:14 95 Nasal Cannula 3.0 32 07/26/19 20:13 88 18 99 Nasal Cannula 3.0 32 89 18 94 07/26/19 19:56 97.9 74 18 141/66 (91) 93 07/26/19 16:00 98.8 70 16 141/65 (90) 96 07/26/19 12:00 99.6 79 16 125/59 (81) 95 07/26/19 11:00 Nasal Cannula 3.0 07/26/19 10:27 128/59 Intake and Output 07/26/19 07/27/19 19:00 07:00 Intake Total 1050 ml 1180 ml Output Total 580 ml 800 ml Balance 470 ml 380 ml Intake Oral 60 ml 280 ml IV Total 990 ml 900 ml Output Urine Total 455 ml 500 ml Other 125 ml 300 ml General Appearance: no acute distress HEENT: normocephalic Respiratory/Chest: chest wall non-tender, lungs clear Cardiovascular: normal peripheral pulses Abdomen: soft, non tender Laboratory Tests 07/27/19 05:10: White Blood Count 10.8, Red Blood Count 3.35L, Hemoglobin 9.6L, Hematocrit 28.9L , Mean Corpuscular Volume 86, Mean Corpuscular Hemoglobin 28.6, Mean Corpuscular Hemoglobin Concent 33.1, Red Cell Distribution Width 18.0H, Platelet Count 387, Mean Platelet Volume 6.6, Neutrophils (%) (Auto) 77.7H, Lymphocytes (%) (Auto) 7.3L, Monocytes (%) (Auto) 10.5H, Eosinophils (%) (Auto) 3.1H, Basophils (%) (Auto) 1.5, Sodium Level 138, Potassium Level 3.6, Chloride Level 104, Carbon Dioxide Level 26, Anion Gap 9, Blood Urea Nitrogen 32H, Creatinine 1.3, Estimat Glomerular Filtration Rate , Glucose Level 105, Calcium Level 8.2L, Phosphorus Level 3.5, Magnesium Level 2.2, Total Bilirubin 0.5, Aspartate Amino Transf (AST/SGOT) 28, Alanine Aminotransferase (ALT/SGPT) 59, Alkaline Phosphatase 376H, Total Protein 6.2L, Albumin 1.8L, Globulin 4.4, Albumin/Globulin Ratio 0.4L Current Medications Medications (Trade) Dose Ordered Sig/Evgeny Route PRN Reason Start Time Stop Time Status Last Admin Dose Admin Acetaminophen (Tylenol) 650 mg Q4H PRN ORAL Mild Pain/Temp > 100.2 07/22/19 13:11 08/21/19 13:10 07/27/19 09:22 Acetaminophen/ Hydrocodone Bitart ([place] 5/325) 1 tab Q4H PRN ORAL severe pain 07/25/19 09:00 07/29/19 13:11 07/27/19 05:35 Alprazolam (Xanax) 0.25 mg Q6H PRN ORAL For Anxiety 07/22/19 13:11 07/29/19 13:10 07/24/19 00:23 Amlodipine Besylate (Norvasc) 5 mg Q12H PRN ORAL For High Blood Pressure 07/22/19 13:12 08/21/19 13:11 Ascorbic Acid (Vitamin C) 500 mg Q4H PRN ORAL thick ileostomy effluent 07/22/19 13:12 08/21/19 13:11 Chlorhexidine Gluconate (Val-Hex 2%) 1 applic DAILY@2000 TOPIC 07/22/19 20:00 08/06/19 19:59 07/26/19 20:17 Dextrose 1,000 ml @ 0 mls/hr Q24H PRN IV PN interrupted or unavailable 07/22/19 13:11 08/21/19 13:10 Dextrose (Dextrose 50%) 25 ml Q30M PRN IV Hypoglycemia 07/22/19 13:30 08/07/19 00:00 Dextrose (Dextrose 50%) 50 ml Q30M PRN IV Hypoglycemia 07/22/19 13:30 08/07/19 00:00 Escitalopram Oxalate (Lexapro) 10 mg DAILY ORAL 07/25/19 09:00 08/24/19 08:59 07/27/19 09:22 Fat Emulsion Intravenous 216 ml/Amino Acids/ Electrolytes/ Dextrose 1,800 ml @ 90 mls/hr Q24H IV 07/24/19 00:00 08/23/19 00:00 07/26/19 23:06 Furosemide (Lasix) 40 mg DAILY IV 07/26/19 09:00 08/25/19 08:59 07/27/19 09:22 Hydromorphone HCl (Dilaudid) 1 mg Q6H PRN SUBQ Severe Breakthru Pain (>7) 07/26/19 13:00 07/29/19 12:59 07/27/19 01:49 Insulin Aspart (NovoLOG) No Dose Q6HR SUBQ 07/22/19 18:00 08/07/19 00:00 07/26/19 12:21 Levalbuterol HCl (Xopenex) 1.25 mg Q6H PRN HHN SOB/WHEEZING 07/26/19 10:00 07/31/19 09:59 Levalbuterol HCl (Xopenex) 1.25 mg TIDRT HHN 07/26/19 13:00 07/31/19 00:59 07/27/19 08:38 Levothyroxine Sodium (Synthroid) 50 mcg DAILY@0630 ORAL 07/23/19 06:30 08/06/19 06:29 07/27/19 05:34 Lidocaine (Lidoderm 5% PATCH) 1 patch DAILY TDERMAL 07/23/19 09:00 08/20/19 08:59 07/27/19 09:25 Losartan Potassium (Cozaar) 25 mg DAILY ORAL 07/23/19 09:00 08/13/19 08:59 07/27/19 09:22 Mirtazapine (Remeron) 7.5 mg BEDTIME PRN ORAL insomnia 07/24/19 15:15 08/23/19 15:14 Ondansetron HCl (Zofran) 4 mg Q4H PRN IVP Nausea & Vomiting 07/22/19 13:14 08/21/19 13:13 07/27/19 09:25 Pantoprazole (Protonix) 40 mg DAILY ORAL 07/23/19 09:00 08/06/19 08:59 07/27/19 09:22 Phytonadione (Vitamin K) 10 mg ONCE A WEEK SUBQ 07/28/19 20:00 08/06/19 19:59 Piperacillin Sod/ Tazobactam Sod 3.375 gm/Sodium Chloride 110 ml @ 27.5 mls/hr EVERY 8 HOURS IVPB 07/25/19 22:00 07/30/19 21:59 07/27/19 05:34 Prednisone (predniSONE) 5 mg DAILY ORAL 07/23/19 09:00 08/06/19 08:59 07/27/19 09:22 Tamsulosin HCl (Flomax) 0.4 mg DAILY ORAL 07/23/19 09:00 08/06/19 08:59 07/27/19 09:22 Tramadol HCl (Ultram) 50 mg Q4H PRN ORAL moderate pain 07/22/19 13:30 07/29/19 13:13 07/26/19 22:14 Oneal Allred MD Jul 27, 2019 10:00
[2019-07-27 12:00] VITALS: BP 106/51
--- NOTE | 2019-07-27 12:21 | Infectious Diseases Prog Note ---
Assessment/Plan Assessment/Plan ASSESSMENT AND PLAN: 1. sepsis, leukocytosis, fevers, ? line, ? pna, chf/edema, ileus patient febrile again, fungemia risk, ? line, CT without obvious source - change abx to cefepime, diflucan and vancomycin - surveillance cultures, labs and chest x-ray 2. chf/edema - diuresis, sob better, pulmonary f/u 3. 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 4. History of multiple abdominal surgeries. 5. Hypertension. 6. Blood pressure treatment per primary care team. 7. Hypothyroidism. 8. Ulcerative colitis history. 9. Anemia. 10. History of polycythemia. 11. Allergic to lorazepam. 12. Social history negative. 13. Family history noncontributory. 14. MAR is noted. 15. Case was discussed with RN. 16. Case was discussed with Dr. Herring. 17. Case was discussed with the patient and the patient's . Subjective Constitutional: Reports: fever HEENT: Denies: congestion Respiratory: Denies: shortness of breath Cardiovascular: Denies: chest pain Gastrointestinal/Abdominal: Denies: nausea, vomiting Genitourinary: Reports: other - no pinedo Allergies: Coded Allergies: LORAZEPAM (Verified Allergy, Mild, 07/08/19) Pt undergoes altered level of consciousness Objective Vital Signs Last 24 Hour Vital Signs Date Time Temp Pulse Resp B/P (MAP) Pulse Ox O2 Delivery O2 Flow Rate FiO2 07/27/19 12:00 99.6 88 20 106/51 (69) 93 07/27/19 11:57 86 16 96 Nasal Cannula 3.0 32 85 16 95 07/27/19 10:47 100.7 07/27/19 09:22 150/68 07/27/19 09:17 102.3 94 20 150/68 (95) 93 07/27/19 09:00 Nasal Cannula 3.0 07/27/19 08:35 83 18 96 Nasal Cannula 3.0 32 82 18 95 07/27/19 08:35 96 Nasal Cannula 3.0 32 07/27/19 04:00 98.0 70 16 129/60 (83) 95 07/26/19 23:26 98.1 69 16 127/59 (81) 96 07/26/19 21:00 Nasal Cannula 3.0 07/26/19 20:14 95 Nasal Cannula 3.0 32 07/26/19 20:13 88 18 99 Nasal Cannula 3.0 32 89 18 94 07/26/19 19:56 97.9 74 18 141/66 (91) 93 07/26/19 16:00 98.8 70 16 141/65 (90) 96 Height (Feet): 5 Height (Inches): 7.00 Weight (Pounds): 126 General Appearance: no acute distress HEENT: normocephalic, atraumatic, anicteric Respiratory/Chest: lungs clear, normal breath sounds, no respiratory distress Cardiovascular: normal rate, regular rhythm, no gallop/murmur Abdomen: normal bowel sounds, soft, non tender, no organomegaly Objective Chest x-ray - 07/21/19 - Comparison: 07/20/2019 Findings: Better inspiration currently. Bilateral interstitial edema is probably unchanged allowing for differences in inspiration. Left pleural effusion is again demonstrated. The heart size is normal. Left arm PICC and right chest port catheter again demonstrated. Median sternotomy sutures are again demonstrated. Impression: Probably unchanged bilateral interstitial edema and left pleural effusion, allowing for differences in inspiration, over one day KUB - 07/21/19 Impression: Left upper quadrant small bowel loops. Given evidence of recent surgery, most likely on the basis of postoperative ileus. However, the possibility of small bowel obstruction should also be considered. CT abdomen and pelvis - report noted CT abdomen and pelvis - 07/24/19 - IMPRESSION: Interval abdominal surgery with resection/closure of a right continent ileostomy and formation of a left lower quadrant ileostomy. No evidence of bowel obstruction, abscess or other complications. Development of a trace right pleural effusion and posterior basal atelectasis. Other findings on this exam are unchanged from the previous preoperative study. Status post total proctocolectomy. Status post cholecystectomy. Pulmonary fibrosis. 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 Pinedo catheter in good position. Some degree of chronic cystitis not excluded even wall thickening. Moderate to severe degenerative changes of the lumbar spine as described above. Scoliosis again noted. Laboratory Tests Test 07/27/19 05:10 White Blood Count 10.8 K/UL (4.8-10.8) Red Blood Count 3.35 M/UL (4.70-6.10) L Hemoglobin 9.6 G/DL (14.2-18.0) L Hematocrit 28.9 % (42.0-52.0) L Mean Corpuscular Volume 86 FL (80-99) Mean Corpuscular Hemoglobin 28.6 PG (27.0-31.0) Mean Corpuscular Hemoglobin Concent 33.1 G/DL (32.0-36.0) Red Cell Distribution Width 18.0 % (11.6-14.8) H Platelet Count 387 K/UL (150-450) Mean Platelet Volume 6.6 FL (6.5-10.1) Neutrophils (%) (Auto) 77.7 % (45.0-75.0) H Lymphocytes (%) (Auto) 7.3 % (20.0-45.0) L Monocytes (%) (Auto) 10.5 % (1.0-10.0) H Eosinophils (%) (Auto) 3.1 % (0.0-3.0) H Basophils (%) (Auto) 1.5 % (0.0-2.0) Sodium Level 138 MMOL/L (136-145) Potassium Level 3.6 MMOL/L (3.5-5.1) Chloride Level 104 MMOL/L (98-107) Carbon Dioxide Level 26 MMOL/L (21-32) Anion Gap 9 mmol/L (5-15) Blood Urea Nitrogen 32 mg/dL (7-18) H Creatinine 1.3 MG/DL (0.55-1.30) Estimat Glomerular Filtration Rate mL/min (>60) Glucose Level 105 MG/DL (74-106) Calcium Level 8.2 MG/DL (8.5-10.1) L Phosphorus Level 3.5 MG/DL (2.5-4.9) Magnesium Level 2.2 MG/DL (1.8-2.4) Total Bilirubin 0.5 MG/DL (0.2-1.0) Aspartate Amino Transf (AST/SGOT) 28 U/L (15-37) Alanine Aminotransferase (ALT/SGPT) 59 U/L (12-78) Alkaline Phosphatase 376 U/L (46-116) H Total Protein 6.2 G/DL (6.4-8.2) L Albumin 1.8 G/DL (3.4-5.0) L Globulin 4.4 g/dL Albumin/Globulin Ratio 0.4 (1.0-2.7) L Current Medications Medications (Trade) Dose Ordered Sig/Evgeny Route PRN Reason Start Time Stop Time Status Last Admin Dose Admin Acetaminophen (Tylenol) 650 mg Q4H PRN ORAL Mild Pain/Temp > 100.2 07/22/19 13:11 08/21/19 13:10 07/27/19 09:22 Acetaminophen/ Hydrocodone Bitart ([place] 5/325) 1 tab Q4H PRN ORAL severe pain 07/25/19 09:00 07/29/19 13:11 07/27/19 10:08 Alprazolam (Xanax) 0.25 mg Q6H PRN ORAL For Anxiety 07/22/19 13:11 07/29/19 13:10 07/24/19 00:23 Amlodipine Besylate (Norvasc) 5 mg Q12H PRN ORAL For High Blood Pressure 07/22/19 13:12 08/21/19 13:11 Ascorbic Acid (Vitamin C) 500 mg Q4H PRN ORAL thick ileostomy effluent 07/22/19 13:12 08/21/19 13:11 Chlorhexidine Gluconate (Val-Hex 2%) 1 applic DAILY@2000 TOPIC 07/22/19 20:00 08/06/19 19:59 07/26/19 20:17 Dextrose 1,000 ml @ 0 mls/hr Q24H PRN IV PN interrupted or unavailable 07/22/19 13:11 08/21/19 13:10 Dextrose (Dextrose 50%) 25 ml Q30M PRN IV Hypoglycemia 07/22/19 13:30 08/07/19 00:00 Dextrose (Dextrose 50%) 50 ml Q30M PRN IV Hypoglycemia 07/22/19 13:30 08/07/19 00:00 Escitalopram Oxalate (Lexapro) 10 mg DAILY ORAL 07/25/19 09:00 08/24/19 08:59 07/27/19 09:22 Fat Emulsion Intravenous 216 ml/Amino Acids/ Electrolytes/ Dextrose 1,800 ml @ 90 mls/hr Q24H IV 07/24/19 00:00 08/23/19 00:00 07/26/19 23:06 Furosemide (Lasix) 40 mg DAILY IV 07/26/19 09:00 08/25/19 08:59 07/27/19 09:22 Hydromorphone HCl (Dilaudid) 1 mg Q6H PRN SUBQ Severe Breakthru Pain (>7) 07/26/19 13:00 07/29/19 12:59 07/27/19 01:49 Insulin Aspart (NovoLOG) No Dose Q6HR SUBQ 07/22/19 18:00 08/07/19 00:00 07/26/19 12:21 Levalbuterol HCl (Xopenex) 1.25 mg Q6H PRN HHN SOB/WHEEZING 07/26/19 10:00 07/31/19 09:59 Levalbuterol HCl (Xopenex) 1.25 mg TIDRT HHN 07/26/19 13:00 07/31/19 00:59 07/27/19 11:55 Levothyroxine Sodium (Synthroid) 50 mcg DAILY@0630 ORAL 07/23/19 06:30 08/06/19 06:29 07/27/19 05:34 Lidocaine (Lidoderm 5% PATCH) 1 patch DAILY TDERMAL 07/23/19 09:00 08/20/19 08:59 07/27/19 09:25 Losartan Potassium (Cozaar) 25 mg DAILY ORAL 07/23/19 09:00 08/13/19 08:59 07/27/19 09:22 Mirtazapine (Remeron) 7.5 mg BEDTIME PRN ORAL insomnia 07/24/19 15:15 08/23/19 15:14 Ondansetron HCl (Zofran) 4 mg Q4H PRN IVP Nausea & Vomiting 07/22/19 13:14 08/21/19 13:13 07/27/19 09:25 Pantoprazole (Protonix) 40 mg DAILY ORAL 07/23/19 09:00 08/06/19 08:59 07/27/19 09:22 Phytonadione (Vitamin K) 10 mg ONCE A WEEK SUBQ 07/28/19 20:00 08/06/19 19:59 Piperacillin Sod/ Tazobactam Sod 3.375 gm/Sodium Chloride 110 ml @ 27.5 mls/hr EVERY 8 HOURS IVPB 07/25/19 22:00 07/30/19 21:59 07/27/19 05:34 Prednisone (predniSONE) 5 mg DAILY ORAL 07/23/19 09:00 08/06/19 08:59 07/27/19 09:22 Tamsulosin HCl (Flomax) 0.4 mg DAILY ORAL 07/23/19 09:00 08/06/19 08:59 07/27/19 09:22 Tramadol HCl (Ultram) 50 mg Q4H PRN ORAL moderate pain 07/22/19 13:30 07/29/19 13:13 07/26/19 22:14 Paras Ybarra MD Jul 27, 2019 12:21
--- NOTE | 2019-07-27 12:52 | NUR ---
NURSE NOTES: Blood cultures collected and sent to lab. Peripheral cultures collected by optical lab technician Dolores, cultures from PICC drawn by myself, all cultures sent with Dolores from lab.
[2019-07-27] MEDS ORDERED: traMADol 50mg tab ORAL PRN (13:10)
[2019-07-27] MEDS ORDERED: ALPRAZolam 0.25mg tab ORAL PRN (13:11)
--- NOTE | 2019-07-27 13:18 | NUR ---
RD ASSESSMENT & RECOMMENDATIONS SEE CARE ACTIVITY FOR COMPLETE ASSESSMENT DAILY ESTIMATED NEEDS: Needs based on surgery/ 59kg 25-35 kcals/kg 5211-7236 total kcals 1-2 g protein/kg 59-118 g total protein 25-30 mL/kg 3825-4832 total fluid mLs NUTRITION DIAGNOSIS: Altered GI function R/T h/o UC, BCIR as evidenced by admitted for recurring prolapse of [place] pouch valve with incontinence, s/p BCIR takedown w/ creation of coventional ileo, diet advanced to full liquid diet, remains on TPN. CURRENT DIET:Full Liquid diet PO DIET RECOMMENDATIONS: DIET PER MD PARENTERAL NUTRITION RECOMMENDATIONS: D/AA Rate: 66 IL Rate: 9 Total Rate: 75 Volume: 1800 % Dextrose: 15 % AA: 5.3 Energy (kcals/kg): 1576 Protein (g/kg protein): 84 Nonprotein KCALS: 1240 GIR (mg CHO/kg/min): 2.8 % Fat KCALS: 27 NCP: N Ratio: 92:1 TPN Comment: *D15% AA 5.3% @ 66ml/hr + IL20% @ 9ml/hr-> total of 75ml/hrx24 hrs, all 3:1 -> REC TO MAINTAIN CYCLIC FEEDING OF 90ML/HR X 20 HRS TO GIVE 4 HOURS OF METABOLIC REST (AST/ALT previously elev, now wnl, ALP remains elevated) : will meet 100% est kcal/prot needs ADDITIONAL RECOMMENDATIONS: * Rec obtaining standing wt for accurate CBW * Monitor BGs closely while on Predenisone * Monitor BGs, LFTs, lytes closely on TPN -> LFT's previously trending up, recommend cyclic feeding as above to give metabolic rest * Monitor PO intake and tolerance, ability to taper off TPN -> now on full liquid diet + TPN
--- NOTE | 2019-07-27 13:20 | General Progress Note ---
Progress Note Progress Note Temp spike this AM 102.3 and now WBC is normal 10,800. Took only 340cc po clear liquids He is not cooperating all the time with PT and ambulating Abdomen soft Incisions healed, stoma stable Urine voiding + incontinent Ileostomy 575 labs all stable Imp: Fever ? etiology - despite neg cultures to date, he has infusion port x 4 years, + PICC Plan; blood c&s sent; antibiotics changed per ID BCIR low residue diet continue TPN until eating sufficient amount Pako Orellana MD Jul 27, 2019 13:20
[2019-07-27] MEDS: Vancomycin 750mg/NS 275ml IVPB SCH ×2 (13:35)
--- NOTE | 2019-07-27 14:02 | NUR ---
RADIOLOGY DEPT., CHEST X-RAY DONE.-P.DYE
--- NOTE | 2019-07-27 15:01 | NUR ---
THREAD DRESSERWINDER TENDER 07/23/19 SI: PROBLEM WITH FISTULA,PULMONARY EDEMA 99.5 104 18 121/61 91% ON 3L NC NC 5L BUN 32 CR 1.4 AST 108 ALT 86 ALK PHOS 223 IS: IV ZOSYN Q8HR IV VANCOMYCIN BID TPN Q24HR PREDNISONE PO QD RAMIRO-HEX TP QD IV LASIX QD LEXAPRO PO QD FLOMAX PO QD \:3E MED SURG UNIT THREAD DRESSERWINDER TENDER 07/27/19 SI: POD#12 REPAIR OF BLEEDING ILEOSTOMY PROBLEM WITH FISTULA,PULMONARY EDEMA 102.3 94 20 150/68 93% ON NC 3L H/H 9.6/28.9 BUN 32 CA+8.2 ALK-PHOS 376 IS: IV ZOSYN Q8HR IV VANCOMYCIN BID TPN Q24HR PREDNISONE PO QD RAMIRO-HEX TP QD IV LASIX QD LEXAPRO PO QD FLOMAX PO QD \:3E MED SURG UNIT PLAN: BLOOD CX SENT CONT IV ABX BCIR LOW RESIDUAL DIET CONT TPN UNTIL EATING HAS IMPROVED
[2019-07-27] MEDS ORDERED: NS 275ml ONE (15:16)
[2019-07-27] MEDS ORDERED: Tubing IV Secondary IV ONE (15:16)
[2019-07-27 16:00] VITALS: BP 135/56
--- NOTE | 2019-07-27 16:30 | Diagnostic Imaging Report ---
Indication: Dyspnea Comparison: 07/24/2019 A single view chest radiograph was obtained. Findings: The lung volumes are low. There is prominent pulmonary vascularity and interstitium. Accounting for this there is still likely some degree of CHF. Correlate clinically. There is a right chest port in good position unchanged. Sternotomy noted. The heart is enlarged. IMPRESSION: Suspected CHF
[2019-07-27 17:32] LABS: APPEARANCE,URINE CLEAR; BILIRUBIN, URINE NEGATIVE (NEGATIVE); COLOR,URINE PALE YELLOW; GLUCOSE, URINE (UA) NEGATIVE (NEGATIVE); KETONES,URINE NEGATIVE (NEGATIVE); LEUKOCYTE ESTERASE ,URINE NEGATIVE (NEGATIVE); NITRITE,URINE NEGATIVE (NEGATIVE); PH,URINE 6.5 (4.5-8.0); PROTEIN,URINE NEGATIVE (NEGATIVE); UROBILINOGEN,URINE NORMAL MG/DL (0.0-1.0)
--- NOTE | 2019-07-27 17:46 | NUR ---
NURSE NOTES: Ileostomy appliance started to leak, removed appliance and removed neil per order. When neil removed, noted surgical wound dehiscence in two spots (length 2cm and 1cm, width 3mm), called Dr. Orellana and sharlene GHOSH, voicemail left, awaiting callback.
--- NOTE | 2019-07-27 18:03 | NUR ---
NURSE NOTES: Received call back from Dr. Orellana. aware of wound dehiscence, ordered to place steri strips, steri strips placed.
--- NOTE | 2019-07-27 18:30 | NUR ---
NURSE NOTES: Total ileo output for shift: 350mL Total urine output: 325mL (measured) + incontinence x5, patient walked with PT in hallway x1.
--- NOTE | 2019-07-27 19:19 | NUR ---
HAND-OFF: Report given to Sam HERNANDEZ.
--- NOTE | 2019-07-27 19:30 | NUR ---
NURSE NOTES: Receive a report from DAVID Navarro. Round is done. Pt is awake and alert. No acute distress noted. Breathing is even and non labored. Ileostomy bag is attached well and no leaking noted. Gas and greenish output noted. [place] removal site is clear with steri-strips on. TPN is done via port-a-cath and PICC on PHILIP site is clear. Complain for generalized pain. Will provide pain medication as ordered. Call light within reach. Will continue to monitor.
[2019-07-27] MEDS: Dyna-Hex 2% Top Sol 2oz TOPIC SCH (19:47)
[2019-07-27 20:00] VITALS: BP 128/65
--- NOTE | 2019-07-27 20:30 | NUR ---
NURSE NOTES: Pain decreased after pain medication. Continue on O2 3L NC. Encourage deep breathing and I/S. Spo2 96% checked. Will continue to monitor.
--- NOTE | 2019-07-27 21:30 | NUR ---
NURSE NOTES: Pt says that he wants to get on airplane to home and tried get out of bed. Explain pt's conditions and reassure pt. Given a sleeping pill as ordered. Will continue to monitor. Ileostomy bag is attached without leak.
--- NOTE | 2019-07-27 22:30 | NUR ---
NURSE NOTES: Pt is asleep. Call light within reach. Bed is lowest and locked. Will continue to monitor.
[2019-07-28] VITALS (7 sets, daily range): BP systolic 121–158; BP diastolic 48–75
[2019-07-28] MEDS: Fat Emulsion Iv 20% 216 ML in Tpn 1,584 ML IV SCH ×2 (00:18→23:49)
--- NOTE | 2019-07-28 00:30 | NUR ---
NURSE NOTES: Pt is asleep without acute distress. No complaint of pain at this time. Will continue to monitor.
[2019-07-28] MEDS: Vancomycin 750mg/NS 275ml IVPB SCH ×4 (01:57→13:50)
--- NOTE | 2019-07-28 02:25 | NUR ---
NURSE NOTES: Pt voided urinal in bed but spilled. While changing pull-ups and sheet, pt felt cold and skin was warm to touch. Checked BT as 101.9F. Done blood culture #1 via port-a-cath and given Tylenol 650mg as ordered. ATB are on scheduled. Will continue to monitor.
--- NOTE | 2019-07-28 04:00 | NUR ---
NURSE NOTES: No shivering noted and pt is covering just a sheet. BT still 101.3F. Refuses to have ice bag. Tried tepid message but pt strongly refuses. No acute distress noted. Will continue to monitor.
--- NOTE | 2019-07-28 05:15 | Progress Note ---
DATE: 07/27/2019 SUBJECTIVE: The patient is hard of hearing. He continues to have anxiety. He still attempting to home. Difficulty to redirect ____. MENTAL STATUS EXAMINATION: The patient is alert and oriented times self, place. Mood is anxious. Affect is flat. Thought process is concrete. Thought content, no suicidal or homicidal ideation. Cognition is impaired. Insight and judgment is impaired. ASSESSMENT: 1. Anxiety disorder. 2. Major depressive disorder. PLAN: 1. Lexapro 10 mg in the morning. Remeron currently 5 at bedtime as needed. 2. Continue to follow. Readjust the medications. Ember English M.D. DR: COLT JOB#: [id number] CC:
[2019-07-28 05:49] LABS: HEMATOCRIT 27.7 % (42.0-52.0); HEMOGLOBIN 9.3 G/DL (14.2-18.0); MEAN CORPUSCULAR VOLUME 86 FL (80-99); PLATELET COUNT 364 K/UL (150-450); RED BLOOD COUNT 3.22 M/UL (4.70-6.10); RED CELL DISTRIBUTION WIDTH 18.1 % (11.6-14.8); WHITE BLOOD COUNT 16.4 K/UL (4.8-10.8)
[2019-07-28] MEDS: NovoLOG Insulin Flexpen SUBQ SCH ×5 (05:49→23:35)
--- NOTE | 2019-07-28 06:00 | NUR ---
NURSE NOTES: Still febrile sensation noted. BT: 101F. Refuses to apply ice bags. Denies pain at this time. No leaking on ileostomy site. Will continue to monitor. 12hr output urine: 150ml+ 2times(incontinent) Natalee ileostomy: 325ml
[2019-07-28 06:05] LABS: ALANINE AMINOTRANSFERASE 45 U/L (12-78); ALBUMIN 1.7 G/DL (3.4-5.0); ALBUMIN/GLOBULIN RATIO 0.4 (1.0-2.7); ALKALINE PHOSPHATASE 353 U/L (46-116); ANION GAP 10 mmol/L (5-15); ASPARTATE AMINO TRANSFERASE 21 U/L (15-37); BILIRUBIN,TOTAL 0.6 MG/DL (0.2-1.0); BLOOD UREA NITROGEN 34 mg/dL (7-18); CARBON DIOXIDE 23 MMOL/L (21-32); CHLORIDE 106 MMOL/L (98-107); CREATININE 1.3 MG/DL (0.55-1.30); POTASSIUM 3.9 MMOL/L (3.5-5.1); SODIUM 139 MMOL/L (136-145)
--- NOTE | 2019-07-28 06:45 | NUR ---
NURSE NOTES: Given prn Tylenol 650mg po for elevated temp. Will continue to monitor.
--- NOTE | 2019-07-28 07:30 | NUR ---
NURSE NOTES: AWAKE. IN NO APPARENT DISTRESS.
--- NOTE | 2019-07-28 07:30 | NUR ---
HAND-OFF: Report given to DAVID Jenkins.
[2019-07-28] MEDS: Levalbuterol Inh UD 1.25mg/0.5ml HHN SCH ×3 (07:34→19:28)
--- NOTE | 2019-07-28 08:40 | General Progress Note ---
Progress Note Progress Note Spiking fevers. Blood c&s sent from PIC and from infusion port He is eating some food this morning and ambulated in hallways yesterday Abdomen soft, well healed, stoma stable I&O stable Imp: Fevers - may need removal of port and/or PICC - await cultures Plan; still dependent on IV fluids/TPN - until po intake improves f/u labs and cultures and ID rec. Pako Orellana MD Jul 28, 2019 08:40
[2019-07-28] MEDS: Losartan 25mg tab ORAL SCH (09:06)
[2019-07-28] MEDS: Tamsulosin 0.4mg cap ORAL SCH (09:06)
[2019-07-28] MEDS: HYDROmorphone 1mg/ml Carpuject SUBQ PRN ×3 (09:20→21:55)
--- NOTE | 2019-07-28 10:11 | Pulmonology Progress Note ---
Assessment/Plan Assessment/Plan IMPRESSION: 1. Fever, now resolved. 2. Resolving right middle lobe infiltrate. 3. Multiple comorbidities including use of steroids, ulcerative colitis. 4. Pulmonary edema; resolved DISCUSSION: Off Lasix gtt; will continue daily IV Lasix Discussed with surgery TPN Talihina and Xanax for anxiety/pain Will follow Oneal Allred M.D. Subjective Interval Events: None new Constitutional: Reports: no symptoms HEENT: Repors: no symptoms Respiratory: Reports: no symptoms Cardiovascular: Reports: no symptoms Gastrointestinal/Abdominal: Reports: no symptoms Allergies: Coded Allergies: LORAZEPAM (Verified Allergy, Mild, 07/08/19) Pt undergoes altered level of consciousness Objective Last 24 Hour Vital Signs Date Time Temp Pulse Resp B/P (MAP) Pulse Ox O2 Delivery O2 Flow Rate FiO2 07/28/19 09:06 127/60 07/28/19 08:00 98.7 86 21 127/60 (82) 89 07/28/19 07:45 85 18 99 Nasal Cannula 3.0 32 86 16 95 07/28/19 07:34 95 Nasal Cannula 3.0 32 07/28/19 07:15 98.7 07/28/19 04:00 101.3 93 22 125/59 (81) 92 07/28/19 02:10 101.9 95 20 158/75 (102) 92 07/28/19 00:00 98.9 69 18 130/63 (85) 96 07/27/19 21:00 Nasal Cannula 3.0 07/27/19 20:00 98.1 74 16 128/65 (86) 96 07/27/19 20:00 96 Nasal Cannula 3.0 32 07/27/19 19:58 73 16 99 Nasal Cannula 3.0 32 68 16 96 07/27/19 16:00 98.6 69 19 135/56 (82) 93 07/27/19 12:00 99.6 88 20 106/51 (69) 93 07/27/19 11:57 86 16 96 Nasal Cannula 3.0 32 85 16 95 Intake and Output 07/27/19 07/28/19 19:00 07:00 Intake Total 2075 ml 765 ml Output Total 675 ml 475 ml Balance 1400 ml 290 ml Intake Oral 400 ml 150 ml IV Total 1675 ml 615 ml Output Urine Total 325 ml 150 ml Other 350 ml 325 ml # Voids 7 2 General Appearance: no acute distress HEENT: normocephalic Respiratory/Chest: chest wall non-tender, lungs clear Cardiovascular: normal peripheral pulses, normal rate Abdomen: normal bowel sounds Microbiology Date/Time Source Procedure Growth Status 07/27/19 16:00 Urine,Clean Catch Urine Culture - Preliminary NO GROWTH Resulted Laboratory Tests 07/27/19 16:00: Urine Color Pale yellow, Urine Appearance Clear, Urine pH 6.5, Urine Specific [place] 1.010, Urine Protein Negative, Urine Glucose (UA) Negative, Urine Ketones Negative, Urine Blood Negative, Urine Nitrite Negative, Urine Bilirubin Negative, Urine Urobilinogen Normal, Urine Leukocyte Esterase Negative 07/28/19 05:30: White Blood Count 16.4#H, Red Blood Count 3.22L, Hemoglobin 9.3L, Hematocrit 27.7L, Mean Corpuscular Volume 86, Mean Corpuscular Hemoglobin 28.8, Mean Corpuscular Hemoglobin Concent 33.4, Red Cell Distribution Width 18.1H, Platelet Count 364, Mean Platelet Volume 6.2L, Neutrophils (%) (Auto) , Lymphocytes (%) (Auto) , Monocytes (%) (Auto) , Eosinophils (%) (Auto) , Basophils (%) (Auto) , Differential Total Cells Counted 100, Neutrophils % ( Manual) 91H, Lymphocytes % (Manual) 4L, Monocytes % (Manual) 3, Eosinophils % ( Manual) 1, Basophils % (Manual) 1, Band Neutrophils 0, Platelet Estimate Adequate, Platelet Morphology Normal, Hypochromasia 2+, Anisocytosis 2+, Sodium Level 139, Potassium Level 3.9, Chloride Level 106, Carbon Dioxide Level 23, Anion Gap 10, Blood Urea Nitrogen 34H, Creatinine 1.3, Estimat Glomerular Filtration Rate , Glucose Level 122H, Calcium Level 8.0L, Total Bilirubin 0.6, Aspartate Amino Transf (AST/SGOT) 21, Alanine Aminotransferase (ALT/SGPT) 45, Alkaline Phosphatase 353H, Total Protein 5.8L, Albumin 1.7L, Globulin 4.1, Albumin/Globulin Ratio 0.4L Current Medications Medications (Trade) Dose Ordered Sig/Evgeny Route PRN Reason Start Time Stop Time Status Last Admin Dose Admin Acetaminophen (Tylenol) 650 mg Q4H PRN ORAL Mild Pain/Temp > 100.2 07/22/19 13:11 08/21/19 13:10 07/28/19 06:45 Acetaminophen/ Hydrocodone Bitart ([place] 5/325) 1 tab Q4H PRN ORAL severe pain 07/27/19 13:10 08/03/19 13:09 07/27/19 17:05 Alprazolam (Xanax) 0.25 mg Q6H PRN ORAL For Anxiety 07/27/19 13:11 08/03/19 13:10 Amlodipine Besylate (Norvasc) 5 mg Q12H PRN ORAL For High Blood Pressure 07/22/19 13:12 08/21/19 13:11 Ascorbic Acid (Vitamin C) 500 mg Q4H PRN ORAL thick ileostomy effluent 07/22/19 13:12 08/21/19 13:11 Cefepime HCl 2 gm/ Dextrose 100 ml @ 200 mls/hr Q12H IVPB 07/27/19 15:00 08/03/19 14:59 07/28/19 03:05 Chlorhexidine Gluconate (Val-Hex 2%) 1 applic DAILY@2000 TOPIC 07/22/19 20:00 08/06/19 19:59 07/27/19 19:47 Dextrose 1,000 ml @ 0 mls/hr Q24H PRN IV PN interrupted or unavailable 07/22/19 13:11 08/21/19 13:10 Dextrose (Dextrose 50%) 25 ml Q30M PRN IV Hypoglycemia 07/22/19 13:30 08/07/19 00:00 Dextrose (Dextrose 50%) 50 ml Q30M PRN IV Hypoglycemia 07/22/19 13:30 08/07/19 00:00 Escitalopram Oxalate (Lexapro) 10 mg DAILY ORAL 07/25/19 09:00 08/24/19 08:59 07/28/19 09:06 Fat Emulsion Intravenous 216 ml/Amino Acids/ Electrolytes/ Dextrose 1,800 ml @ 90 mls/hr Q24H IV 07/24/19 00:00 08/23/19 00:00 07/28/19 00:18 Fluconazole/ Sodium Chloride 200 ml @ 200 mls/hr Q24H IV 07/27/19 13:00 08/03/19 12:59 07/27/19 13:35 Furosemide (Lasix) 40 mg DAILY IV 07/26/19 09:00 08/25/19 08:59 07/28/19 09:06 Hydromorphone HCl (Dilaudid) 1 mg Q6H PRN SUBQ Severe Breakthru Pain (>7) 07/27/19 13:10 08/03/19 13:09 07/28/19 09:20 Insulin Aspart (NovoLOG) No Dose Q6HR SUBQ 07/22/19 18:00 08/07/19 00:00 07/27/19 12:55 Levalbuterol HCl (Xopenex) 1.25 mg Q6H PRN HHN /WHEEZING 07/26/19 10:00 07/31/19 09:59 Levalbuterol HCl (Xopenex) 1.25 mg TIDRT HHN 07/26/19 13:00 07/31/19 00:59 07/28/19 07:34 Levothyroxine Sodium (Synthroid) 50 mcg DAILY@0630 ORAL 07/23/19 06:30 08/06/19 06:29 07/28/19 06:19 Lidocaine (Lidoderm 5% PATCH) 1 patch DAILY TDERMAL 07/23/19 09:00 08/20/19 08:59 07/28/19 09:07 Losartan Potassium (Cozaar) 25 mg DAILY ORAL 07/23/19 09:00 08/13/19 08:59 07/28/19 09:06 Mirtazapine (Remeron) 7.5 mg BEDTIME PRN ORAL insomnia 07/24/19 15:15 08/23/19 15:14 07/27/19 21:32 Ondansetron HCl (Zofran) 4 mg Q4H PRN IVP Nausea & Vomiting 07/22/19 13:14 08/21/19 13:13 07/27/19 09:25 Pantoprazole (Protonix) 40 mg DAILY ORAL 07/23/19 09:00 08/06/19 08:59 07/28/19 09:06 Phytonadione (Vitamin K) 10 mg ONCE A WEEK SUBQ 07/28/19 20:00 08/06/19 19:59 Prednisone (predniSONE) 5 mg DAILY ORAL 07/23/19 09:00 08/06/19 08:59 07/28/19 09:06 Tamsulosin HCl (Flomax) 0.4 mg DAILY ORAL 07/23/19 09:00 08/06/19 08:59 07/28/19 09:06 Tramadol HCl (Ultram) 50 mg Q4H PRN ORAL moderate pain 07/27/19 13:10 08/03/19 13:09 Vancomycin HCl (Vanco rx to dose) 1 ea DAILY PRN MISC Per rx protocol 07/27/19 12:15 08/26/19 12:14 Vancomycin HCl 750 mg/Sodium Chloride 275 ml @ 183.333 mls/hr Q12HR@0200,1400 IVPB 07/27/19 14:00 08/01/19 13:59 07/28/19 01:57 Oneal Allred MD Jul 28, 2019 10:11
--- NOTE | 2019-07-28 11:25 | Cardiology Progress Note ---
Assessment/Plan Status Narrative 1. U.C. 2. Malfunctioning [place] Pouch 3. CAD, S/P CABG- studies from PMD reviewed, no evidence of ischemia on nuclear scan done in Apr 2019 4. BL Carotid stenosis- s/p stents 5. AAA- stable 6. HTN- improved on meds. 7. Hearing loss 8. S/p resection of failed [place] Pouch, repair parastomal hernia, creation of [place] ileostomy 9. Dehydration- -->elevated creat, tachycardia 10 Hypoxemia - due to hypoventilation possible atelectasis- Improves with deep insp and use of I/S 11. Fever- r/o pneumonia, intra-abdominal process, UTI 12. Renal insuff- ?due to diuresis 13. Depression/Anxiety with panic attacks 14. No Evidence of CHF- Nl LV EF, nl JVP 15. Hypoxemia - ? Etio- Improving 16. Temp spike with Leukocytosis- r/o line infection Assessment/Plan Hemodynamics stable. I/S Q1 h IV fluids as per Dr. Orellana Consider changing central line. Monitor renal function while on Lasix Ambulate Resp Tx Discussed with RN. Subjective ROS Limited/Unobtainable: Yes Subjective 07/07/19- Patient admitted for revision of [place] Pouch. He has h/o CAD, S/P CABG 10 yrs ago, s/p BL carotid stents, and h/o AAA. Patient denies h/o HTn, but his BP has been elevated since admission 07/08 doing OK , BP imroving, PICC line placed. 07/09- BP improved 07/10- Had BP down to 107. Meds held. Scheduled for surgery on 07/13 07/11- BP stable 07/13- s/p resection of failed [place] Pouch, repair parastomal hernia, creation of [place]e ileostomy. 07/14- Has had decreased O2 Sat, Creat 1.9, low U.O. IV NS started 07/15- s/p surgery for stoma bleeding 07/23- Was transferred to ICU last week- ? anxiety attack, has had fever, on ABx. Seen by Pulmonary- now on IV Lasix drip Creat 1.5 Has not been very active, was up once today, now asleep 07/24- More alert, denies SOB, had abd. CT, on Lasix drip. Creat 1.5. Echo done- Nl LV WM, EF 60% 07/25- IV Lasix drip stopped--> Daily Lasix. Creat 1.4 , O2 Sat on RA 86% 07/28- On IV Lasix, Creat 1.3, WBC increased, Temp spike to 101.3, O2 Sat 89% on RA Objective Last 24 Hour Vital Signs Date Time Temp Pulse Resp B/P (MAP) Pulse Ox O2 Delivery O2 Flow Rate FiO2 07/28/19 09:50 98.7 07/28/19 09:06 127/60 07/28/19 09:00 93 07/28/19 09:00 Nasal Cannula 3.0 07/28/19 08:00 98.7 86 21 127/60 (82) 89 07/28/19 07:45 85 18 99 Nasal Cannula 3.0 32 86 16 95 07/28/19 07:34 95 Nasal Cannula 3.0 32 07/28/19 07:15 98.7 07/28/19 04:00 101.3 93 22 125/59 (81) 92 07/28/19 02:10 101.9 95 20 158/75 (102) 92 07/28/19 00:00 98.9 69 18 130/63 (85) 96 07/27/19 21:00 Nasal Cannula 3.0 07/27/19 20:00 98.1 74 16 128/65 (86) 96 07/27/19 20:00 96 Nasal Cannula 3.0 32 07/27/19 19:58 73 16 99 Nasal Cannula 3.0 32 68 16 96 07/27/19 16:00 98.6 69 19 135/56 (82) 93 07/27/19 12:00 99.6 88 20 106/51 (69) 93 07/27/19 11:57 86 16 96 Nasal Cannula 3.0 32 85 16 95 Cardiovascular: normal rate, no gallop/murmur Respiratory/Chest: lungs clear Abdomen: non tender, soft, hypoactive bowel sounds Extremities: non-tender, normal inspection, no calf tenderness, no swelling Intake and Output 07/27/19 07/28/19 19:00 07:00 Intake Total 2075 ml 765 ml Output Total 675 ml 475 ml Balance 1400 ml 290 ml Intake Oral 400 ml 150 ml IV Total 1675 ml 615 ml Output Urine Total 325 ml 150 ml Other 350 ml 325 ml # Voids 7 2 Laboratory Tests Test 07/27/19 16:00 07/28/19 05:30 Urine Color Pale yellow Urine Appearance Clear Urine pH 6.5 (4.5-8.0) Urine Specific [place] 1.010 (1.005-1.035) Urine Protein Negative (NEGATIVE) Urine Glucose (UA) Negative (NEGATIVE) Urine Ketones Negative (NEGATIVE) Urine Blood Negative (NEGATIVE) Urine Nitrite Negative (NEGATIVE) Urine Bilirubin Negative (NEGATIVE) Urine Urobilinogen Normal MG/DL (0.0-1.0) Urine Leukocyte Esterase Negative (NEGATIVE) White Blood Count 16.4 K/UL (4.8-10.8) #H Red Blood Count 3.22 M/UL (4.70-6.10) L Hemoglobin 9.3 G/DL (14.2-18.0) L Hematocrit 27.7 % (42.0-52.0) L Mean Corpuscular Volume 86 FL (80-99) Mean Corpuscular Hemoglobin 28.8 PG (27.0-31.0) Mean Corpuscular Hemoglobin Concent 33.4 G/DL (32.0-36.0) Red Cell Distribution Width 18.1 % (11.6-14.8) H Platelet Count 364 K/UL (150-450) Mean Platelet Volume 6.2 FL (6.5-10.1) L Neutrophils (%) (Auto) % (45.0-75.0) Lymphocytes (%) (Auto) % (20.0-45.0) Monocytes (%) (Auto) % (1.0-10.0) Eosinophils (%) (Auto) % (0.0-3.0) Basophils (%) (Auto) % (0.0-2.0) Differential Total Cells Counted 100 Neutrophils % (Manual) 91 % (45-75) H Lymphocytes % (Manual) 4 % (20-45) L Monocytes % (Manual) 3 % (1-10) Eosinophils % (Manual) 1 % (0-3) Basophils % (Manual) 1 % (0-2) Band Neutrophils 0 % (0-8) Platelet Estimate Adequate Platelet Morphology Normal Hypochromasia 2+ Anisocytosis 2+ Sodium Level 139 MMOL/L (136-145) Potassium Level 3.9 MMOL/L (3.5-5.1) Chloride Level 106 MMOL/L (98-107) Carbon Dioxide Level 23 MMOL/L (21-32) Anion Gap 10 mmol/L (5-15) Blood Urea Nitrogen 34 mg/dL (7-18) H Creatinine 1.3 MG/DL (0.55-1.30) Estimat Glomerular Filtration Rate mL/min (>60) Glucose Level 122 MG/DL (74-106) H Calcium Level 8.0 MG/DL (8.5-10.1) L Total Bilirubin 0.6 MG/DL (0.2-1.0) Aspartate Amino Transf (AST/SGOT) 21 U/L (15-37) Alanine Aminotransferase (ALT/SGPT) 45 U/L (12-78) Alkaline Phosphatase 353 U/L (46-116) H Total Protein 5.8 G/DL (6.4-8.2) L Albumin 1.7 G/DL (3.4-5.0) L Globulin 4.1 g/dL Albumin/Globulin Ratio 0.4 (1.0-2.7) L Microbiology Date/Time Source Procedure Growth Status 07/27/19 16:00 Urine,Clean Catch Urine Culture - Preliminary NO GROWTH Resulted Rommel Townsend MD Jul 28, 2019 11:25
[2019-07-28] MEDS: HYDROcodone/Acetamin 5/325 tab ORAL PRN ×2 (12:51→19:51)
--- NOTE | 2019-07-28 18:21 | Infectious Diseases Prog Note ---
Assessment/Plan Assessment/Plan ASSESSMENT AND PLAN: 1. sepsis, leukocytosis, fevers, ? line, ? pna, chf/edema, ileus patient febrile again, fungemia risk, ? line infection, CT without obvious source - abx - cefepime, diflucan and vancomycin - f/u on cultures, labs - chest x-ray with chf 2. chf/edema - diuresis, sob better, pulmonary f/u 3. 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 4. History of multiple abdominal surgeries. 5. Hypertension. 6. Blood pressure treatment per primary care team. 7. Hypothyroidism. 8. Ulcerative colitis history. 9. Anemia. 10. History of polycythemia. 11. Allergic to lorazepam. 12. Social history negative. 13. Family history noncontributory. 14. MAR is noted. 15. Case was discussed with RN. 16. Case was discussed with Dr. Herring. 17. Case was discussed with the patient and the patient's . Subjective Constitutional: Reports: fever, fatigue; Denies: chills HEENT: Denies: congestion Respiratory: Denies: shortness of breath Cardiovascular: Denies: chest pain Gastrointestinal/Abdominal: Reports: other - no sig abdominal pain ; Denies: nausea, vomiting Neurologic: Denies: headache Psychiatric: Denies: depression Skin: Denies: rash Hematologic: Denies: bleeding Musculoskeletal: Reports: pain - controlled Allergies: Coded Allergies: LORAZEPAM (Verified Allergy, Mild, 07/08/19) Pt undergoes altered level of consciousness Objective Vital Signs Last 24 Hour Vital Signs Date Time Temp Pulse Resp B/P (MAP) Pulse Ox O2 Delivery O2 Flow Rate FiO2 07/28/19 16:24 99.1 07/28/19 16:00 99.1 68 18 137/67 (90) 94 07/28/19 13:21 98.0 07/28/19 12:38 78 16 97 Nasal Cannula 2.0 28 77 16 94 07/28/19 11:47 98.0 63 16 121/48 (72) 96 07/28/19 09:06 127/60 07/28/19 09:00 93 07/28/19 09:00 Nasal Cannula 3.0 07/28/19 08:00 98.7 86 21 127/60 (82) 89 07/28/19 07:45 85 18 99 Nasal Cannula 3.0 32 86 16 95 07/28/19 07:34 95 Nasal Cannula 3.0 32 07/28/19 07:15 98.7 07/28/19 04:00 101.3 93 22 125/59 (81) 92 07/28/19 02:10 101.9 95 20 158/75 (102) 92 07/28/19 00:00 98.9 69 18 130/63 (85) 96 07/27/19 21:00 Nasal Cannula 3.0 07/27/19 20:00 98.1 74 16 128/65 (86) 96 07/27/19 20:00 96 Nasal Cannula 3.0 32 07/27/19 19:58 73 16 99 Nasal Cannula 3.0 32 68 16 96 Height (Feet): 5 Height (Inches): 7.00 Weight (Pounds): 126 General Appearance: no acute distress HEENT: normocephalic, atraumatic, anicteric, mucous membranes moist Respiratory/Chest: lungs clear, normal breath sounds, no respiratory distress, no accessory muscle use Cardiovascular: normal rate, regular rhythm, no gallop/murmur, no JVD Abdomen: normal bowel sounds, soft, non tender, no organomegaly, non distended Genitourinary: other - no pinedo Extremities: no cyanosis Skin: no rash Neurologic/Psychiatric: steward/stewardess third II-XII grossly normal, alert, oriented x 3, normal mood/affect Lymphatic: no neck adenopathy Musculoskeletal: no effusion Objective Chest x-ray - 07/21/19 - Comparison: 07/20/2019 Findings: Better inspiration currently. Bilateral interstitial edema is probably unchanged allowing for differences in inspiration. Left pleural effusion is again demonstrated. The heart size is normal. Left arm PICC and right chest port catheter again demonstrated. Median sternotomy sutures are again demonstrated. Impression: Probably unchanged bilateral interstitial edema and left pleural effusion, allowing for differences in inspiration, over one day KUB - 07/21/19 Impression: Left upper quadrant small bowel loops. Given evidence of recent surgery, most likely on the basis of postoperative ileus. However, the possibility of small bowel obstruction should also be considered. CT abdomen and pelvis - report noted CT abdomen and pelvis - 07/24/19 - IMPRESSION: Interval abdominal surgery with resection/closure of a right continent ileostomy and formation of a left lower quadrant ileostomy. No evidence of bowel obstruction, abscess or other complications. Development of a trace right pleural effusion and posterior basal atelectasis. Other findings on this exam are unchanged from the previous preoperative study. Status post total proctocolectomy. Status post cholecystectomy. Pulmonary fibrosis. 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 Pinedo catheter in good position. Some degree of chronic cystitis not excluded even wall thickening. Moderate to severe degenerative changes of the lumbar spine as described above. Scoliosis again noted. Microbiology Date/Time Source Procedure Growth Status 07/23/19 21:23 Blood Blood Culture - Preliminary NO GROWTH AFTER 4 DAYS Resulted 07/22/19 20:00 Sputum Expectorated Gram Stain - Final Complete 07/22/19 20:00 Sputum Culture - Final Andie Tropicalis Usual Respiratory Gloria Complete 07/27/19 16:00 Urine,Clean Catch Urine Culture - Preliminary NO GROWTH Resulted Microbiology Date/Time Source Procedure Growth Status 07/27/19 16:00 Urine,Clean Catch Urine Culture - Preliminary NO GROWTH Resulted Laboratory Tests Test 07/28/19 05:30 White Blood Count 16.4 K/UL (4.8-10.8) #H Red Blood Count 3.22 M/UL (4.70-6.10) L Hemoglobin 9.3 G/DL (14.2-18.0) L Hematocrit 27.7 % (42.0-52.0) L Mean Corpuscular Volume 86 FL (80-99) Mean Corpuscular Hemoglobin 28.8 PG (27.0-31.0) Mean Corpuscular Hemoglobin Concent 33.4 G/DL (32.0-36.0) Red Cell Distribution Width 18.1 % (11.6-14.8) H Platelet Count 364 K/UL (150-450) Mean Platelet Volume 6.2 FL (6.5-10.1) L Neutrophils (%) (Auto) % (45.0-75.0) Lymphocytes (%) (Auto) % (20.0-45.0) Monocytes (%) (Auto) % (1.0-10.0) Eosinophils (%) (Auto) % (0.0-3.0) Basophils (%) (Auto) % (0.0-2.0) Differential Total Cells Counted 100 Neutrophils % (Manual) 91 % (45-75) H Lymphocytes % (Manual) 4 % (20-45) L Monocytes % (Manual) 3 % (1-10) Eosinophils % (Manual) 1 % (0-3) Basophils % (Manual) 1 % (0-2) Band Neutrophils 0 % (0-8) Platelet Estimate Adequate Platelet Morphology Normal Hypochromasia 2+ Anisocytosis 2+ Sodium Level 139 MMOL/L (136-145) Potassium Level 3.9 MMOL/L (3.5-5.1) Chloride Level 106 MMOL/L (98-107) Carbon Dioxide Level 23 MMOL/L (21-32) Anion Gap 10 mmol/L (5-15) Blood Urea Nitrogen 34 mg/dL (7-18) H Creatinine 1.3 MG/DL (0.55-1.30) Estimat Glomerular Filtration Rate mL/min (>60) Glucose Level 122 MG/DL (74-106) H Calcium Level 8.0 MG/DL (8.5-10.1) L Total Bilirubin 0.6 MG/DL (0.2-1.0) Aspartate Amino Transf (AST/SGOT) 21 U/L (15-37) Alanine Aminotransferase (ALT/SGPT) 45 U/L (12-78) Alkaline Phosphatase 353 U/L (46-116) H Total Protein 5.8 G/DL (6.4-8.2) L Albumin 1.7 G/DL (3.4-5.0) L Globulin 4.1 g/dL Albumin/Globulin Ratio 0.4 (1.0-2.7) L Current Medications Medications (Trade) Dose Ordered Sig/Evgeny Route PRN Reason Start Time Stop Time Status Last Admin Dose Admin Acetaminophen (Tylenol) 650 mg Q4H PRN ORAL Mild Pain/Temp > 100.2 07/22/19 13:11 08/21/19 13:10 07/28/19 06:45 Acetaminophen/ Hydrocodone Bitart ([place] 5/325) 1 tab Q4H PRN ORAL severe pain 07/27/19 13:10 08/03/19 13:09 07/28/19 12:51 Alprazolam (Xanax) 0.25 mg Q6H PRN ORAL For Anxiety 07/27/19 13:11 08/03/19 13:10 Amlodipine Besylate (Norvasc) 5 mg Q12H PRN ORAL For High Blood Pressure 07/22/19 13:12 08/21/19 13:11 Ascorbic Acid (Vitamin C) 500 mg Q4H PRN ORAL thick ileostomy effluent 07/22/19 13:12 08/21/19 13:11 Cefepime HCl 2 gm/ Dextrose 100 ml @ 200 mls/hr Q12H IVPB 07/27/19 15:00 08/03/19 14:59 07/28/19 14:50 Chlorhexidine Gluconate (Val-Hex 2%) 1 applic DAILY@2000 TOPIC 07/22/19 20:00 08/06/19 19:59 07/27/19 19:47 Dextrose 1,000 ml @ 0 mls/hr Q24H PRN IV PN interrupted or unavailable 07/22/19 13:11 08/21/19 13:10 Dextrose (Dextrose 50%) 25 ml Q30M PRN IV Hypoglycemia 07/22/19 13:30 08/07/19 00:00 Dextrose (Dextrose 50%) 50 ml Q30M PRN IV Hypoglycemia 07/22/19 13:30 08/07/19 00:00 Escitalopram Oxalate (Lexapro) 10 mg DAILY ORAL 07/25/19 09:00 08/24/19 08:59 07/28/19 09:06 Fat Emulsion Intravenous 216 ml/Amino Acids/ Electrolytes/ Dextrose 1,800 ml @ 90 mls/hr Q24H IV 07/24/19 00:00 08/23/19 00:00 07/28/19 00:18 Fluconazole/ Sodium Chloride 200 ml @ 200 mls/hr Q24H IV 07/27/19 13:00 08/03/19 12:59 07/28/19 12:45 Furosemide (Lasix) 40 mg DAILY IV 07/26/19 09:00 08/25/19 08:59 07/28/19 09:06 Hydromorphone HCl (Dilaudid) 1 mg Q6H PRN SUBQ Severe Breakthru Pain (>7) 07/27/19 13:10 08/03/19 13:09 07/28/19 15:54 Insulin Aspart (NovoLOG) No Dose Q6HR SUBQ 07/22/19 18:00 08/07/19 00:00 07/28/19 12:32 Levalbuterol HCl (Xopenex) 1.25 mg Q6H PRN HHN SOB/WHEEZING 07/26/19 10:00 07/31/19 09:59 Levalbuterol HCl (Xopenex) 1.25 mg TIDRT HHN 07/26/19 13:00 07/31/19 00:59 07/28/19 12:28 Levothyroxine Sodium (Synthroid) 50 mcg DAILY@0630 ORAL 07/23/19 06:30 08/06/19 06:29 07/28/19 06:19 Lidocaine (Lidoderm 5% PATCH) 1 patch DAILY TDERMAL 07/23/19 09:00 08/20/19 08:59 07/28/19 09:07 Losartan Potassium (Cozaar) 25 mg DAILY ORAL 07/23/19 09:00 08/13/19 08:59 07/28/19 09:06 Mirtazapine (Remeron) 7.5 mg BEDTIME PRN ORAL insomnia 07/24/19 15:15 08/23/19 15:14 07/27/19 21:32 Ondansetron HCl (Zofran) 4 mg Q4H PRN IVP Nausea & Vomiting 07/22/19 13:14 08/21/19 13:13 07/27/19 09:25 Pantoprazole (Protonix) 40 mg DAILY ORAL 07/23/19 09:00 08/06/19 08:59 07/28/19 09:06 Phytonadione (Vitamin K) 10 mg ONCE A WEEK SUBQ 07/28/19 20:00 08/06/19 19:59 Prednisone (predniSONE) 5 mg DAILY ORAL 07/23/19 09:00 08/06/19 08:59 07/28/19 09:06 Tamsulosin HCl (Flomax) 0.4 mg DAILY ORAL 07/23/19 09:00 08/06/19 08:59 07/28/19 09:06 Tramadol HCl (Ultram) 50 mg Q4H PRN ORAL moderate pain 07/27/19 13:10 08/03/19 13:09 Vancomycin HCl (Vanco rx to dose) 1 ea DAILY PRN MISC Per rx protocol 07/27/19 12:15 08/26/19 12:14 Vancomycin HCl 750 mg/Sodium Chloride 275 ml @ 183.333 mls/hr Q12HR@0200,1400 IVPB 07/27/19 14:00 08/01/19 13:59 07/28/19 13:50 Paras Ybarra MD Jul 28, 2019 18:21
--- NOTE | 2019-07-28 19:00 | NUR ---
NURSE NOTES: RESTING QUIETLY. IN NO ACUTE DISTRESS.
--- NOTE | 2019-07-28 19:10 | NUR ---
NURSE NOTES: Receive a report from DAVID Jenkins. Round is done. Pt is lying in bed without acute distress. Had a little bit of dinner. No appetite. Complain for generalized pain. Will provide pain medication as ordered. TPN is running and will be stopped by 1999. No chilling or febrile sensation noted. On O2 3L NC. No respiratory distress noted. Call light within reach. Will continue to monitor.
--- NOTE | 2019-07-28 19:10 | NUR ---
HAND-OFF: Report given to OH RN.
[2019-07-28] MEDS: Dyna-Hex 2% Top Sol 2oz TOPIC SCH (19:51)
[2019-07-28] MEDS ORDERED: Phytonadione 10 mg/mL 1ml amp SUBQ SCH (20:00)
--- NOTE | 2019-07-28 20:30 | NUR ---
NURSE NOTES: Alternating using urinal and using diaper. No skin issue noted. Keep dry and clean. Will continue to monitor.
[2019-07-29] VITALS: BP 131/99
[2019-07-29] MEDS: HYDROcodone/Acetamin 5/325 tab ORAL PRN ×2 (01:19→13:57)
[2019-07-29] MEDS: Vancomycin 750mg/NS 275ml IVPB SCH ×2 (01:59)
[2019-07-29 04:00] VITALS: BP 118/53
[2019-07-29] MEDS: HYDROmorphone 1mg/ml Carpuject SUBQ PRN ×3 (04:14→20:30)
[2019-07-29 05:32] LABS: BASOPHILS % (AUTO) 1.1 % (0.0-2.0); EOSINOPHILS % (AUTO) 4.5 % (0.0-3.0); HEMATOCRIT 25.2 % (42.0-52.0); HEMOGLOBIN 8.5 G/DL (14.2-18.0); LYMPHOCYTES % (AUTO) 9.2 % (20.0-45.0); MEAN CORPUSCULAR VOLUME 86 FL (80-99); MONOCYTES % (AUTO) 8.7 % (1.0-10.0); NEUTROPHILS % (AUTO) 76.5 % (45.0-75.0); PLATELET COUNT 359 K/UL (150-450); RED BLOOD COUNT 2.94 M/UL (4.70-6.10); RED CELL DISTRIBUTION WIDTH 17.7 % (11.6-14.8); WHITE BLOOD COUNT 11.3 K/UL (4.8-10.8)
[2019-07-29] MEDS: NovoLOG Insulin Flexpen SUBQ SCH ×4 (05:37→23:52)
[2019-07-29 05:51] LABS: ALANINE AMINOTRANSFERASE 14 U/L (12-78); ALBUMIN 1.6 G/DL (3.4-5.0); ALBUMIN/GLOBULIN RATIO 0.4 (1.0-2.7); ALKALINE PHOSPHATASE 295 U/L (46-116); ANION GAP 8 mmol/L (5-15); ASPARTATE AMINO TRANSFERASE 22 U/L (15-37); BILIRUBIN,TOTAL 0.4 MG/DL (0.2-1.0); BLOOD UREA NITROGEN 32 mg/dL (7-18); CALCIUM 8.2 MG/DL (8.5-10.1); CARBON DIOXIDE 23 MMOL/L (21-32); CHLORIDE 107 MMOL/L (98-107); CREATININE 1.2 MG/DL (0.55-1.30); POTASSIUM 3.8 MMOL/L (3.5-5.1); SODIUM 138 MMOL/L (136-145)
--- NOTE | 2019-07-29 06:00 | NUR ---
NURSE NOTES: Pt states that he feels hungry the first time after surgery. Offer orange juice and crackers and has half of them. Pain is tolerating after pain medication. Pt has had frequency every 1-2 hour about 50ml to 100ml. Will continue to monitor. 12hr output urine: 440ml ileostomy : 380ml
--- NOTE | 2019-07-29 07:15 | NUR ---
HAND-OFF: Report given to DAVID Jenkins.
--- NOTE | 2019-07-29 07:37 | NUR ---
NURSE NOTES: ASLEEP. IN NO APPARENT DISTRESS.
[2019-07-29 07:58] VITALS: BP 125/74
[2019-07-29] MEDS: Levalbuterol Inh UD 1.25mg/0.5ml HHN SCH ×3 (08:18→20:28)
[2019-07-29] MEDS: Tamsulosin 0.4mg cap ORAL SCH ×2 (09:00→09:59)
[2019-07-29] MEDS: Losartan 25mg tab ORAL SCH ×2 (09:00→09:58)
--- NOTE | 2019-07-29 09:16 | General Progress Note ---
Progress Note Progress Note Afebrile x 24 hours. Blood C&S from port and PICC no growth so far. Ate better yesterday. Voiding small amounts + incontinent of urine despite flomax Abdomen soft, well healed, ileostomy stable Urine can't be measured well Ileostomy 940cc WBC down 11,300 BUN 32 Cr down 1.2 Albumin 1.6 Imp: Fever and leukocytosis - improved - source undetermined Plan; Needs TPN and IV access May need removal of port and/or PICC, then new PICC - will discuss with Pako Altamirano MD Jul 29, 2019 09:16
--- NOTE | 2019-07-29 09:35 | Pulmonology Progress Note ---
Assessment/Plan Assessment/Plan IMPRESSION: 1. Fever, now resolved. 2. Resolving right middle lobe infiltrate. 3. Multiple comorbidities including use of steroids, ulcerative colitis. 4. Pulmonary edema; resolved DISCUSSION: Off Lasix gtt; will continue daily IV Lasix Discussed with surgery TPN [place] and Xanax for anxiety/pain Will follow Oneal Allred M.D. Subjective Interval Events: Remains on daily Lasix Constitutional: Reports: no symptoms HEENT: Repors: no symptoms Respiratory: Reports: no symptoms Cardiovascular: Reports: no symptoms Allergies: Coded Allergies: LORAZEPAM (Verified Allergy, Mild, 07/08/19) Pt undergoes altered level of consciousness Objective Last 24 Hour Vital Signs Date Time Temp Pulse Resp B/P (MAP) Pulse Ox O2 Delivery O2 Flow Rate FiO2 07/29/19 09:32 Nasal Cannula 3.0 07/29/19 09:00 125/74 07/29/19 08:28 83 20 97 Nasal Cannula 2.0 28 81 20 93 07/29/19 08:17 93 Nasal Cannula 3.0 32 07/29/19 07:58 98.9 79 18 125/74 (91) 94 07/29/19 04:00 98.4 70 20 118/53 (74) 92 07/29/19 00:00 98.2 85 18 131/99 (110) 94 07/28/19 21:00 Nasal Cannula 3.0 07/28/19 20:00 98.6 71 18 136/71 (92) 94 07/28/19 19:33 93 Nasal Cannula 3.0 32 07/28/19 19:28 72 18 96 Nasal Cannula 2.0 28 67 21 93 07/28/19 16:24 99.1 07/28/19 16:00 99.1 68 18 137/67 (90) 94 07/28/19 13:21 98.0 07/28/19 12:38 78 16 97 Nasal Cannula 2.0 28 77 16 94 07/28/19 11:47 98.0 63 16 121/48 (72) 96 Intake and Output 07/28/19 07/29/19 19:00 07:00 Intake Total 1855 ml 870 ml Output Total 960 ml 820 ml Balance 895 ml 50 ml Intake Oral 290 ml 150 ml IV Total 1565 ml 720 ml Output Urine Total 400 ml 440 ml Other 560 ml 380 ml # Voids 7 General Appearance: no acute distress HEENT: normocephalic Respiratory/Chest: chest wall non-tender, lungs clear Cardiovascular: normal peripheral pulses, normal rate Microbiology Date/Time Source Procedure Growth Status 07/28/19 02:20 Blood Blood Culture - Preliminary NO GROWTH AFTER 24 HOURS Resulted 07/27/19 12:35 Blood Blood Culture - Preliminary NO GROWTH AFTER 24 HOURS Resulted 07/27/19 12:25 Blood Blood Culture - Preliminary NO GROWTH AFTER 24 HOURS Resulted 07/27/19 16:00 Urine,Clean Catch Urine Culture - Preliminary YEAST Resulted Laboratory Tests 07/29/19 04:50: White Blood Count 11.3H, Red Blood Count 2.94L, Hemoglobin 8.5L, Hematocrit 25.2L, Mean Corpuscular Volume 86, Mean Corpuscular Hemoglobin 29.1, Mean Corpuscular Hemoglobin Concent 33.9, Red Cell Distribution Width 17.7H, Platelet Count 359, Mean Platelet Volume 6.6, Neutrophils (%) (Auto) 76.5H, Lymphocytes (%) (Auto) 9.2L, Monocytes (%) (Auto) 8.7, Eosinophils (%) (Auto) 4.5H, Basophils (%) (Auto) 1.1, Sodium Level 138, Potassium Level 3.8, Chloride Level 107, Carbon Dioxide Level 23, Anion Gap 8, Blood Urea Nitrogen 32H, Creatinine 1.2, Estimat Glomerular Filtration Rate , Glucose Level 130H, Calcium Level 8.2L, Magnesium Level 1.8, Total Bilirubin 0.4, Aspartate Amino Transf (AST/SGOT) 22, Alanine Aminotransferase (ALT/SGPT) 14, Alkaline Phosphatase 295H, Total Protein 5.6L, Albumin 1.6L, Globulin 4.0, Albumin/ Globulin Ratio 0.4L Current Medications Medications (Trade) Dose Ordered Sig/Evgeny Route PRN Reason Start Time Stop Time Status Last Admin Dose Admin Acetaminophen (Tylenol) 650 mg Q4H PRN ORAL Mild Pain/Temp > 100.2 07/22/19 13:11 08/21/19 13:10 07/28/19 06:45 Acetaminophen/ Hydrocodone Bitart ([place] 5/325) 1 tab Q4H PRN ORAL severe pain 07/27/19 13:10 08/03/19 13:09 07/29/19 01:19 Alprazolam (Xanax) 0.25 mg Q6H PRN ORAL For Anxiety 07/27/19 13:11 08/03/19 13:10 Amlodipine Besylate (Norvasc) 5 mg Q12H PRN ORAL For High Blood Pressure 07/22/19 13:12 08/21/19 13:11 Ascorbic Acid (Vitamin C) 500 mg Q4H PRN ORAL thick ileostomy effluent 07/22/19 13:12 08/21/19 13:11 Cefepime HCl 2 gm/ Dextrose 100 ml @ 200 mls/hr Q12H IVPB 07/27/19 15:00 08/03/19 14:59 07/29/19 03:03 Chlorhexidine Gluconate (Val-Hex 2%) 1 applic DAILY@2000 TOPIC 07/22/19 20:00 08/06/19 19:59 07/28/19 19:51 Dextrose 1,000 ml @ 0 mls/hr Q24H PRN IV PN interrupted or unavailable 07/22/19 13:11 08/21/19 13:10 Dextrose (Dextrose 50%) 25 ml Q30M PRN IV Hypoglycemia 07/22/19 13:30 08/07/19 00:00 Dextrose (Dextrose 50%) 50 ml Q30M PRN IV Hypoglycemia 07/22/19 13:30 08/07/19 00:00 Escitalopram Oxalate (Lexapro) 10 mg DAILY ORAL 07/25/19 09:00 08/24/19 08:59 07/28/19 09:06 Fat Emulsion Intravenous 216 ml/Amino Acids/ Electrolytes/ Dextrose 1,800 ml @ 90 mls/hr Q24H IV 07/24/19 00:00 08/23/19 00:00 07/28/19 23:49 Fluconazole/ Sodium Chloride 200 ml @ 200 mls/hr Q24H IV 07/27/19 13:00 08/03/19 12:59 07/28/19 12:45 Furosemide (Lasix) 40 mg DAILY IV 07/26/19 09:00 08/25/19 08:59 07/29/19 09:08 Hydromorphone HCl (Dilaudid) 1 mg Q6H PRN SUBQ Severe Breakthru Pain (>7) 07/27/19 13:10 08/03/19 13:09 07/29/19 04:14 Insulin Aspart (NovoLOG) No Dose Q6HR SUBQ 07/22/19 18:00 08/07/19 00:00 07/28/19 12:32 Levalbuterol HCl (Xopenex) 1.25 mg Q6H PRN HHN SOB/WHEEZING 07/26/19 10:00 07/31/19 09:59 Levalbuterol HCl (Xopenex) 1.25 mg TIDRT HHN 07/26/19 13:00 07/31/19 00:59 07/29/19 08:18 Levothyroxine Sodium (Synthroid) 50 mcg DAILY@0630 ORAL 07/23/19 06:30 08/06/19 06:29 07/29/19 06:35 Lidocaine (Lidoderm 5% PATCH) 1 patch DAILY TDERMAL 07/23/19 09:00 08/20/19 08:59 07/28/19 09:07 Losartan Potassium (Cozaar) 25 mg DAILY ORAL 07/23/19 09:00 08/13/19 08:59 07/28/19 09:06 Mirtazapine (Remeron) 7.5 mg BEDTIME PRN ORAL insomnia 07/24/19 15:15 08/23/19 15:14 07/28/19 23:48 Ondansetron HCl (Zofran) 4 mg Q4H PRN IVP Nausea & Vomiting 07/22/19 13:14 08/21/19 13:13 07/27/19 09:25 Pantoprazole (Protonix) 40 mg DAILY ORAL 07/23/19 09:00 08/06/19 08:59 07/28/19 09:06 Phytonadione (Vitamin K) 10 mg ONCE A WEEK SUBQ 07/28/19 20:00 08/06/19 19:59 07/28/19 20:15 Prednisone (predniSONE) 2.5 mg DAILY ORAL 07/29/19 10:00 08/28/19 09:59 Tamsulosin HCl (Flomax) 0.4 mg DAILY ORAL 07/23/19 09:00 08/06/19 08:59 07/28/19 09:06 Tramadol HCl (Ultram) 50 mg Q4H PRN ORAL moderate pain 07/27/19 13:10 08/03/19 13:09 Vancomycin HCl (Vanco rx to dose) 1 ea DAILY PRN MISC Per rx protocol 07/27/19 12:15 08/26/19 12:14 Vancomycin HCl 750 mg/Sodium Chloride 275 ml @ 183.333 mls/hr Q12HR@0200,1400 IVPB 07/27/19 14:00 08/01/19 13:59 07/29/19 01:59 Oneal Allred MD Jul 29, 2019 09:35
--- NOTE | 2019-07-29 11:42 | Infectious Diseases Prog Note ---
Assessment/Plan Assessment/Plan ASSESSMENT AND PLAN: 1. sepsis, leukocytosis, fevers, ? line, ? pna, chf/edema, ileus patient febrile again, fungemia risk, ? line infection, CT without obvious source - abx - cefepime, diflucan and vancomycin - f/u on cultures, labs - chest x-ray with chf 2. chf/edema - diuresis, sob better, pulmonary f/u 3. 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 4. History of multiple abdominal surgeries. 5. Hypertension. 6. Blood pressure treatment per primary care team. 7. Hypothyroidism. 8. Ulcerative colitis history. 9. Anemia. 10. History of polycythemia. 11. Allergic to lorazepam. 12. Social history negative. 13. Family history noncontributory. 14. MAR is noted. 15. Case was discussed with RN. 16. Case was discussed with Dr. Herring. 17. Case was discussed with the patient and the patient's . Subjective Constitutional: Denies: fever HEENT: Denies: congestion Respiratory: Denies: shortness of breath Cardiovascular: Denies: chest pain Gastrointestinal/Abdominal: Denies: nausea, vomiting Allergies: Coded Allergies: LORAZEPAM (Verified Allergy, Mild, 07/08/19) Pt undergoes altered level of consciousness Objective Vital Signs Last 24 Hour Vital Signs Date Time Temp Pulse Resp B/P (MAP) Pulse Ox O2 Delivery O2 Flow Rate FiO2 07/29/19 10:42 98.9 07/29/19 09:58 125/74 07/29/19 09:32 Nasal Cannula 3.0 07/29/19 08:28 83 20 97 Nasal Cannula 2.0 28 81 20 93 07/29/19 08:17 93 Nasal Cannula 3.0 32 07/29/19 07:58 98.9 79 18 125/74 (91) 94 07/29/19 04:00 98.4 70 20 118/53 (74) 92 07/29/19 00:00 98.2 85 18 131/99 (110) 94 07/28/19 21:00 Nasal Cannula 3.0 07/28/19 20:00 98.6 71 18 136/71 (92) 94 07/28/19 19:33 93 Nasal Cannula 3.0 32 07/28/19 19:28 72 18 96 Nasal Cannula 2.0 28 67 21 93 07/28/19 16:00 99.1 68 18 137/67 (90) 94 07/28/19 13:21 98.0 07/28/19 12:38 78 16 97 Nasal Cannula 2.0 28 77 16 94 07/28/19 11:47 98.0 63 16 121/48 (72) 96 Height (Feet): 5 Height (Inches): 7.00 Weight (Pounds): 126 General Appearance: no acute distress HEENT: normocephalic, atraumatic, anicteric Respiratory/Chest: lungs clear, normal breath sounds, no respiratory distress Cardiovascular: normal rate, regular rhythm, no gallop/murmur Abdomen: normal bowel sounds, soft, non tender, no organomegaly, non distended Objective Chest x-ray - 07/21/19 - Comparison: 07/20/2019 Findings: Better inspiration currently. Bilateral interstitial edema is probably unchanged allowing for differences in inspiration. Left pleural effusion is again demonstrated. The heart size is normal. Left arm PICC and right chest port catheter again demonstrated. Median sternotomy sutures are again demonstrated. Impression: Probably unchanged bilateral interstitial edema and left pleural effusion, allowing for differences in inspiration, over one day KUB - 07/21/19 Impression: Left upper quadrant small bowel loops. Given evidence of recent surgery, most likely on the basis of postoperative ileus. However, the possibility of small bowel obstruction should also be considered. CT abdomen and pelvis - report noted CT abdomen and pelvis - 07/24/19 - IMPRESSION: Interval abdominal surgery with resection/closure of a right continent ileostomy and formation of a left lower quadrant ileostomy. No evidence of bowel obstruction, abscess or other complications. Development of a trace right pleural effusion and posterior basal atelectasis. Other findings on this exam are unchanged from the previous preoperative study. Status post total proctocolectomy. Status post cholecystectomy. Pulmonary fibrosis. 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 Guadarrama catheter in good position. Some degree of chronic cystitis not excluded even wall thickening. Moderate to severe degenerative changes of the lumbar spine as described above. Scoliosis again noted. Microbiology Date/Time Source Procedure Growth Status 07/28/19 02:20 Blood Blood Culture - Preliminary NO GROWTH AFTER 24 HOURS Resulted 07/27/19 12:35 Blood Blood Culture - Preliminary NO GROWTH AFTER 24 HOURS Resulted 07/27/19 12:25 Blood Blood Culture - Preliminary NO GROWTH AFTER 24 HOURS Resulted 07/27/19 16:00 Urine,Clean Catch Urine Culture - Preliminary YEAST Resulted Laboratory Tests Test 07/29/19 04:50 White Blood Count 11.3 K/UL (4.8-10.8) H Red Blood Count 2.94 M/UL (4.70-6.10) L Hemoglobin 8.5 G/DL (14.2-18.0) L Hematocrit 25.2 % (42.0-52.0) L Mean Corpuscular Volume 86 FL (80-99) Mean Corpuscular Hemoglobin 29.1 PG (27.0-31.0) Mean Corpuscular Hemoglobin Concent 33.9 G/DL (32.0-36.0) Red Cell Distribution Width 17.7 % (11.6-14.8) H Platelet Count 359 K/UL (150-450) Mean Platelet Volume 6.6 FL (6.5-10.1) Neutrophils (%) (Auto) 76.5 % (45.0-75.0) H Lymphocytes (%) (Auto) 9.2 % (20.0-45.0) L Monocytes (%) (Auto) 8.7 % (1.0-10.0) Eosinophils (%) (Auto) 4.5 % (0.0-3.0) H Basophils (%) (Auto) 1.1 % (0.0-2.0) Sodium Level 138 MMOL/L (136-145) Potassium Level 3.8 MMOL/L (3.5-5.1) Chloride Level 107 MMOL/L (98-107) Carbon Dioxide Level 23 MMOL/L (21-32) Anion Gap 8 mmol/L (5-15) Blood Urea Nitrogen 32 mg/dL (7-18) H Creatinine 1.2 MG/DL (0.55-1.30) Estimat Glomerular Filtration Rate mL/min (>60) Glucose Level 130 MG/DL (74-106) H Calcium Level 8.2 MG/DL (8.5-10.1) L Magnesium Level 1.8 MG/DL (1.8-2.4) Total Bilirubin 0.4 MG/DL (0.2-1.0) Aspartate Amino Transf (AST/SGOT) 22 U/L (15-37) Alanine Aminotransferase (ALT/SGPT) 14 U/L (12-78) Alkaline Phosphatase 295 U/L (46-116) H Total Protein 5.6 G/DL (6.4-8.2) L Albumin 1.6 G/DL (3.4-5.0) L Globulin 4.0 g/dL Albumin/Globulin Ratio 0.4 (1.0-2.7) L Current Medications Medications (Trade) Dose Ordered Sig/Evgeny Route PRN Reason Start Time Stop Time Status Last Admin Dose Admin Acetaminophen (Tylenol) 650 mg Q4H PRN ORAL Mild Pain/Temp > 100.2 07/22/19 13:11 08/21/19 13:10 07/28/19 06:45 Acetaminophen/ Hydrocodone Bitart ([place] 5/325) 1 tab Q4H PRN ORAL severe pain 07/27/19 13:10 08/03/19 13:09 07/29/19 01:19 Alprazolam (Xanax) 0.25 mg Q6H PRN ORAL For Anxiety 07/27/19 13:11 08/03/19 13:10 Amlodipine Besylate (Norvasc) 5 mg Q12H PRN ORAL For High Blood Pressure 07/22/19 13:12 08/21/19 13:11 Ascorbic Acid (Vitamin C) 500 mg Q4H PRN ORAL thick ileostomy effluent 07/22/19 13:12 08/21/19 13:11 Cefepime HCl 2 gm/ Dextrose 100 ml @ 200 mls/hr Q12H IVPB 07/27/19 15:00 08/03/19 14:59 07/29/19 03:03 Chlorhexidine Gluconate (Val-Hex 2%) 1 applic DAILY@2000 TOPIC 07/22/19 20:00 08/06/19 19:59 07/28/19 19:51 Dextrose 1,000 ml @ 0 mls/hr Q24H PRN IV PN interrupted or unavailable 07/22/19 13:11 08/21/19 13:10 Dextrose (Dextrose 50%) 25 ml Q30M PRN IV Hypoglycemia 07/22/19 13:30 08/07/19 00:00 Dextrose (Dextrose 50%) 50 ml Q30M PRN IV Hypoglycemia 07/22/19 13:30 08/07/19 00:00 Escitalopram Oxalate (Lexapro) 10 mg DAILY ORAL 07/25/19 09:00 08/24/19 08:59 07/29/19 10:00 Fat Emulsion Intravenous 216 ml/Amino Acids/ Electrolytes/ Dextrose 1,800 ml @ 90 mls/hr Q24H IV 07/24/19 00:00 08/23/19 00:00 07/28/19 23:49 Fluconazole/ Sodium Chloride 200 ml @ 200 mls/hr Q24H IV 07/27/19 13:00 08/03/19 12:59 07/28/19 12:45 Furosemide (Lasix) 40 mg DAILY IV 07/26/19 09:00 08/25/19 08:59 07/29/19 09:08 Hydromorphone HCl (Dilaudid) 1 mg Q6H PRN SUBQ Severe Breakthru Pain (>7) 07/27/19 13:10 08/03/19 13:09 07/29/19 10:12 Insulin Aspart (NovoLOG) No Dose Q6HR SUBQ 07/22/19 18:00 08/07/19 00:00 07/28/19 12:32 Levalbuterol HCl (Xopenex) 1.25 mg Q6H PRN HHN SOB/WHEEZING 07/26/19 10:00 07/31/19 09:59 Levalbuterol HCl (Xopenex) 1.25 mg TIDRT HHN 07/26/19 13:00 07/31/19 00:59 07/29/19 08:18 Levothyroxine Sodium (Synthroid) 50 mcg DAILY@0630 ORAL 07/23/19 06:30 08/06/19 06:29 07/29/19 06:35 Lidocaine (Lidoderm 5% PATCH) 1 patch DAILY TDERMAL 07/23/19 09:00 08/20/19 08:59 07/29/19 10:00 Losartan Potassium (Cozaar) 25 mg DAILY ORAL 07/23/19 09:00 08/13/19 08:59 07/29/19 09:58 Mirtazapine (Remeron) 7.5 mg BEDTIME PRN ORAL insomnia 07/24/19 15:15 08/23/19 15:14 07/28/19 23:48 Ondansetron HCl (Zofran) 4 mg Q4H PRN IVP Nausea & Vomiting 07/22/19 13:14 08/21/19 13:13 07/27/19 09:25 Pantoprazole (Protonix) 40 mg DAILY ORAL 07/23/19 09:00 08/06/19 08:59 07/29/19 10:00 Phytonadione (Vitamin K) 10 mg ONCE A WEEK SUBQ 07/28/19 20:00 08/06/19 19:59 07/28/19 20:15 Prednisone (predniSONE) 2.5 mg DAILY ORAL 07/29/19 10:00 08/28/19 09:59 07/29/19 09:58 Tamsulosin HCl (Flomax) 0.4 mg DAILY ORAL 07/23/19 09:00 08/06/19 08:59 07/29/19 09:59 Tramadol HCl (Ultram) 50 mg Q4H PRN ORAL moderate pain 07/27/19 13:10 08/03/19 13:09 Vancomycin HCl (Vanco rx to dose) 1 ea DAILY PRN MISC Per rx protocol 07/27/19 12:15 08/26/19 12:14 Vancomycin HCl 750 mg/Sodium Chloride 275 ml @ 183.333 mls/hr Q12HR@0200,1400 IVPB 07/27/19 14:00 08/01/19 13:59 07/29/19 01:59 Paras Ybarra MD Jul 29, 2019 11:42
[2019-07-29 12:00] VITALS: BP 117/78
--- NOTE | 2019-07-29 12:06 | NUR ---
RD ASSESSMENT & RECOMMENDATIONS SEE CARE ACTIVITY FOR COMPLETE ASSESSMENT DAILY ESTIMATED NEEDS: Needs based on surgery/ 59kg 25-35 kcals/kg 0697-2164 total kcals 1-2 g protein/kg 59-118 g total protein 25-30 mL/kg 7175-7021 total fluid mLs NUTRITION DIAGNOSIS: Altered GI function R/T h/o UC, BCIR as evidenced by admitted for recurring prolapse of [place] pouch valve with incontinence, s/p BCIR takedown w/ creation of conventional ileo, diet advanced to BCIR low residue diet, remains on TPN. CURRENT DIET:Full Liquid diet -> BCIR low residue PO DIET RECOMMENDATIONS: Consider liberalized SOFT diet for more food options/variety, for improved food acceptance -> pt now w/ conventional Natalee ileo PARENTERAL NUTRITION RECOMMENDATIONS: D/AA Rate: 66 IL Rate: 9 Total Rate: 75 Volume: 1800 % Dextrose: 15 % AA: 5.3 Energy (kcals/kg): 1576 Protein (g/kg protein): 84 Nonprotein KCALS: 1240 GIR (mg CHO/kg/min): 2.8 % Fat KCALS: 27 NCP: N Ratio: 92:1 TPN Comment: *D15% AA 5.3% @ 66ml/hr + IL20% @ 9ml/hr-> total of 75ml/hrx24 hrs, all 3:1 -> REC TO MAINTAIN CYCLIC FEEDING OF 90ML/HR X 20 HRS TO GIVE 4 HOURS OF METABOLIC REST (AST/ALT previously elev, now wnl, ALP trending down) : will meet 100% est kcal/prot needs ADDITIONAL RECOMMENDATIONS: * Rec obtaining standing wt for accurate CBW * Monitor BGs closely while on Prednisone * Monitor BGs, LFTs, lytes closely on TPN -> LFTs now improved, recommend cyclic feeding as above to give metabolic rest * Consider liberalizing diet to soft (pt now w/ conventional ileo) to help improved PO acceptance
--- NOTE | 2019-07-29 13:51 | NUR ---
NURSE NOTES: Family member requested [employer] [address] [employer]. Spoke to and ok to give [employer] [address] [employer]. Order noted and carried out.
[2019-07-29] MEDS: Vancomycin 500mg/D5W 110ml IVPB SCH ×2 (14:32)
[2019-07-29 16:00] VITALS: BP 153/59
--- NOTE | 2019-07-29 18:45 | NUR ---
NURSE NOTES: INCONTINENT OF URINE. BLADDER SCAN DONE OCC OBTAINED.
--- NOTE | 2019-07-29 19:10 | NUR ---
HAND-OFF: Report given to JACKIE HERNANDEZ..
--- NOTE | 2019-07-29 19:15 | NUR ---
NURSE NOTES: Receive a report from DAVID Jenkins.
--- NOTE | 2019-07-29 19:30 | NUR ---
NURSE NOTES: Pt is awake and alert, lying in bed. No acute distress noted. Breathing is even and non labored. On O2 3L NC with breathing treatment. No dyspnea or respiratory distress noted. Ileostomy is attached without leaking and noted gas and green-brown output noted. TPN is runnig via Port-a-cath. Waiting for Urologist d/t frequency and incontinence. Call light within reach. Will continue to monitor.
[2019-07-29 20:00] VITALS: BP 145/69
--- NOTE | 2019-07-29 20:20 | NUR ---
NURSE NOTES: Seen by Dr. Rodriguez. Will continue to monitor.
[2019-07-29] MEDS: Dyna-Hex 2% Top Sol 2oz TOPIC SCH (20:29)
--- NOTE | 2019-07-29 21:30 | Consultation ---
DATE OF CONSULTATION: 07/29/2019 CONSULTING PHYSICIAN: Julian Rodriguez M.D. REFERRING PHYSICIAN: Pako Orellana M.D. REASON FOR CONSULTATION: Evaluation of lower urinary tract symptoms. HISTORY OF PRESENT ILLNESS: This is an 79-year-old male who has a history of [place] continent ileostomy. He has a previous history of ulcerative colitis with proctocolectomy. He underwent resection of the failed [place] continent ileostomy with creation of loop ileostomy on July 21, 2019 and subsequently had another procedure for control of bleeding in the stoma. He had an indwelling Guadarrama catheter since hospitalization, which has been removed a couple days ago after which he has had urinary frequency. The patient does have a history of BPH. He denies previous prostate surgery. PAST MEDICAL HISTORY: Significant for above, also hypertension. PAST SURGICAL HISTORY: As above. MEDICATIONS: Current medication list in the hospital was reviewed. He is currently on prednisone, vitamin K, cefepime, Xanax, [place], Dilaudid, Ultram, fluconazole, Lasix, Lexapro, Remeron, Cozaar, Protonix, Flomax, Synthroid, Norvasc, and Tylenol. ALLERGIES: . SOCIAL HISTORY: Currently nonsmoker. FAMILY HISTORY: Noncontributory. REVIEW OF SYSTEMS: As above. PHYSICAL EXAMINATION: GENERAL: Elderly male, no acute distress. VITAL SIGNS: Temperature is 98.5, blood pressure 152/59, pulse 70, respirations 18. HEENT: Normocephalic. NECK: Supple. ABDOMEN: Soft. Multiple scars. He has ileostomy. EXTREMITIES: No clubbing or cyanosis LABORATORY DATA: His last UA on 07/27/2019 was negative. White count is 11.3, hemoglobin , and platelets of 359. BUN 32, creatinine 1.2, potassium 3.8. INR is 1.1. Urine culture from 07/27/2019 showed 20,000 to 30,000 colonies of yeast. DIAGNOSTIC IMAGING STUDIES: The patient had a CT scan of the abdomen and pelvis, this is from July 24, 2019. The kidneys were normal without any hydronephrosis. Guadarrama catheter was in the bladder. At that time, there was some bladder wall thickening. IMPRESSION: 1. Lower urinary tract symptoms. 2. BPH history. 3. Possible neurogenic bladder. 4. Hematuria history. 5. Proteinuria history. 6. Possible urinary tract infection and colonization. PLAN AND DISCUSSION: Again the patient does have urinary symptoms of urgency and frequency. This may be secondary to combination of BPH and possible neurogenic bladder or overactive bladder. He is also on diuretics, which can cause urinary frequency. He may have some residual urethral irritation from the recent indwelling Guadarrama. The last urine culture showed 20,000 to 30,000 colonies of yeast, which are likely colonized. At this time, he is on antibiotics as well as fluconazole. He is also on Flomax 0.4 mg. I did talk to the patient and the and we will continue to monitor him and if his symptoms persist, we can consider increasing the dose of Flomax to 0.8 mg b.i.d. At some point, he may benefit from anticholinergics for bladder spasms. However, I would be cautious with that because of potential side effect of urinary retention. At some point, he will need to have cystoscopy to evaluate the lower urinary tract, which can be done electively as an outpatient. I did ask the nursing staff to do a bladder scan and his postvoid residual was reported to be 0. I will follow the patient. Any other recommendations will be forthcoming. Thank you, Dr. Orellana, for asking me to see this patient in consultation. Julian Rodriguez M.D. DR: Eulogio JOB#: [id number] CC:
[2019-07-29] MEDS ORDERED: NS 275ml ONE (22:27)
[2019-07-29] MEDS ORDERED: Tubing IV Secondary IV ONE (22:27)
[2019-07-29] MEDS: Fat Emulsion Iv 20% 216 ML in Tpn 1,584 ML IV SCH (23:56)
[2019-07-30] VITALS: BP 134/66
--- NOTE | 2019-07-30 01:00 | NUR ---
NURSE NOTES: Pt is asleep after prn Remeron 7.5mg po. Will continue to monitor.
--- NOTE | 2019-07-30 02:00 | Progress Note ---
DATE: 07/29/2019 SUBJECTIVE: The patient is asleep and arousable. No behavior issues noted. The patient is calm and presents with depressed mood, anhedonia, worthlessness, hopelessness, and hard of hearing. MENTAL STATUS EXAMINATION: The patient is alert and oriented times self, place, and situation. Mood is irritable and depressed. Affect is constricted. Congruent with mood. Thought process is concrete. Thought content, no suicidal or homicidal ideation. ASSESSMENT: 1. Major depressive disorder. 2. Anxiety disorder. PLAN: 1. Lexapro. 2. Mirtazapine. 3. Provide the patient with reality orientation and supportive therapy. Ember English M.D. DR: SANGEETA JOB#: [id number] CC:
[2019-07-30] MEDS: Vancomycin 500mg/D5W 110ml IVPB SCH ×4 (02:44→15:55)
[2019-07-30 04:00] VITALS: BP 141/61
[2019-07-30] MEDS: HYDROmorphone 1mg/ml Carpuject SUBQ PRN ×3 (04:23→20:21)
[2019-07-30] MEDS: NovoLOG Insulin Flexpen SUBQ SCH ×3 (05:31→17:09)
--- NOTE | 2019-07-30 06:00 | NUR ---
NURSE NOTES: No acute distress noted. After sleeping pill, pt had sleep and voided diaper and pad. Skin intact. Kept dry and clean. Given one more time pain medication and anti-emesis mediation. Will continue to monitor. 12 hour output Urine : 270+ incontinence Ileostomy: 425ml
[2019-07-30 06:06] LABS: BASOPHILS % (AUTO) 0.8 % (0.0-2.0); HEMATOCRIT 27.8 % (42.0-52.0); HEMOGLOBIN 9.3 G/DL (14.2-18.0); LYMPHOCYTES % (AUTO) 9.8 % (20.0-45.0); MEAN CORPUSCULAR VOLUME 85 FL (80-99); MONOCYTES % (AUTO) 8.9 % (1.0-10.0); NEUTROPHILS % (AUTO) 77.5 % (45.0-75.0); PLATELET COUNT 424 K/UL (150-450); RED BLOOD COUNT 3.25 M/UL (4.70-6.10); RED CELL DISTRIBUTION WIDTH 17.9 % (11.6-14.8); WHITE BLOOD COUNT 13.1 K/UL (4.8-10.8)
[2019-07-30 06:22] LABS: ALANINE AMINOTRANSFERASE 52 U/L (12-78); ALBUMIN 1.8 G/DL (3.4-5.0); ALBUMIN/GLOBULIN RATIO 0.4 (1.0-2.7); ALKALINE PHOSPHATASE 383 U/L (46-116); ANION GAP 10 mmol/L (5-15); ASPARTATE AMINO TRANSFERASE 38 U/L (15-37); BILIRUBIN,TOTAL 0.4 MG/DL (0.2-1.0); BLOOD UREA NITROGEN 31 mg/dL (7-18); CALCIUM 8.8 MG/DL (8.5-10.1); CARBON DIOXIDE 24 MMOL/L (21-32); CHLORIDE 105 MMOL/L (98-107); CREATININE 1.2 MG/DL (0.55-1.30); SODIUM 139 MMOL/L (136-145)
--- NOTE | 2019-07-30 07:07 | NUR ---
NURSE NOTES: Report received from o RN, rounds made. Patient sleeping, semi-fowlers position in bed, awakens easily. Spouse at bedside. Patient calm, no distress on O2 3LNC. RUC PortaCath dressing CDI, TPN at 90 ml/hr. LPICC dressing CDI, NS TKO. Abdomen steri strips, CDI. Left abdomen Natalee ileostomy appliance intact, stoma red, moist, green liquid output noted. Bilateral SCDs off. Call light in reach, bed in lowest position, will continue to monitor.
--- NOTE | 2019-07-30 07:15 | NUR ---
HAND-OFF: Report given to DAVID Mckeon. Round is done.
--- NOTE | 2019-07-30 07:29 | Urology Progress Note ---
Assessment/Plan Assessment/Plan: 1. Lower urinary tract symptoms. 2. BPH history. 3. Possible neurogenic bladder. 4. Hematuria history. 5. Proteinuria history. 6. Possible urinary tract infection and colonization. monitor clinically cont flomax, will increase to BID cont abx, diflucan still on daily lasix f/u on last blood cx consider anticholinergics, but concern for causing urinary retention Subjective Allergies: Coded Allergies: LORAZEPAM (Verified Allergy, Mild, 07/08/19) Pt undergoes altered level of consciousness Subjective all noted, still with urinary frequency and incontinence states urologist at home had recommended flomax BID Objective Last 24 Hour Vital Signs Date Time Temp Pulse Resp B/P (MAP) Pulse Ox O2 Delivery O2 Flow Rate FiO2 07/30/19 04:00 99.3 75 20 141/61 (87) 94 07/30/19 00:00 99.1 86 20 134/66 (88) 94 07/29/19 21:00 Nasal Cannula 3.0 07/29/19 20:28 95 Nasal Cannula 3.0 32 07/29/19 20:28 85 20 98 Nasal Cannula 2.0 28 84 18 95 07/29/19 20:00 98.9 76 20 145/69 (94) 96 07/29/19 16:00 98.5 70 18 153/59 (90) 93 07/29/19 14:27 98.9 07/29/19 12:00 100.0 92 18 117/78 (91) 90 07/29/19 10:42 98.9 07/29/19 09:58 125/74 07/29/19 09:32 Nasal Cannula 3.0 07/29/19 08:28 83 20 97 Nasal Cannula 2.0 28 81 20 93 07/29/19 08:17 93 Nasal Cannula 3.0 32 07/29/19 07:58 98.9 79 18 125/74 (91) 94 Intake and Output 07/29/19 07/30/19 19:00 07:00 Intake Total 1780 ml 780 ml Output Total 600 ml 695 ml Balance 1180 ml 85 ml Intake Oral 200 ml 150 ml IV Total 1580 ml 630 ml Output Urine Total 250 ml 270 ml Other 350 ml 425 ml # Voids 3 3 Microbiology Date/Time Source Procedure Growth Status 07/28/19 02:20 Blood Blood Culture - Preliminary NO GROWTH AFTER 48 HOURS Resulted 07/22/19 20:00 Sputum Expectorated Gram Stain - Final Complete 07/22/19 20:00 Sputum Culture - Final Andie Tropicalis Usual Respiratory Gloria Complete 07/27/19 16:00 Urine,Clean Catch Urine Culture - Preliminary YEAST Resulted Current Medications Medications (Trade) Dose Ordered Sig/Evgeny Route PRN Reason Start Time Stop Time Status Last Admin Dose Admin Acetaminophen (Tylenol) 650 mg Q4H PRN ORAL Mild Pain/Temp > 100.2 07/22/19 13:11 08/21/19 13:10 07/28/19 06:45 Acetaminophen/ Hydrocodone Bitart ([place] 5/325) 1 tab Q4H PRN ORAL severe pain 07/27/19 13:10 08/03/19 13:09 07/29/19 13:57 Alprazolam (Xanax) 0.25 mg Q6H PRN ORAL For Anxiety 07/27/19 13:11 08/03/19 13:10 Amlodipine Besylate (Norvasc) 5 mg Q12H PRN ORAL For High Blood Pressure 07/22/19 13:12 08/21/19 13:11 Ascorbic Acid (Vitamin C) 500 mg Q4H PRN ORAL thick ileostomy effluent 07/22/19 13:12 08/21/19 13:11 Cefepime HCl 2 gm/ Dextrose 100 ml @ 200 mls/hr Q12H IVPB 07/27/19 15:00 08/03/19 14:59 07/30/19 02:49 Chlorhexidine Gluconate (Val-Hex 2%) 1 applic DAILY@2000 TOPIC 07/22/19 20:00 08/06/19 19:59 07/29/19 20:29 Dextrose 1,000 ml @ 0 mls/hr Q24H PRN IV PN interrupted or unavailable 07/22/19 13:11 08/21/19 13:10 Dextrose (Dextrose 50%) 25 ml Q30M PRN IV Hypoglycemia 07/22/19 13:30 08/07/19 00:00 Dextrose (Dextrose 50%) 50 ml Q30M PRN IV Hypoglycemia 07/22/19 13:30 08/07/19 00:00 Escitalopram Oxalate (Lexapro) 10 mg DAILY ORAL 07/25/19 09:00 08/24/19 08:59 07/29/19 10:00 Fat Emulsion Intravenous 216 ml/Amino Acids/ Electrolytes/ Dextrose 1,800 ml @ 90 mls/hr Q24H IV 07/24/19 00:00 08/23/19 00:00 07/29/19 23:56 Fluconazole/ Sodium Chloride 200 ml @ 200 mls/hr Q24H IV 07/27/19 13:00 08/03/19 12:59 07/29/19 12:57 Furosemide (Lasix) 40 mg DAILY IV 07/26/19 09:00 08/25/19 08:59 07/29/19 09:08 Hydromorphone HCl (Dilaudid) 1 mg Q6H PRN SUBQ Severe Breakthru Pain (>7) 07/27/19 13:10 08/03/19 13:09 07/30/19 04:23 Insulin Aspart (NovoLOG) No Dose Q6HR SUBQ 07/22/19 18:00 08/07/19 00:00 07/28/19 12:32 Levalbuterol HCl (Xopenex) 1.25 mg Q6H PRN HHN SOB/WHEEZING 07/26/19 10:00 07/31/19 09:59 Levalbuterol HCl (Xopenex) 1.25 mg TIDRT HHN 07/26/19 13:00 07/31/19 00:59 07/29/19 20:28 Levothyroxine Sodium (Synthroid) 50 mcg DAILY@0630 ORAL 07/23/19 06:30 08/06/19 06:29 07/30/19 06:35 Lidocaine (Lidoderm 5% PATCH) 1 patch DAILY TDERMAL 07/23/19 09:00 08/20/19 08:59 07/29/19 10:00 Losartan Potassium (Cozaar) 25 mg DAILY ORAL 07/23/19 09:00 08/13/19 08:59 07/29/19 09:58 Mirtazapine (Remeron) 7.5 mg BEDTIME PRN ORAL insomnia 07/24/19 15:15 08/23/19 15:14 07/30/19 00:08 Ondansetron HCl (Zofran) 4 mg Q4H PRN IVP Nausea & Vomiting 07/22/19 13:14 08/21/19 13:13 2/6/20 05:20 Pantoprazole (Protonix) 40 mg DAILY ORAL 07/23/19 09:00 08/06/19 08:59 07/29/19 10:00 Phytonadione (Vitamin K) 10 mg ONCE A WEEK SUBQ 07/28/19 20:00 08/06/19 19:59 07/28/19 20:15 Prednisone (predniSONE) 2.5 mg DAILY ORAL 07/29/19 10:00 08/28/19 09:59 07/29/19 09:58 Tamsulosin HCl (Flomax) 0.4 mg DAILY ORAL 07/23/19 09:00 08/06/19 08:59 07/29/19 09:59 Tramadol HCl (Ultram) 50 mg Q4H PRN ORAL moderate pain 07/27/19 13:10 08/03/19 13:09 Vancomycin HCl (Vanco rx to dose) 1 ea DAILY PRN MISC Per rx protocol 07/27/19 12:15 08/26/19 12:14 Vancomycin HCl 500 mg/Dextrose 110 ml @ 110 mls/hr Q12HR@0300,1500 IVPB 07/29/19 15:00 08/03/19 14:59 07/30/19 02:44 Laboratory Tests 07/29/19 13:00: Vancomycin Level Trough 20.4H 07/30/19 04:50: White Blood Count 13.1H, Red Blood Count 3.25L, Hemoglobin 9.3L, Hematocrit 27.8L, Mean Corpuscular Volume 85, Mean Corpuscular Hemoglobin 28.6, Mean Corpuscular Hemoglobin Concent 33.5, Red Cell Distribution Width 17.9H, Platelet Count 424, Mean Platelet Volume 6.1L, Neutrophils (%) (Auto) 77.5H, Lymphocytes (%) (Auto) 9.8L, Monocytes (%) (Auto) 8.9, Eosinophils (%) (Auto) 3.0, Basophils (%) (Auto) 0.8, Sodium Level 139, Potassium Level 4.0, Chloride Level 105, Carbon Dioxide Level 24, Anion Gap 10, Blood Urea Nitrogen 31H, Creatinine 1.2, Estimat Glomerular Filtration Rate , Glucose Level 87, Calcium Level 8.8, Total Bilirubin 0.4, Aspartate Amino Transf (AST/SGOT) 38H, Alanine Aminotransferase (ALT/SGPT) 52, Alkaline Phosphatase 383H, Total Protein 6.3L, Albumin 1.8L, Globulin 4.5, Albumin/Globulin Ratio 0.4L Height (Feet): 5 Height (Inches): 7.00 Weight (Pounds): 137 Julian Rodriguez MD Jul 30, 2019 07:29
[2019-07-30 08:00] VITALS: BP 127/61
[2019-07-30] MEDS: Levalbuterol Inh UD 1.25mg/0.5ml HHN SCH ×3 (08:00→20:16)
[2019-07-30] MEDS: HYDROcodone/Acetamin 5/325 tab ORAL PRN ×2 (08:22→17:02)
--- NOTE | 2019-07-30 08:43 | General Progress Note ---
Progress Note Progress Note T max 100 Eating very little. Ambulates in hallway with Physical therapy Abdomen soft, well healed, stoma stable Urine - incontinent but post-void bladder scan 0 - appreciate Urology notes Ileostomy 775 WBC up 13,100 Albumin 1.8 blood cultures neg Imp: Fever + leukocytosis Poor po intake Plan: Start peripheral IV and then remove PICC and culture tip continue TPN by infusion port but decrease by 1/3 to allow appetite to improve Case Management re SNF placement - at home in [facility] vs. here Pako Orellana MD Jul 30, 2019 08:43
[2019-07-30] MEDS ORDERED: Fat Emulsion Iv 20% 216 ML in Tpn 1,584 ML IV SCH (08:45)
[2019-07-30] MEDS: Tamsulosin 0.4mg cap ORAL SCH ×2 (09:51→18:53)
[2019-07-30] MEDS: Losartan 25mg tab ORAL SCH (09:52)
[2019-07-30 12:00] VITALS: BP 118/56
--- NOTE | 2019-07-30 12:06 | NUR ---
P.T Note: P.T attempted 2x this AM however pt refused to participate despite encouragement. Notified/aware. Will reattempt as schedule permits.
--- NOTE | 2019-07-30 13:18 | NUR ---
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,PULMONARY EDEMA 99.9 79 14 127/61 97% ON NC 2L H/H 9.6/28.9 BUN 32 CA+8.2 ALK-PHOS 376 IS: IV CEFEPIME BID IV VANCOMYCIN BID IV FLUCONAZOLE Q24HR IV LASIX QD XOPENEX HHN TID RT TPN Q24HR PREDNISONE PO QD RAMIRO-HEX TP QD IV LASIX QD LEXAPRO PO QD FLOMAX PO QD SYNTHROID PO QAM VIT K SQ QWK \:3E MED SURG UNIT PLAN: DC PICC LINE CATH TIP CX- PENDING BLOOD CX SENT CONT IV ABX BCIR LOW RESIDUAL DIET CONT TPN UNTIL EATING HAS IMPROVED SENT CLINICALS OUT TO [facility] Addendum: 07/30/19 at 1344 by ДМИТРИЙ DOMINGUEZ LVN 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 CLERKINSPECTOR MISSILE 07/30/19 SI: S/P REPAIR OF BLEEDING ILEOSTOMY PROBLEM WITH FISTULA,PULMONARY EDEMA 99.9 79 14 127/61 97% ON NC 2L H/H 9.6/28.9 BUN 32 CA+8.2 ALK-PHOS 376 IS: IV CEFEPIME BID IV VANCOMYCIN BID IV FLUCONAZOLE Q24HR IV LASIX QD XOPENEX HHN TID RT TPN Q24HR PREDNISONE PO QD RAMIRO-HEX TP QD IV LASIX QD LEXAPRO PO QD FLOMAX PO QD SYNTHROID PO QAM VIT K SQ QWK \:3E MED SURG UNIT PLAN: DC PICC LINE CATH TIP CX- PENDING BLOOD CX SENT CONT IV ABX BCIR LOW RESIDUAL DIET CONT TPN UNTIL EATING HAS IMPROVED SENT CLINICALS OUT TO [facility]
--- NOTE | 2019-07-30 14:27 | NUR ---
NURSE NOTES: New peripheral IV started to LW at 1135, site patent/asymptomatic. Left PICC discontinued as ordered, tip sent down to lab for culture testing. TPN continues to infuse to right jean paul-cath, rate decreased to 60 ml/hr at 1110. Will monitor for appetite changes.
--- NOTE | 2019-07-30 15:15 | NUR ---
DISCHARGE PLANNING: PATIENT HAS BEEN REFERRED TO 1# [facility] T:[phone] F:[phone] 2#[facility] T:[phone] F:[phone] FACILITIES ARE REVIEWING WILL F/U
[2019-07-30 16:00] VITALS: BP 126/56
--- NOTE | 2019-07-30 17:45 | Progress Note ---
DATE: 07/30/2019 SUBJECTIVE: The patient is doing well. No behavior issues noted. Continues to have episodes of anxiety. Hard of hearing. Depressed. Anhedonia. Worthlessness. MENTAL STATUS EXAMINATION: The patient is alert, oriented times self, place, and situation. Mood is anxious. Affect is constricted, congruent with mood. Thought process is concrete. Thought content, no suicidal or homicidal ideation. Cognition is impaired. Insight and judgment is impaired. ASSESSMENT: Stable. PLAN: We will continue to provide the patient with reality orientation and supportive therapy. Ember English M.D. DR: JAYCEE JOB#: [id number] CC:
--- NOTE | 2019-07-30 19:36 | Infectious Diseases Prog Note ---
Assessment/Plan Assessment/Plan ASSESSMENT AND PLAN: 1. sepsis, leukocytosis, fevers, ? line, ? pna, chf/edema, ileus patient febrile again, fungemia risk, ? line infection, CT without obvious source - abx - cefepime, diflucan and vancomycin - picc line removed - f/u on labs, f/u on cath tip culture, blood cultures negative - chest x-ray with chf - d/w Dr. Orellana 2. chf/edema - diuresis, sob better, pulmonary f/u 3. 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 4. History of multiple abdominal surgeries. 5. Hypertension. 6. Blood pressure treatment per primary care team. 7. Hypothyroidism. 8. Ulcerative colitis history. 9. Anemia. 10. History of polycythemia. 11. Allergic to lorazepam. 12. Social history negative. 13. Family history noncontributory. 14. MAR is noted. 15. Case was discussed with RN. 16. Case was discussed with Dr. Herring. 17. Case was discussed with the patient and the patient's . Subjective Constitutional: Reports: fever - lgt x 1 HEENT: Denies: congestion Respiratory: Denies: shortness of breath Cardiovascular: Denies: chest pain Gastrointestinal/Abdominal: Denies: nausea, vomiting, diarrhea Genitourinary: Denies: dysuria Neurologic: Denies: headache Psychiatric: Denies: depression Skin: Denies: rash Hematologic: Denies: bleeding Musculoskeletal: Denies: pain Allergies: Coded Allergies: LORAZEPAM (Verified Allergy, Mild, 07/08/19) Pt undergoes altered level of consciousness Objective Vital Signs Last 24 Hour Vital Signs Date Time Temp Pulse Resp B/P (MAP) Pulse Ox O2 Delivery O2 Flow Rate FiO2 07/30/19 16:00 98.6 73 18 126/56 (79) 92 07/30/19 12:00 98.7 77 20 118/56 (76) 92 07/30/19 09:52 127/61 07/30/19 09:00 Nasal Cannula 3.0 07/30/19 08:01 96 Nasal Cannula 3.0 32 07/30/19 08:00 79 18 97 Nasal Cannula 2.0 28 85 14 96 07/30/19 08:00 99.9 80 18 127/61 (83) 94 07/30/19 04:00 99.3 75 20 141/61 (87) 94 07/30/19 00:00 99.1 86 20 134/66 (88) 94 07/29/19 21:00 Nasal Cannula 3.0 07/29/19 20:28 95 Nasal Cannula 3.0 32 07/29/19 20:28 85 20 98 Nasal Cannula 2.0 28 84 18 95 07/29/19 20:00 98.9 76 20 145/69 (94) 96 Height (Feet): 5 Height (Inches): 7.00 Weight (Pounds): 137 General Appearance: no acute distress HEENT: normocephalic, atraumatic, anicteric, mucous membranes moist Respiratory/Chest: lungs clear, normal breath sounds, no respiratory distress, no accessory muscle use Cardiovascular: normal rate, regular rhythm, no gallop/murmur, no JVD Abdomen: normal bowel sounds, soft, non tender, no organomegaly, non distended Genitourinary: other - no pinedo Extremities: no cyanosis Skin: no rash Neurologic/Psychiatric: legal activity adjudicator II-XII grossly normal, alert, oriented x 3, responsive Lymphatic: no neck adenopathy Musculoskeletal: no effusion Objective Chest x-ray - 07/21/19 - Comparison: 07/20/2019 Findings: Better inspiration currently. Bilateral interstitial edema is probably unchanged allowing for differences in inspiration. Left pleural effusion is again demonstrated. The heart size is normal. Left arm PICC and right chest port catheter again demonstrated. Median sternotomy sutures are again demonstrated. Impression: Probably unchanged bilateral interstitial edema and left pleural effusion, allowing for differences in inspiration, over one day KUB - 07/21/19 Impression: Left upper quadrant small bowel loops. Given evidence of recent surgery, most likely on the basis of postoperative ileus. However, the possibility of small bowel obstruction should also be considered. CT abdomen and pelvis - report noted CT abdomen and pelvis - 07/24/19 - IMPRESSION: Interval abdominal surgery with resection/closure of a right continent ileostomy and formation of a left lower quadrant ileostomy. No evidence of bowel obstruction, abscess or other complications. Development of a trace right pleural effusion and posterior basal atelectasis. Other findings on this exam are unchanged from the previous preoperative study. Status post total proctocolectomy. Status post cholecystectomy. Pulmonary fibrosis. 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 Pinedo catheter in good position. Some degree of chronic cystitis not excluded even wall thickening. Moderate to severe degenerative changes of the lumbar spine as described above. Scoliosis again noted. Microbiology Date/Time Source Procedure Growth Status 07/28/19 02:20 Blood Blood Culture - Preliminary NO GROWTH AFTER 48 HOURS Resulted 07/22/19 20:00 Sputum Expectorated Gram Stain - Final Complete 07/22/19 20:00 Sputum Culture - Final Andie Tropicalis Usual Respiratory Gloria Complete 07/27/19 16:00 Urine,Clean Catch Urine Culture - Final Andie Tropicalis Complete Microbiology Date/Time Source Procedure Growth Status 07/28/19 02:20 Blood Blood Culture - Preliminary NO GROWTH AFTER 48 HOURS Resulted Laboratory Tests Test 07/30/19 04:50 White Blood Count 13.1 K/UL (4.8-10.8) H Red Blood Count 3.25 M/UL (4.70-6.10) L Hemoglobin 9.3 G/DL (14.2-18.0) L Hematocrit 27.8 % (42.0-52.0) L Mean Corpuscular Volume 85 FL (80-99) Mean Corpuscular Hemoglobin 28.6 PG (27.0-31.0) Mean Corpuscular Hemoglobin Concent 33.5 G/DL (32.0-36.0) Red Cell Distribution Width 17.9 % (11.6-14.8) H Platelet Count 424 K/UL (150-450) Mean Platelet Volume 6.1 FL (6.5-10.1) L Neutrophils (%) (Auto) 77.5 % (45.0-75.0) H Lymphocytes (%) (Auto) 9.8 % (20.0-45.0) L Monocytes (%) (Auto) 8.9 % (1.0-10.0) Eosinophils (%) (Auto) 3.0 % (0.0-3.0) Basophils (%) (Auto) 0.8 % (0.0-2.0) Sodium Level 139 MMOL/L (136-145) Potassium Level 4.0 MMOL/L (3.5-5.1) Chloride Level 105 MMOL/L (98-107) Carbon Dioxide Level 24 MMOL/L (21-32) Anion Gap 10 mmol/L (5-15) Blood Urea Nitrogen 31 mg/dL (7-18) H Creatinine 1.2 MG/DL (0.55-1.30) Estimat Glomerular Filtration Rate mL/min (>60) Glucose Level 87 MG/DL (74-106) Calcium Level 8.8 MG/DL (8.5-10.1) Total Bilirubin 0.4 MG/DL (0.2-1.0) Aspartate Amino Transf (AST/SGOT) 38 U/L (15-37) H Alanine Aminotransferase (ALT/SGPT) 52 U/L (12-78) Alkaline Phosphatase 383 U/L (46-116) H Total Protein 6.3 G/DL (6.4-8.2) L Albumin 1.8 G/DL (3.4-5.0) L Globulin 4.5 g/dL Albumin/Globulin Ratio 0.4 (1.0-2.7) L Current Medications Medications (Trade) Dose Ordered Sig/Evgeny Route PRN Reason Start Time Stop Time Status Last Admin Dose Admin Acetaminophen (Tylenol) 650 mg Q4H PRN ORAL Mild Pain/Temp > 100.2 07/22/19 13:11 08/21/19 13:10 07/28/19 06:45 Acetaminophen/ Hydrocodone Bitart ([place] 5/325) 1 tab Q4H PRN ORAL severe pain 07/27/19 13:10 08/03/19 13:09 07/30/19 17:02 Alprazolam (Xanax) 0.25 mg Q6H PRN ORAL For Anxiety 07/27/19 13:11 08/03/19 13:10 Amlodipine Besylate (Norvasc) 5 mg Q12H PRN ORAL For High Blood Pressure 07/22/19 13:12 08/21/19 13:11 Ascorbic Acid (Vitamin C) 500 mg Q4H PRN ORAL thick ileostomy effluent 07/22/19 13:12 08/21/19 13:11 Cefepime HCl 2 gm/ Dextrose 100 ml @ 200 mls/hr Q12H IVPB 07/27/19 15:00 08/03/19 14:59 07/30/19 15:08 Chlorhexidine Gluconate (Val-Hex 2%) 1 applic DAILY@2000 TOPIC 07/22/19 20:00 08/06/19 19:59 2/5/20 20:29 Dextrose 1,000 ml @ 0 mls/hr Q24H PRN IV PN interrupted or unavailable 07/22/19 13:11 08/21/19 13:10 Dextrose (Dextrose 50%) 25 ml Q30M PRN IV Hypoglycemia 07/22/19 13:30 08/07/19 00:00 Dextrose (Dextrose 50%) 50 ml Q30M PRN IV Hypoglycemia 07/22/19 13:30 08/07/19 00:00 Escitalopram Oxalate (Lexapro) 10 mg DAILY ORAL 07/25/19 09:00 08/24/19 08:59 07/30/19 09:50 Fat Emulsion Intravenous 144 ml/Amino Acids/ Electrolytes/ Dextrose 1,440 ml @ 60 mls/hr Q24H IV 07/30/19 20:00 08/29/19 19:59 Fat Emulsion Intravenous 216 ml/Amino Acids/ Electrolytes/ Dextrose 1,800 ml @ 60 mls/hr Q24H IV 07/30/19 08:45 07/30/19 19:59 07/30/19 11:09 Fluconazole/ Sodium Chloride 200 ml @ 200 mls/hr Q24H IV 07/27/19 13:00 08/03/19 12:59 07/30/19 12:50 Furosemide (Lasix) 40 mg DAILY IV 07/26/19 09:00 08/25/19 08:59 07/30/19 09:50 Hydromorphone HCl (Dilaudid) 1 mg Q6H PRN SUBQ Severe Breakthru Pain (>7) 07/27/19 13:10 08/03/19 13:09 07/30/19 11:48 Insulin Aspart (NovoLOG) No Dose Q6HR SUBQ 07/22/19 18:00 08/07/19 00:00 07/30/19 17:09 Levalbuterol HCl (Xopenex) 1.25 mg Q6H PRN HHN SOB/WHEEZING 07/26/19 10:00 07/31/19 09:59 Levalbuterol HCl (Xopenex) 1.25 mg TIDRT HHN 07/26/19 13:00 07/31/19 00:59 07/30/19 08:00 Levothyroxine Sodium (Synthroid) 50 mcg DAILY@0630 ORAL 07/23/19 06:30 08/06/19 06:29 07/30/19 06:35 Lidocaine (Lidoderm 5% PATCH) 1 patch DAILY TDERMAL 07/23/19 09:00 08/20/19 08:59 07/30/19 09:52 Losartan Potassium (Cozaar) 25 mg DAILY ORAL 07/23/19 09:00 08/13/19 08:59 07/30/19 09:52 Mirtazapine (Remeron) 7.5 mg BEDTIME PRN ORAL insomnia 07/24/19 15:15 08/23/19 15:14 07/30/19 00:08 Ondansetron HCl (Zofran) 4 mg Q4H PRN IVP Nausea & Vomiting 07/22/19 13:14 08/21/19 13:13 07/30/19 05:20 Pantoprazole (Protonix) 40 mg DAILY ORAL 07/23/19 09:00 08/06/19 08:59 07/30/19 09:51 Phytonadione (Vitamin K) 10 mg ONCE A WEEK SUBQ 07/28/19 20:00 08/06/19 19:59 07/28/19 20:15 Prednisone (predniSONE) 2.5 mg DAILY ORAL 07/29/19 10:00 08/28/19 09:59 07/30/19 09:51 Tamsulosin HCl (Flomax) 0.4 mg TWICE A DAY ORAL 07/30/19 09:00 08/06/19 08:59 07/30/19 18:53 Tramadol HCl (Ultram) 50 mg Q4H PRN ORAL moderate pain 07/27/19 13:10 08/03/19 13:09 Vancomycin HCl (Vanco rx to dose) 1 ea DAILY PRN MISC Per rx protocol 07/27/19 12:15 08/26/19 12:14 Vancomycin HCl 500 mg/Dextrose 110 ml @ 110 mls/hr Q12HR@0300,1500 IVPB 07/29/19 15:00 08/03/19 14:59 07/30/19 15:55 Paras Ybarra MD Jul 30, 2019 19:36
--- NOTE | 2019-07-30 19:50 | NUR ---
HAND-OFF: Report given to Maru HERNANDEZ. Outputs: Urine: 150+ml (incontinence x2) Natalee Ileostomy: 300 ml
--- NOTE | 2019-07-30 19:54 | Pulmonology Progress Note ---
Assessment/Plan Assessment/Plan IMPRESSION: 1. Fever, now resolved. 2. Resolving right middle lobe infiltrate. 3. Multiple comorbidities including use of steroids, ulcerative colitis. 4. Pulmonary edema; resolved DISCUSSION: Off Lasix gtt; will continue daily IV Lasix Discussed with surgery TPN [place] and Xanax for anxiety/pain Will follow Oneal Allred M.D. Subjective Interval Events: None Constitutional: Reports: no symptoms HEENT: Repors: no symptoms Respiratory: Reports: no symptoms Cardiovascular: Reports: no symptoms Gastrointestinal/Abdominal: Reports: no symptoms Allergies: Coded Allergies: LORAZEPAM (Verified Allergy, Mild, 07/08/19) Pt undergoes altered level of consciousness Objective Last 24 Hour Vital Signs Date Time Temp Pulse Resp B/P (MAP) Pulse Ox O2 Delivery O2 Flow Rate FiO2 07/30/19 16:00 98.6 73 18 126/56 (79) 92 07/30/19 12:00 98.7 77 20 118/56 (76) 92 07/30/19 09:52 127/61 07/30/19 09:00 Nasal Cannula 3.0 07/30/19 08:01 96 Nasal Cannula 3.0 32 07/30/19 08:00 79 18 97 Nasal Cannula 2.0 28 85 14 96 07/30/19 08:00 99.9 80 18 127/61 (83) 94 07/30/19 04:00 99.3 75 20 141/61 (87) 94 07/30/19 00:00 99.1 86 20 134/66 (88) 94 07/29/19 21:00 Nasal Cannula 3.0 07/29/19 20:28 95 Nasal Cannula 3.0 32 07/29/19 20:28 85 20 98 Nasal Cannula 2.0 28 84 18 95 07/29/19 20:00 98.9 76 20 145/69 (94) 96 Intake and Output 07/29/19 07/30/19 19:00 07:00 Intake Total 1780 ml 780 ml Output Total 600 ml 695 ml Balance 1180 ml 85 ml Intake Oral 200 ml 150 ml IV Total 1580 ml 630 ml Output Urine Total 250 ml 270 ml Other 350 ml 425 ml # Voids 3 3 General Appearance: no acute distress HEENT: normocephalic Respiratory/Chest: chest wall non-tender Cardiovascular: normal peripheral pulses Abdomen: normal bowel sounds Microbiology Date/Time Source Procedure Growth Status 07/28/19 02:20 Blood Blood Culture - Preliminary NO GROWTH AFTER 48 HOURS Resulted Laboratory Tests 07/30/19 04:50: White Blood Count 13.1H, Red Blood Count 3.25L, Hemoglobin 9.3L, Hematocrit 27.8L, Mean Corpuscular Volume 85, Mean Corpuscular Hemoglobin 28.6, Mean Corpuscular Hemoglobin Concent 33.5, Red Cell Distribution Width 17.9H, Platelet Count 424, Mean Platelet Volume 6.1L, Neutrophils (%) (Auto) 77.5H, Lymphocytes (%) (Auto) 9.8L, Monocytes (%) (Auto) 8.9, Eosinophils (%) (Auto) 3.0, Basophils (%) (Auto) 0.8, Sodium Level 139, Potassium Level 4.0, Chloride Level 105, Carbon Dioxide Level 24, Anion Gap 10, Blood Urea Nitrogen 31H, Creatinine 1.2, Estimat Glomerular Filtration Rate , Glucose Level 87, Calcium Level 8.8, Total Bilirubin 0.4, Aspartate Amino Transf (AST/SGOT) 38H, Alanine Aminotransferase (ALT/SGPT) 52, Alkaline Phosphatase 383H, Total Protein 6.3L, Albumin 1.8L, Globulin 4.5, Albumin/Globulin Ratio 0.4L Current Medications Medications (Trade) Dose Ordered Sig/Evgeny Route PRN Reason Start Time Stop Time Status Last Admin Dose Admin Acetaminophen (Tylenol) 650 mg Q4H PRN ORAL Mild Pain/Temp > 100.2 07/22/19 13:11 08/21/19 13:10 07/28/19 06:45 Acetaminophen/ Hydrocodone Bitart ([place] 5/325) 1 tab Q4H PRN ORAL severe pain 07/27/19 13:10 08/03/19 13:09 07/30/19 17:02 Alprazolam (Xanax) 0.25 mg Q6H PRN ORAL For Anxiety 07/27/19 13:11 08/03/19 13:10 Amlodipine Besylate (Norvasc) 5 mg Q12H PRN ORAL For High Blood Pressure 07/22/19 13:12 2/28/20 13:11 Ascorbic Acid (Vitamin C) 500 mg Q4H PRN ORAL thick ileostomy effluent 07/22/19 13:12 08/21/19 13:11 Cefepime HCl 2 gm/ Dextrose 100 ml @ 200 mls/hr Q12H IVPB 07/27/19 15:00 08/03/19 14:59 07/30/19 15:08 Chlorhexidine Gluconate (Val-Hex 2%) 1 applic DAILY@2000 TOPIC 07/22/19 20:00 08/06/19 19:59 07/29/19 20:29 Dextrose 1,000 ml @ 0 mls/hr Q24H PRN IV PN interrupted or unavailable 07/22/19 13:11 08/21/19 13:10 Dextrose (Dextrose 50%) 25 ml Q30M PRN IV Hypoglycemia 07/22/19 13:30 08/07/19 00:00 Dextrose (Dextrose 50%) 50 ml Q30M PRN IV Hypoglycemia 07/22/19 13:30 08/07/19 00:00 Escitalopram Oxalate (Lexapro) 10 mg DAILY ORAL 07/25/19 09:00 08/24/19 08:59 07/30/19 09:50 Fat Emulsion Intravenous 144 ml/Amino Acids/ Electrolytes/ Dextrose 1,440 ml @ 60 mls/hr Q24H IV 07/30/19 20:00 08/29/19 19:59 Fat Emulsion Intravenous 216 ml/Amino Acids/ Electrolytes/ Dextrose 1,800 ml @ 60 mls/hr Q24H IV 07/30/19 08:45 07/30/19 19:59 07/30/19 11:09 Fluconazole/ Sodium Chloride 200 ml @ 200 mls/hr Q24H IV 07/27/19 13:00 08/03/19 12:59 07/30/19 12:50 Furosemide (Lasix) 40 mg DAILY IV 07/26/19 09:00 08/25/19 08:59 07/30/19 09:50 Hydromorphone HCl (Dilaudid) 1 mg Q6H PRN SUBQ Severe Breakthru Pain (>7) 07/27/19 13:10 08/03/19 13:09 07/30/19 11:48 Insulin Aspart (NovoLOG) No Dose Q6HR SUBQ 07/22/19 18:00 08/07/19 00:00 07/30/19 17:09 Levalbuterol HCl (Xopenex) 1.25 mg Q6H PRN HHN SOB/WHEEZING 07/26/19 10:00 07/31/19 09:59 Levalbuterol HCl (Xopenex) 1.25 mg TIDRT HHN 07/26/19 13:00 07/31/19 00:59 07/30/19 08:00 Levothyroxine Sodium (Synthroid) 50 mcg DAILY@0630 ORAL 07/23/19 06:30 08/06/19 06:29 07/30/19 06:35 Lidocaine (Lidoderm 5% PATCH) 1 patch DAILY TDERMAL 07/23/19 09:00 08/20/19 08:59 07/30/19 09:52 Losartan Potassium (Cozaar) 25 mg DAILY ORAL 07/23/19 09:00 08/13/19 08:59 07/30/19 09:52 Mirtazapine (Remeron) 7.5 mg BEDTIME PRN ORAL insomnia 07/24/19 15:15 08/23/19 15:14 07/30/19 00:08 Ondansetron HCl (Zofran) 4 mg Q4H PRN IVP Nausea & Vomiting 07/22/19 13:14 08/21/19 13:13 07/30/19 05:20 Pantoprazole (Protonix) 40 mg DAILY ORAL 07/23/19 09:00 08/06/19 08:59 07/30/19 09:51 Phytonadione (Vitamin K) 10 mg ONCE A WEEK SUBQ 07/28/19 20:00 08/06/19 19:59 07/28/19 20:15 Prednisone (predniSONE) 2.5 mg DAILY ORAL 07/29/19 10:00 08/28/19 09:59 07/30/19 09:51 Tamsulosin HCl (Flomax) 0.4 mg TWICE A DAY ORAL 07/30/19 09:00 08/06/19 08:59 07/30/19 18:53 Tramadol HCl (Ultram) 50 mg Q4H PRN ORAL moderate pain 07/27/19 13:10 08/03/19 13:09 Vancomycin HCl (Vanco rx to dose) 1 ea DAILY PRN MISC Per rx protocol 07/27/19 12:15 08/26/19 12:14 Vancomycin HCl 500 mg/Dextrose 110 ml @ 110 mls/hr Q12HR@0300,1500 IVPB 07/29/19 15:00 08/03/19 14:59 07/30/19 15:55 Oneal Allred MD Jul 30, 2019 19:54
[2019-07-30 20:00] VITALS: BP 122/71
[2019-07-30] MEDS ORDERED: FAT EMULSION 20% IV SCH ×2 (20:00)
[2019-07-30] MEDS ORDERED: TPN IV SCH ×2 (20:00)
[2019-07-30] MEDS: Dyna-Hex 2% Top Sol 2oz TOPIC SCH (20:21)
--- NOTE | 2019-07-30 21:01 | NUR ---
NURSES NOTE: Met pt in bed, A/OX4, able to express needs. Patient states he has pain, generalized, 7/10. Dilaudid 1mg given subq. No outward s/s of distress noted. Breathing is even, unlabored on 3L nasal canula. Ileo, LLQ. Portacath flushed, TPN bag changed and running at 60cc/hr. All due meds will be given. Bed at lowest level, call light within reach. Pt will continue to be monitored. No temperature noted.
[2019-07-30] MEDS ORDERED: Tubing IV Secondary IV ONE (22:12)
[2019-07-30] MEDS ORDERED: NS 275ml ONE (22:12)
--- NOTE | 2019-07-30 22:25 | NUR ---
NURSES NOTE: Patient refused to remove transdermal patch.
[2019-07-31] VITALS (8 sets, daily range): BP systolic 98–151; BP diastolic 47–82
[2019-07-31] MEDS: Vancomycin 500mg/D5W 110ml IVPB SCH ×4 (03:00→16:05)
[2019-07-31] MEDS: HYDROmorphone 1mg/ml Carpuject SUBQ PRN ×2 (03:22→16:16)
[2019-07-31] MEDS: NovoLOG Insulin Flexpen SUBQ SCH ×4 (06:00→18:00)
[2019-07-31 06:38] LABS: BASOPHILS % (AUTO) 0.8 % (0.0-2.0); EOSINOPHILS % (AUTO) 2.8 % (0.0-3.0); HEMATOCRIT 27.2 % (42.0-52.0); LYMPHOCYTES % (AUTO) 7.1 % (20.0-45.0); MEAN CORPUSCULAR VOLUME 87 FL (80-99); MONOCYTES % (AUTO) 8.2 % (1.0-10.0); NEUTROPHILS % (AUTO) 81.1 % (45.0-75.0); PLATELET COUNT 385 K/UL (150-450); RED BLOOD COUNT 3.13 M/UL (4.70-6.10); RED CELL DISTRIBUTION WIDTH 17.4 % (11.6-14.8); WHITE BLOOD COUNT 14.3 K/UL (4.8-10.8)
[2019-07-31 06:54] LABS: ALANINE AMINOTRANSFERASE 69 U/L (12-78); ALBUMIN 1.7 G/DL (3.4-5.0); ALBUMIN/GLOBULIN RATIO 0.4 (1.0-2.7); ALKALINE PHOSPHATASE 424 U/L (46-116); ANION GAP 10 mmol/L (5-15); ASPARTATE AMINO TRANSFERASE 50 U/L (15-37); BILIRUBIN,TOTAL 0.5 MG/DL (0.2-1.0); BLOOD UREA NITROGEN 35 mg/dL (7-18); CARBON DIOXIDE 24 MMOL/L (21-32); CHLORIDE 102 MMOL/L (98-107); CREATININE 1.3 MG/DL (0.55-1.30); POTASSIUM 4.2 MMOL/L (3.5-5.1); SODIUM 136 MMOL/L (136-145)
--- NOTE | 2019-07-31 07:24 | NUR ---
NURSE NOTES: Report received from Maru HERNANDEZ. Patient resting in semi-fowlers position in bed, calm, no distress on O2 3LNC. Encouraged IS. Generalized pain 6/10. No NV. Right PortaCath dressing CDI, TPN at 60 ml/hr. LW IV TKO, dressing intact, site asymptomatic. Abdomen steri strips CDI. Left Natalee Ileostomy intact, yellow green output noted. Bilateral SCDs off. Spouse at bedside. Call light in reach, bed in lowest position, will continue to monitor.
--- NOTE | 2019-07-31 07:32 | NUR ---
HAND OFF: Report given to DAVID Mckeon. Pt in stable condition.
--- NOTE | 2019-07-31 08:31 | Urology Progress Note ---
Assessment/Plan Assessment/Plan: 1. Lower urinary tract symptoms. 2. BPH history. 3. Possible neurogenic bladder. 4. Hematuria history. 5. Proteinuria history. 6. Possible urinary tract infection and colonization. monitor clinically cont flomax, increased to BID cont abx, diflucan still on daily lasix f/u on last blood cx consider anticholinergics, but concern for causing urinary retention recheck PVR Subjective Allergies: Coded Allergies: LORAZEPAM (Verified Allergy, Mild, 07/08/19) Pt undergoes altered level of consciousness Subjective all noted, still with urinary frequency and incontinence oliguric overnight per nurse report Objective Last 24 Hour Vital Signs Date Time Temp Pulse Resp B/P (MAP) Pulse Ox O2 Delivery O2 Flow Rate FiO2 07/31/19 08:09 99.6 76 19 126/59 (81) 93 07/31/19 04:00 99.3 79 20 118/56 (76) 99 07/31/19 01:26 99.8 07/31/19 00:00 101.2 87 21 130/76 (94) 93 07/30/19 21:00 Nasal Cannula 3.0 07/30/19 20:19 77 18 98 Nasal Cannula 2.0 28 73 18 94 07/30/19 20:17 94 Nasal Cannula 3.0 32 07/30/19 20:00 98.9 76 20 122/71 (88) 76 07/30/19 16:00 98.6 73 18 126/56 (79) 92 07/30/19 12:00 98.7 77 20 118/56 (76) 92 07/30/19 09:52 127/61 07/30/19 09:00 Nasal Cannula 3.0 Intake and Output 07/30/19 07/31/19 19:00 07:00 Intake Total 1070 ml 60 ml Output Total 450 ml 100 ml Balance 620 ml -40 ml Intake Oral 380 ml IV Total 690 ml 60 ml Output Urine Total 150 ml 100 ml Other 300 ml # Voids 4 Microbiology Date/Time Source Procedure Growth Status 07/28/19 02:20 Blood Blood Culture - Preliminary NO GROWTH AFTER 72 HOURS Resulted 07/30/19 11:35 Other(Specify in comment) Catheter Tip Culture - Preliminary NO GROWTH Resulted 07/22/19 20:00 Sputum Expectorated Gram Stain - Final Complete 07/22/19 20:00 Sputum Culture - Final Andie Tropicalis Usual Respiratory Gloria Complete 07/27/19 16:00 Urine,Clean Catch Urine Culture - Final Andie Tropicalis Complete Current Medications Medications (Trade) Dose Ordered Sig/Evgeny Route PRN Reason Start Time Stop Time Status Last Admin Dose Admin Acetaminophen (Tylenol) 650 mg Q4H PRN ORAL Mild Pain/Temp > 100.2 07/22/19 13:11 08/21/19 13:10 07/30/19 23:48 Acetaminophen/ Hydrocodone Bitart ([place] 5/325) 1 tab Q4H PRN ORAL severe pain 07/27/19 13:10 08/03/19 13:09 07/30/19 17:02 Alprazolam (Xanax) 0.25 mg Q6H PRN ORAL For Anxiety 07/27/19 13:11 08/03/19 13:10 Amlodipine Besylate (Norvasc) 5 mg Q12H PRN ORAL For High Blood Pressure 07/22/19 13:12 08/21/19 13:11 Ascorbic Acid (Vitamin C) 500 mg Q4H PRN ORAL thick ileostomy effluent 07/22/19 13:12 08/21/19 13:11 Cefepime HCl 2 gm/ Dextrose 100 ml @ 200 mls/hr Q12H IVPB 07/27/19 15:00 08/03/19 14:59 07/31/19 03:11 Chlorhexidine Gluconate (Val-Hex 2%) 1 applic DAILY@2000 TOPIC 07/22/19 20:00 08/06/19 19:59 07/30/19 20:21 Dextrose 1,000 ml @ 0 mls/hr Q24H PRN IV PN interrupted or unavailable 07/22/19 13:11 08/21/19 13:10 Dextrose (Dextrose 50%) 25 ml Q30M PRN IV Hypoglycemia 07/22/19 13:30 08/07/19 00:00 Dextrose (Dextrose 50%) 50 ml Q30M PRN IV Hypoglycemia 07/22/19 13:30 08/07/19 00:00 Escitalopram Oxalate (Lexapro) 10 mg DAILY ORAL 07/25/19 09:00 08/24/19 08:59 07/30/19 09:50 Fat Emulsion Intravenous 144 ml/Amino Acids/ Electrolytes/ Dextrose 1,440 ml @ 60 mls/hr Q24H IV 07/30/19 20:00 08/29/19 19:59 07/30/19 20:23 Fluconazole/ Sodium Chloride 200 ml @ 200 mls/hr Q24H IV 07/27/19 13:00 08/03/19 12:59 07/30/19 12:50 Furosemide (Lasix) 40 mg DAILY IV 07/26/19 09:00 08/25/19 08:59 07/30/19 09:50 Hydromorphone HCl (Dilaudid) 1 mg Q6H PRN SUBQ Severe Breakthru Pain (>7) 07/27/19 13:10 08/03/19 13:09 07/31/19 03:22 Insulin Aspart (NovoLOG) No Dose Q6HR SUBQ 07/22/19 18:00 08/07/19 00:00 07/30/19 17:09 Levalbuterol HCl (Xopenex) 1.25 mg Q6H PRN HHN SOB/WHEEZING 07/26/19 10:00 07/31/19 09:59 Levothyroxine Sodium (Synthroid) 50 mcg DAILY@0630 ORAL 07/23/19 06:30 08/06/19 06:29 07/31/19 06:22 Lidocaine (Lidoderm 5% PATCH) 1 patch DAILY TDERMAL 07/23/19 09:00 08/20/19 08:59 07/30/19 09:52 Losartan Potassium (Cozaar) 25 mg DAILY ORAL 07/23/19 09:00 08/13/19 08:59 07/30/19 09:52 Mirtazapine (Remeron) 7.5 mg BEDTIME PRN ORAL insomnia 07/24/19 15:15 08/23/19 15:14 07/30/19 00:08 Ondansetron HCl (Zofran) 4 mg Q4H PRN IVP Nausea & Vomiting 07/22/19 13:14 08/21/19 13:13 07/31/19 06:54 Pantoprazole (Protonix) 40 mg DAILY ORAL 07/23/19 09:00 08/06/19 08:59 07/30/19 09:51 Phytonadione (Vitamin K) 10 mg ONCE A WEEK SUBQ 07/28/19 20:00 08/06/19 19:59 07/28/19 20:15 Prednisone (predniSONE) 2.5 mg DAILY ORAL 07/29/19 10:00 08/28/19 09:59 07/30/19 09:51 Tamsulosin HCl (Flomax) 0.4 mg TWICE A DAY ORAL 07/30/19 09:00 08/06/19 08:59 07/30/19 18:53 Tramadol HCl (Ultram) 50 mg Q4H PRN ORAL moderate pain 07/27/19 13:10 08/03/19 13:09 07/30/19 23:48 Vancomycin HCl (Vanco rx to dose) 1 ea DAILY PRN MISC Per rx protocol 07/27/19 12:15 08/26/19 12:14 Vancomycin HCl 500 mg/Dextrose 110 ml @ 110 mls/hr Q12HR@0300,1500 IVPB 07/29/19 15:00 08/03/19 14:59 07/31/19 03:00 Laboratory Tests 07/31/19 04:55: White Blood Count 14.3H, Red Blood Count 3.13L, Hemoglobin 9.0L, Hematocrit 27.2L, Mean Corpuscular Volume 87, Mean Corpuscular Hemoglobin 28.8, Mean Corpuscular Hemoglobin Concent 33.2, Red Cell Distribution Width 17.4H, Platelet Count 385, Mean Platelet Volume 6.0L, Neutrophils (%) (Auto) 81.1H, Lymphocytes (%) (Auto) 7.1L, Monocytes (%) (Auto) 8.2, Eosinophils (%) (Auto) 2.8, Basophils (%) (Auto) 0.8, Sodium Level 136, Potassium Level 4.2, Chloride Level 102, Carbon Dioxide Level 24, Anion Gap 10, Blood Urea Nitrogen 35H, Creatinine 1.3, Estimat Glomerular Filtration Rate , Glucose Level 123H, Calcium Level 9.0, Total Bilirubin 0.5, Aspartate Amino Transf (AST/SGOT) 50H, Alanine Aminotransferase (ALT/SGPT) 69, Alkaline Phosphatase 424H, Total Protein 6.3L, Albumin 1.7L, Globulin 4.6, Albumin/Globulin Ratio 0.4L Height (Feet): 5 Height (Inches): 7.00 Weight (Pounds): 137 Julian Rodriguez MD Jul 31, 2019 08:31
--- NOTE | 2019-07-31 09:46 | NUR ---
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
[2019-07-31] MEDS: Losartan 25mg tab ORAL SCH (09:59)
[2019-07-31] MEDS: Tamsulosin 0.4mg cap ORAL SCH ×2 (10:00→18:08)
--- NOTE | 2019-07-31 10:03 | General Progress Note ---
Progress Note Progress Note T 101.2 Refusing to ambulate when physical therapy comes despite urging by RNs and . Not eating much c/o pain with urination Abdomen soft, stoma stable Urine incontinent Ileostomy 675 WBC 14,300 BUN 35 Cr 1.3 LFTS slightly elevated Albumin 1.7 Imp: Persistent fever and failure to thrive Plan: Counselor Dormitory re supplements in addition to diet Continue TPN at reduced rate d/c lasix Will discuss with Dr. Ybarra re possible d/c all antibiotics and re-culture, prior to decision re removal of infusion port present x 4 years Ambulate with PT Pako Orellana MD Jul 31, 2019 10:03
[2019-07-31] MEDS: HYDROcodone/Acetamin 5/325 tab ORAL PRN (10:16)
--- NOTE | 2019-07-31 10:30 | NUR ---
NURSE NOTES: Dr. Orellana and Dr. 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 Bladder scan done (at 0900) x1 per Dr. Rodriguez order, no residual noted. UA/C+S STAT done at 1020, sent to lab per Dr. Orellana order. Ticket Broker assessment done at 1010, patient tried different supplemental drinks, tolerated well. Will continue to monitor.
[2019-07-31 10:58] LABS: APPEARANCE,URINE CLEAR; BILIRUBIN, URINE NEGATIVE (NEGATIVE); GLUCOSE, URINE (UA) NEGATIVE (NEGATIVE); KETONES,URINE 1+ (NEGATIVE); LEUKOCYTE ESTERASE ,URINE NEGATIVE (NEGATIVE); NITRITE,URINE NEGATIVE (NEGATIVE); PH,URINE 5 (4.5-8.0); PROTEIN,URINE 2+ (NEGATIVE); UROBILINOGEN,URINE NORMAL MG/DL (0.0-1.0)
--- NOTE | 2019-07-31 11:06 | NUR ---
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 CURRENT DIET:BCIR Low Residue CURRENT TPN: D15% AA5.3% + IL20% -> total rate of 60ml/hr x 24 hrs provides 1223kcal, 69g prot (meets 83% est kcal, 100% est prot needs) PO DIET RECOMMENDATIONS: Consider liberalized SOFT diet for more food options/variety Ensure Enlive BID w/ breakfast and dinner (350kcal/20g prot per bottle) -> vanilla and strawberry flavor added per pt request Ensure Clear QD w/ lunch (220kcal/9g prot per bottle) -> apple flavor added per pt request PARENTERAL NUTRITION RECOMMENDATIONS: Current TPN per MD: D15% AA5.3% + IL20% -> total rate of 60ml/hr x 24 hrs -> Rec cyclic feeding of 72ml/hr x 20 hrs for 4 hours of metabolic rest as LFTs trending back up : will provide the same volume/ nutrition as current TPN. ADDITIONAL RECOMMENDATIONS: * Rec obtaining standing wt for accurate CBW * Monitor BGs closely while on Prednisone * Monitor BGs, LFTs, lytes closely on TPN -> LFTs trending back up. Rec to change TPN back to cyclic feeding for metabolic rest (See above rec) * Ensure Enlive BID w/ breakfast+ dinner (350kcal/20g prot per bottle) Ensure Clear QD w/ Lunch (220kcal/9g prot per bottle)
[2019-07-31 11:07] LABS: COLOR,URINE YELLOW
--- NOTE | 2019-07-31 12:52 | Pulmonology Progress Note ---
Assessment/Plan Assessment/Plan IMPRESSION: 1. Fever, now resolved. 2. Resolving right middle lobe infiltrate. 3. Multiple comorbidities including use of steroids, ulcerative colitis. 4. Pulmonary edema; resolved DISCUSSION: Off Lasix gtt; will discontinue daily IV Lasix Discussed with surgery TPN being decreased [place] and Xanax for anxiety/pain Will follow Oneal Allred M.D. Subjective Interval Events: None new reported Constitutional: Reports: no symptoms HEENT: Repors: no symptoms Respiratory: Reports: no symptoms Cardiovascular: Reports: no symptoms Gastrointestinal/Abdominal: Reports: no symptoms Genitourinary: Reports: no symptoms Allergies: Coded Allergies: LORAZEPAM (Verified Allergy, Mild, 07/08/19) Pt undergoes altered level of consciousness Objective Last 24 Hour Vital Signs Date Time Temp Pulse Resp B/P (MAP) Pulse Ox O2 Delivery O2 Flow Rate FiO2 07/31/19 12:00 101.5 88 20 98/55 (69) 97 07/31/19 11:52 101.5 07/31/19 09:59 126/59 07/31/19 09:00 Nasal Cannula 3.0 07/31/19 08:44 93 Nasal Cannula 3.0 32 07/31/19 08:09 99.6 76 19 126/59 (81) 93 07/31/19 04:00 99.3 79 20 118/56 (76) 99 07/31/19 00:00 101.2 87 21 130/76 (94) 93 07/30/19 21:00 Nasal Cannula 3.0 07/30/19 20:19 77 18 98 Nasal Cannula 2.0 28 73 18 94 07/30/19 20:17 94 Nasal Cannula 3.0 32 07/30/19 20:00 98.9 76 20 122/71 (88) 76 07/30/19 16:00 98.6 73 18 126/56 (79) 92 Intake and Output 07/30/19 07/31/19 19:00 07:00 Intake Total 1070 ml 120 ml Output Total 450 ml 100 ml Balance 620 ml 20 ml Intake Oral 380 ml IV Total 690 ml 120 ml Output Urine Total 150 ml 100 ml Other 300 ml # Voids 4 General Appearance: no acute distress HEENT: normocephalic Respiratory/Chest: chest wall non-tender, lungs clear Cardiovascular: normal peripheral pulses, normal rate Abdomen: normal bowel sounds Microbiology Date/Time Source Procedure Growth Status 07/30/19 11:35 Other(Specify in comment) Catheter Tip Culture - Preliminary NO GROWTH Resulted Laboratory Tests 07/31/19 04:55: White Blood Count 14.3H, Red Blood Count 3.13L, Hemoglobin 9.0L, Hematocrit 27.2L, Mean Corpuscular Volume 87, Mean Corpuscular Hemoglobin 28.8, Mean Corpuscular Hemoglobin Concent 33.2, Red Cell Distribution Width 17.4H, Platelet Count 385, Mean Platelet Volume 6.0L, Neutrophils (%) (Auto) 81.1H, Lymphocytes (%) (Auto) 7.1L, Monocytes (%) (Auto) 8.2, Eosinophils (%) (Auto) 2.8, Basophils (%) (Auto) 0.8, Sodium Level 136, Potassium Level 4.2, Chloride Level 102, Carbon Dioxide Level 24, Anion Gap 10, Blood Urea Nitrogen 35H, Creatinine 1.3, Estimat Glomerular Filtration Rate , Glucose Level 123H, Calcium Level 9.0, Total Bilirubin 0.5, Aspartate Amino Transf (AST/SGOT) 50H, Alanine Aminotransferase (ALT/SGPT) 69, Alkaline Phosphatase 424H, Total Protein 6.3L, Albumin 1.7L, Globulin 4.6, Albumin/Globulin Ratio 0.4L 07/31/19 10:20: Urine Color Yellow, Urine Appearance Clear, Urine pH 5, Urine Specific [place] 1.020, Urine Protein 2+H, Urine Glucose (UA) Negative, Urine Ketones 1+H, Urine Blood 2+H, Urine Nitrite Negative, Urine Bilirubin Negative, Urine Urobilinogen Normal, Urine Leukocyte Esterase Negative, Urine RBC 2-4H, Urine WBC 0-2, Urine Squamous Epithelial Cells Occasional, Urine Bacteria Occasional Current Medications Medications (Trade) Dose Ordered Sig/Evgeny Route PRN Reason Start Time Stop Time Status Last Admin Dose Admin Acetaminophen (Tylenol) 650 mg Q4H PRN ORAL Mild Pain/Temp > 100.2 07/22/19 13:11 08/21/19 13:10 07/31/19 11:22 Acetaminophen/ Hydrocodone Bitart ([place] 5/325) 1 tab Q4H PRN ORAL severe pain 07/27/19 13:10 08/03/19 13:09 07/31/19 10:16 Alprazolam (Xanax) 0.25 mg Q6H PRN ORAL For Anxiety 07/27/19 13:11 08/03/19 13:10 Amlodipine Besylate (Norvasc) 5 mg Q12H PRN ORAL For High Blood Pressure 07/22/19 13:12 08/21/19 13:11 Ascorbic Acid (Vitamin C) 500 mg Q4H PRN ORAL thick ileostomy effluent 07/22/19 13:12 08/21/19 13:11 Cefepime HCl 2 gm/ Dextrose 100 ml @ 200 mls/hr Q12H IVPB 07/27/19 15:00 08/03/19 14:59 07/31/19 03:11 Chlorhexidine Gluconate (Val-Hex 2%) 1 applic DAILY@2000 TOPIC 07/22/19 20:00 08/06/19 19:59 07/30/19 20:21 Dextrose 1,000 ml @ 0 mls/hr Q24H PRN IV PN interrupted or unavailable 07/22/19 13:11 08/21/19 13:10 Dextrose (Dextrose 50%) 25 ml Q30M PRN IV Hypoglycemia 07/22/19 13:30 08/07/19 00:00 Dextrose (Dextrose 50%) 50 ml Q30M PRN IV Hypoglycemia 07/22/19 13:30 08/07/19 00:00 Escitalopram Oxalate (Lexapro) 10 mg DAILY ORAL 07/25/19 09:00 08/24/19 08:59 07/31/19 10:00 Fat Emulsion Intravenous 144 ml/Amino Acids/ Electrolytes/ Dextrose 1,440 ml @ 60 mls/hr Q24H IV 07/30/19 20:00 07/31/19 19:59 07/30/19 20:23 Fat Emulsion Intravenous 144 ml/Amino Acids/ Electrolytes/ Dextrose 1,440 ml @ 72 mls/hr Q24H IV 07/31/19 20:00 08/30/19 19:59 Fluconazole/ Sodium Chloride 200 ml @ 200 mls/hr Q24H IV 07/27/19 13:00 08/03/19 12:59 07/30/19 12:50 Hydromorphone HCl (Dilaudid) 1 mg Q6H PRN SUBQ Severe Breakthru Pain (>7) 07/27/19 13:10 08/03/19 13:09 07/31/19 03:22 Insulin Aspart (NovoLOG) No Dose Q6HR SUBQ 07/22/19 18:00 08/07/19 00:00 07/30/19 17:09 Levothyroxine Sodium (Synthroid) 50 mcg DAILY@0630 ORAL 07/23/19 06:30 08/06/19 06:29 07/31/19 06:22 Lidocaine (Lidoderm 5% PATCH) 1 patch DAILY TDERMAL 07/23/19 09:00 08/20/19 08:59 07/31/19 09:59 Losartan Potassium (Cozaar) 25 mg DAILY ORAL 07/23/19 09:00 08/13/19 08:59 07/31/19 09:59 Mirtazapine (Remeron) 7.5 mg BEDTIME PRN ORAL insomnia 07/24/19 15:15 08/23/19 15:14 07/30/19 00:08 Ondansetron HCl (Zofran) 4 mg Q4H PRN IVP Nausea & Vomiting 07/22/19 13:14 08/21/19 13:13 07/31/19 11:28 Pantoprazole (Protonix) 40 mg DAILY ORAL 07/23/19 09:00 08/06/19 08:59 07/31/19 10:01 Phytonadione (Vitamin K) 10 mg ONCE A WEEK SUBQ 07/28/19 20:00 08/06/19 19:59 07/28/19 20:15 Prednisone (predniSONE) 2.5 mg DAILY ORAL 07/29/19 10:00 08/28/19 09:59 07/31/19 10:01 Tamsulosin HCl (Flomax) 0.4 mg TWICE A DAY ORAL 07/30/19 09:00 08/06/19 08:59 07/31/19 10:00 Tramadol HCl (Ultram) 50 mg Q4H PRN ORAL moderate pain 07/27/19 13:10 08/03/19 13:09 07/30/19 23:48 Vancomycin HCl (Vanco rx to dose) 1 ea DAILY PRN MISC Per rx protocol 07/27/19 12:15 08/26/19 12:14 Vancomycin HCl 500 mg/Dextrose 110 ml @ 110 mls/hr Q12HR@0300,1500 IVPB 07/29/19 15:00 08/03/19 14:59 07/31/19 03:00 Oneal Allred MD Jul 31, 2019 12:52
--- NOTE | 2019-07-31 14:15 | Cardiology Progress Note ---
Assessment/Plan Status Narrative 1. U.C. 2. Malfunctioning [place] Pouch 3. CAD, S/P CABG- studies from PMD reviewed, no evidence of ischemia on nuclear scan done in Apr 2019 4. BL Carotid stenosis- s/p stents 5. AAA- stable 6. HTN- improved on meds. 7. Hearing loss 8. S/p resection of failed [place] Pouch, repair parastomal hernia, creation of Natalee ileostomy 9. Dehydration- -->elevated creat, tachycardia 10 Hypoxemia - due to hypoventilation possible atelectasis- Improves with deep insp and use of I/S 11. Fever- r/o pneumonia, intra-abdominal process, UTI 12. Renal insuff- ?due to diuresis 13. Depression/Anxiety with panic attacks 14. No Evidence of CHF- Nl LV EF, nl JVP 15. Hypoxemia - ? Etio- Improving 16. Temp spike with Leukocytosis- r/o line infection , r/o SBE 17. Hypotension- probable hypovolemia with ARB Assessment/Plan I/S Q1 h IV fluids as per Dr. Orellana Echo to r/o SBE Monitor renal function Hold BP meds for SBP, 120 Ambulate Resp Tx Consider DC of Remeron and increase of Lexapro. Discussed with RN. Subjective Cardiovascular: Reports: no symptoms Respiratory: Reports: no symptoms Gastrointestinal/Abdominal: Reports: no symptoms Genitourinary: Reports: no symptoms Subjective 07/07/19- Patient admitted for revision of [place] Pouch. He has h/o CAD, S/P CABG 10 yrs ago, s/p BL carotid stents, and h/o AAA. Patient denies h/o HTn, but his BP has been elevated since admission 07/08 doing OK , BP imroving, PICC line placed. 07/09- BP improved 07/10- Had BP down to 107. Meds held. Scheduled for surgery on 07/13 07/11- BP stable 07/13- s/p resection of failed [place] Pouch, repair parastomal hernia, creation of Natalee ileostomy. 07/14- Has had decreased O2 Sat, Creat 1.9, low U.O. IV NS started 07/15- s/p surgery for stoma bleeding 07/23- Was transferred to ICU last week- ? anxiety attack, has had fever, on ABx. Seen by Pulmonary- now on IV Lasix ip Creat 1.5 Has not been very active, was up once today, now asleep 07/24- More alert, denies SOB, had abd. CT, on Lasix drip. Creat 1.5. Echo done- Nl LV WM, EF 60% 07/25- IV Lasix drip stopped--> Daily Lasix. Creat 1.4 , O2 Sat on RA 86% 07/28- On IV Lasix, Creat 1.3, WBC increased, Temp spike to 101.3, O2 Sat 89% on RA 07/31- has been sleeping most of the time, still having fevers, not eating , had dizziness and nausea when tried to sit up today. BP 90s todays. Lasix stopped. According to , Patient does not wish to live with a "bag' Objective Last 24 Hour Vital Signs Date Time Temp Pulse Resp B/P (MAP) Pulse Ox O2 Delivery O2 Flow Rate FiO2 07/31/19 13:25 98.4 07/31/19 12:00 101.5 88 20 98/55 (69) 97 07/31/19 11:52 101.5 07/31/19 11:50 101.5 07/31/19 11:15 100.8 84 18 126/47 (73) 94 07/31/19 11:10 143/67 (92) 07/31/19 09:59 126/59 07/31/19 09:00 Nasal Cannula 3.0 07/31/19 08:44 93 Nasal Cannula 3.0 32 07/31/19 08:09 99.6 76 19 126/59 (81) 93 07/31/19 04:00 99.3 79 20 118/56 (76) 99 07/31/19 00:00 101.2 87 21 130/76 (94) 93 07/30/19 21:00 Nasal Cannula 3.0 07/30/19 20:19 77 18 98 Nasal Cannula 2.0 28 73 18 94 07/30/19 20:17 94 Nasal Cannula 3.0 32 07/30/19 20:00 98.9 76 20 122/71 (88) 76 07/30/19 16:00 98.6 73 18 126/56 (79) 92 Cardiovascular: normal rate, no gallop/murmur Respiratory/Chest: lungs clear Abdomen: non tender, soft, hypoactive bowel sounds Extremities: non-tender, normal inspection, no calf tenderness, no swelling Intake and Output 07/30/19 07/31/19 19:00 07:00 Intake Total 1070 ml 120 ml Output Total 450 ml 100 ml Balance 620 ml 20 ml Intake Oral 380 ml IV Total 690 ml 120 ml Output Urine Total 150 ml 100 ml Other 300 ml # Voids 4 Laboratory Tests Test 07/31/19 04:55 07/31/19 10:20 White Blood Count 14.3 K/UL (4.8-10.8) H Red Blood Count 3.13 M/UL (4.70-6.10) L Hemoglobin 9.0 G/DL (14.2-18.0) L Hematocrit 27.2 % (42.0-52.0) L Mean Corpuscular Volume 87 FL (80-99) Mean Corpuscular Hemoglobin 28.8 PG (27.0-31.0) Mean Corpuscular Hemoglobin Concent 33.2 G/DL (32.0-36.0) Red Cell Distribution Width 17.4 % (11.6-14.8) H Platelet Count 385 K/UL (150-450) Mean Platelet Volume 6.0 FL (6.5-10.1) L Neutrophils (%) (Auto) 81.1 % (45.0-75.0) H Lymphocytes (%) (Auto) 7.1 % (20.0-45.0) L Monocytes (%) (Auto) 8.2 % (1.0-10.0) Eosinophils (%) (Auto) 2.8 % (0.0-3.0) Basophils (%) (Auto) 0.8 % (0.0-2.0) Sodium Level 136 MMOL/L (136-145) Potassium Level 4.2 MMOL/L (3.5-5.1) Chloride Level 102 MMOL/L (98-107) Carbon Dioxide Level 24 MMOL/L (21-32) Anion Gap 10 mmol/L (5-15) Blood Urea Nitrogen 35 mg/dL (7-18) H Creatinine 1.3 MG/DL (0.55-1.30) Estimat Glomerular Filtration Rate mL/min (>60) Glucose Level 123 MG/DL (74-106) H Calcium Level 9.0 MG/DL (8.5-10.1) Total Bilirubin 0.5 MG/DL (0.2-1.0) Aspartate Amino Transf (AST/SGOT) 50 U/L (15-37) H Alanine Aminotransferase (ALT/SGPT) 69 U/L (12-78) Alkaline Phosphatase 424 U/L (46-116) H Total Protein 6.3 G/DL (6.4-8.2) L Albumin 1.7 G/DL (3.4-5.0) L Globulin 4.6 g/dL Albumin/Globulin Ratio 0.4 (1.0-2.7) L Urine Color Yellow Urine Appearance Clear Urine pH 5 (4.5-8.0) Urine Specific [place] 1.020 (1.005-1.035) Urine Protein 2+ (NEGATIVE) H Urine Glucose (UA) Negative (NEGATIVE) Urine Ketones 1+ (NEGATIVE) H Urine Blood 2+ (NEGATIVE) H Urine Nitrite Negative (NEGATIVE) Urine Bilirubin Negative (NEGATIVE) Urine Urobilinogen Normal MG/DL (0.0-1.0) Urine Leukocyte Esterase Negative (NEGATIVE) Urine RBC 2-4 /HPF (0 - 0) H Urine WBC 0-2 /HPF (0 - 0) Urine Squamous Epithelial Cells Occasional /LPF Urine Bacteria Occasional /HPF (NONE) Microbiology Date/Time Source Procedure Growth Status 07/30/19 11:35 Other(Specify in comment) Catheter Tip Culture - Preliminary NO GROWTH Resulted Rommel Townsend MD Jul 31, 2019 14:15
--- NOTE | 2019-07-31 14:31 | NUR ---
CARDIOLOGY Patient refused 2D echo. DAVID Mckeon is aware.
--- NOTE | 2019-07-31 16:46 | NUR ---
NURSE NOTES: Patient reassessed at 1646 after Dilaudid 1 mg SQ, pain 9/10. Offered patient that he can have [place] or Ultram, after one hour from Dilaudid, reports he will wait. Will continue to monitor.
--- NOTE | 2019-07-31 19:20 | NUR ---
NURSE NOTES: Received report from DAVID Mckeon. Pt is awake, lying semi-howard's; comfortably resting. No signs of acute distress noted. Pt denies any pain at this time. at bedside. AOx4; able to make needs known. Checked IV site, portacath, lines and rate; patent and running. No erythema, bleeding, or infiltration noted. Bed at lowest position. Brakes on. Siderails up x2. Call light within reach. Will continue to monitor.
--- NOTE | 2019-07-31 19:24 | NUR ---
HAND-OFF: Report given to Yanira HERNANDEZ, rounds made. Outputs: Urine: 500+ ml Ileostomy: 405 ml
[2019-07-31] MEDS ORDERED: FAT EMULSION 20% IV SCH ×4 (20:00)
[2019-07-31] MEDS ORDERED: TPN IV SCH ×4 (20:00)
[2019-07-31] MEDS: Dyna-Hex 2% Top Sol 2oz TOPIC SCH (20:31)
--- NOTE | 2019-07-31 22:00 | Progress Note ---
DATE: 07/31/2019 SUBJECTIVE: The patient is doing well. Anxiety is much improved. Sleep and appetite is adequate. The patient continues to refuse some tests and workup, poor insight. MENTAL STATUS EXAMINATION: Alert and oriented times self, place, and situation. Mood is anxious. Affect is constricted. Congruent with mood. Thought process is concrete. Thought content, no suicidal or homicidal ideation. ASSESSMENT: Stable. PLAN: 1. We will continue current medications. 2. Provide the patient with reality orientation and supportive therapy. Ember English M.D. DR: Kalin JOB#: [id number] CC:
[2019-08-01] VITALS (11 sets, daily range): BP systolic 100–159; BP diastolic 45–69
[2019-08-01] MEDS: HYDROmorphone 1mg/ml Carpuject SUBQ PRN ×3 (01:56→20:55)
[2019-08-01] MEDS: Vancomycin 500mg/D5W 110ml IVPB SCH ×2 (03:39)
[2019-08-01] MEDS: HYDROcodone/Acetamin 5/325 tab ORAL PRN ×2 (03:54→18:48)
[2019-08-01] MEDS: NovoLOG Insulin Flexpen SUBQ SCH ×2 (05:52)
[2019-08-01 06:29] LABS: HEMATOCRIT 27.4 % (42.0-52.0); HEMOGLOBIN 9.2 G/DL (14.2-18.0); MEAN CORPUSCULAR VOLUME 87 FL (80-99); PLATELET COUNT 332 K/UL (150-450); RED BLOOD COUNT 3.16 M/UL (4.70-6.10); RED CELL DISTRIBUTION WIDTH 17.5 % (11.6-14.8)
[2019-08-01 06:30] LABS: WHITE BLOOD COUNT 23.8 K/UL (4.8-10.8)
--- NOTE | 2019-08-01 07:00 | NUR ---
NURSE NOTES: Received report from Chleo Saldivar, Lab, that pt's WBC is critically high at 23.8. Will notify MD immediately.
[2019-08-01 07:03] LABS: ALANINE AMINOTRANSFERASE 65 U/L (12-78); ALBUMIN 1.6 G/DL (3.4-5.0); ALBUMIN/GLOBULIN RATIO 0.4 (1.0-2.7); ALKALINE PHOSPHATASE 473 U/L (46-116); ANION GAP 10 mmol/L (5-15); ASPARTATE AMINO TRANSFERASE 46 U/L (15-37); BLOOD UREA NITROGEN 37 mg/dL (7-18); CALCIUM 9.2 MG/DL (8.5-10.1); CARBON DIOXIDE 21 MMOL/L (21-32); CHLORIDE 104 MMOL/L (98-107); CREATININE 1.5 MG/DL (0.55-1.30); PHOSPHORUS 2.4 MG/DL (2.5-4.9); SODIUM 135 MMOL/L (136-145)
--- NOTE | 2019-08-01 07:30 | NUR ---
HAND-OFF: Report given to DAVID Lange. Pt is sleeping and in stable condition. Plan of care endorsed.
--- NOTE | 2019-08-01 07:30 | NUR ---
NURSE NOTES: MD made aware of critical WBC value. Awaiting callback and order.
--- NOTE | 2019-08-01 07:45 | NUR ---
NURSE NOTES: Received orders from Dr. Orellana regarding critically high WBC. Orders recalled, noted, and carried out. See orders for details.
[2019-08-01] MEDS: Losartan 25mg tab ORAL SCH (08:46)
[2019-08-01] MEDS: Tamsulosin 0.4mg cap ORAL SCH ×2 (08:47→18:20)
--- NOTE | 2019-08-01 08:48 | Pre-Procedure Note/Attestation ---
Pre-Procedure Note/Attestation Complete Prior to Procedure Planned Procedure: not applicable Procedure Narrative: remove subcutaneous infusion port Indications for Procedure Pre-Operative Diagnosis: infected infusion port Attestation I attest that I discussed the nature of the procedure; its benefits; risks and complications; and alternatives (and the risks and benefits of such alternatives ), prior to the procedure, with the patient (or the patient's legal practice representative). I attest that, if there was a reasonable possibility of needing a blood transfusion, the patient (or the patient's legal practice representative) was given the [facility] standardized written summary, pursuant to the [place] [employer] Blood Safety Act ([place] Health and Safety Code # 1645, as amended). I attest that I re-evaluated the patient just prior to the surgery and that there has been no change in the patient's H&P, except as documented below:none Pako Orellana MD Aug 01, 2019 08:48
--- NOTE | 2019-08-01 08:50 | General Progress Note ---
Progress Note Progress Note T 102.5 WBC 23,800 Not taking any oral intake No source of infection other than presumed infusion port as only source after extensive work-up Urinalysis clean WBC 23,800 BUN 37 Cr 1.5 Mg 1.5 albumin 1.6 Imp: Fevers and leukocytosis, presumably from infusion port Plan; remove infusion port d/c TPN and start D10.5NS may need new port placed after infection totally cleared Full discussion with patient and re indications, options, risks. Pako Orellana MD Aug 01, 2019 08:50
[2019-08-01] MEDS ORDERED: ALPRAZolam 0.25mg tab ORAL PRN (09:00)
[2019-08-01] MEDS ORDERED: traMADol 50mg tab ORAL PRN (09:10)
--- NOTE | 2019-08-01 09:47 | Urology Progress Note ---
Assessment/Plan Assessment/Plan: 1. Lower urinary tract symptoms. 2. BPH history. 3. Possible neurogenic bladder. 4. Hematuria history. 5. Proteinuria history. 6. Possible urinary tract infection and colonization. monitor clinically cont flomax, increased to BID cont abx, diflucan lasix dc'd f/u on last blood cx consider anticholinergics, but concern for causing urinary retention d/w Dr. Orellana Subjective Allergies: Coded Allergies: LORAZEPAM (Verified Allergy, Mild, 07/08/19) Pt undergoes altered level of consciousness Subjective all noted, PVR minimal yest fevers, plan for removal of infected infusion port Objective Last 24 Hour Vital Signs Date Time Temp Pulse Resp B/P (MAP) Pulse Ox O2 Delivery O2 Flow Rate FiO2 08/01/19 08:46 119/53 08/01/19 08:00 99.6 75 20 119/53 (75) 94 08/01/19 07:47 Nasal Cannula 3.0 08/01/19 04:24 100.4 08/01/19 04:00 102.5 108 20 136/64 (88) 93 08/01/19 01:31 101.0 08/01/19 00:00 102.5 99 20 159/69 (99) 92 07/31/19 21:00 Nasal Cannula 3.0 07/31/19 20:03 93 Nasal Cannula 3.0 32 07/31/19 20:00 99.7 75 17 151/69 (96) 95 07/31/19 16:00 97.1 84 20 125/82 (96) 97 07/31/19 13:25 98.4 07/31/19 12:00 101.5 88 20 98/55 (69) 97 07/31/19 11:50 101.5 07/31/19 11:15 100.8 84 18 126/47 (73) 94 07/31/19 11:10 143/67 (92) 07/31/19 09:59 126/59 Intake and Output 07/31/19 08/01/19 19:00 07:00 Intake Total 1200 ml 1158 ml Output Total 905 ml 300 ml Balance 295 ml 858 ml Intake Oral 480 ml 300 ml IV Total 720 ml 858 ml Output Urine Total 500 ml 125 ml Other 405 ml 175 ml # Voids 10 4 Microbiology Date/Time Source Procedure Growth Status 07/28/19 02:20 Blood Blood Culture - Preliminary NO GROWTH AFTER 4 DAYS Resulted 07/30/19 11:35 Other(Specify in comment) Catheter Tip Culture - Preliminary NO GROWTH AFTER 48 HOURS Resulted 07/22/19 20:00 Sputum Expectorated Gram Stain - Final Complete 07/22/19 20:00 Sputum Culture - Final Andie Tropicalis Usual Respiratory Gloria Complete 07/31/19 10:20 Urine,Clean Catch Urine Culture - Preliminary NO GROWTH AFTER 24 HOURS Resulted Current Medications Medications (Trade) Dose Ordered Sig/Evgeny Route PRN Reason Start Time Stop Time Status Last Admin Dose Admin Acetaminophen (Tylenol) 650 mg Q4H PRN ORAL Mild Pain/Temp > 100.2 07/22/19 13:11 08/21/19 13:10 08/01/19 01:01 Acetaminophen/ Hydrocodone Bitart ([place] 5/325) 1 tab Q4H PRN ORAL Severe Pain (Pain Scale 7-10) 08/01/19 09:10 08/08/19 09:09 Alprazolam (Xanax) 0.25 mg Q6H PRN ORAL For Anxiety 08/01/19 09:00 08/08/19 08:59 Amlodipine Besylate (Norvasc) 5 mg Q12H PRN ORAL For High Blood Pressure 07/22/19 13:12 08/21/19 13:11 Ascorbic Acid (Vitamin C) 500 mg Q4H PRN ORAL thick ileostomy effluent 07/22/19 13:12 08/21/19 13:11 Cefepime HCl 2 gm/ Dextrose 100 ml @ 200 mls/hr Q12H IVPB 08/01/19 03:00 08/08/19 02:59 08/01/19 03:01 Chlorhexidine Gluconate (Val-Hex 2%) 1 applic DAILY@2000 TOPIC 07/22/19 20:00 08/06/19 19:59 07/31/19 20:31 Dextrose/Sodium Chloride 1,000 ml @ 85 mls/hr [id number] IV 08/01/19 10:00 08/31/19 09:59 Escitalopram Oxalate (Lexapro) 10 mg DAILY ORAL 07/25/19 09:00 08/24/19 08:59 07/31/19 10:00 Fluconazole/ Sodium Chloride 200 ml @ 200 mls/hr Q24H IV 07/27/19 13:00 08/03/19 12:59 07/31/19 13:11 Hydromorphone HCl (Dilaudid) 1 mg Q6H PRN SUBQ Severe Breakthru Pain (>7) 08/01/19 09:00 08/08/19 08:59 Levothyroxine Sodium (Synthroid) 50 mcg DAILY@0630 ORAL 07/23/19 06:30 08/06/19 06:29 08/01/19 06:19 Lidocaine (Lidoderm 5% PATCH) 1 patch DAILY TDERMAL 07/23/19 09:00 08/20/19 08:59 07/31/19 09:59 Losartan Potassium (Cozaar) 25 mg DAILY ORAL 07/23/19 09:00 08/13/19 08:59 07/31/19 09:59 Mirtazapine (Remeron) 7.5 mg BEDTIME PRN ORAL insomnia 07/24/19 15:15 08/23/19 15:14 07/31/19 21:26 Ondansetron HCl (Zofran) 4 mg Q4H PRN IVP Nausea & Vomiting 07/22/19 13:14 08/21/19 13:13 08/01/19 05:29 Pantoprazole (Protonix) 40 mg DAILY ORAL 07/23/19 09:00 08/06/19 08:59 07/31/19 10:01 Phytonadione (Vitamin K) 10 mg ONCE A WEEK SUBQ 07/28/19 20:00 08/06/19 19:59 07/28/19 20:15 Prednisone (predniSONE) 2.5 mg DAILY ORAL 07/29/19 10:00 08/28/19 09:59 07/31/19 10:01 Tamsulosin HCl (Flomax) 0.4 mg TWICE A DAY ORAL 07/30/19 09:00 08/06/19 08:59 07/31/19 18:08 Tramadol HCl (Ultram) 50 mg Q4H PRN ORAL Moderate Pain (Pain Scale 4-6) 08/01/19 09:10 08/08/19 09:09 Vancomycin HCl (Vanco rx to dose) 1 ea DAILY PRN MISC Per rx protocol 07/27/19 12:15 08/26/19 12:14 Vancomycin HCl 500 mg/Dextrose 110 ml @ 110 mls/hr Q12HR@0300,1500 IVPB 07/29/19 15:00 08/03/19 14:59 08/01/19 03:39 Laboratory Tests 07/31/19 10:20: Urine Color Yellow, Urine Appearance Clear, Urine pH 5, Urine Specific [place] 1.020, Urine Protein 2+H, Urine Glucose (UA) Negative, Urine Ketones 1+H, Urine Blood 2+H, Urine Nitrite Negative, Urine Bilirubin Negative, Urine Urobilinogen Normal, Urine Leukocyte Esterase Negative, Urine RBC 2-4H, Urine WBC 0-2, Urine Squamous Epithelial Cells Occasional, Urine Bacteria Occasional 08/01/19 06:10: White Blood Count 23.8#*H, Red Blood Count 3.16L, Hemoglobin 9.2L, Hematocrit 27.4L, Mean Corpuscular Volume 87, Mean Corpuscular Hemoglobin 29.1, Mean Corpuscular Hemoglobin Concent 33.7, Red Cell Distribution Width 17.5H, Platelet Count 332, Mean Platelet Volume 6.1L, Neutrophils (%) (Auto) , Lymphocytes (%) (Auto) , Monocytes (%) (Auto) , Eosinophils (%) (Auto) , Basophils (%) (Auto) , Differential Total Cells Counted 100, Neutrophils % ( Manual) 88H, Lymphocytes % (Manual) 4L, Monocytes % (Manual) 6, Eosinophils % ( Manual) 2, Basophils % (Manual) 0, Band Neutrophils 0, Platelet Estimate Adequate, Platelet Morphology Normal, Hypochromasia 1+, Anisocytosis 1+, Sodium Level 135L, Potassium Level 4.0, Chloride Level 104, Carbon Dioxide Level 21, Anion Gap 10, Blood Urea Nitrogen 37H, Creatinine 1.5H, Estimat Glomerular Filtration Rate , Glucose Level 114H, Calcium Level 9.2, Phosphorus Level 2.4L, Magnesium Level 1.5L, Total Bilirubin 1.0, Aspartate Amino Transf (AST/SGOT) 46H , Alanine Aminotransferase (ALT/SGPT) 65, Alkaline Phosphatase 473H, Total Protein 6.1L, Albumin 1.6L, Globulin 4.5, Albumin/Globulin Ratio 0.4L Height (Feet): 5 Height (Inches): 7.00 Weight (Pounds): 137 Caneloshdeni,Julian Cm MD Aug 01, 2019 09:47
[2019-08-01] MEDS: Dextrose 10%/.45 SOD CHL 1,000 ML IV SCH ×2 (09:53→21:32)
[2019-08-01] MEDS ORDERED: Bacitracin 50000 Units Vial ONE (09:57)
[2019-08-01] MEDS ORDERED: NeoSporin Gu Irrig 1ml Amp IRRIG ONE (09:57)
--- NOTE | 2019-08-01 09:59 | Pulmonology Progress Note ---
Assessment/Plan Assessment/Plan IMPRESSION: 1. Fever, now resolved. 2. Resolving right middle lobe infiltrate. 3. Multiple comorbidities including use of steroids, ulcerative colitis. 4. Pulmonary edema; resolved DISCUSSION: Off Lasix gtt; off daily IV Lasix Discussed with surgery TPN being decreased [place] and Xanax for anxiety/pain Will follow Oneal Allred M.D. Subjective Interval Events: None new Constitutional: Reports: no symptoms HEENT: Repors: no symptoms Respiratory: Reports: no symptoms Cardiovascular: Reports: no symptoms Gastrointestinal/Abdominal: Reports: no symptoms Allergies: Coded Allergies: LORAZEPAM (Verified Allergy, Mild, 07/08/19) Pt undergoes altered level of consciousness Objective Last 24 Hour Vital Signs Date Time Temp Pulse Resp B/P (MAP) Pulse Ox O2 Delivery O2 Flow Rate FiO2 08/01/19 08:46 119/53 08/01/19 08:00 99.6 75 20 119/53 (75) 94 08/01/19 07:47 Nasal Cannula 3.0 08/01/19 04:24 100.4 08/01/19 04:00 102.5 108 20 136/64 (88) 93 08/01/19 01:31 101.0 08/01/19 00:00 102.5 99 20 159/69 (99) 92 07/31/19 21:00 Nasal Cannula 3.0 07/31/19 20:03 93 Nasal Cannula 3.0 32 07/31/19 20:00 99.7 75 17 151/69 (96) 95 07/31/19 16:00 97.1 84 20 125/82 (96) 97 07/31/19 13:25 98.4 07/31/19 12:00 101.5 88 20 98/55 (69) 97 07/31/19 11:50 101.5 07/31/19 11:15 100.8 84 18 126/47 (73) 94 07/31/19 11:10 143/67 (92) Intake and Output 07/31/19 08/01/19 19:00 07:00 Intake Total 1200 ml 1158 ml Output Total 905 ml 300 ml Balance 295 ml 858 ml Intake Oral 480 ml 300 ml IV Total 720 ml 858 ml Output Urine Total 500 ml 125 ml Other 405 ml 175 ml # Voids 10 4 General Appearance: no acute distress HEENT: normocephalic Respiratory/Chest: lungs clear Cardiovascular: normal peripheral pulses Microbiology Date/Time Source Procedure Growth Status 07/30/19 11:35 Other(Specify in comment) Catheter Tip Culture - Preliminary NO GROWTH AFTER 48 HOURS Resulted 07/31/19 10:20 Urine,Clean Catch Urine Culture - Preliminary NO GROWTH AFTER 24 HOURS Resulted Laboratory Tests 07/31/19 10:20: Urine Color Yellow, Urine Appearance Clear, Urine pH 5, Urine Specific [place] 1.020, Urine Protein 2+H, Urine Glucose (UA) Negative, Urine Ketones 1+H, Urine Blood 2+H, Urine Nitrite Negative, Urine Bilirubin Negative, Urine Urobilinogen Normal, Urine Leukocyte Esterase Negative, Urine RBC 2-4H, Urine WBC 0-2, Urine Squamous Epithelial Cells Occasional, Urine Bacteria Occasional 08/01/19 06:10: White Blood Count 23.8#*H, Red Blood Count 3.16L, Hemoglobin 9.2L, Hematocrit 27.4L, Mean Corpuscular Volume 87, Mean Corpuscular Hemoglobin 29.1, Mean Corpuscular Hemoglobin Concent 33.7, Red Cell Distribution Width 17.5H, Platelet Count 332, Mean Platelet Volume 6.1L, Neutrophils (%) (Auto) , Lymphocytes (%) (Auto) , Monocytes (%) (Auto) , Eosinophils (%) (Auto) , Basophils (%) (Auto) , Differential Total Cells Counted 100, Neutrophils % ( Manual) 88H, Lymphocytes % (Manual) 4L, Monocytes % (Manual) 6, Eosinophils % ( Manual) 2, Basophils % (Manual) 0, Band Neutrophils 0, Platelet Estimate Adequate, Platelet Morphology Normal, Hypochromasia 1+, Anisocytosis 1+, Sodium Level 135L, Potassium Level 4.0, Chloride Level 104, Carbon Dioxide Level 21, Anion Gap 10, Blood Urea Nitrogen 37H, Creatinine 1.5H, Estimat Glomerular Filtration Rate , Glucose Level 114H, Calcium Level 9.2, Phosphorus Level 2.4L, Magnesium Level 1.5L, Total Bilirubin 1.0, Aspartate Amino Transf (AST/SGOT) 46H , Alanine Aminotransferase (ALT/SGPT) 65, Alkaline Phosphatase 473H, Total Protein 6.1L, Albumin 1.6L, Globulin 4.5, Albumin/Globulin Ratio 0.4L Current Medications Medications (Trade) Dose Ordered Sig/Evgeny Route PRN Reason Start Time Stop Time Status Last Admin Dose Admin Acetaminophen (Tylenol) 650 mg Q4H PRN ORAL Mild Pain/Temp > 100.2 07/22/19 13:11 08/21/19 13:10 08/01/19 01:01 Acetaminophen/ Hydrocodone Bitart ([place] 5/325) 1 tab Q4H PRN ORAL Severe Pain (Pain Scale 7-10) 08/01/19 09:10 08/08/19 09:09 Alprazolam (Xanax) 0.25 mg Q6H PRN ORAL For Anxiety 08/01/19 09:00 08/08/19 08:59 Amlodipine Besylate (Norvasc) 5 mg Q12H PRN ORAL For High Blood Pressure 07/22/19 13:12 08/21/19 13:11 Ascorbic Acid (Vitamin C) 500 mg Q4H PRN ORAL thick ileostomy effluent 07/22/19 13:12 08/21/19 13:11 Cefepime HCl 2 gm/ Dextrose 100 ml @ 200 mls/hr Q12H IVPB 08/01/19 03:00 08/08/19 02:59 08/01/19 03:01 Chlorhexidine Gluconate (Val-Hex 2%) 1 applic DAILY@2000 TOPIC 07/22/19 20:00 08/06/19 19:59 07/31/19 20:31 Dextrose/Sodium Chloride 1,000 ml @ 85 mls/hr [id number] IV 08/01/19 10:00 08/31/19 09:59 08/01/19 09:53 Escitalopram Oxalate (Lexapro) 10 mg DAILY ORAL 07/25/19 09:00 08/24/19 08:59 07/31/19 10:00 Fluconazole/ Sodium Chloride 200 ml @ 200 mls/hr Q24H IV 07/27/19 13:00 08/03/19 12:59 07/31/19 13:11 Hydromorphone HCl (Dilaudid) 1 mg Q6H PRN SUBQ Severe Breakthru Pain (>7) 08/01/19 09:00 08/08/19 08:59 Levothyroxine Sodium (Synthroid) 50 mcg DAILY@0630 ORAL 07/23/19 06:30 08/06/19 06:29 08/01/19 06:19 Lidocaine (Lidoderm 5% PATCH) 1 patch DAILY TDERMAL 07/23/19 09:00 08/20/19 08:59 07/31/19 09:59 Losartan Potassium (Cozaar) 25 mg DAILY ORAL 07/23/19 09:00 08/13/19 08:59 07/31/19 09:59 Mirtazapine (Remeron) 7.5 mg BEDTIME PRN ORAL insomnia 07/24/19 15:15 08/23/19 15:14 07/31/19 21:26 Ondansetron HCl (Zofran) 4 mg Q4H PRN IVP Nausea & Vomiting 07/22/19 13:14 08/21/19 13:13 08/01/19 05:29 Pantoprazole (Protonix) 40 mg DAILY ORAL 07/23/19 09:00 08/06/19 08:59 07/31/19 10:01 Phytonadione (Vitamin K) 10 mg ONCE A WEEK SUBQ 07/28/19 20:00 08/06/19 19:59 07/28/19 20:15 Prednisone (predniSONE) 2.5 mg DAILY ORAL 07/29/19 10:00 08/28/19 09:59 07/31/19 10:01 Tamsulosin HCl (Flomax) 0.4 mg TWICE A DAY ORAL 07/30/19 09:00 08/06/19 08:59 07/31/19 18:08 Tramadol HCl (Ultram) 50 mg Q4H PRN ORAL Moderate Pain (Pain Scale 4-6) 08/01/19 09:10 08/08/19 09:09 Vancomycin HCl (Vanco rx to dose) 1 ea DAILY PRN MISC Per rx protocol 07/27/19 12:15 08/26/19 12:14 Vancomycin HCl 500 mg/Dextrose 110 ml @ 110 mls/hr Q12HR@0300,1500 IVPB 07/29/19 15:00 08/03/19 14:59 08/01/19 03:39 Oneal Allred MD Aug 01, 2019 09:59
[2019-08-01] MEDS ORDERED: Sterile Water Irrig 1000ml IRRIG ONE (10:00)
[2019-08-01] MEDS ORDERED: LR 1000ml ONE (10:00)
[2019-08-01] MEDS ORDERED: NS Irrig 1000ml ONE (10:00)
[2019-08-01] MEDS ORDERED: Lidocaine 1% Plain 30 ml INJ ONE (10:12)
[2019-08-01] MEDS ORDERED: fentaNYL 100 mcg/2 mL IV ONE (10:22)
[2019-08-01] MEDS ORDERED: Propofol 200mg/20ml IV ONE (10:23)
[2019-08-01] MEDS ORDERED: Lidocaine 1% MPF 10mg/ml 5ml ONE (10:23)
--- NOTE | 2019-08-01 11:02 | Brief Operative Note ---
Immediate Post Operative Note Operative Note Pre-op Diagnosis: infected infusion port Procedure: removal of subcutaneous infusion port Post-op Diagnosis: infected infusion port Post-op Diagnosis: same as pre-op Findings: consistent w/pre-op dx studies Surgeon: srinath Anesthesiologist: ruby Anesthesia: general Specimen: yes - port and capsule, catheter tip for C&S Complications: none Condition: stable Fluids: see anesthesia record Estimated Blood Loss: none Drains: tyra Implant(s) used?: No Pako Orellana MD Aug 01, 2019 11:02
--- NOTE | 2019-08-01 11:04 | Anethesia Preoperative Eval ---
Anesthesia Pre-op PMH/ROS General Date of Evaluation: Aug 01, 2019 Time of Evaluation: 10:00 ASA Score: ASA 4 Mallampati Score Class I : Soft palate, uvula, fauces, pillars visible Class II: Soft palate, uvula, fauces visible Class III: Soft palate, base of uvula visible Class IV: Only hard plate visible Mallampati Classification: Class II Social History: alcohol use Allergies: Coded Allergies: LORAZEPAM (Verified Allergy, Mild, 07/08/19) Pt undergoes altered level of consciousness Patient NPO?: Yes NPO Date: Aug 01, 2019 NPO Time: 0000 Anesthesia Pre-op Phys. Exam Physician Exam Last Vital Signs Date Time Temp Pulse Resp B/P (MAP) Pulse Ox O2 Delivery O2 Flow Rate FiO2 08/01/19 08:46 119/53 08/01/19 08:00 99.6 75 20 94 08/01/19 07:47 Nasal Cannula 3.0 07/31/19 20:03 32 Airway Exam Mallampati Score: Class II Anesthesia Pre-op A/P Labs Hematology Test 08/01/19 06:10 White Blood Count 23.8 K/UL (4.8-10.8) #*H Red Blood Count 3.16 M/UL (4.70-6.10) L Hemoglobin 9.2 G/DL (14.2-18.0) L Hematocrit 27.4 % (42.0-52.0) L Mean Corpuscular Volume 87 FL (80-99) Mean Corpuscular Hemoglobin 29.1 PG (27.0-31.0) Mean Corpuscular Hemoglobin Concent 33.7 G/DL (32.0-36.0) Red Cell Distribution Width 17.5 % (11.6-14.8) H Platelet Count 332 K/UL (150-450) Mean Platelet Volume 6.1 FL (6.5-10.1) L Neutrophils (%) (Auto) % (45.0-75.0) Lymphocytes (%) (Auto) % (20.0-45.0) Monocytes (%) (Auto) % (1.0-10.0) Eosinophils (%) (Auto) % (0.0-3.0) Basophils (%) (Auto) % (0.0-2.0) Differential Total Cells Counted 100 Neutrophils % (Manual) 88 % (45-75) H Lymphocytes % (Manual) 4 % (20-45) L Monocytes % (Manual) 6 % (1-10) Eosinophils % (Manual) 2 % (0-3) Basophils % (Manual) 0 % (0-2) Band Neutrophils 0 % (0-8) Platelet Estimate Adequate Platelet Morphology Normal Hypochromasia 1+ Anisocytosis 1+ Chemistry Test 08/01/19 06:10 Sodium Level 135 MMOL/L (136-145) L Potassium Level 4.0 MMOL/L (3.5-5.1) Chloride Level 104 MMOL/L (98-107) Carbon Dioxide Level 21 MMOL/L (21-32) Anion Gap 10 mmol/L (5-15) Blood Urea Nitrogen 37 mg/dL (7-18) H Creatinine 1.5 MG/DL (0.55-1.30) H Estimat Glomerular Filtration Rate mL/min (>60) Glucose Level 114 MG/DL (74-106) H Calcium Level 9.2 MG/DL (8.5-10.1) Phosphorus Level 2.4 MG/DL (2.5-4.9) L Magnesium Level 1.5 MG/DL (1.8-2.4) L Total Bilirubin 1.0 MG/DL (0.2-1.0) Aspartate Amino Transf (AST/SGOT) 46 U/L (15-37) H Alanine Aminotransferase (ALT/SGPT) 65 U/L (12-78) Alkaline Phosphatase 473 U/L (46-116) H Total Protein 6.1 G/DL (6.4-8.2) L Albumin 1.6 G/DL (3.4-5.0) L Globulin 4.5 g/dL Albumin/Globulin Ratio 0.4 (1.0-2.7) L Rosalva Napoles MD Aug 01, 2019 11:04
--- NOTE | 2019-08-01 11:04 | Immediate Post-Op Evaluation ---
Immediate Post-Op Evalulation Immediate Post-Op Evalulation Procedure: Repair Stomal Bleeding Date of Evaluation: Aug 01, 2019 Time of Evaluation: 11:04 Nausea: No Vomiting: No Rosalva Napoles MD Aug 01, 2019 11:04
[2019-08-01] MEDS ORDERED: fentaNYL 100 mcg/2 mL IV PRN (11:15)
--- NOTE | 2019-08-01 12:40 | 48 Hour Post Anesthesia Eval ---
Post Anesthesia Evaluation Procedure: Repair Stomal Bleeding Date of Evaluation: Aug 01, 2019 Time of Evaluation: 12:40 Nausea: No Vomiting: No Rosalva Napoles MD Aug 01, 2019 12:40
--- NOTE | 2019-08-01 16:04 | Infectious Diseases Prog Note ---
Assessment/Plan Assessment/Plan ASSESSMENT AND PLAN: 1. sepsis, leukocytosis, fevers, ? line infection, ? port, ? picc CT abdomen and pelvis without obvious source, blood cultures negative, chest x-ray with chf + c.diff. risk, fungemia risk, TPN leukocytosis worse and still febrile - abx - cefepime, diflucan and vancomycin - flagyl added - port removed today - picc line removed - f/u on labs, f/u on cath tip culture, blood cultures negative - c.diff. stool test ordered - recent echo without vegetation, recent leg ultrasound without dvt - d/w pharmacy about vancomycin dosing - increase in creatinine noted - communicated with Dr. Orellana 2. chf/edema - diuresis, sob better, pulmonary f/u 3. 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 4. History of multiple abdominal surgeries. 5. Hypertension. 6. Blood pressure treatment per primary care team. 7. Hypothyroidism. 8. Ulcerative colitis history. 9. Anemia. 10. History of polycythemia. 11. Allergic to lorazepam. 12. Social history negative. 13. Family history noncontributory. 14. MAR is noted. 15. Case was discussed with RN. 16. Case was discussed with Dr. Herring. 17. Case was discussed with the patient and the patient's . Subjective Constitutional: Reports: fever HEENT: Denies: congestion Respiratory: Denies: shortness of breath Cardiovascular: Denies: chest pain Gastrointestinal/Abdominal: Reports: other - no abdominal pain ; Denies: nausea , vomiting Genitourinary: Reports: other - no pinedo ; Denies: dysuria, hematuria Neurologic: Denies: headache Psychiatric: Denies: depression Skin: Denies: rash Hematologic: Denies: bleeding Musculoskeletal: Denies: pain Allergies: Coded Allergies: LORAZEPAM (Verified Allergy, Mild, 07/08/19) Pt undergoes altered level of consciousness Objective Vital Signs Last 24 Hour Vital Signs Date Time Temp Pulse Resp B/P (MAP) Pulse Ox O2 Delivery O2 Flow Rate FiO2 08/01/19 11:55 98.1 78 21 100/54 92 Nasal Cannula 3 08/01/19 11:40 77 20 108/50 92 Nasal Cannula 3 08/01/19 11:30 81 15 105/51 93 Nasal Cannula 3 08/01/19 11:20 83 21 100/50 95 Nasal Cannula 3 08/01/19 11:15 80 20 108/46 95 Simple Mask 6 08/01/19 11:10 98.0 83 17 102/45 98 Simple Mask 6 08/01/19 08:46 119/53 08/01/19 08:00 99.6 75 20 119/53 (75) 94 08/01/19 07:47 Nasal Cannula 3.0 08/01/19 04:24 100.4 08/01/19 04:00 102.5 108 20 136/64 (88) 93 08/01/19 01:31 101.0 08/01/19 00:00 102.5 99 20 159/69 (99) 92 07/31/19 21:00 Nasal Cannula 3.0 07/31/19 20:03 93 Nasal Cannula 3.0 32 07/31/19 20:00 99.7 75 17 151/69 (96) 95 07/31/19 16:00 97.1 84 20 125/82 (96) 97 Height (Feet): 5 Height (Inches): 6.00 Weight (Pounds): 136 General Appearance: no acute distress HEENT: normocephalic, atraumatic, anicteric, mucous membranes moist Respiratory/Chest: lungs clear, normal breath sounds, no respiratory distress, no accessory muscle use Cardiovascular: normal rate, regular rhythm, no gallop/murmur, no JVD Abdomen: normal bowel sounds, soft, non tender, no organomegaly, non distended Genitourinary: other - no pinedo Extremities: no cyanosis Skin: no rash 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 Bilateral interstitial edema is probably unchanged allowing for differences in inspiration. Left pleural effusion is again demonstrated. The heart size is normal. Left arm PICC and right chest port catheter again demonstrated. Median sternotomy sutures are again demonstrated. Impression: Probably unchanged bilateral interstitial edema and left pleural effusion, allowing for differences in inspiration, over one day KUB - 07/21/19 Impression: Left upper quadrant small bowel loops. Given evidence of recent surgery, most likely on the basis of postoperative ileus. However, the possibility of small bowel obstruction should also be considered. CT abdomen and pelvis - report noted CT abdomen and pelvis - 07/24/19 - IMPRESSION: Interval abdominal surgery with resection/closure of a right continent ileostomy and formation of a left lower quadrant ileostomy. No evidence of bowel obstruction, abscess or other complications. Development of a trace right pleural effusion and posterior basal atelectasis. Other findings on this exam are unchanged from the previous preoperative study. Status post total proctocolectomy. Status post cholecystectomy. Pulmonary fibrosis. 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 Pinedo catheter in good position. Some degree of chronic cystitis not excluded even wall thickening. Moderate to severe degenerative changes of the lumbar spine as described above. Scoliosis again noted. Microbiology Date/Time Source Procedure Growth Status 07/30/19 11:35 Other(Specify in comment) Catheter Tip Culture - Preliminary NO GROWTH AFTER 48 HOURS Resulted 07/31/19 10:20 Urine,Clean Catch Urine Culture - Preliminary NO GROWTH AFTER 24 HOURS Resulted Laboratory Tests Test 08/01/19 06:10 08/01/19 14:10 White Blood Count 23.8 K/UL (4.8-10.8) #*H Red Blood Count 3.16 M/UL (4.70-6.10) L Hemoglobin 9.2 G/DL (14.2-18.0) L Hematocrit 27.4 % (42.0-52.0) L Mean Corpuscular Volume 87 FL (80-99) Mean Corpuscular Hemoglobin 29.1 PG (27.0-31.0) Mean Corpuscular Hemoglobin Concent 33.7 G/DL (32.0-36.0) Red Cell Distribution Width 17.5 % (11.6-14.8) H Platelet Count 332 K/UL (150-450) Mean Platelet Volume 6.1 FL (6.5-10.1) L Neutrophils (%) (Auto) % (45.0-75.0) Lymphocytes (%) (Auto) % (20.0-45.0) Monocytes (%) (Auto) % (1.0-10.0) Eosinophils (%) (Auto) % (0.0-3.0) Basophils (%) (Auto) % (0.0-2.0) Differential Total Cells Counted 100 Neutrophils % (Manual) 88 % (45-75) H Lymphocytes % (Manual) 4 % (20-45) L Monocytes % (Manual) 6 % (1-10) Eosinophils % (Manual) 2 % (0-3) Basophils % (Manual) 0 % (0-2) Band Neutrophils 0 % (0-8) Platelet Estimate Adequate Platelet Morphology Normal Hypochromasia 1+ Anisocytosis 1+ Sodium Level 135 MMOL/L (136-145) L Potassium Level 4.0 MMOL/L (3.5-5.1) Chloride Level 104 MMOL/L (98-107) Carbon Dioxide Level 21 MMOL/L (21-32) Anion Gap 10 mmol/L (5-15) Blood Urea Nitrogen 37 mg/dL (7-18) H Creatinine 1.5 MG/DL (0.55-1.30) H Estimat Glomerular Filtration Rate mL/min (>60) Glucose Level 114 MG/DL (74-106) H Calcium Level 9.2 MG/DL (8.5-10.1) Phosphorus Level 2.4 MG/DL (2.5-4.9) L Magnesium Level 1.5 MG/DL (1.8-2.4) L Total Bilirubin 1.0 MG/DL (0.2-1.0) Aspartate Amino Transf (AST/SGOT) 46 U/L (15-37) H Alanine Aminotransferase (ALT/SGPT) 65 U/L (12-78) Alkaline Phosphatase 473 U/L (46-116) H Total Protein 6.1 G/DL (6.4-8.2) L Albumin 1.6 G/DL (3.4-5.0) L Globulin 4.5 g/dL Albumin/Globulin Ratio 0.4 (1.0-2.7) L Vancomycin Level Trough 19.5 ug/mL (5.0-12.0) H Current Medications Medications (Trade) Dose Ordered Sig/Evgeny Route PRN Reason Start Time Stop Time Status Last Admin Dose Admin Acetaminophen (Tylenol) 650 mg Q4H PRN ORAL Mild Pain/Temp > 100.2 07/22/19 13:11 08/21/19 13:10 08/01/19 01:01 Acetaminophen/ Hydrocodone Bitart ([place] 5/325) 1 tab Q4H PRN ORAL Severe Pain (Pain Scale 7-10) 08/01/19 09:10 08/08/19 09:09 Alprazolam (Xanax) 0.25 mg Q6H PRN ORAL For Anxiety 08/01/19 09:00 08/08/19 08:59 Amlodipine Besylate (Norvasc) 5 mg Q12H PRN ORAL For High Blood Pressure 07/22/19 13:12 08/21/19 13:11 Ascorbic Acid (Vitamin C) 500 mg Q4H PRN ORAL thick ileostomy effluent 07/22/19 13:12 08/21/19 13:11 Cefepime HCl 2 gm/ Dextrose 100 ml @ 200 mls/hr Q12H IVPB 08/01/19 03:00 08/08/19 02:59 08/01/19 15:22 Chlorhexidine Gluconate (Val-Hex 2%) 1 applic DAILY@2000 TOPIC 07/22/19 20:00 08/06/19 19:59 07/31/19 20:31 Dextrose/Sodium Chloride 1,000 ml @ 85 mls/hr [id number] IV 08/01/19 10:00 08/31/19 09:59 08/01/19 09:53 Escitalopram Oxalate (Lexapro) 10 mg DAILY ORAL 07/25/19 09:00 08/24/19 08:59 07/31/19 10:00 Fluconazole/ Sodium Chloride 200 ml @ 200 mls/hr Q24H IV 07/27/19 13:00 08/03/19 12:59 08/01/19 12:53 Hydromorphone HCl (Dilaudid) 1 mg Q6H PRN SUBQ Severe Breakthru Pain (>7) 08/01/19 09:00 08/08/19 08:59 08/01/19 14:19 Levothyroxine Sodium (Synthroid) 50 mcg DAILY@0630 ORAL 07/23/19 06:30 08/06/19 06:29 08/01/19 06:19 Lidocaine (Lidoderm 5% PATCH) 1 patch DAILY TDERMAL 07/23/19 09:00 08/20/19 08:59 07/31/19 09:59 Losartan Potassium (Cozaar) 25 mg DAILY ORAL 07/23/19 09:00 08/13/19 08:59 07/31/19 09:59 Metronidazole 100 ml @ 100 mls/hr Q8HR IVPB 08/01/19 15:00 08/08/19 14:59 08/01/19 15:22 Mirtazapine (Remeron) 7.5 mg BEDTIME PRN ORAL insomnia 07/24/19 15:15 08/23/19 15:14 07/31/19 21:26 Ondansetron HCl (Zofran) 4 mg Q4H PRN IVP Nausea & Vomiting 07/22/19 13:14 08/21/19 13:13 08/01/19 05:29 Pantoprazole (Protonix) 40 mg DAILY ORAL 07/23/19 09:00 08/06/19 08:59 07/31/19 10:01 Phytonadione (Vitamin K) 10 mg ONCE A WEEK SUBQ 07/28/19 20:00 08/06/19 19:59 07/28/19 20:15 Prednisone (predniSONE) 2.5 mg DAILY ORAL 07/29/19 10:00 08/28/19 09:59 07/31/19 10:01 Tamsulosin HCl (Flomax) 0.4 mg TWICE A DAY ORAL 07/30/19 09:00 08/06/19 08:59 07/31/19 18:08 Tramadol HCl (Ultram) 50 mg Q4H PRN ORAL Moderate Pain (Pain Scale 4-6) 08/01/19 09:10 08/08/19 09:09 Vancomycin HCl (Vanco rx to dose) 1 ea DAILY PRN MISC Per rx protocol 07/27/19 12:15 08/26/19 12:14 Vancomycin HCl 1 gm/Dextrose 275 ml @ 183.708 mls/hr Q24H IVPB 08/01/19 18:00 08/06/19 17:59 Paras Ybarra MD Aug 01, 2019 16:03
[2019-08-01] MEDS ORDERED: Vancomycin 1gm/D5W 275ml IVPB SCH ×2 (18:00)
--- NOTE | 2019-08-01 19:05 | NUR ---
NURSE NOTES: Received report from DAVDI Lange. Pt is sleeping, lying semi-howard's; comfortably resting. No signs of acute distress noted. Pt denies any pain at this time. AOx4; able to make needs known. Checked IV site, line, and rate; patent and running. No bleeding, erythema, or infiltration noted. Right upper chest dressing dry and intact. Bed at lowest position. Brakes on. Siderails up x2. Call light within reach. Will continue to monitor.
--- NOTE | 2019-08-01 19:30 | NUR ---
HAND-OFF: Report given to Carson Doyle. DAVID. pt is stable condition.
[2019-08-01] MEDS: Dyna-Hex 2% Top Sol 2oz TOPIC SCH (20:00)
--- NOTE | 2019-08-01 22:00 | Operative Note - Dictated ---
DATE OF OPERATION: 07/01/2019 SURGEON: Pako Orellana M.D. [employer]ESSING [employer]ANT MANAGER: None. ANESTHESIOLOGIST: Dr. Napoles. TYPE OF ANESTHESIA: General. PREOPERATIVE DIAGNOSIS: Presumed infected subcutaneous infusion port with persistent fevers and leukocytosis. POSTOPERATIVE DIAGNOSIS: Presumed infected subcutaneous infusion port with persistent fevers and leukocytosis. OPERATION PERFORMED: Removal of subcutaneous infusion port, right upper chest. DESCRIPTION OF PROCEDURE: The patient was taken to the operating room and under general anesthesia with sequential compression device stockings in place, he was prepped and draped in usual fashion. The port was inferior to the clavicle with the catheter going subcutaneously into the internal jugular vein. A transverse incision was made. The subcutaneous pocket entered the port readily elevated out of the subcutaneous tissues. There was no cuff. The catheter just was withdrawn without difficulty holding pressure over the internal jugular vein. The catheter tip was sent for culture. The port and the subcutaneous capsule, which was excised was sent to pathology. The field was irrigated with antibiotic. Hemostasis was secured. There was no overt evidence of infection. Through a stab incision inferolaterally, a quarter-inch Mary drain was placed into the cavity and sutured to the skin with 2-0 nylon suture. The incision was closed with deep dermal interrupted 3-0 Vicryl and continuous 4-0 Monocryl subcuticular suture. Mastisol and half-inch Steri-Strips were applied followed by dry sterile dressing. Final sponge and needle counts were correct. The patient tolerated the procedure well and left the operating room in good condition. Pako Orellana M.D. DR: DELMIS JOB#: [id number] CC:
[2019-08-02] VITALS: BP 96/46
[2019-08-02 04:00] VITALS: BP 116/60
[2019-08-02 05:52] LABS: BASOPHILS % (AUTO) 0.8 % (0.0-2.0); EOSINOPHILS % (AUTO) 4.1 % (0.0-3.0); HEMATOCRIT 26.8 % (42.0-52.0); HEMOGLOBIN 8.7 G/DL (14.2-18.0); LYMPHOCYTES % (AUTO) 7.9 % (20.0-45.0); MEAN CORPUSCULAR VOLUME 87 FL (80-99); MONOCYTES % (AUTO) 12.5 % (1.0-10.0); NEUTROPHILS % (AUTO) 74.7 % (45.0-75.0); PLATELET COUNT 307 K/UL (150-450); RED BLOOD COUNT 3.07 M/UL (4.70-6.10); WHITE BLOOD COUNT 16.9 K/UL (4.8-10.8)
[2019-08-02] MEDS: HYDROmorphone 1mg/ml Carpuject SUBQ PRN (06:05)
[2019-08-02 06:14] LABS: ALANINE AMINOTRANSFERASE 105 U/L (12-78); ALBUMIN 1.7 G/DL (3.4-5.0); ALBUMIN/GLOBULIN RATIO 0.4 (1.0-2.7); ALKALINE PHOSPHATASE 381 U/L (46-116); ANION GAP 9 mmol/L (5-15); ASPARTATE AMINO TRANSFERASE 82 U/L (15-37); BILIRUBIN,TOTAL 0.5 MG/DL (0.2-1.0); BLOOD UREA NITROGEN 41 mg/dL (7-18); CALCIUM 9.7 MG/DL (8.5-10.1); CARBON DIOXIDE 21 MMOL/L (21-32); CHLORIDE 103 MMOL/L (98-107); CREATININE 1.7 MG/DL (0.55-1.30); PHOSPHORUS 3.9 MG/DL (2.5-4.9); POTASSIUM 4.5 MMOL/L (3.5-5.1); SODIUM 133 MMOL/L (136-145)
--- NOTE | 2019-08-02 07:53 | NUR ---
HAND-OFF: Report given to Report given to DAVID Geiger. Pt is awake and in stable condition. Plan of care endorsed..
[2019-08-02 08:00] VITALS: BP 127/60
--- NOTE | 2019-08-02 08:00 | NUR ---
NURSE NOTES: Received report from Yanira HERNANDEZ, pt a/a/o x4 laying in bed with no signs of distress or other issues at this time. IV on the right FA gauge #22 running D10 1/2NS@125ml/hr. dressing in the right upper chest with 4x4 and silk tape. Natalee ileostomy draining well with no leakage noted. call light within reach, bed in lowest position. side rales up x2. I will f/u as needed.
--- NOTE | 2019-08-02 09:05 | Urology Progress Note ---
Assessment/Plan Assessment/Plan: 1. Lower urinary tract symptoms. 2. BPH history. 3. Possible neurogenic bladder. 4. Hematuria history. 5. Proteinuria history. 6. Possible urinary tract infection and colonization. monitor clinically cont flomax BID cont abx, diflucan lasix dc'd f/u on last blood cx consider anticholinergics, but concern for causing urinary retention Subjective Allergies: Coded Allergies: LORAZEPAM (Verified Allergy, Mild, 07/08/19) Pt undergoes altered level of consciousness Subjective all noted, less urinary frequency s/p removal of infected infusion port 08/01 Objective Last 24 Hour Vital Signs Date Time Temp Pulse Resp B/P (MAP) Pulse Ox O2 Delivery O2 Flow Rate FiO2 08/02/19 08:00 98.1 68 18 127/60 (82) 95 08/02/19 07:44 94 Nasal Cannula 3.0 32 08/02/19 04:00 98.1 77 16 116/60 (78) 94 08/02/19 00:00 98.1 73 20 96/46 (63) 96 08/01/19 21:00 Nasal Cannula 2.0 08/01/19 20:00 98.4 82 18 127/58 (81) 91 08/01/19 16:00 98.0 82 18 108/50 (69) 94 08/01/19 11:55 98.1 78 21 100/54 92 Nasal Cannula 3 08/01/19 11:40 77 20 108/50 92 Nasal Cannula 3 08/01/19 11:30 81 15 105/51 93 Nasal Cannula 3 08/01/19 11:20 83 21 100/50 95 Nasal Cannula 3 08/01/19 11:15 80 20 108/46 95 Simple Mask 6 08/01/19 11:10 98.0 83 17 102/45 98 Simple Mask 6 Intake and Output 08/01/19 08/02/19 19:00 07:00 Intake Total 665 ml 1365 ml Output Total 445 ml 825 ml Balance 220 ml 540 ml Intake Oral 230 ml 200 ml IV Total 435 ml 1165 ml Output Urine Total 130 ml 425 ml Estimated Blood Loss 15 ml Other 300 ml 400 ml # Voids 2 5 Microbiology Date/Time Source Procedure Growth Status 08/01/19 01:45 Blood Blood Culture - Preliminary NO GROWTH AFTER 24 HOURS Resulted 08/01/19 10:40 Other(Specify in comment) Catheter Tip Culture - Preliminary NO GROWTH Resulted 07/22/19 20:00 Sputum Expectorated Gram Stain - Final Complete 07/22/19 20:00 Sputum Culture - Final Andie Tropicalis Usual Respiratory Gloria Complete 07/31/19 10:20 Urine,Clean Catch Urine Culture - Preliminary Mixed Gram Positive Organism Resulted Current Medications Medications (Trade) Dose Ordered Sig/Evgeny Route PRN Reason Start Time Stop Time Status Last Admin Dose Admin Acetaminophen (Tylenol) 650 mg Q4H PRN ORAL Mild Pain/Temp > 100.2 07/22/19 13:11 08/21/19 13:10 08/01/19 01:01 Acetaminophen/ Hydrocodone Bitart ([place] 5/325) 1 tab Q4H PRN ORAL Severe Pain (Pain Scale 7-10) 08/01/19 09:10 08/08/19 09:09 08/01/19 18:48 Alprazolam (Xanax) 0.25 mg Q6H PRN ORAL For Anxiety 08/01/19 09:00 08/08/19 08:59 Amlodipine Besylate (Norvasc) 5 mg Q12H PRN ORAL For High Blood Pressure 07/22/19 13:12 08/21/19 13:11 Ascorbic Acid (Vitamin C) 500 mg Q4H PRN ORAL thick ileostomy effluent 07/22/19 13:12 08/21/19 13:11 Cefepime HCl 2 gm/ Dextrose 100 ml @ 200 mls/hr Q12H IVPB 08/01/19 03:00 08/08/19 02:59 08/02/19 03:29 Chlorhexidine Gluconate (Val-Hex 2%) 1 applic DAILY@2000 TOPIC 07/22/19 20:00 08/06/19 19:59 07/31/19 20:31 Dextrose/Sodium Chloride 1,000 ml @ 85 mls/hr [id number] IV 08/01/19 10:00 08/31/19 09:59 08/01/19 21:32 Escitalopram Oxalate (Lexapro) 10 mg DAILY ORAL 07/25/19 09:00 08/24/19 08:59 07/31/19 10:00 Fluconazole/ Sodium Chloride 100 ml @ 100 mls/hr Q24H IV 08/02/19 13:00 08/09/19 12:59 Hydromorphone HCl (Dilaudid) 1 mg Q6H PRN SUBQ Severe Breakthru Pain (>7) 08/01/19 09:00 08/08/19 08:59 08/02/19 06:05 Levothyroxine Sodium (Synthroid) 50 mcg DAILY@0630 ORAL 07/23/19 06:30 08/06/19 06:29 08/02/19 05:35 Lidocaine (Lidoderm 5% PATCH) 1 patch DAILY TDERMAL 07/23/19 09:00 08/20/19 08:59 07/31/19 09:59 Losartan Potassium (Cozaar) 25 mg DAILY ORAL 07/23/19 09:00 08/13/19 08:59 07/31/19 09:59 Metronidazole 100 ml @ 100 mls/hr Q8HR IVPB 08/01/19 15:00 08/08/19 14:59 08/02/19 05:35 Mirtazapine (Remeron) 7.5 mg BEDTIME PRN ORAL insomnia 07/24/19 15:15 08/23/19 15:14 08/01/19 20:14 Ondansetron HCl (Zofran) 4 mg Q4H PRN IVP Nausea & Vomiting 07/22/19 13:14 08/21/19 13:13 08/01/19 05:29 Pantoprazole (Protonix) 40 mg DAILY ORAL 07/23/19 09:00 08/06/19 08:59 07/31/19 10:01 Phytonadione (Vitamin K) 10 mg ONCE A WEEK SUBQ 07/28/19 20:00 08/06/19 19:59 07/28/19 20:15 Prednisone (predniSONE) 2.5 mg DAILY ORAL 07/29/19 10:00 08/28/19 09:59 07/31/19 10:01 Tamsulosin HCl (Flomax) 0.4 mg TWICE A DAY ORAL 07/30/19 09:00 08/06/19 08:59 08/01/19 18:20 Tramadol HCl (Ultram) 50 mg Q4H PRN ORAL Moderate Pain (Pain Scale 4-6) 08/01/19 09:10 08/08/19 09:09 Vancomycin HCl (Vanco rx to dose) 1 ea DAILY PRN MISC Per rx protocol 07/27/19 12:15 08/26/19 12:14 Vancomycin HCl 1 gm/Dextrose 275 ml @ 183.708 mls/hr Q24H IVPB 08/01/19 18:00 08/06/19 17:59 08/01/19 18:19 Laboratory Tests 08/01/19 14:10: Vancomycin Level Trough 19.5H 08/02/19 05:00: White Blood Count 16.9H, Red Blood Count 3.07L, Hemoglobin 8.7L, Hematocrit 26.8L, Mean Corpuscular Volume 87, Mean Corpuscular Hemoglobin 28.3, Mean Corpuscular Hemoglobin Concent 32.3, Red Cell Distribution Width 18.0H, Platelet Count 307, Mean Platelet Volume 6.3L, Neutrophils (%) (Auto) 74.7, Lymphocytes (%) (Auto) 7.9L, Monocytes (%) (Auto) 12.5H, Eosinophils (%) (Auto) 4.1H, Basophils (%) (Auto) 0.8, Sodium Level 133L, Potassium Level 4.5, Chloride Level 103, Carbon Dioxide Level 21, Anion Gap 9, Blood Urea Nitrogen 41H, Creatinine 1.7H, Estimat Glomerular Filtration Rate , Glucose Level 121H, Calcium Level 9.7, Phosphorus Level 3.9, Magnesium Level 2.2, Total Bilirubin 0.5, Aspartate Amino Transf (AST/SGOT) 82H, Alanine Aminotransferase (ALT/SGPT) 105H, Alkaline Phosphatase 381H, Total Protein 6.2L, Albumin 1.7L, Globulin 4.5 , Albumin/Globulin Ratio 0.4L Height (Feet): 5 Height (Inches): 6.00 Weight (Pounds): 136 Objective exam stable Julian Rodriguez MD Aug 02, 2019 09:05
--- NOTE | 2019-08-02 09:30 | NUR ---
NURSE NOTES: pt was able to eat 50% of his meal. pt was able to stand and seat in the chair for about 30min. I will f/u as needed.
[2019-08-02] MEDS: Losartan 25mg tab ORAL SCH (09:32)
[2019-08-02] MEDS: Tamsulosin 0.4mg cap ORAL SCH ×2 (09:32→17:34)
[2019-08-02] MEDS: Dextrose 10%/.45 SOD CHL 1,000 ML IV SCH ×3 (09:35→20:51)
--- NOTE | 2019-08-02 11:00 | Pulmonology Progress Note ---
Assessment/Plan Assessment/Plan IMPRESSION: 1. Fever, now resolved. 2. Resolving right middle lobe infiltrate. 3. Multiple comorbidities including use of steroids, ulcerative colitis. 4. Pulmonary edema; resolved DISCUSSION: Off Lasix gtt; off daily IV Lasix Discussed with surgery TPN being decreased [place] and Xanax for anxiety/pain Will follow Oneal Allred M.D. Subjective Interval Events: None new Constitutional: Reports: no symptoms HEENT: Repors: no symptoms Respiratory: Reports: no symptoms Cardiovascular: Reports: no symptoms Gastrointestinal/Abdominal: Reports: no symptoms Allergies: Coded Allergies: LORAZEPAM (Verified Allergy, Mild, 07/08/19) Pt undergoes altered level of consciousness Objective Last 24 Hour Vital Signs Date Time Temp Pulse Resp B/P (MAP) Pulse Ox O2 Delivery O2 Flow Rate FiO2 08/02/19 09:32 127/60 08/02/19 08:00 98.1 68 18 127/60 (82) 95 08/02/19 07:44 94 Nasal Cannula 3.0 32 08/02/19 04:00 98.1 77 16 116/60 (78) 94 08/02/19 00:00 98.1 73 20 96/46 (63) 96 08/01/19 21:00 Nasal Cannula 2.0 08/01/19 20:00 98.4 82 18 127/58 (81) 91 08/01/19 16:00 98.0 82 18 108/50 (69) 94 08/01/19 11:55 98.1 78 21 100/54 92 Nasal Cannula 3 08/01/19 11:40 77 20 108/50 92 Nasal Cannula 3 08/01/19 11:30 81 15 105/51 93 Nasal Cannula 3 08/01/19 11:20 83 21 100/50 95 Nasal Cannula 3 08/01/19 11:15 80 20 108/46 95 Simple Mask 6 08/01/19 11:10 98.0 83 17 102/45 98 Simple Mask 6 Intake and Output 08/01/19 08/02/19 19:00 07:00 Intake Total 665 ml 1365 ml Output Total 445 ml 825 ml Balance 220 ml 540 ml Intake Oral 230 ml 200 ml IV Total 435 ml 1165 ml Output Urine Total 130 ml 425 ml Estimated Blood Loss 15 ml Other 300 ml 400 ml # Voids 2 5 General Appearance: no acute distress HEENT: normocephalic Respiratory/Chest: chest wall non-tender Cardiovascular: normal peripheral pulses Abdomen: normal bowel sounds Microbiology Date/Time Source Procedure Growth Status 08/01/19 01:45 Blood Blood Culture - Preliminary NO GROWTH AFTER 24 HOURS Resulted 08/01/19 01:30 Blood Blood Culture - Preliminary NO GROWTH AFTER 24 HOURS Resulted 08/01/19 10:40 Other(Specify in comment) Catheter Tip Culture - Preliminary NO GROWTH Resulted 07/30/19 11:35 Other(Specify in comment) Catheter Tip Culture - Preliminary NO GROWTH AFTER 72 HOURS Resulted 08/01/19 15:50 Stool Clostridium difficile Toxin Assay - Final Complete 07/31/19 10:20 Urine,Clean Catch Urine Culture - Preliminary Mixed Gram Positive Organism Resulted Laboratory Tests 08/01/19 14:10: Vancomycin Level Trough 19.5H 08/02/19 05:00: White Blood Count 16.9H, Red Blood Count 3.07L, Hemoglobin 8.7L, Hematocrit 26.8L, Mean Corpuscular Volume 87, Mean Corpuscular Hemoglobin 28.3, Mean Corpuscular Hemoglobin Concent 32.3, Red Cell Distribution Width 18.0H, Platelet Count 307, Mean Platelet Volume 6.3L, Neutrophils (%) (Auto) 74.7, Lymphocytes (%) (Auto) 7.9L, Monocytes (%) (Auto) 12.5H, Eosinophils (%) (Auto) 4.1H, Basophils (%) (Auto) 0.8, Sodium Level 133L, Potassium Level 4.5, Chloride Level 103, Carbon Dioxide Level 21, Anion Gap 9, Blood Urea Nitrogen 41H, Creatinine 1.7H, Estimat Glomerular Filtration Rate , Glucose Level 121H, Calcium Level 9.7, Phosphorus Level 3.9, Magnesium Level 2.2, Total Bilirubin 0.5, Aspartate Amino Transf (AST/SGOT) 82H, Alanine Aminotransferase (ALT/SGPT) 105H, Alkaline Phosphatase 381H, Total Protein 6.2L, Albumin 1.7L, Globulin 4.5 , Albumin/Globulin Ratio 0.4L Current Medications Medications (Trade) Dose Ordered Sig/Evgeny Route PRN Reason Start Time Stop Time Status Last Admin Dose Admin Acetaminophen (Tylenol) 650 mg Q4H PRN ORAL Mild Pain/Temp > 100.2 07/22/19 13:11 08/21/19 13:10 08/01/19 01:01 Acetaminophen/ Hydrocodone Bitart ([place] 5/325) 1 tab Q4H PRN ORAL Severe Pain (Pain Scale 7-10) 08/01/19 09:10 08/08/19 09:09 08/01/19 18:48 Alprazolam (Xanax) 0.25 mg Q6H PRN ORAL For Anxiety 08/01/19 09:00 08/08/19 08:59 Amlodipine Besylate (Norvasc) 5 mg Q12H PRN ORAL For High Blood Pressure 07/22/19 13:12 08/21/19 13:11 Ascorbic Acid (Vitamin C) 500 mg Q4H PRN ORAL thick ileostomy effluent 07/22/19 13:12 08/21/19 13:11 Cefepime HCl 2 gm/ Dextrose 100 ml @ 200 mls/hr Q12H IVPB 08/01/19 03:00 08/08/19 02:59 08/02/19 03:29 Chlorhexidine Gluconate (Val-Hex 2%) 1 applic DAILY@2000 TOPIC 07/22/19 20:00 08/06/19 19:59 07/31/19 20:31 Dextrose/Sodium Chloride 1,000 ml @ 85 mls/hr [id number] IV 08/01/19 10:00 08/31/19 09:59 08/02/19 09:35 Escitalopram Oxalate (Lexapro) 10 mg DAILY ORAL 07/25/19 09:00 08/24/19 08:59 08/02/19 09:32 Fluconazole/ Sodium Chloride 100 ml @ 100 mls/hr Q24H IV 08/02/19 13:00 08/09/19 12:59 Hydromorphone HCl (Dilaudid) 1 mg Q6H PRN SUBQ Severe Breakthru Pain (>7) 08/01/19 09:00 08/08/19 08:59 08/02/19 06:05 Levothyroxine Sodium (Synthroid) 50 mcg DAILY@0630 ORAL 07/23/19 06:30 08/06/19 06:29 08/02/19 05:35 Lidocaine (Lidoderm 5% PATCH) 1 patch DAILY TDERMAL 07/23/19 09:00 08/20/19 08:59 08/02/19 09:33 Losartan Potassium (Cozaar) 25 mg DAILY ORAL 07/23/19 09:00 08/13/19 08:59 08/02/19 09:32 Metronidazole 100 ml @ 100 mls/hr Q8HR IVPB 08/01/19 15:00 08/08/19 14:59 08/02/19 05:35 Mirtazapine (Remeron) 7.5 mg BEDTIME PRN ORAL insomnia 07/24/19 15:15 08/23/19 15:14 08/01/19 20:14 Ondansetron HCl (Zofran) 4 mg Q4H PRN IVP Nausea & Vomiting 07/22/19 13:14 08/21/19 13:13 08/01/19 05:29 Pantoprazole (Protonix) 40 mg DAILY ORAL 07/23/19 09:00 08/06/19 08:59 08/02/19 09:33 Phytonadione (Vitamin K) 10 mg ONCE A WEEK SUBQ 07/28/19 20:00 08/06/19 19:59 07/28/19 20:15 Prednisone (predniSONE) 2.5 mg DAILY ORAL 07/29/19 10:00 08/28/19 09:59 08/02/19 09:32 Tamsulosin HCl (Flomax) 0.4 mg TWICE A DAY ORAL 07/30/19 09:00 08/06/19 08:59 08/02/19 09:32 Tramadol HCl (Ultram) 50 mg Q4H PRN ORAL Moderate Pain (Pain Scale 4-6) 08/01/19 09:10 08/08/19 09:09 Vancomycin HCl (Vanco rx to dose) 1 ea DAILY PRN MISC Per rx protocol 07/27/19 12:15 08/26/19 12:14 Vancomycin HCl 1 gm/Dextrose 275 ml @ 183.708 mls/hr Q24H IVPB 08/01/19 18:00 08/06/19 17:59 08/01/19 18:19 Oneal Allred MD Aug 02, 2019 11:00
--- NOTE | 2019-08-02 11:19 | General Progress Note ---
Progress Note Progress Note Afebrile x 24 hours cultures negative so far Able to eat 50% of breakfast today! Port site clean with scant drainage via tyra Abdomen soft Urine incontinent + voids c/o pain at end of voiding Ileostomy 700 WBC down 16,900 BUN 41 Cr 1.7 Imp: Improved Plan: Increase IV fluids today until eating better f/u labs Discharge planning to home or SNF at home in [place] Pako Orellana MD Aug 02, 2019 11:19
[2019-08-02] MEDS: HYDROcodone/Acetamin 5/325 tab ORAL PRN ×2 (11:24→20:45)
[2019-08-02 12:00] VITALS: BP 130/54
--- NOTE | 2019-08-02 12:20 | Infectious Diseases Prog Note ---
Assessment/Plan Assessment/Plan ASSESSMENT AND PLAN: 1. sepsis, leukocytosis, fevers, ? line infection, ? port, ? picc CT abdomen and pelvis without obvious source, blood cultures negative, chest x-ray with chf fungemia risk, c.diff. - neg - abx - cefepime, diflucan, daptomycin, flagyl - vancomycin discontinued secondary to elevated creatinine - port removed - picc line removed - fevers and leukocytosis improved today - f/u on labs, f/u on cath tip culture, blood cultures negative - recent echo without vegetation, recent leg ultrasound without dvt - d/w pharmacy and 2. chf/edema - diuresis, sob better, pulmonary f/u 3. 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 4. History of multiple abdominal surgeries. 5. Hypertension. 6. Blood pressure treatment per primary care team. 7. Hypothyroidism. 8. Ulcerative colitis history. 9. Anemia. 10. History of polycythemia. 11. Allergic to lorazepam. 12. Social history negative. 13. Family history noncontributory. 14. MAR is noted. 15. Case was discussed with RN. 16. Case was discussed with Dr. Herring. 17. Case was discussed with the patient and the patient's . Subjective Constitutional: Reports: fatigue, other - sleeping; Denies: fever Respiratory: Denies: shortness of breath Allergies: Coded Allergies: LORAZEPAM (Verified Allergy, Mild, 07/08/19) Pt undergoes altered level of consciousness Objective Vital Signs Last 24 Hour Vital Signs Date Time Temp Pulse Resp B/P (MAP) Pulse Ox O2 Delivery O2 Flow Rate FiO2 08/02/19 09:32 127/60 08/02/19 08:00 98.1 68 18 127/60 (82) 95 08/02/19 07:44 94 Nasal Cannula 3.0 32 08/02/19 04:00 98.1 77 16 116/60 (78) 94 08/02/19 00:00 98.1 73 20 96/46 (63) 96 08/01/19 21:00 Nasal Cannula 2.0 08/01/19 20:00 98.4 82 18 127/58 (81) 91 08/01/19 16:00 98.0 82 18 108/50 (69) 94 Height (Feet): 5 Height (Inches): 6.00 Weight (Pounds): 136 General Appearance: no acute distress, other - sleeping, nad HEENT: normocephalic, atraumatic, anicteric Objective Chest x-ray - 07/21/19 - Comparison: 07/20/2019 Findings: Better inspiration currently. Bilateral interstitial edema is probably unchanged allowing for differences in inspiration. Left pleural effusion is again demonstrated. The heart size is normal. Left arm PICC and right chest port catheter again demonstrated. Median sternotomy sutures are again demonstrated. Impression: Probably unchanged bilateral interstitial edema and left pleural effusion, allowing for differences in inspiration, over one day KUB - 07/21/19 Impression: Left upper quadrant small bowel loops. Given evidence of recent surgery, most likely on the basis of postoperative ileus. However, the possibility of small bowel obstruction should also be considered. CT abdomen and pelvis - report noted CT abdomen and pelvis - 07/24/19 - IMPRESSION: Interval abdominal surgery with resection/closure of a right continent ileostomy and formation of a left lower quadrant ileostomy. No evidence of bowel obstruction, abscess or other complications. Development of a trace right pleural effusion and posterior basal atelectasis. Other findings on this exam are unchanged from the previous preoperative study. Status post total proctocolectomy. Status post cholecystectomy. Pulmonary fibrosis. 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 [place] catheter in good position. Some degree of chronic cystitis not excluded even wall thickening. Moderate to severe degenerative changes of the lumbar spine as described above. Scoliosis again noted. Microbiology Date/Time Source Procedure Growth Status 08/01/19 01:45 Blood Blood Culture - Preliminary NO GROWTH AFTER 24 HOURS Resulted 08/01/19 01:30 Blood Blood Culture - Preliminary NO GROWTH AFTER 24 HOURS Resulted 08/01/19 10:40 Other(Specify in comment) Catheter Tip Culture - Preliminary NO GROWTH Resulted 08/01/19 15:50 Stool Clostridium difficile Toxin Assay - Final Complete 07/31/19 10:20 Urine,Clean Catch Urine Culture - Preliminary Mixed Gram Positive Organism Resulted Laboratory Tests Test 08/01/19 14:10 08/02/19 05:00 Vancomycin Level Trough 19.5 ug/mL (5.0-12.0) H White Blood Count 16.9 K/UL (4.8-10.8) H Red Blood Count 3.07 M/UL (4.70-6.10) L Hemoglobin 8.7 G/DL (14.2-18.0) L Hematocrit 26.8 % (42.0-52.0) L Mean Corpuscular Volume 87 FL (80-99) Mean Corpuscular Hemoglobin 28.3 PG (27.0-31.0) Mean Corpuscular Hemoglobin Concent 32.3 G/DL (32.0-36.0) Red Cell Distribution Width 18.0 % (11.6-14.8) H Platelet Count 307 K/UL (150-450) Mean Platelet Volume 6.3 FL (6.5-10.1) L Neutrophils (%) (Auto) 74.7 % (45.0-75.0) Lymphocytes (%) (Auto) 7.9 % (20.0-45.0) L Monocytes (%) (Auto) 12.5 % (1.0-10.0) H Eosinophils (%) (Auto) 4.1 % (0.0-3.0) H Basophils (%) (Auto) 0.8 % (0.0-2.0) Sodium Level 133 MMOL/L (136-145) L Potassium Level 4.5 MMOL/L (3.5-5.1) Chloride Level 103 MMOL/L (98-107) Carbon Dioxide Level 21 MMOL/L (21-32) Anion Gap 9 mmol/L (5-15) Blood Urea Nitrogen 41 mg/dL (7-18) H Creatinine 1.7 MG/DL (0.55-1.30) H Estimat Glomerular Filtration Rate mL/min (>60) Glucose Level 121 MG/DL (74-106) H Calcium Level 9.7 MG/DL (8.5-10.1) Phosphorus Level 3.9 MG/DL (2.5-4.9) Magnesium Level 2.2 MG/DL (1.8-2.4) Total Bilirubin 0.5 MG/DL (0.2-1.0) Aspartate Amino Transf (AST/SGOT) 82 U/L (15-37) H Alanine Aminotransferase (ALT/SGPT) 105 U/L (12-78) H Alkaline Phosphatase 381 U/L (46-116) H Total Protein 6.2 G/DL (6.4-8.2) L Albumin 1.7 G/DL (3.4-5.0) L Globulin 4.5 g/dL Albumin/Globulin Ratio 0.4 (1.0-2.7) L Current Medications Medications (Trade) Dose Ordered Sig/Evgeny Route PRN Reason Start Time Stop Time Status Last Admin Dose Admin Acetaminophen (Tylenol) 650 mg Q4H PRN ORAL Mild Pain/Temp > 100.2 07/22/19 13:11 08/21/19 13:10 08/01/19 01:01 Acetaminophen/ Hydrocodone Bitart ([place] 5/325) 1 tab Q4H PRN ORAL Severe Pain (Pain Scale 7-10) 08/01/19 09:10 08/08/19 09:09 08/02/19 11:24 Alprazolam (Xanax) 0.25 mg Q6H PRN ORAL For Anxiety 08/01/19 09:00 08/08/19 08:59 Amlodipine Besylate (Norvasc) 5 mg Q12H PRN ORAL For High Blood Pressure 07/22/19 13:12 08/21/19 13:11 Ascorbic Acid (Vitamin C) 500 mg Q4H PRN ORAL thick ileostomy effluent 07/22/19 13:12 08/21/19 13:11 Cefepime HCl 2 gm/ Dextrose 100 ml @ 200 mls/hr Q24H IVPB 08/03/19 03:00 08/08/19 02:59 UNV Chlorhexidine Gluconate (Val-Hex 2%) 1 applic DAILY@2000 TOPIC 07/22/19 20:00 08/06/19 19:59 07/31/19 20:31 Dextrose/Sodium Chloride 1,000 ml @ 125 mls/hr Q8H IV 08/02/19 12:00 09/01/19 11:59 Escitalopram Oxalate (Lexapro) 10 mg DAILY ORAL 07/25/19 09:00 08/24/19 08:59 08/02/19 09:32 Fluconazole/ Sodium Chloride 100 ml @ 100 mls/hr Q24H IV 08/02/19 13:00 08/09/19 12:59 Hydromorphone HCl (Dilaudid) 1 mg Q6H PRN SUBQ Severe Breakthru Pain (>7) 08/01/19 09:00 08/08/19 08:59 08/02/19 06:05 Levothyroxine Sodium (Synthroid) 50 mcg DAILY@0630 ORAL 07/23/19 06:30 08/06/19 06:29 08/02/19 05:35 Lidocaine (Lidoderm 5% PATCH) 1 patch DAILY TDERMAL 07/23/19 09:00 08/20/19 08:59 08/02/19 09:33 Losartan Potassium (Cozaar) 25 mg DAILY ORAL 07/23/19 09:00 08/13/19 08:59 08/02/19 09:32 Metronidazole 100 ml @ 100 mls/hr Q8HR IVPB 08/01/19 15:00 08/08/19 14:59 08/02/19 05:35 Mirtazapine (Remeron) 7.5 mg BEDTIME PRN ORAL insomnia 07/24/19 15:15 08/23/19 15:14 08/01/19 20:14 Ondansetron HCl (Zofran) 4 mg Q4H PRN IVP Nausea & Vomiting 07/22/19 13:14 08/21/19 13:13 08/01/19 05:29 Pantoprazole (Protonix) 40 mg DAILY ORAL 07/23/19 09:00 08/06/19 08:59 08/02/19 09:33 Phytonadione (Vitamin K) 10 mg ONCE A WEEK SUBQ 07/28/19 20:00 08/06/19 19:59 07/28/19 20:15 Prednisone (predniSONE) 2.5 mg DAILY ORAL 07/29/19 10:00 08/28/19 09:59 08/02/19 09:32 Tamsulosin HCl (Flomax) 0.4 mg TWICE A DAY ORAL 07/30/19 09:00 08/06/19 08:59 08/02/19 09:32 Tramadol HCl (Ultram) 50 mg Q4H PRN ORAL Moderate Pain (Pain Scale 4-6) 08/01/19 09:10 08/08/19 09:09 Paras Ybarra MD Aug 02, 2019 12:20
[2019-08-02] MEDS ORDERED: NS IV SCH (13:00)
[2019-08-02] MEDS ORDERED: DAPTOMYCIN IV SCH (13:00)
[2019-08-02] MEDS ORDERED: HYDROmorphone 1mg/ml Carpuject SUBQ PRN (14:00)
--- NOTE | 2019-08-02 14:30 | NUR ---
NURSE NOTES: pt able to ambulate around the unit with physical therapy assistance and the use of a FWW. I will f/u as needed.
[2019-08-02] MEDS ORDERED: Tubing IV Secondary IV ONE (14:50)
[2019-08-02] MEDS ORDERED: NS 275ml ONE (14:50)
--- NOTE | 2019-08-02 15:07 | Cardiology Progress Note ---
Assessment/Plan Status Narrative 1. U.C. 2. Malfunctioning [place] Pouch 3. CAD, S/P CABG- studies from PMD reviewed, no evidence of ischemia on nuclear scan done in Apr 2019 4. BL Carotid stenosis- s/p stents 5. AAA- stable 6. HTN- improved on meds. 7. Hearing loss 8. S/p resection of failed [place] Pouch, repair parastomal hernia, creation of Natalee ileostomy 9. Dehydration- -->elevated creat, tachycardia 10 Hypoxemia - due to hypoventilation possible atelectasis- Improves with deep insp and use of I/S 11. Fever- r/o pneumonia, intra-abdominal process, UTI 12. 13. Depression/Anxiety with panic attacks 14. No Evidence of CHF- Nl LV EF, nl JVP 15. Hypoxemia - ? Etio- Improving 16. Temp spike with Leukocytosis- r/o line infection , r/o SBE 17. Hypotension- probable hypovolemia with ARB 18. Renal insuff- probably due to dehydration, ? worse with ARB Assessment/Plan I/S Q1 h IV fluids as per Dr. Orellana- IV Rate increased Echo to r/o SBE- refused by Patient Monitor renal function Hold Losartan for now. Norvasc PRN for BP control. If renal function not improved, would consider renal consult. Ambulate Resp Tx Consider DC of Remeron and increase of Lexapro. Discussed with RN and Patient's . Subjective Cardiovascular: Reports: no symptoms Respiratory: Reports: no symptoms Gastrointestinal/Abdominal: Reports: no symptoms Genitourinary: Reports: no symptoms Subjective 07/07/19- Patient admitted for revision of [place] Pouch. He has h/o CAD, S/P CABG 10 yrs ago, s/p BL carotid stents, and h/o AAA. Patient denies h/o HTn, but his BP has been elevated since admission 07/08 doing OK , BP imroving, PICC line placed. 07/09- BP improved 07/10- Had BP down to 107. Meds held. Scheduled for surgery on 07/13 07/11- BP stable 07/13- s/p resection of failed [place] Pouch, repair parastomal hernia, creation of Natalee ileostomy. 07/14- Has had decreased O2 Sat, Creat 1.9, low U.O. IV NS started 07/15- s/p surgery for stoma bleeding 07/23- Was transferred to ICU last week- ? anxiety attack, has had fever, on ABx. Seen by Pulmonary- now on IV Lasix drip Creat 1.5 Has not been very active, was up once today, now asleep 07/24- More alert, denies SOB, had abd. CT, on Lasix drip. Creat 1.5. Echo done- Nl LV WM, EF 60% 07/25- IV Lasix drip stopped--> Daily Lasix. Creat 1.4 , O2 Sat on RA 86% 07/28- On IV Lasix, Creat 1.3, WBC increased, Temp spike to 101.3, O2 Sat 89% on RA 07/31- has been sleeping most of the time, still having fevers, not eating , had dizziness and nausea when tried to sit up today. BP 90s todays. Lasix stopped. According to , Patient does not wish to live with a "bag' 08/02- up in chair, feeling better, tolerated 75%of lunch. Creat 1.7 Objective Last 24 Hour Vital Signs Date Time Temp Pulse Resp B/P (MAP) Pulse Ox O2 Delivery O2 Flow Rate FiO2 08/02/19 12:00 98.7 79 20 130/54 (79) 94 08/02/19 11:54 98.1 08/02/19 09:32 127/60 08/02/19 09:00 Nasal Cannula 2.0 08/02/19 08:00 98.1 68 18 127/60 (82) 95 08/02/19 07:44 94 Nasal Cannula 3.0 32 08/02/19 04:00 98.1 77 16 116/60 (78) 94 08/02/19 00:00 98.1 73 20 96/46 (63) 96 08/01/19 21:00 Nasal Cannula 2.0 08/01/19 20:00 98.4 82 18 127/58 (81) 91 08/01/19 16:00 98.0 82 18 108/50 (69) 94 Cardiovascular: normal rate, no gallop/murmur Respiratory/Chest: lungs clear, respiratory distress Abdomen: normal bowel sounds, non tender, no mass Extremities: non-tender, no calf tenderness, no swelling Intake and Output 08/01/19 08/02/19 19:00 07:00 Intake Total 665 ml 1365 ml Output Total 445 ml 825 ml Balance 220 ml 540 ml Intake Oral 230 ml 200 ml IV Total 435 ml 1165 ml Output Urine Total 130 ml 425 ml Estimated Blood Loss 15 ml Other 300 ml 400 ml # Voids 2 5 Laboratory Tests Test 08/02/19 05:00 White Blood Count 16.9 K/UL (4.8-10.8) H Red Blood Count 3.07 M/UL (4.70-6.10) L Hemoglobin 8.7 G/DL (14.2-18.0) L Hematocrit 26.8 % (42.0-52.0) L Mean Corpuscular Volume 87 FL (80-99) Mean Corpuscular Hemoglobin 28.3 PG (27.0-31.0) Mean Corpuscular Hemoglobin Concent 32.3 G/DL (32.0-36.0) Red Cell Distribution Width 18.0 % (11.6-14.8) H Platelet Count 307 K/UL (150-450) Mean Platelet Volume 6.3 FL (6.5-10.1) L Neutrophils (%) (Auto) 74.7 % (45.0-75.0) Lymphocytes (%) (Auto) 7.9 % (20.0-45.0) L Monocytes (%) (Auto) 12.5 % (1.0-10.0) H Eosinophils (%) (Auto) 4.1 % (0.0-3.0) H Basophils (%) (Auto) 0.8 % (0.0-2.0) Sodium Level 133 MMOL/L (136-145) L Potassium Level 4.5 MMOL/L (3.5-5.1) Chloride Level 103 MMOL/L (98-107) Carbon Dioxide Level 21 MMOL/L (21-32) Anion Gap 9 mmol/L (5-15) Blood Urea Nitrogen 41 mg/dL (7-18) H Creatinine 1.7 MG/DL (0.55-1.30) H Estimat Glomerular Filtration Rate mL/min (>60) Glucose Level 121 MG/DL (74-106) H Calcium Level 9.7 MG/DL (8.5-10.1) Phosphorus Level 3.9 MG/DL (2.5-4.9) Magnesium Level 2.2 MG/DL (1.8-2.4) Total Bilirubin 0.5 MG/DL (0.2-1.0) Aspartate Amino Transf (AST/SGOT) 82 U/L (15-37) H Alanine Aminotransferase (ALT/SGPT) 105 U/L (12-78) H Alkaline Phosphatase 381 U/L (46-116) H Total Protein 6.2 G/DL (6.4-8.2) L Albumin 1.7 G/DL (3.4-5.0) L Globulin 4.5 g/dL Albumin/Globulin Ratio 0.4 (1.0-2.7) L Microbiology Date/Time Source Procedure Growth Status 08/01/19 01:45 Blood Blood Culture - Preliminary NO GROWTH AFTER 24 HOURS Resulted 08/01/19 01:30 Blood Blood Culture - Preliminary NO GROWTH AFTER 24 HOURS Resulted 08/01/19 10:40 Other(Specify in comment) Catheter Tip Culture - Preliminary NO GROWTH Resulted 08/01/19 15:50 Stool Clostridium difficile Toxin Assay - Final Complete 07/31/19 10:20 Urine,Clean Catch Urine Culture - Preliminary Mixed Gram Positive Organism Resulted Rommel Townsend MD Aug 02, 2019 15:07
[2019-08-02 16:00] VITALS: BP 125/67
--- NOTE | 2019-08-02 19:21 | NUR ---
NURSE NOTES: Received report from DAVID Geiger. Pt is sleeping, lying semi howard's; comfortably resting. No signs of acute distress noted. Pt denies any pain at this time. AOx4; able to make needs known. Checked IV site, line and rate; patent and running. Right upper chest dressing, dry and intact. No erythema, bleeding, or infiltration noted. Bed at lowest position. Brakes on. Siderails up x2. Will continue to monitor.
--- NOTE | 2019-08-02 19:28 | NUR ---
HAND-OFF: Report given to Yanira HERNANDEZ, pt in stable condition. - During my shift pt was able to ambulate around the unit with physical therapy and the use of the FWW. - Natalee ileostomy draining well with no leakage noted during my shift. I&O's Ileostomy: 525ml Urine: 650ml Oral intake: B: 50%, L: 25%, D:50% fluids intake: 472ml
[2019-08-02 20:00] VITALS: BP 130/63
[2019-08-02] MEDS: Dyna-Hex 2% Top Sol 2oz TOPIC SCH (20:00)
[2019-08-03] VITALS: BP 132/57
[2019-08-03] MEDS: HYDROcodone/Acetamin 5/325 tab ORAL PRN ×4 (01:48→20:11)
[2019-08-03] MEDS: Dextrose 10%/.45 SOD CHL 1,000 ML IV SCH ×2 (03:12→14:15)
[2019-08-03 03:54] VITALS: BP 113/58
[2019-08-03 06:22] LABS: BASOPHILS % (AUTO) 1.1 % (0.0-2.0); EOSINOPHILS % (AUTO) 2.9 % (0.0-3.0); HEMATOCRIT 26.3 % (42.0-52.0); HEMOGLOBIN 8.6 G/DL (14.2-18.0); LYMPHOCYTES % (AUTO) 14.1 % (20.0-45.0); MEAN CORPUSCULAR VOLUME 87 FL (80-99); MONOCYTES % (AUTO) 11.9 % (1.0-10.0); NEUTROPHILS % (AUTO) 70.1 % (45.0-75.0); PLATELET COUNT 298 K/UL (150-450); RED BLOOD COUNT 3.03 M/UL (4.70-6.10); RED CELL DISTRIBUTION WIDTH 17.4 % (11.6-14.8); WHITE BLOOD COUNT 9.1 K/UL (4.8-10.8)
[2019-08-03 06:27] LABS: ALANINE AMINOTRANSFERASE 82 U/L (12-78); ALBUMIN 1.6 G/DL (3.4-5.0); ALBUMIN/GLOBULIN RATIO 0.4 (1.0-2.7); ALKALINE PHOSPHATASE 346 U/L (46-116); ANION GAP 9 mmol/L (5-15); ASPARTATE AMINO TRANSFERASE 43 U/L (15-37); BILIRUBIN,TOTAL 0.3 MG/DL (0.2-1.0); BLOOD UREA NITROGEN 28 mg/dL (7-18); CALCIUM 8.9 MG/DL (8.5-10.1); CARBON DIOXIDE 22 MMOL/L (21-32); CHLORIDE 108 MMOL/L (98-107); CREATININE 1.3 MG/DL (0.55-1.30); POTASSIUM 3.8 MMOL/L (3.5-5.1); SODIUM 139 MMOL/L (136-145)
--- NOTE | 2019-08-03 07:25 | NUR ---
HAND-OFF: Report given to DAVID Navarro. Pt is awake and in stable condition. Plan of care endorsed.
--- NOTE | 2019-08-03 07:30 | NUR ---
NURSE NOTES: Received report from Yanira HERNANDEZ. Patient is asleep during rounds, no acute distress noted, RR even and unlabored, on 2L NC. Natalee ileo with external appliance in place, no leaking noted. Dressing over port a cath removal surgical site clean and dry. Safety measures in place, at bedside updated on plan of care. Side rails upx3, bed low and locked, call light within reach.
--- NOTE | 2019-08-03 07:35 | Urology Progress Note ---
Assessment/Plan Assessment/Plan: 1. Lower urinary tract symptoms. 2. BPH history. 3. Possible neurogenic bladder. 4. Hematuria history. 5. Proteinuria history. 6. Possible urinary tract infection and colonization. 7. Mild ESAU, improved monitor clinically cont flomax BID cont abx, diflucan lasix dc'd f/u on last blood cx consider anticholinergics, but concern for causing urinary retention monitor renal fxn, improved d/w Dr. Orellana Subjective Allergies: Coded Allergies: LORAZEPAM (Verified Allergy, Mild, 07/08/19) Pt undergoes altered level of consciousness Subjective all noted, still with some urinary frequency Objective Last 24 Hour Vital Signs Date Time Temp Pulse Resp B/P (MAP) Pulse Ox O2 Delivery O2 Flow Rate FiO2 08/03/19 03:54 98.4 65 20 113/58 (76) 97 08/03/19 00:00 98.8 70 18 132/57 (82) 96 08/02/19 21:00 Nasal Cannula 2.0 08/02/19 20:00 97.8 72 20 130/63 (85) 96 08/02/19 16:00 98.5 64 18 125/67 (86) 94 08/02/19 12:00 98.7 79 20 130/54 (79) 94 08/02/19 11:54 98.1 08/02/19 09:32 127/60 08/02/19 09:00 Nasal Cannula 2.0 08/02/19 08:00 98.1 68 18 127/60 (82) 95 08/02/19 07:44 94 Nasal Cannula 3.0 32 Intake and Output 08/02/19 08/03/19 19:00 07:00 Intake Total 597 ml 1625 ml Output Total 1175 ml 1325 ml Balance -578 ml 300 ml Intake Oral 472 ml 400 ml IV Total 125 ml 1225 ml Output Urine Total 650 ml 475 ml Other 525 ml 850 ml # Voids 5 6 Microbiology Date/Time Source Procedure Growth Status 08/01/19 01:45 Blood Blood Culture - Preliminary NO GROWTH AFTER 48 HOURS Resulted 08/01/19 10:40 Other(Specify in comment) Catheter Tip Culture - Preliminary NO GROWTH Resulted 07/22/19 20:00 Sputum Expectorated Gram Stain - Final Complete 07/22/19 20:00 Sputum Culture - Final Andie Tropicalis Usual Respiratory Gloria Complete 08/01/19 15:50 Stool Clostridium difficile Toxin Assay - Final Complete 07/31/19 10:20 Urine,Clean Catch Urine Culture - Preliminary Mixed Gram Positive Organism Resulted Current Medications Medications (Trade) Dose Ordered Sig/Evgeny Route PRN Reason Start Time Stop Time Status Last Admin Dose Admin Acetaminophen (Tylenol) 650 mg Q4H PRN ORAL Mild Pain/Temp > 100.2 07/22/19 13:11 08/21/19 13:10 08/01/19 01:01 Acetaminophen/ Hydrocodone Bitart ([place] 5/325) 1 tab Q4H PRN ORAL Severe Pain (Pain Scale 7-10) 08/01/19 09:10 08/08/19 09:09 08/03/19 01:48 Alprazolam (Xanax) 0.25 mg Q6H PRN ORAL For Anxiety 08/01/19 09:00 08/08/19 08:59 Amlodipine Besylate (Norvasc) 5 mg Q12H PRN ORAL For High Blood Pressure 07/22/19 13:12 08/21/19 13:11 Ascorbic Acid (Vitamin C) 500 mg Q4H PRN ORAL thick ileostomy effluent 07/22/19 13:12 08/21/19 13:11 Cefepime HCl 2 gm/ Dextrose 100 ml @ 200 mls/hr Q24H IVPB 08/03/19 06:00 08/08/19 05:59 08/03/19 05:36 Chlorhexidine Gluconate (Val-Hex 2%) 1 applic DAILY@2000 TOPIC 07/22/19 20:00 08/06/19 19:59 07/31/19 20:31 Daptomycin 370 mg/ Sodium Chloride 110 ml @ 220 mls/hr Q24H IV 08/02/19 13:00 08/09/19 12:59 08/02/19 13:06 Dextrose/Sodium Chloride 1,000 ml @ 125 mls/hr Q8H IV 08/02/19 12:00 09/01/19 11:59 08/03/19 03:12 Escitalopram Oxalate (Lexapro) 10 mg DAILY ORAL 07/25/19 09:00 08/24/19 08:59 08/02/19 09:32 Fluconazole/ Sodium Chloride 100 ml @ 100 mls/hr Q24H IV 08/02/19 13:00 08/09/19 12:59 08/02/19 13:06 Hydromorphone HCl (Dilaudid) 1 mg Q8HR PRN SUBQ Severe Breakthru Pain (>7) 08/02/19 14:00 08/08/19 08:59 Levothyroxine Sodium (Synthroid) 50 mcg DAILY@0630 ORAL 07/23/19 06:30 08/06/19 06:29 08/03/19 05:36 Lidocaine (Lidoderm 5% PATCH) 1 patch DAILY TDERMAL 07/23/19 09:00 08/20/19 08:59 08/02/19 09:33 Metronidazole 100 ml @ 100 mls/hr Q8HR IVPB 08/01/19 15:00 08/08/19 14:59 08/03/19 05:34 Mirtazapine (Remeron) 7.5 mg BEDTIME PRN ORAL insomnia 07/24/19 15:15 08/23/19 15:14 08/02/19 20:45 Ondansetron HCl (Zofran) 4 mg Q4H PRN IVP Nausea & Vomiting 07/22/19 13:14 08/21/19 13:13 08/01/19 05:29 Pantoprazole (Protonix) 40 mg DAILY ORAL 07/23/19 09:00 08/06/19 08:59 08/02/19 09:33 Phytonadione (Vitamin K) 10 mg ONCE A WEEK SUBQ 07/28/19 20:00 08/06/19 19:59 07/28/19 20:15 Prednisone (predniSONE) 2.5 mg DAILY ORAL 07/29/19 10:00 08/28/19 09:59 08/02/19 09:32 Tamsulosin HCl (Flomax) 0.4 mg TWICE A DAY ORAL 07/30/19 09:00 08/06/19 08:59 08/02/19 17:34 Tramadol HCl (Ultram) 50 mg Q4H PRN ORAL Moderate Pain (Pain Scale 4-6) 08/01/19 09:10 08/08/19 09:09 Laboratory Tests 08/03/19 05:00: White Blood Count 9.1, Red Blood Count 3.03L, Hemoglobin 8.6L, Hematocrit 26.3L , Mean Corpuscular Volume 87, Mean Corpuscular Hemoglobin 28.4, Mean Corpuscular Hemoglobin Concent 32.8, Red Cell Distribution Width 17.4H, Platelet Count 298, Mean Platelet Volume 6.6, Neutrophils (%) (Auto) 70.1, Lymphocytes (%) (Auto) 14.1L, Monocytes (%) (Auto) 11.9H, Eosinophils (%) (Auto ) 2.9, Basophils (%) (Auto) 1.1, Sodium Level 139, Potassium Level 3.8, Chloride Level 108H, Carbon Dioxide Level 22, Anion Gap 9, Blood Urea Nitrogen 28H, Creatinine 1.3, Estimat Glomerular Filtration Rate , Glucose Level 144H, Calcium Level 8.9, Total Bilirubin 0.3, Aspartate Amino Transf (AST/SGOT) 43H, Alanine Aminotransferase (ALT/SGPT) 82H, Alkaline Phosphatase 346H, Total Protein 6.0L, Albumin 1.6L, Globulin 4.4, Albumin/Globulin Ratio 0.4L Height (Feet): 5 Height (Inches): 6.00 Weight (Pounds): 136 Objective exam stable Julian Rodriguez MD Aug 03, 2019 07:35
[2019-08-03 09:00] VITALS: BP 152/65
[2019-08-03] MEDS: Tamsulosin 0.4mg cap ORAL SCH ×2 (09:15→18:37)
--- NOTE | 2019-08-03 10:48 | NUR ---
NURSE NOTES: External ileostomy appliance changed by Georgette HOOK.
--- NOTE | 2019-08-03 11:03 | General Progress Note ---
Progress Note Progress Note continues afebrile. Eating better up to 50% of meals Port site clean with scant drainage from tyra Abdomen soft, stoma stable Urine 1125 Ileostomy 1375 WBC 9100 BUN down 28 Cr down 1.3 albumin 1.6 Imp: improving Plan: Discharge planning - recommend to family SNF back home in [place] Pako Orellana MD Aug 03, 2019 11:03
[2019-08-03 12:00] VITALS: BP 132/56
[2019-08-03] MEDS ORDERED: NS IV SCH (13:00)
[2019-08-03] MEDS ORDERED: DAPTOMYCIN IV SCH (13:00)
--- NOTE | 2019-08-03 14:05 | NUR ---
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
--- NOTE | 2019-08-03 14:38 | NUR ---
RD ASSESSMENT & RECOMMENDATIONS SEE CARE ACTIVITY FOR COMPLETE ASSESSMENT DAILY ESTIMATED NEEDS: Needs based on surgery/ 59kg 25-35 kcals/kg 2507-2314 total kcals 1-2 g protein/kg 59-118 g total protein 25-30 mL/kg 8262-8533 total fluid mLs NUTRITION DIAGNOSIS: Altered GI function R/T h/o UC, BCIR as evidenced by admitted for recurring prolapse of [place] pouch valve with incontinence, s/p BCIR takedown w/ creation of conventional ileo, diet advanced to BCIR low residue diet, now off TPN. PO DIET RECOMMENDATIONS: Maintain liberalized Regular/ Soft diet for more food options/variety ADDITIONAL RECOMMENDATIONS: * Rec obtaining standing wt for accurate CBW * Monitor BGs closely while on Prednisone * Ensure Enlive BID w/ B & D (350kcal/20g prot per bottle) Ensure Clear QD w/ L (220kcal/9g prot per bottle) . . .
[2019-08-03 16:00] VITALS: BP 149/65
--- NOTE | 2019-08-03 16:20 | Pulmonology Progress Note ---
Assessment/Plan Assessment/Plan IMPRESSION: 1. Fever, now resolved. 2. Resolving right middle lobe infiltrate. 3. Multiple comorbidities including use of steroids, ulcerative colitis. 4. Pulmonary edema; resolved DISCUSSION: Off Lasix gtt; off daily IV Lasix Discussed with surgery TPN being decreased [place] and Xanax for anxiety/pain Will follow Oneal Allred M.D. Subjective Interval Events: None new Constitutional: Reports: no symptoms HEENT: Repors: no symptoms Respiratory: Reports: no symptoms Allergies: Coded Allergies: LORAZEPAM (Verified Allergy, Mild, 07/08/19) Pt undergoes altered level of consciousness Objective Last 24 Hour Vital Signs Date Time Temp Pulse Resp B/P (MAP) Pulse Ox O2 Delivery O2 Flow Rate FiO2 08/03/19 12:00 98.3 59 20 132/56 (81) 96 08/03/19 09:00 98.0 72 20 152/65 (94) 96 08/03/19 09:00 Nasal Cannula 2.0 08/03/19 03:54 98.4 65 20 113/58 (76) 97 08/03/19 00:00 98.8 70 18 132/57 (82) 96 08/02/19 21:00 Nasal Cannula 2.0 08/02/19 20:00 97.8 72 20 130/63 (85) 96 Intake and Output 08/02/19 08/03/19 19:00 07:00 Intake Total 597 ml 1625 ml Output Total 1175 ml 1325 ml Balance -578 ml 300 ml Intake Oral 472 ml 400 ml IV Total 125 ml 1225 ml Output Urine Total 650 ml 475 ml Other 525 ml 850 ml # Voids 5 6 General Appearance: no acute distress HEENT: normocephalic Respiratory/Chest: chest wall non-tender Cardiovascular: normal peripheral pulses, normal rate Abdomen: normal bowel sounds Microbiology Date/Time Source Procedure Growth Status 08/01/19 01:45 Blood Blood Culture - Preliminary NO GROWTH AFTER 48 HOURS Resulted 08/01/19 01:30 Blood Blood Culture - Preliminary NO GROWTH AFTER 48 HOURS Resulted 08/01/19 10:40 Other(Specify in comment) Catheter Tip Culture - Preliminary Resulted 08/01/19 15:50 Stool Clostridium difficile Toxin Assay - Final Complete Laboratory Tests 08/03/19 05:00: White Blood Count 9.1, Red Blood Count 3.03L, Hemoglobin 8.6L, Hematocrit 26.3L , Mean Corpuscular Volume 87, Mean Corpuscular Hemoglobin 28.4, Mean Corpuscular Hemoglobin Concent 32.8, Red Cell Distribution Width 17.4H, Platelet Count 298, Mean Platelet Volume 6.6, Neutrophils (%) (Auto) 70.1, Lymphocytes (%) (Auto) 14.1L, Monocytes (%) (Auto) 11.9H, Eosinophils (%) (Auto ) 2.9, Basophils (%) (Auto) 1.1, Sodium Level 139, Potassium Level 3.8, Chloride Level 108H, Carbon Dioxide Level 22, Anion Gap 9, Blood Urea Nitrogen 28H, Creatinine 1.3, Estimat Glomerular Filtration Rate , Glucose Level 144H, Calcium Level 8.9, Total Bilirubin 0.3, Aspartate Amino Transf (AST/SGOT) 43H, Alanine Aminotransferase (ALT/SGPT) 82H, Alkaline Phosphatase 346H, Total Protein 6.0L, Albumin 1.6L, Globulin 4.4, Albumin/Globulin Ratio 0.4L Current Medications Medications (Trade) Dose Ordered Sig/Evgeny Route PRN Reason Start Time Stop Time Status Last Admin Dose Admin Acetaminophen (Tylenol) 650 mg Q4H PRN ORAL Mild Pain/Temp > 100.2 07/22/19 13:11 08/21/19 13:10 08/01/19 01:01 Acetaminophen/ Hydrocodone Bitart ([place] 5/325) 1 tab Q4H PRN ORAL Severe Pain (Pain Scale 7-10) 08/01/19 09:10 08/08/19 09:09 08/03/19 15:03 Alprazolam (Xanax) 0.25 mg Q6H PRN ORAL For Anxiety 08/01/19 09:00 08/08/19 08:59 Amlodipine Besylate (Norvasc) 5 mg Q12H PRN ORAL For High Blood Pressure 07/22/19 13:12 08/21/19 13:11 Ascorbic Acid (Vitamin C) 500 mg Q4H PRN ORAL thick ileostomy effluent 07/22/19 13:12 08/21/19 13:11 Cefepime HCl 2 gm/ Dextrose 100 ml @ 200 mls/hr Q24H IVPB 08/03/19 06:00 08/08/19 05:59 08/03/19 05:36 Chlorhexidine Gluconate (Val-Hex 2%) 1 applic DAILY@2000 TOPIC 07/22/19 20:00 08/06/19 19:59 07/31/19 20:31 Daptomycin 350 mg/ Sodium Chloride 110 ml @ 220 mls/hr Q24H IV 08/03/19 13:00 08/10/19 12:59 08/03/19 14:15 Dextrose/Sodium Chloride 1,000 ml @ 50 mls/hr Q20H IV 08/03/19 13:00 09/01/19 12:59 08/03/19 14:15 Escitalopram Oxalate (Lexapro) 10 mg DAILY ORAL 07/25/19 09:00 08/24/19 08:59 08/03/19 09:15 Fluconazole/ Sodium Chloride 100 ml @ 100 mls/hr Q24H IV 08/02/19 13:00 08/09/19 12:59 08/03/19 14:16 Hydromorphone HCl (Dilaudid) 1 mg Q8HR PRN SUBQ Severe Breakthru Pain (>7) 08/02/19 14:00 08/08/19 08:59 Levothyroxine Sodium (Synthroid) 50 mcg DAILY@0630 ORAL 07/23/19 06:30 08/06/19 06:29 08/03/19 05:36 Lidocaine (Lidoderm 5% PATCH) 1 patch DAILY TDERMAL 07/23/19 09:00 08/20/19 08:59 08/03/19 09:15 Metronidazole 100 ml @ 100 mls/hr Q8HR IVPB 08/01/19 15:00 08/08/19 14:59 08/03/19 15:13 Mirtazapine (Remeron) 7.5 mg BEDTIME PRN ORAL insomnia 07/24/19 15:15 08/23/19 15:14 08/02/19 20:45 Ondansetron HCl (Zofran) 4 mg Q4H PRN IVP Nausea & Vomiting 07/22/19 13:14 08/21/19 13:13 08/01/19 05:29 Pantoprazole (Protonix) 40 mg DAILY ORAL 07/23/19 09:00 08/06/19 08:59 08/03/19 09:15 Phytonadione (Vitamin K) 10 mg ONCE A WEEK SUBQ 07/28/19 20:00 08/06/19 19:59 07/28/19 20:15 Prednisone (predniSONE) 2.5 mg DAILY ORAL 07/29/19 10:00 08/28/19 09:59 08/03/19 09:15 Tamsulosin HCl (Flomax) 0.4 mg TWICE A DAY ORAL 07/30/19 09:00 08/06/19 08:59 08/03/19 09:15 Tramadol HCl (Ultram) 50 mg Q4H PRN ORAL Moderate Pain (Pain Scale 4-6) 08/01/19 09:10 08/08/19 09:09 Oneal Allred MD Aug 03, 2019 16:20
--- NOTE | 2019-08-03 18:30 | NUR ---
NURSE NOTES: Total ileo output for shift: 725mL Total urine output: 450mL (measures) + incontinence x4
--- NOTE | 2019-08-03 19:00 | Infectious Diseases Prog Note ---
Assessment/Plan Assessment/Plan ASSESSMENT AND PLAN: 1. sepsis, leukocytosis, fevers, ? line infection, ? port, ? picc CT abdomen and pelvis without obvious source, blood cultures negative, chest x-ray with chf fungemia risk, c.diff. - neg - abx - cefepime, diflucan, daptomycin - day # 3 post port line removal - discontinue flagyl - port removed - picc line removed - fevers and leukocytosis improved - f/u on labs, f/u on cath tip culture, blood cultures negative - recent echo without vegetation, recent leg ultrasound without dvt - d/w Dr. Orellana - d/w pharmacy and 2. chf/edema - diuresis, sob better, pulmonary f/u 3. 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 4. History of multiple abdominal surgeries. 5. Hypertension. 6. Blood pressure treatment per primary care team. 7. Hypothyroidism. 8. Ulcerative colitis history. 9. Anemia. 10. History of polycythemia. 11. Allergic to lorazepam. 12. Social history negative. 13. Family history noncontributory. 14. MAR is noted. 15. Case was discussed with RN. 16. Case was discussed with Dr. Herring. 17. Case was discussed with the patient and the patient's . Subjective Constitutional: Denies: fever HEENT: Denies: congestion Respiratory: Denies: shortness of breath Cardiovascular: Denies: chest pain Gastrointestinal/Abdominal: Denies: nausea, vomiting Genitourinary: Denies: dysuria, hematuria Neurologic: Denies: headache Psychiatric: Denies: depression Skin: Denies: rash Hematologic: Denies: bleeding Musculoskeletal: Denies: pain Allergies: Coded Allergies: LORAZEPAM (Verified Allergy, Mild, 07/08/19) Pt undergoes altered level of consciousness Objective Vital Signs Last 24 Hour Vital Signs Date Time Temp Pulse Resp B/P (MAP) Pulse Ox O2 Delivery O2 Flow Rate FiO2 08/03/19 12:00 98.3 59 20 132/56 (81) 96 08/03/19 09:00 98.0 72 20 152/65 (94) 96 08/03/19 09:00 Nasal Cannula 2.0 08/03/19 03:54 98.4 65 20 113/58 (76) 97 08/03/19 00:00 98.8 70 18 132/57 (82) 96 08/02/19 21:00 Nasal Cannula 2.0 08/02/19 20:00 97.8 72 20 130/63 (85) 96 Height (Feet): 5 Height (Inches): 6.00 Weight (Pounds): 136 General Appearance: no acute distress HEENT: normocephalic, atraumatic, anicteric, mucous membranes moist Respiratory/Chest: lungs clear, normal breath sounds, no respiratory distress, no accessory muscle use Cardiovascular: normal rate, regular rhythm, no gallop/murmur, no JVD Abdomen: normal bowel sounds, soft, non tender, no organomegaly, non distended Genitourinary: other - no pinedo Extremities: no cyanosis Skin: no rash Neurologic/Psychiatric: legal consultant II-XII grossly normal, alert, oriented x 3, responsive Lymphatic: no neck adenopathy Musculoskeletal: no effusion Objective Chest x-ray - 07/21/19 - Comparison: 07/20/2019 Findings: Better inspiration currently. Bilateral interstitial edema is probably unchanged allowing for differences in inspiration. Left pleural effusion is again demonstrated. The heart size is normal. Left arm PICC and right chest port catheter again demonstrated. Median sternotomy sutures are again demonstrated. Impression: Probably unchanged bilateral interstitial edema and left pleural effusion, allowing for differences in inspiration, over one day KUB - 07/21/19 Impression: Left upper quadrant small bowel loops. Given evidence of recent surgery, most likely on the basis of postoperative ileus. However, the possibility of small bowel obstruction should also be considered. CT abdomen and pelvis - report noted CT abdomen and pelvis - 07/24/19 - IMPRESSION: Interval abdominal surgery with resection/closure of a right continent ileostomy and formation of a left lower quadrant ileostomy. No evidence of bowel obstruction, abscess or other complications. Development of a trace right pleural effusion and posterior basal atelectasis. Other findings on this exam are unchanged from the previous preoperative study. Status post total proctocolectomy. Status post cholecystectomy. Pulmonary fibrosis. 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 Pinedo catheter in good position. Some degree of chronic cystitis not excluded even wall thickening. Moderate to severe degenerative changes of the lumbar spine as described above. Scoliosis again noted. Microbiology Date/Time Source Procedure Growth Status 08/01/19 01:45 Blood Blood Culture - Preliminary NO GROWTH AFTER 48 HOURS Resulted 08/01/19 01:30 Blood Blood Culture - Preliminary NO GROWTH AFTER 48 HOURS Resulted 08/01/19 10:40 Other(Specify in comment) Catheter Tip Culture - Preliminary Resulted 08/01/19 15:50 Stool Clostridium difficile Toxin Assay - Final Complete Laboratory Tests Test 08/03/19 05:00 White Blood Count 9.1 K/UL (4.8-10.8) Red Blood Count 3.03 M/UL (4.70-6.10) L Hemoglobin 8.6 G/DL (14.2-18.0) L Hematocrit 26.3 % (42.0-52.0) L Mean Corpuscular Volume 87 FL (80-99) Mean Corpuscular Hemoglobin 28.4 PG (27.0-31.0) Mean Corpuscular Hemoglobin Concent 32.8 G/DL (32.0-36.0) Red Cell Distribution Width 17.4 % (11.6-14.8) H Platelet Count 298 K/UL (150-450) Mean Platelet Volume 6.6 FL (6.5-10.1) Neutrophils (%) (Auto) 70.1 % (45.0-75.0) Lymphocytes (%) (Auto) 14.1 % (20.0-45.0) L Monocytes (%) (Auto) 11.9 % (1.0-10.0) H Eosinophils (%) (Auto) 2.9 % (0.0-3.0) Basophils (%) (Auto) 1.1 % (0.0-2.0) Sodium Level 139 MMOL/L (136-145) Potassium Level 3.8 MMOL/L (3.5-5.1) Chloride Level 108 MMOL/L (98-107) H Carbon Dioxide Level 22 MMOL/L (21-32) Anion Gap 9 mmol/L (5-15) Blood Urea Nitrogen 28 mg/dL (7-18) H Creatinine 1.3 MG/DL (0.55-1.30) Estimat Glomerular Filtration Rate mL/min (>60) Glucose Level 144 MG/DL (74-106) H Calcium Level 8.9 MG/DL (8.5-10.1) Total Bilirubin 0.3 MG/DL (0.2-1.0) Aspartate Amino Transf (AST/SGOT) 43 U/L (15-37) H Alanine Aminotransferase (ALT/SGPT) 82 U/L (12-78) H Alkaline Phosphatase 346 U/L (46-116) H Total Protein 6.0 G/DL (6.4-8.2) L Albumin 1.6 G/DL (3.4-5.0) L Globulin 4.4 g/dL Albumin/Globulin Ratio 0.4 (1.0-2.7) L Current Medications Medications (Trade) Dose Ordered Sig/Evgeny Route PRN Reason Start Time Stop Time Status Last Admin Dose Admin Acetaminophen (Tylenol) 650 mg Q4H PRN ORAL Mild Pain/Temp > 100.2 07/22/19 13:11 08/21/19 13:10 08/01/19 01:01 Acetaminophen/ Hydrocodone Bitart ([place] 5/325) 1 tab Q4H PRN ORAL Severe Pain (Pain Scale 7-10) 08/01/19 09:10 08/08/19 09:09 08/03/19 15:03 Alprazolam (Xanax) 0.25 mg Q6H PRN ORAL For Anxiety 08/01/19 09:00 08/08/19 08:59 Amlodipine Besylate (Norvasc) 5 mg Q12H PRN ORAL For High Blood Pressure 07/22/19 13:12 08/21/19 13:11 Ascorbic Acid (Vitamin C) 500 mg Q4H PRN ORAL thick ileostomy effluent 07/22/19 13:12 08/21/19 13:11 Cefepime HCl 2 gm/ Dextrose 100 ml @ 200 mls/hr Q24H IVPB 08/03/19 06:00 08/08/19 05:59 08/03/19 05:36 Chlorhexidine Gluconate (Val-Hex 2%) 1 applic DAILY@2000 TOPIC 07/22/19 20:00 08/06/19 19:59 07/31/19 20:31 Daptomycin 350 mg/ Sodium Chloride 110 ml @ 220 mls/hr Q24H IV 08/03/19 13:00 08/10/19 12:59 08/03/19 14:15 Dextrose/Sodium Chloride 1,000 ml @ 50 mls/hr Q20H IV 08/03/19 13:00 09/01/19 12:59 08/03/19 14:15 Escitalopram Oxalate (Lexapro) 10 mg DAILY ORAL 07/25/19 09:00 08/24/19 08:59 08/03/19 09:15 Fluconazole/ Sodium Chloride 100 ml @ 100 mls/hr Q24H IV 08/02/19 13:00 08/09/19 12:59 08/03/19 14:16 Hydromorphone HCl (Dilaudid) 1 mg Q8HR PRN SUBQ Severe Breakthru Pain (>7) 08/02/19 14:00 08/08/19 08:59 Levothyroxine Sodium (Synthroid) 50 mcg DAILY@0630 ORAL 07/23/19 06:30 08/06/19 06:29 08/03/19 05:36 Lidocaine (Lidoderm 5% PATCH) 1 patch DAILY TDERMAL 07/23/19 09:00 08/20/19 08:59 08/03/19 09:15 Metronidazole 100 ml @ 100 mls/hr Q8HR IVPB 08/01/19 15:00 08/08/19 14:59 08/03/19 15:13 Mirtazapine (Remeron) 7.5 mg BEDTIME PRN ORAL insomnia 07/24/19 15:15 08/23/19 15:14 08/02/19 20:45 Ondansetron HCl (Zofran) 4 mg Q4H PRN IVP Nausea & Vomiting 07/22/19 13:14 08/21/19 13:13 08/01/19 05:29 Pantoprazole (Protonix) 40 mg DAILY ORAL 07/23/19 09:00 08/06/19 08:59 08/03/19 09:15 Phytonadione (Vitamin K) 10 mg ONCE A WEEK SUBQ 07/28/19 20:00 08/06/19 19:59 07/28/19 20:15 Prednisone (predniSONE) 2.5 mg DAILY ORAL 07/29/19 10:00 08/28/19 09:59 08/03/19 09:15 Tamsulosin HCl (Flomax) 0.4 mg TWICE A DAY ORAL 07/30/19 09:00 08/06/19 08:59 08/03/19 18:37 Tramadol HCl (Ultram) 50 mg Q4H PRN ORAL Moderate Pain (Pain Scale 4-6) 08/01/19 09:10 08/08/19 09:09 Paras Ybarra MD Aug 03, 2019 19:00
--- NOTE | 2019-08-03 19:50 | NUR ---
NURSE NOTES: Received patient in bed. Awake, A/O x4. On 2 liters via NC. Laying in semi-fowlers, 1/2 side rails up.Patient reports 9/10 pain at this time, will provide PRN medication as ordered. Ileostomy draining to gravity. Right upper chest tyra noted. at bedside.
--- NOTE | 2019-08-03 19:50 | NUR ---
HAND-OFF: Report given to Sofie HERNANDEZ.
[2019-08-03 20:00] VITALS: BP 152/64
[2019-08-03] MEDS: Dyna-Hex 2% Top Sol 2oz TOPIC SCH (20:00)
[2019-08-04] VITALS: BP 137/52
[2019-08-04 04:00] VITALS: BP 120/49
[2019-08-04] MEDS: HYDROcodone/Acetamin 5/325 tab ORAL PRN ×3 (06:39→20:23)
[2019-08-04 07:20] LABS: ANION GAP 7 mmol/L (5-15); BLOOD UREA NITROGEN 17 mg/dL (7-18); CALCIUM 9.4 MG/DL (8.5-10.1); CARBON DIOXIDE 23 MMOL/L (21-32); CHLORIDE 109 MMOL/L (98-107); CREATININE 1.2 MG/DL (0.55-1.30); POTASSIUM 4.6 MMOL/L (3.5-5.1); SODIUM 139 MMOL/L (136-145)
--- NOTE | 2019-08-04 07:22 | NUR ---
HAND-OFF: Report given to Alice HERNANDEZ.
--- NOTE | 2019-08-04 07:39 | NUR ---
NURSE NOTES: dozing. no c/o pain . in no apparent distress.
[2019-08-04 07:43] LABS: BASOPHILS % (AUTO) 1.1 % (0.0-2.0); EOSINOPHILS % (AUTO) 4.1 % (0.0-3.0); HEMATOCRIT 29.6 % (42.0-52.0); HEMOGLOBIN 9.4 G/DL (14.2-18.0); LYMPHOCYTES % (AUTO) 24.4 % (20.0-45.0); MEAN CORPUSCULAR VOLUME 88 FL (80-99); MONOCYTES % (AUTO) 7.8 % (1.0-10.0); NEUTROPHILS % (AUTO) 62.6 % (45.0-75.0); PLATELET COUNT 341 K/UL (150-450); RED BLOOD COUNT 3.38 M/UL (4.70-6.10); RED CELL DISTRIBUTION WIDTH 17.9 % (11.6-14.8); WHITE BLOOD COUNT 9.2 K/UL (4.8-10.8)
[2019-08-04 08:00] VITALS: BP 109/54
[2019-08-04 08:43] LABS: CREATINE KINASE 11 U/L (26-308)
[2019-08-04] MEDS: Tamsulosin 0.4mg cap ORAL SCH ×2 (08:56→17:26)
--- NOTE | 2019-08-04 09:07 | Urology Progress Note ---
Assessment/Plan Assessment/Plan: 1. Lower urinary tract symptoms. 2. BPH history. 3. Possible neurogenic bladder. 4. Hematuria history. 5. Proteinuria history. 6. Possible urinary tract infection and colonization. 7. Mild ESAU, improved monitor clinically cont flomax BID cont abx, diflucan lasix dc'd f/u on last blood cx consider anticholinergics, but concern for causing urinary retention monitor renal fxn, improved d/w Dr. Orellana Subjective Allergies: Coded Allergies: LORAZEPAM (Verified Allergy, Mild, 07/08/19) Pt undergoes altered level of consciousness Subjective all noted, still with some urinary frequency plan to go back to [place] tomorrow Objective Last 24 Hour Vital Signs Date Time Temp Pulse Resp B/P (MAP) Pulse Ox O2 Delivery O2 Flow Rate FiO2 08/04/19 08:48 95 Nasal Cannula 3.0 32 08/04/19 08:00 98.5 77 18 109/54 (72) 97 08/04/19 04:00 98.3 67 19 120/49 (72) 96 08/04/19 00:00 98.7 66 19 137/52 (80) 90 08/03/19 21:00 Nasal Cannula 2.0 08/03/19 20:00 98.1 63 20 152/64 (93) 97 08/03/19 16:00 97.5 61 20 149/65 (93) 99 08/03/19 12:00 98.3 59 20 132/56 (81) 96 Intake and Output 08/03/19 08/04/19 19:00 07:00 Intake Total 1460 ml 950 ml Output Total 1175 ml 1385 ml Balance 285 ml -435 ml Intake Oral 400 ml 350 ml IV Total 1060 ml 600 ml Output Urine Total 450 ml 525 ml Other 725 ml 860 ml # Voids 6 3 Microbiology Date/Time Source Procedure Growth Status 08/01/19 01:45 Blood Blood Culture - Preliminary NO GROWTH AFTER 72 HOURS Resulted 08/01/19 10:40 Other(Specify in comment) Catheter Tip Culture - Preliminary Resulted 07/22/19 20:00 Sputum Expectorated Gram Stain - Final Complete 07/22/19 20:00 Sputum Culture - Final Andie Tropicalis Usual Respiratory Gloria Complete 08/01/19 15:50 Stool Clostridium difficile Toxin Assay - Final Complete 07/31/19 10:20 Urine,Clean Catch Urine Culture - Final Mixed Gram Positive Organism Complete Current Medications Medications (Trade) Dose Ordered Sig/Evgeny Route PRN Reason Start Time Stop Time Status Last Admin Dose Admin Acetaminophen (Tylenol) 650 mg Q4H PRN ORAL Mild Pain/Temp > 100.2 07/22/19 13:11 08/21/19 13:10 08/01/19 01:01 Acetaminophen/ Hydrocodone Bitart ([place] 5/325) 1 tab Q4H PRN ORAL Severe Pain (Pain Scale 7-10) 08/01/19 09:10 08/08/19 09:09 08/04/19 06:39 Alprazolam (Xanax) 0.25 mg Q6H PRN ORAL For Anxiety 08/01/19 09:00 08/08/19 08:59 Amlodipine Besylate (Norvasc) 5 mg Q12H PRN ORAL For High Blood Pressure 07/22/19 13:12 08/21/19 13:11 Ascorbic Acid (Vitamin C) 500 mg Q4H PRN ORAL thick ileostomy effluent 07/22/19 13:12 08/21/19 13:11 Cefepime HCl 2 gm/ Dextrose 100 ml @ 200 mls/hr Q24H IVPB 08/03/19 06:00 08/08/19 05:59 08/04/19 06:16 Chlorhexidine Gluconate (Val-Hex 2%) 1 applic DAILY@2000 TOPIC 07/22/19 20:00 08/06/19 19:59 07/31/19 20:31 Daptomycin 350 mg/ Sodium Chloride 110 ml @ 220 mls/hr Q24H IV 08/03/19 13:00 08/10/19 12:59 08/03/19 14:15 Dextrose/Sodium Chloride 1,000 ml @ 50 mls/hr Q20H IV 08/03/19 13:00 09/01/19 12:59 08/03/19 14:15 Escitalopram Oxalate (Lexapro) 10 mg DAILY ORAL 07/25/19 09:00 08/24/19 08:59 08/04/19 08:56 Fluconazole/ Sodium Chloride 100 ml @ 100 mls/hr Q24H IV 08/02/19 13:00 08/09/19 12:59 08/03/19 14:16 Hydromorphone HCl (Dilaudid) 1 mg Q8HR PRN SUBQ Severe Breakthru Pain (>7) 08/02/19 14:00 08/08/19 08:59 Levothyroxine Sodium (Synthroid) 50 mcg DAILY@0630 ORAL 07/23/19 06:30 08/06/19 06:29 08/04/19 06:15 Lidocaine (Lidoderm 5% PATCH) 1 patch DAILY TDERMAL 07/23/19 09:00 08/20/19 08:59 08/04/19 09:04 Mirtazapine (Remeron) 7.5 mg BEDTIME PRN ORAL insomnia 07/24/19 15:15 08/23/19 15:14 08/03/19 22:52 Ondansetron HCl (Zofran) 4 mg Q4H PRN IVP Nausea & Vomiting 07/22/19 13:14 08/21/19 13:13 08/01/19 05:29 Pantoprazole (Protonix) 40 mg DAILY ORAL 07/23/19 09:00 08/06/19 08:59 08/04/19 08:56 Phytonadione (Vitamin K) 10 mg ONCE A WEEK SUBQ 07/28/19 20:00 08/06/19 19:59 07/28/19 20:15 Prednisone (predniSONE) 2.5 mg DAILY ORAL 07/29/19 10:00 08/28/19 09:59 08/04/19 08:56 Tamsulosin HCl (Flomax) 0.4 mg TWICE A DAY ORAL 07/30/19 09:00 08/06/19 08:59 08/04/19 08:56 Tramadol HCl (Ultram) 50 mg Q4H PRN ORAL Moderate Pain (Pain Scale 4-6) 08/01/19 09:10 08/08/19 09:09 08/03/19 22:24 Laboratory Tests 08/04/19 05:10: White Blood Count 9.2, Red Blood Count 3.38L, Hemoglobin 9.4L, Hematocrit 29.6L , Mean Corpuscular Volume 88, Mean Corpuscular Hemoglobin 27.8, Mean Corpuscular Hemoglobin Concent 31.7L, Red Cell Distribution Width 17.9H, Platelet Count 341, Mean Platelet Volume 6.2L, Neutrophils (%) (Auto) 62.6, Lymphocytes (%) (Auto) 24.4, Monocytes (%) (Auto) 7.8, Eosinophils (%) (Auto) 4.1H, Basophils (%) (Auto) 1.1, Sodium Level 139, Potassium Level 4.6, Chloride Level 109H, Carbon Dioxide Level 23, Anion Gap 7, Blood Urea Nitrogen 17, Creatinine 1.2, Estimat Glomerular Filtration Rate , Glucose Level 83, Calcium Level 9.4 08/04/19 06:00: Total Creatine Kinase 11L Height (Feet): 5 Height (Inches): 6.00 Weight (Pounds): 136 Objective exam stable Julian Rodriguez MD Aug 04, 2019 09:07
[2019-08-04] MEDS: Dextrose 10%/.45 SOD CHL 1,000 ML IV SCH (09:25)
--- NOTE | 2019-08-04 11:26 | General Progress Note ---
Progress Note Progress Note AVSS Eating small amounts. Voiding + incontinence Port site drain removed Abdomen soft, stoma stable Ileostomy 1585 watery BUN 17 Cr 1.2 Imp: doing much better Plan: discharge planned for AM Imodium ac+hs prn watery output instructions/limitations/supplies discussed/provided Possibility of going to SNF in [place] after discharge here Rx 0 f/u 1 week Pako Orellana MD Aug 04, 2019 11:26
--- NOTE | 2019-08-04 11:50 | Pulmonology Progress Note ---
Assessment/Plan Assessment/Plan IMPRESSION: 1. Fever, now resolved. 2. Resolving right middle lobe infiltrate. 3. Multiple comorbidities including use of steroids, ulcerative colitis. 4. Pulmonary edema; resolved DISCUSSION: Off Lasix gtt; off daily IV Lasix Discussed with surgery TPN being decreased [place] and Xanax for anxiety/pain Will follow Oneal Allred M.D. Subjective Interval Events: None new Constitutional: Reports: no symptoms HEENT: Repors: no symptoms Respiratory: Reports: no symptoms Cardiovascular: Reports: no symptoms Gastrointestinal/Abdominal: Reports: no symptoms Genitourinary: Reports: no symptoms Neurologic: Reports: no symptoms Allergies: Coded Allergies: LORAZEPAM (Verified Allergy, Mild, 07/08/19) Pt undergoes altered level of consciousness Objective Last 24 Hour Vital Signs Date Time Temp Pulse Resp B/P (MAP) Pulse Ox O2 Delivery O2 Flow Rate FiO2 08/04/19 09:00 Nasal Cannula 2.0 08/04/19 08:48 95 Nasal Cannula 3.0 32 08/04/19 08:00 98.5 77 18 109/54 (72) 97 08/04/19 04:00 98.3 67 19 120/49 (72) 96 08/04/19 00:00 98.7 66 19 137/52 (80) 90 08/03/19 21:00 Nasal Cannula 2.0 08/03/19 20:00 98.1 63 20 152/64 (93) 97 08/03/19 16:00 97.5 61 20 149/65 (93) 99 08/03/19 12:00 98.3 59 20 132/56 (81) 96 Intake and Output 08/03/19 08/04/19 19:00 07:00 Intake Total 1460 ml 950 ml Output Total 1175 ml 1385 ml Balance 285 ml -435 ml Intake Oral 400 ml 350 ml IV Total 1060 ml 600 ml Output Urine Total 450 ml 525 ml Other 725 ml 860 ml # Voids 6 3 General Appearance: no acute distress HEENT: normocephalic Respiratory/Chest: chest wall non-tender, lungs clear Cardiovascular: normal peripheral pulses Abdomen: soft, non tender Microbiology Date/Time Source Procedure Growth Status 08/01/19 15:50 Stool Clostridium difficile Toxin Assay - Final Complete Laboratory Tests 08/04/19 05:10: White Blood Count 9.2, Red Blood Count 3.38L, Hemoglobin 9.4L, Hematocrit 29.6L , Mean Corpuscular Volume 88, Mean Corpuscular Hemoglobin 27.8, Mean Corpuscular Hemoglobin Concent 31.7L, Red Cell Distribution Width 17.9H, Platelet Count 341, Mean Platelet Volume 6.2L, Neutrophils (%) (Auto) 62.6, Lymphocytes (%) (Auto) 24.4, Monocytes (%) (Auto) 7.8, Eosinophils (%) (Auto) 4.1H, Basophils (%) (Auto) 1.1, Sodium Level 139, Potassium Level 4.6, Chloride Level 109H, Carbon Dioxide Level 23, Anion Gap 7, Blood Urea Nitrogen 17, Creatinine 1.2, Estimat Glomerular Filtration Rate , Glucose Level 83, Calcium Level 9.4 08/04/19 06:00: Total Creatine Kinase 11L Current Medications Medications (Trade) Dose Ordered Sig/Evgeny Route PRN Reason Start Time Stop Time Status Last Admin Dose Admin Acetaminophen (Tylenol) 650 mg Q4H PRN ORAL Mild Pain/Temp > 100.2 07/22/19 13:11 08/21/19 13:10 08/01/19 01:01 Acetaminophen/ Hydrocodone Bitart ([place] 5/325) 1 tab Q4H PRN ORAL Severe Pain (Pain Scale 7-10) 08/01/19 09:10 08/08/19 09:09 08/04/19 06:39 Alprazolam (Xanax) 0.25 mg Q6H PRN ORAL For Anxiety 08/01/19 09:00 08/08/19 08:59 Amlodipine Besylate (Norvasc) 5 mg Q12H PRN ORAL For High Blood Pressure 07/22/19 13:12 08/21/19 13:11 Ascorbic Acid (Vitamin C) 500 mg Q4H PRN ORAL thick ileostomy effluent 07/22/19 13:12 08/21/19 13:11 Chlorhexidine Gluconate (Val-Hex 2%) 1 applic DAILY@2000 TOPIC 07/22/19 20:00 08/06/19 19:59 07/31/19 20:31 Dextrose/Sodium Chloride 1,000 ml @ 50 mls/hr Q20H IV 08/03/19 13:00 09/01/19 12:59 08/04/19 09:25 Escitalopram Oxalate (Lexapro) 10 mg DAILY ORAL 07/25/19 09:00 08/24/19 08:59 08/04/19 08:56 Hydromorphone HCl (Dilaudid) 1 mg Q8HR PRN SUBQ Severe Breakthru Pain (>7) 08/02/19 14:00 08/08/19 08:59 Levothyroxine Sodium (Synthroid) 50 mcg DAILY@0630 ORAL 07/23/19 06:30 08/06/19 06:29 08/04/19 06:15 Lidocaine (Lidoderm 5% PATCH) 1 patch DAILY TDERMAL 07/23/19 09:00 08/20/19 08:59 08/04/19 09:04 Loperamide HCl (Imodium) 2 mg AC+HS PRN ORAL Diarrhea 08/04/19 11:15 09/03/19 11:14 08/04/19 11:28 Mirtazapine (Remeron) 7.5 mg BEDTIME PRN ORAL insomnia 07/24/19 15:15 08/23/19 15:14 08/03/19 22:52 Ondansetron HCl (Zofran) 4 mg Q4H PRN IVP Nausea & Vomiting 07/22/19 13:14 08/21/19 13:13 08/01/19 05:29 Pantoprazole (Protonix) 40 mg DAILY ORAL 07/23/19 09:00 08/06/19 08:59 08/04/19 08:56 Phytonadione (Vitamin K) 10 mg ONCE A WEEK SUBQ 07/28/19 20:00 08/06/19 19:59 07/28/19 20:15 Prednisone (predniSONE) 2.5 mg DAILY ORAL 07/29/19 10:00 08/28/19 09:59 08/04/19 08:56 Tamsulosin HCl (Flomax) 0.4 mg TWICE A DAY ORAL 07/30/19 09:00 08/06/19 08:59 08/04/19 08:56 Tramadol HCl (Ultram) 50 mg Q4H PRN ORAL Moderate Pain (Pain Scale 4-6) 08/01/19 09:10 08/08/19 09:09 08/03/19 22:24 Oneal Allred MD Aug 04, 2019 11:50
--- NOTE | 2019-08-04 11:58 | Infectious Diseases Prog Note ---
Assessment/Plan Assessment/Plan ASSESSMENT AND PLAN: 1. sepsis, leukocytosis, fevers, ? line infection, ? port, ? picc CT abdomen and pelvis without obvious source, blood cultures negative, chest x-ray with chf fungemia risk, c.diff. - neg - abx - cefepime, diflucan, daptomycin - day # 4 post port line removal - discontinue flagyl - port removed - picc line removed - fevers and leukocytosis improved - f/u on labs, f/u on cath tip culture, blood cultures negative - recent echo without vegetation, recent leg ultrasound without dvt - d/w Dr. Orellana - d/w pharmacy and 2. chf/edema - diuresis, sob better, pulmonary f/u 3. 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 4. History of multiple abdominal surgeries. 5. Hypertension. 6. Blood pressure treatment per primary care team. 7. Hypothyroidism. 8. Ulcerative colitis history. 9. Anemia. 10. History of polycythemia. 11. Allergic to lorazepam. 12. Social history negative. 13. Family history noncontributory. 14. MAR is noted. 15. Case was discussed with RN. 16. Case was discussed with Dr. Herring. 17. Case was discussed with the patient and the patient's . Subjective Constitutional: Denies: fever HEENT: Denies: congestion Respiratory: Denies: shortness of breath Cardiovascular: Denies: chest pain Gastrointestinal/Abdominal: Denies: nausea, vomiting Genitourinary: Reports: other - no pinedo Allergies: Coded Allergies: LORAZEPAM (Verified Allergy, Mild, 07/08/19) Pt undergoes altered level of consciousness Objective Vital Signs Last 24 Hour Vital Signs Date Time Temp Pulse Resp B/P (MAP) Pulse Ox O2 Delivery O2 Flow Rate FiO2 08/04/19 09:00 Nasal Cannula 2.0 08/04/19 08:48 95 Nasal Cannula 3.0 32 08/04/19 08:00 98.5 77 18 109/54 (72) 97 08/04/19 04:00 98.3 67 19 120/49 (72) 96 08/04/19 00:00 98.7 66 19 137/52 (80) 90 08/03/19 21:00 Nasal Cannula 2.0 08/03/19 20:00 98.1 63 20 152/64 (93) 97 08/03/19 16:00 97.5 61 20 149/65 (93) 99 08/03/19 12:00 98.3 59 20 132/56 (81) 96 Height (Feet): 5 Height (Inches): 6.00 Weight (Pounds): 136 General Appearance: no acute distress HEENT: normocephalic, atraumatic, anicteric Respiratory/Chest: no respiratory distress, no accessory muscle use Cardiovascular: normal rate, regular rhythm Abdomen: normal bowel sounds, soft, non tender, no organomegaly Objective Chest x-ray - 07/21/19 - Comparison: 07/20/2019 Findings: Better inspiration currently. Bilateral interstitial edema is probably unchanged allowing for differences in inspiration. Left pleural effusion is again demonstrated. The heart size is normal. Left arm PICC and right chest port catheter again demonstrated. Median sternotomy sutures are again demonstrated. Impression: Probably unchanged bilateral interstitial edema and left pleural effusion, allowing for differences in inspiration, over one day KUB - 07/21/19 Impression: Left upper quadrant small bowel loops. Given evidence of recent surgery, most likely on the basis of postoperative ileus. However, the possibility of small bowel obstruction should also be considered. CT abdomen and pelvis - report noted CT abdomen and pelvis - 07/24/19 - IMPRESSION: Interval abdominal surgery with resection/closure of a right continent ileostomy and formation of a left lower quadrant ileostomy. No evidence of bowel obstruction, abscess or other complications. Development of a trace right pleural effusion and posterior basal atelectasis. Other findings on this exam are unchanged from the previous preoperative study. Status post total proctocolectomy. Status post cholecystectomy. Pulmonary fibrosis. 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 Pinedo catheter in good position. Some degree of chronic cystitis not excluded even wall thickening. Moderate to severe degenerative changes of the lumbar spine as described above. Scoliosis again noted. Microbiology Date/Time Source Procedure Growth Status 08/01/19 15:50 Stool Clostridium difficile Toxin Assay - Final Complete Laboratory Tests Test 08/04/19 05:10 08/04/19 06:00 White Blood Count 9.2 K/UL (4.8-10.8) Red Blood Count 3.38 M/UL (4.70-6.10) L Hemoglobin 9.4 G/DL (14.2-18.0) L Hematocrit 29.6 % (42.0-52.0) L Mean Corpuscular Volume 88 FL (80-99) Mean Corpuscular Hemoglobin 27.8 PG (27.0-31.0) Mean Corpuscular Hemoglobin Concent 31.7 G/DL (32.0-36.0) L Red Cell Distribution Width 17.9 % (11.6-14.8) H Platelet Count 341 K/UL (150-450) Mean Platelet Volume 6.2 FL (6.5-10.1) L Neutrophils (%) (Auto) 62.6 % (45.0-75.0) Lymphocytes (%) (Auto) 24.4 % (20.0-45.0) Monocytes (%) (Auto) 7.8 % (1.0-10.0) Eosinophils (%) (Auto) 4.1 % (0.0-3.0) H Basophils (%) (Auto) 1.1 % (0.0-2.0) Sodium Level 139 MMOL/L (136-145) Potassium Level 4.6 MMOL/L (3.5-5.1) Chloride Level 109 MMOL/L (98-107) H Carbon Dioxide Level 23 MMOL/L (21-32) Anion Gap 7 mmol/L (5-15) Blood Urea Nitrogen 17 mg/dL (7-18) Creatinine 1.2 MG/DL (0.55-1.30) Estimat Glomerular Filtration Rate mL/min (>60) Glucose Level 83 MG/DL (74-106) Calcium Level 9.4 MG/DL (8.5-10.1) Total Creatine Kinase 11 U/L (26-308) L Current Medications Medications (Trade) Dose Ordered Sig/Evgeny Route PRN Reason Start Time Stop Time Status Last Admin Dose Admin Acetaminophen (Tylenol) 650 mg Q4H PRN ORAL Mild Pain/Temp > 100.2 07/22/19 13:11 08/21/19 13:10 08/01/19 01:01 Acetaminophen/ Hydrocodone Bitart ([place] 5/325) 1 tab Q4H PRN ORAL Severe Pain (Pain Scale 7-10) 08/01/19 09:10 08/08/19 09:09 08/04/19 06:39 Alprazolam (Xanax) 0.25 mg Q6H PRN ORAL For Anxiety 08/01/19 09:00 08/08/19 08:59 Amlodipine Besylate (Norvasc) 5 mg Q12H PRN ORAL For High Blood Pressure 07/22/19 13:12 08/21/19 13:11 Ascorbic Acid (Vitamin C) 500 mg Q4H PRN ORAL thick ileostomy effluent 07/22/19 13:12 08/21/19 13:11 Chlorhexidine Gluconate (Val-Hex 2%) 1 applic DAILY@2000 TOPIC 07/22/19 20:00 08/06/19 19:59 07/31/19 20:31 Dextrose/Sodium Chloride 1,000 ml @ 50 mls/hr Q20H IV 08/03/19 13:00 09/01/19 12:59 08/04/19 09:25 Escitalopram Oxalate (Lexapro) 10 mg DAILY ORAL 07/25/19 09:00 08/24/19 08:59 08/04/19 08:56 Hydromorphone HCl (Dilaudid) 1 mg Q8HR PRN SUBQ Severe Breakthru Pain (>7) 08/02/19 14:00 08/08/19 08:59 Levothyroxine Sodium (Synthroid) 50 mcg DAILY@0630 ORAL 07/23/19 06:30 08/06/19 06:29 08/04/19 06:15 Lidocaine (Lidoderm 5% PATCH) 1 patch DAILY TDERMAL 07/23/19 09:00 08/20/19 08:59 08/04/19 09:04 Loperamide HCl (Imodium) 2 mg AC+HS PRN ORAL Diarrhea 08/04/19 11:15 09/03/19 11:14 08/04/19 11:28 Mirtazapine (Remeron) 7.5 mg BEDTIME PRN ORAL insomnia 07/24/19 15:15 08/23/19 15:14 08/03/19 22:52 Ondansetron HCl (Zofran) 4 mg Q4H PRN IVP Nausea & Vomiting 07/22/19 13:14 08/21/19 13:13 08/01/19 05:29 Pantoprazole (Protonix) 40 mg DAILY ORAL 07/23/19 09:00 08/06/19 08:59 08/04/19 08:56 Phytonadione (Vitamin K) 10 mg ONCE A WEEK SUBQ 07/28/19 20:00 08/06/19 19:59 07/28/19 20:15 Prednisone (predniSONE) 2.5 mg DAILY ORAL 07/29/19 10:00 08/28/19 09:59 08/04/19 08:56 Tamsulosin HCl (Flomax) 0.4 mg TWICE A DAY ORAL 07/30/19 09:00 08/06/19 08:59 08/04/19 08:56 Tramadol HCl (Ultram) 50 mg Q4H PRN ORAL Moderate Pain (Pain Scale 4-6) 08/01/19 09:10 08/08/19 09:09 08/03/19 22:24 Paras Ybarra MD Aug 04, 2019 11:58
[2019-08-04 12:00] VITALS: BP 103/59
--- NOTE | 2019-08-04 14:41 | NUR ---
DISCHARGE PLANNING: DISCUSSED DISCHARGE AT BEDSIDE WITH PATIENT AND [facility] ([facility]) HAS ACCEPTED THE PATIENT FOR CORRECTION NEEDS T: [phone] (JACK) IS THE ADMISSION COORDINATOR SHE WILL BE CONTACTING TO DISCUSS ADMISSION AND ARRIVAL TIME AT THIS TIME [facility] REQUIRES PPD AND CHEST X-RAY THAT STATES "LUNGS CLEAR" CURRENT NURSE (RN FRANCES) PLACED ORDER PER DR MILLS CHEST XRAY AND PPD TO BE ADMINISTERED TODAY
--- NOTE | 2019-08-04 15:58 | NUR ---
NURSE NOTES:OSTOMY CARE : Met with pt and spouse for further education of care of Ileostomy. Attempted to engage pt in learning to care for Ileostomy but pt lacks motivation. Spouse very supportive but requested pt be more active participant . Pt declined to participate .Pt stated he would learn when he is in rehab. Ileostomy RLQ abd is beefy red moderately protrudes. Stoma measures at 1 3/8 inch(35mm). Peristomal skin is clean ,pink and dry. 2 piece system preferred by spouse and 45mm wafer with pouch in use. Pt and spouse given instruction on peristomal cleansing. Reinforced to spouse and pt to avoid using fragrance based body cleansers or wipes. Instructed on application of Cavilon Skin barrier wipes then application of Iraida's ring,applying Stomahesive Paste, then applying wafer and pouch. Spouse stated she felt confident in performing Ileostomy care but reiterated wanting spouse to be more proactive in caring for Ileostomy.All questions and concerns regarding Ileostomy care answered.
[2019-08-04 16:00] VITALS: BP 147/65
[2019-08-04] MEDS ORDERED: PPD Tuberculin Skin Test 5TU IDERMAL ONE (16:00)
--- NOTE | 2019-08-04 16:56 | Diagnostic Imaging Report ---
Indication: Shortness of breath Technique: One view of the chest Comparison: 07/27/2019 Findings: Interim removal of previously demonstrated port catheter. Bilateral diffuse interstitial prominence appears similar to the previous exam and is unchanged. Atelectatic changes are seen at left lung base. Median sternotomy sutures are again demonstrated. 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
--- NOTE | 2019-08-04 19:00 | NUR ---
NURSE NOTES: QUIET IN BED. IN NO DISTRESS.
--- NOTE | 2019-08-04 19:44 | NUR ---
HAND-OFF: Report given to Glo HOWE RN.
--- NOTE | 2019-08-04 19:45 | NUR ---
NURSE NOTES: Received report & pt from DAVID Jenkins. Pt lying in bed, a&ox4, in room air, family member at bedside. No s/s of acute distress & c/o 6/10 pain. Will give PRN pain med in a bit. Natalee ileo appliance intact. Plan of care discussed.
[2019-08-04 20:00] VITALS: BP 143/66
[2019-08-04] MEDS: Dyna-Hex 2% Top Sol 2oz TOPIC SCH (20:00)
--- NOTE | 2019-08-04 21:45 | Progress Note ---
DATE: 08/03/2019 SUBJECTIVE: The patient is doing well. Less anxious. at bedside. No behavior issues noted. Sleep and appetite is adequate. No behavior issues noted. MENTAL STATUS EXAMINATION: The patient is alert and oriented times self, place, situation. Hard of hearing. Mood is anxious. Affect is constricted, congruent with mood. Thought process, linear and goal oriented. Thought content, no suicidal or homicidal ideation. Cognition is intact. Insight and judgment is fair. ASSESSMENT: 1. Anxiety disorder. 2. Depression. PLAN: We will continue the current psychotropic medication. The patient was being discharged and we will give the prescription. Ember English M.D. DR: LUCIE JOB#: [id number] CC:
[2019-08-05 04:00] VITALS: BP 134/72
[2019-08-05] MEDS: HYDROcodone/Acetamin 5/325 tab ORAL PRN (05:45)
--- NOTE | 2019-08-05 07:16 | Urology Progress Note ---
Assessment/Plan Assessment/Plan: 1. Lower urinary tract symptoms. 2. BPH history. 3. Possible neurogenic bladder. 4. Hematuria history. 5. Proteinuria history. 6. Possible urinary tract infection and colonization. 7. Mild ESAU, improved monitor clinically cont flomax BID s/p abx, diflucan lasix dc'd f/u on last blood cx consider anticholinergics, but concern for causing urinary retention monitor renal fxn, improved pt to f/u with local urologist for further evaluation will benefit from cysto, poss urodynamics d/w pt and fully Subjective Allergies: Coded Allergies: LORAZEPAM (Verified Allergy, Mild, 07/08/19) Pt undergoes altered level of consciousness Subjective all noted, still with some urinary frequency going back to [place] today Objective Last 24 Hour Vital Signs Date Time Temp Pulse Resp B/P (MAP) Pulse Ox O2 Delivery O2 Flow Rate FiO2 08/05/19 04:00 98.8 83 17 134/72 (92) 94 08/04/19 21:12 93 Room Air 21 08/04/19 21:00 Room Air 08/04/19 20:00 99.3 71 16 143/66 (91) 93 08/04/19 16:00 98.2 67 18 147/65 (92) 97 08/04/19 15:48 98.4 08/04/19 12:00 98.4 74 18 103/59 (74) 97 08/04/19 09:00 Nasal Cannula 2.0 08/04/19 08:48 95 Nasal Cannula 3.0 32 08/04/19 08:00 98.5 77 18 109/54 (72) 97 Intake and Output 08/04/19 08/05/19 19:00 07:00 Intake Total 670 ml 400 ml Output Total 425 ml 2125 ml Balance 245 ml -1725 ml Intake Oral 220 ml 400 ml IV Total 450 ml Output Urine Total 425 ml 525 ml Other 1600 ml # Voids 4 Microbiology Date/Time Source Procedure Growth Status 08/01/19 01:45 Blood Blood Culture - Preliminary NO GROWTH AFTER 4 DAYS Resulted 08/01/19 10:40 Other(Specify in comment) Catheter Tip Culture - Preliminary Resulted 07/22/19 20:00 Sputum Expectorated Gram Stain - Final Complete 07/22/19 20:00 Sputum Culture - Final Andie Tropicalis Usual Respiratory Gloria Complete 08/01/19 15:50 Stool Clostridium difficile Toxin Assay - Final Complete 07/31/19 10:20 Urine,Clean Catch Urine Culture - Final Mixed Gram Positive Organism Complete Current Medications Medications (Trade) Dose Ordered Sig/Evgeny Route PRN Reason Start Time Stop Time Status Last Admin Dose Admin Acetaminophen (Tylenol) 650 mg Q4H PRN ORAL Mild Pain/Temp > 100.2 07/22/19 13:11 08/21/19 13:10 08/01/19 01:01 Acetaminophen/ Hydrocodone Bitart (Logan 5/325) 1 tab Q4H PRN ORAL Severe Pain (Pain Scale 7-10) 08/01/19 09:10 08/08/19 09:09 08/05/19 05:45 Alprazolam (Xanax) 0.25 mg Q6H PRN ORAL For Anxiety 08/01/19 09:00 08/08/19 08:59 Amlodipine Besylate (Norvasc) 5 mg Q12H PRN ORAL For High Blood Pressure 07/22/19 13:12 08/21/19 13:11 Ascorbic Acid (Vitamin C) 500 mg Q4H PRN ORAL thick ileostomy effluent 07/22/19 13:12 08/21/19 13:11 Chlorhexidine Gluconate (Val-Hex 2%) 1 applic DAILY@2000 TOPIC 07/22/19 20:00 08/06/19 19:59 07/31/19 20:31 Escitalopram Oxalate (Lexapro) 10 mg DAILY ORAL 07/25/19 09:00 08/24/19 08:59 08/04/19 08:56 Hydromorphone HCl (Dilaudid) 1 mg Q8HR PRN SUBQ Severe Breakthru Pain (>7) 08/02/19 14:00 08/08/19 08:59 Levothyroxine Sodium (Synthroid) 50 mcg DAILY@0630 ORAL 07/23/19 06:30 08/06/19 06:29 08/05/19 05:41 Lidocaine (Lidoderm 5% PATCH) 1 patch DAILY TDERMAL 07/23/19 09:00 08/20/19 08:59 08/04/19 09:04 Loperamide HCl (Imodium) 2 mg AC+HS PRN ORAL Diarrhea 08/04/19 11:15 09/03/19 11:14 08/05/19 05:41 Mirtazapine (Remeron) 7.5 mg BEDTIME PRN ORAL insomnia 07/24/19 15:15 08/23/19 15:14 08/04/19 22:05 Ondansetron HCl (Zofran) 4 mg Q4H PRN IVP Nausea & Vomiting 07/22/19 13:14 08/21/19 13:13 08/04/19 15:19 Pantoprazole (Protonix) 40 mg DAILY ORAL 07/23/19 09:00 08/06/19 08:59 08/04/19 08:56 Prednisone (predniSONE) 2.5 mg DAILY ORAL 07/29/19 10:00 08/28/19 09:59 08/04/19 08:56 Tamsulosin HCl (Flomax) 0.4 mg TWICE A DAY ORAL 07/30/19 09:00 08/06/19 08:59 08/04/19 17:26 Tramadol HCl (Ultram) 50 mg Q4H PRN ORAL Moderate Pain (Pain Scale 4-6) 08/01/19 09:10 08/08/19 09:09 08/03/19 22:24 Height (Feet): 5 Height (Inches): 6.00 Weight (Pounds): 136 Objective exam stable Julian Rodriguez MD Aug 05, 2019 07:16
--- NOTE | 2019-08-05 07:35 | NUR ---
DISCHARGE NOTE: D/C'd pt to home as ordered. Denies pain. All D/C paperwork signed & explained. Belongings signed. All questions asked. Accompanied pt via W/C with staff.
[2019-08-05] MEDS ORDERED: NS 275ml ONE (07:38)
--- NOTE | 2019-08-10 10:52 | Discharge Summary ---
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 The patient had a past history of ulcerative colitis and in 1984 he underwent proctocolectomy with creation of a [place] continent ileostomy. It had to be revised twice in subsequent years. In August 2017, in [place], he underwent surgery to create a new valve and stoma , preserving the [place] continent ileostomy pouch. The patient stated that for the past six months he has had recurring episodes with the valve prolapses through the stoma of 5 to 6 centimeters above the skin. He had to manually reduce it. There was gross incontinence, and then he was able to self catheterize again. The patient had considerable GI bleeding from his pouch a year ago and has been treated with Humira every two weeks by his hide house supervisor in [place] and he also takes prednisone 5 mg daily. The patient was admitted to undergo evaluation in preparation for surgical revision of his [place] pouch. Consultations Upsetter Helper Dr. Townsend Psychotherapist Counselor Dr. Allred Urologist Dr. Jennifer BECKHAM specialsit Dr Sanchez Psychiatrist Procedures s/p 07/09/[address] Orellana s/p [place] continent ileostomy pouch endoscopy. s/p 07/13/[address] Orellana Resection of failed [place] continent ileostomy, repair of parastomal hernia, creation of conventional Natalee ileostomy in left lower quadrant s/p 07/15/[address] Orellana Control of ileostomy stoma bleeding. s/p 08/01/[address] Orellana Removal of subcutaneous infusion port, right upper chest. Hospital Course patient initially evaluated with CT scan of the abdomen and pelvis indwelling catheter was placed into the [place] pouch to continuous drainage TPN started via infusion port ( present on admission) due to evidence of malnutrition. laboratory work-up revealed evidence of low iron , and patient started on daily Venofer patient started on clear liquid diet dual-lumen PICC inserted CT scan of abdomen and pelvis revealed parastomal hernia with small bone bowels , surrounding the stoma pouch endoscopy done on 07/09 was normal without any signs of erythema, inflammation or ulceration the nipple valve was circumferentially well formed and reduced into the pouch cardiology evaluation was requested prior to surgery due to new onset of hypertension antihypertensive regimen was optimized as per central office equipment installer. central office equipment installer cleared patient to proceed with the surgery bowel prep and clear liquid administered prior to surgery patient subsequently undergone on 07/13 resection of failed [place] continent ileostomy, repair of parastomal hernia, creation of conventional loop ileostomy in the left lower quadrant patient was on IV fluids , TPN, antibiotics Guadarrama catheter was maintained labs, intake and output were closely monitored n.p.o. status continued noted ileostomy stoma bleeding stoma appliance left off with 4 x 4 placed to absorb bleeding was noted to be from inferior aspect of ileostomy , which was packed with a Surgi-gel and no appliance was placed ; there was no output yet from ileostomy patient received 1 unit of blood on patient undergone under MAC anesthesia with IV sedation control of ileostomy stoma bleeding; bleeding was controlled /hemostasis achieved noted right upper extremity swelling patient had prior Estefania-cath in the right chest for 4 years venous duplex of the right arm was negative right arm was kept elevated , while in the bed pain management was addressed patient was working with physical therapist antiemetic provided as needed 07/19 patient was noted a new onset of fever and mild leukocytosis ID specialist followed. blood cultures were negative influenza swab was negative urinalysis was negative for evidence of UTI chest x-ray demonstrated developing right basilar atelectasis and possible retrocardiac consolidation ileostomy with output ID consult was requested patient started on empiric antibiotics incentive spirometry was encouraged while in the bed antibiotic further provided as per ID recommendations patient had respiratory distress and transferred to ICU pulmonology consult was requested patient started on diuresis for pulmonary edema as per field installer patient noted to have abdominal distention stat KUB demonstrated evidence of likely postoperative ileus patient remained n.p.o. except meds, TPN continued antibiotics continued patient continued to be in ICU magnesium was replaced intake and output and labs were closely monitored patient continued to have leukocytosis empiric antibiotics continued all cultures were negative recent echocardiogram revealed no evidence of vegetation repeated CT scan abdomen/pelvis revealed no acute intraabdominal pathology to account for leukocytosis PICC line was removed Port-A-Cath was removed surgically on 08/01 due to persistent leukocytosis of note : patient had a 4 yrs history of having a subcutaneous infusion port, which was used fro TPN tip culture from both PICC and Estefania cath negative, blood culture were negative patient had a peripheral line placement. leukocytosis resolved 08/03, fevers resolved earlier on 08/01. ileus was gradually resolving patient was started on clear liquid diet , TPN was continued NEUROPHYSIOLOGICAL TECHNICIAN continued home medication resumed for back pain diet was advanced to full as tolerated TPN continued Guadarrama catheter was discontinued after Lasix was stopped patient advanced on BCIR low residue diet patient started on Imodium as needed for watery output TPN was continued until sufficient amount of oral intake , and the was stopped prednisone dose was decreased and eventually it stopped as patient no longer needed it with removal of inflamed/bleeding [place] pouch psychiatrist followed reality orientation and supportive therapy provided psychiatric medication regimen was optimized as per psychiatrist patient clinically stabilized instruction/limitations/supplies discussed/provided patient was accepted to [facility]p facility at [place] ; contact information/admission coordinator provided to family and patient patient was stable for discharge FINAL DIAGNOSES 1. 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 2. 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 3. History of ulcerative colitis. 4. STATUS POST MULTIPLE ABDOMINAL OPERATIONS: 4.1. Proctocolectomy and [place] continent ileostomy in 1984. 4.2. Revisions of [place] pouch x2, dates unknown. 4.3. Open cholecystectomy. 4.4. Revision of [place] pouch performed in [place] in August 2017. 5. 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 Hypertension 7. Malnutrition 8. Iron deficiency anemia 9. Coronary artery disease, status post 5 vessel coronary artery bypass graft/ currently stable without ischemia. 10. Hypothyroidism. 11. s/p 07/13/19 resection of failed [place] continent ileostomy, repair of parastomal hernia, creation of conventional Natalee ileostomy in left lower quadrant. 12.Ileus 13.Ileostomy stoma bleeding 14. s/p 07/15/19 control of ileostomy stoma bleeding. 15.Pulmonary edema 16. Ileus 17. Sepsis with leukocytosis and fevers-resolved 18. Anxiety disorder 19. Depression Discharge Condition Upon Discharge: stable Discharge Vital Signs Last Vital Signs Date Time Temp Pulse Resp B/P (MAP) Pulse Ox O2 Delivery O2 Flow Rate FiO2 08/05/19 04:00 98.8 83 17 134/72 (92) 94 08/04/19 21:12 Room Air 21 08/04/19 09:00 2.0 Discharge Disposition Patient was discharged to SNF at [place] Discharge Instructions Discharge Instructions Special Instructions I have been assigned to complete a D/C Summary on this account. I was not involved in the patient management Rosio Rhoades NP Aug 10, 2019 10:52
--- NOTE | 2019-09-03 10:57 | General Progress Note ---
Progress Note Progress Note This patient had a prolonged hospital stay with persistent fever and/or leukocytosis. He underwent extensive evaluation and antibiotic treatment per Infections Disease parts consultant. He had a 4 year history of having a subcutaneous infusion port in the right upper chest which was used for TPN. ( The patient had many indications for TPN). He also required insertion of a left upper extremity PICC for all his other IV fluid and medication needs, separate from the TPN. Although all blood and catheter cultures were negative including when the PICC was removed, his fevers and leukocytosis remained. Once the infusion port was removed he became and remained afebrile with normal WBC. Pako Orellana MD Sep 03, 2019 10:57
== END 2019-08-05 07:39 | disposition home or self-care (01) | DRG 329 ==
LOC: EMR 18:08 → EDSEX 18:08 → 3E 18:10 → EDBEDREQ 18:31 → 3E 07-11 11:36 → ICU 07-20 22:30 → 3E 07-22 13:00
PROC: B518ZZA Fluoroscopy of Superior Vena Cava, Guidance (ICD-10-PCS; principal; 2019-07-08)
PROC: 02HV33Z Insertion of Infusion Device into Superior Vena Cava, Percutaneous Approach (ICD-10-PCS; principal; 2019-07-08)
PROC: 0DJD8ZZ Inspection of Lower Intestinal Tract, Via Natural or Artificial Opening Endoscopic (ICD-10-PCS; 2019-07-09)
PROC: 0WQF0ZZ Repair Abdominal Wall, Open Approach (ICD-10-PCS; 2019-07-13)
PROC: 0D1B0Z4 Bypass Ileum to Cutaneous, Open Approach (ICD-10-PCS; 2019-07-13)
PROC: 0DNB0ZZ Release Ileum, Open Approach (ICD-10-PCS; 2019-07-13)
PROC: 0DBB0ZZ Excision of Ileum, Open Approach (ICD-10-PCS; 2019-07-13)
PROC: 0W3F3ZZ Control Bleeding in Abdominal Wall, Percutaneous Approach (ICD-10-PCS; 2019-07-15)
PROC: 02PY33Z Removal of Infusion Device from Great Vessel, Percutaneous Approach (ICD-10-PCS; 2019-08-01)
PROC: 0JPT0WZ Removal of Totally Implantable Vascular Access Device from Trunk Subcutaneous Tissue and Fascia, Open Approach (ICD-10-PCS; 2019-08-01)
DX: K94.13 Enterostomy malfunction (principal); E43 Unspecified severe protein-calorie malnutrition; T80.212A Local infection due to central venous catheter, initial encounter; A41.9 Sepsis, unspecified organism; Z68.1 Body mass index [BMI] 19.9 or less, adult; K51.90 Ulcerative colitis, unspecified, without complications; K56.7 Ileus, unspecified; N39.0 Urinary tract infection, site not specified; N17.9 Acute kidney failure, unspecified; K43.5 Parastomal hernia without obstruction or gangrene; I71.4 Abdominal aortic aneurysm, without rupture; K94.11 Enterostomy hemorrhage; R15.9 Full incontinence of feces; I25.10 Atherosclerotic heart disease of native coronary artery without angina pectoris; Z95.1 Presence of aortocoronary bypass graft; I65.23 Occlusion and stenosis of bilateral carotid arteries; F41.9 Anxiety disorder, unspecified; N40.0 Benign prostatic hyperplasia without lower urinary tract symptoms; N31.9 Neuromuscular dysfunction of bladder, unspecified; E86.0 Dehydration; R09.02 Hypoxemia; I11.0 Hypertensive heart disease with heart failure; I50.9 Heart failure, unspecified; F32.9 Major depressive disorder, single episode, unspecified; K66.0 Peritoneal adhesions (postprocedural) (postinfection)
CPT/HCPCS: 36415; 36569; 36600; 71045; 74018; 74176; 74177; 76937; 80048; 80053; 80202; 81001; 81003; 82150; 82550; 82607; 82728; 82746; 82803; 82962; 83540; 83550; 83690; 83735; 84100; 85007; 85025; 85610; 85651; 85730; 86140; 86580; 86710; 86850; 86900; 86901; 86920; 87040; 87070; 87086; 87205; 87324; 93005; 93306; 93931; 93970; 94003; 94150; 94640; 99285; J1815; J2250; J2405; J2710; J7030; J7620